=== PATIENT | male | born 1950 | race Caucasian/White ===

== ENCOUNTER 2017-08-20 06:10 | Outpatient (CLI) | payer BC ==
--- NOTE | ~2017-08-20 | HEMODYNAMI ---
PATIENT:MERNA VALDEZ MEDICAL RECORD: [id number] : 54 LOCATION:[facility] ADMISSION DATE: 08/20/17 Generatedon:08/20/20178:10 Patient name: MERNA VALDEZ Patient #: [id number] SSN: : 1950 Date of study: 08/20/2017 Page: Of Hemodynamic Procedure Report Patient Data Patient Demographics Procedure consent was obtained First Name: MERNA Gender: Male Last Name: JOSÉ MIGUEL : 1950 Patient #: [id number] Age: 67 year(s) Race: Additional ID: [id number] Contact details Address: [address] [place] [address] State: [place] City: [facility] Zip code: [address] Past Medical History Allergies: No known allergies Admission Admission Data Admission Date: 08/20/2017 Admission Time: 7:30 Procedure Procedure Types Cath Procedure Diagnostic Procedure LHC LHC w/Coronaries PCI Procedure Coronary Stent Initial Miscellaneous Procedures Moderate Sedation up to 30 minutes Peripheral Cath Diagnostic Procedure Cath Peripheral Rpecn-Fqhyxws-Iui-Off Procedure Description Procedure Date Procedure Date: 08/20/2017 Procedure Start Time: 7:46 Procedure End Time: 8:09 Procedure Staff Name Function Jose Campbell MD Performing Physician Patricio Hernandez RT Scrub Duc Krueger RN Nurse Carlitos Rivera RT Monitor Procedure Data Cath Procedure Fluoroscopy Diagnostic fluoroscopy Total fluoroscopy Time: 2.7 time: 2.7 min min Diagnostic fluoroscopy Total fluoroscopy dose: 707 dose: 707 mGy mGy Contrast Material Contrast Material Type Amount (ml) Isovue 300 132 Entry Location Entry Primary Successful Side Size Upsize Upsize Entry Closure Succes sful Closure Location (Fr) 1 (Fr) 2 (Fr) Remarks Device Remarks Femoral Left 6 Fr Exoseal artery Short Estimated blood loss: 10 ml Diagnostic catheters Device Type Used For End Catheter Placement Cordis 5Fr Pigtail Procedure Catheter (MP) Cordis 5Fr JL 4.0 Procedure Catheter (MP) Cordis 5Fr 3DRC Catheter Procedure (MP) Procedure Complications No complications Procedure Medications Medication Administration Route Dosage Oxygen NC 2 l/min Heparin Flush Bag added to field 2 bags (1000units/500ml NS) 0.9% NaCl I.V. 100 ml/hr Fentanyl I.V. 50 mcg Versed I.V. 1 mg Fentanyl I.V. 50 mcg Versed I.V. 1 mg Fentanyl I.V. 50 mcg Heparin Bolus I.V. 4000 units Fentanyl I.V. 50 mcg Hemodynamics Rest Heart Rate: 62 (bpm) Pressure Samples Time Site Value (mmHg) Purpose Heart Use Rate(bpm) 7:48 LV 222/18,4 Snapshot 66 7:51 AO 117/54(77) Snapshot 68 Snapshots Pre Cath Intra NCS Post Cath Vital Signs Time Heart Resp SPO2 etCO2 [id number] NIBP (mmHg) Rhythm Pain Sedation Rate (ipm) (%) (mmHg) (mmHg) Status Level (bpm) 7:15:42 55 17 92 0 0 163/73(120) NSR 0 (11) 10(A) , No pain 7:20:36 60 17 98 0 0 179/89(141) NSR 0 (11) 10(A) , No pain 7:25:34 59 18 95 0 0 150/72(117) NSR 0 (11) 10(A) , No pain 7:30:25 62 17 94 0 0 144/76(105) NSR 0 (11) 10(A) , No pain 7:35:09 64 19 94 0 0 134/83(118) NSR 0 (11) 10(A) , No pain 7:39:54 64 18 93 0 0 136/82(118) NSR 0 (11) 10(A) , No pain 7:44:41 67 19 94 0 0 145/78(135) NSR 0 (11) 10(A) , No pain 7:49:23 64 18 92 0 0 132/74(119) NSR 0 (11) 9(A) , No pain 7:54:10 70 18 93 0 0 148/72(117) NSR 0 (11) 9(A) , No pain 7:59:36 78 17 93 0 0 141/83(127) NSR 0 (11) 9(A) , No pain 8:06:01 70 17 94 0 0 155/83(129) NSR 0 (11) 9(A) , No pain Medications Time Medication Route Dose Verified Delivered Reason Notes Effectiveness by by 7:20:04 Oxygen NC 2 Jose Xavier Per physician l/min Adrian Krueger RN 7:20:12 Heparin Flush added 2 Jose Lozanoy used for Bag to bags Adrian Krueger RN procedure (1000units/500ml field NS) 7:20:22 0.9% NaCl I.V. 100 Jose Lozanoy Per physician ml/hr Adrian Krueger RN 7:44:47 Fentanyl I.V. 50 Jose Duc for sedation mcg Adrian Krueger RN 7:44:53 Versed I.V. 1 mg Jose Lozanoy for sedation Adrian Krueger RN 7:50:00 Fentanyl I.V. 50 Jose Duc for sedation mcg Adrian Krueger RN 7:50:03 Versed I.V. 1 mg Jose Lozanoy for sedation Adrian Krueger RN 7:52:55 Fentanyl I.V. 50 Jose Lozanoy for sedation mcg Adrian Krueger RN 7:56:04 Heparin Bolus I.V. 4000 Jose Duc for units Adrian Krueger RN anticoagulation 7:59:43 Fentanyl I.V. 50 Jose Lozanoy for sedation mcg Adrian Krueger RN Procedure Log Time Note 6:46:16 Informed consent obtained and on chart 6:46:47 Diagnostic Cath Status : Elective 7:00:58 Patricio Hernandez RT(R) (CV) sent for patient. Start room use. 7:05:05 Time tracking: Regular hours 7:05:09 Plan of Care:Hemodynamics will remain stable., Cardiac rhythm will remain stable., Comfort level will be maintained., Respiratory function will remain adequate., Patient/ family verbilizes understanding of procedure., Procedure tolerated without complication., Recovers from procedure without complications.. 7:08:20 Patient received from Pre/Post Procedure Room to CCL 1 Alert and oriented. Tansferred to table in Supine position. 7:08:21 Warm blankets applied, and sheridan hugger turned on for patient comfort. 7:08:22 Correct patient and procedure confirmed by team. 7:08:23 ECG and BP/O2 sat monitors applied to patient. 7:14:37 Vital chart was started 7:20:04 Oxygen 2 l/min NC was administered by Duc Krueger RN; Per physician; 7:20:12 Heparin Flush Bag (1000units/500ml NS) 2 bags added to field was administered by Duc Krueger RN; used for procedure; 7:20:22 0.9% NaCl 100 ml/hr I.V. was administered by Duc Krueger RN; Per physician; 7:22:32 Baseline sample Acquired. 7:22:55 Rhythm: sinus rhythm 7:22:57 Full Disclosure recording started 7:23:31 H&P Date Dictated: 08/11/2017 Within 30 days and on chart., H&P Addendum completed by physician on day of procedure. (MUST COMPLETE FOR ALL OUTPATIENTS). 7:23:33 Pre-procedure instructions explained to patient. 7:23:33 Pre-op teaching completed and patient verbalized understanding. 7:23:40 Family in patients room. 7:23:41 Patient NPO since Midnight. 7:23:43 Is the patient allergic to Iodine/contrast media? No. 7:23:45 Is patient on blood thinner?Yes 7:23:48 ACC The patient was administered the following blood thiners within the last 24 hours: ACCEffient 7:23:49 Patient diabetic? Yes. 7:23:51 If diabetic: On Metformin? No 7:23:58 Previous problem with sedation/anesthesia? No ? 7:24:00 Snore? Yes 7:24:06 Sleep apnea? No 7:24:08 Deviated septum? No 7:24:09 Opens mouth fully? Yes 7:24:10 Sticks out tongue? Yes 7:24:13 Airway obstruction? Yes COPD 7:24:17 Dentures? No ? 7:24:27 Pre procedure: right dorsailis pedis pulse Doppler 7:24:32 Pre procedure: left dorsailis pedis pulse Doppler 7:24:35 Modified Tommy's test Ulnar < 7 seconds 7:24:37 Patient pain scale 0/10 ?. 7:24:57 IV patent on arrival in left forearm with 0.9% NaCl at [facility]. 7:24:59 Lab results completed and on chart. 7:25:07 Bilateral groins area was prepped with chlora-prep and draped in sterile fashion 7:25:08 Right Radial area was prepped with chlora-prep and draped in sterile fashion 7:25:09 Alarms reviewed by R. N. 7:25: Sharps counted by scrub and verified by R.N. 7:25:46 Physician paged 7:30:55 Zero performed for pressure channel P1 7:43:36 PERCUTANEOUS ENTRY 19GA needle opened to sterile field. 7:43:39 --------ALL STOP TIME OUT------ 7:43:39 Final Timeout: patient, procedure, and site verified with staff and physician. All members of the team are in agreement. 7:43:43 Bilateral groins site verified by team. 7:43:53 Physical assessment completed. ASA score P 2 - A patient with mild systemic disease as per Jose Campbell MD. 7:43:57 Sedation plan: IV Moderate Sedation Versed, Fentanyl 7:44:47 Fentanyl 50 mcg I.V. was administered by Duc Krueger RN; for sedation; 7:44:53 Versed 1 mg I.V. was administered by Duc Krueger RN; for sedation; 7:45:39 Use device set Femoral Dx 7:45:40 Tegaderm 4 x 4 opened to sterile field. 7:45:41 Acist Hand Control opened to sterile field. 7:45:41 Acist Manifold opened to sterile field. 7:45:43 Acist Syringe opened to sterile field. 7:45:43 Bag Decanter opened to sterile field. 7:45:43 Medline Cath Pack opened to sterile field. 7:45:44 St Erasmo 260cm J .035 wire opened to sterile field. 7:45:45 Diagnostic Infinity 5Fr Multipack catheter opened to sterile field. 7:45:52 Terumo 6Fr [place] Sheath opened to sterile field. 7:45:59 Procedure started. 7:46:03 Local anesthetic to left femerol artery with Lidocaine 2% by Jose Campbell MD.INITIAL ACCESS ONLY 7:47:05 A 6 Fr Short sheath was inserted into the Left Femoral artery 7:47:45 A Cordis 5Fr Pigtail Catheter (MP) was advanced over the wire and used for Procedure. 7:48:19 LV angiography performed. 7:48:25 LV gram done using HORNER 7:48:45 EF : 55 % 7:49:21 Injector settings: Ml/sec: 10, Volume: 20, 7:49:45 Abdominal Aortagram was performed. 7:49:51 Left leg runoff performed. 7:49:52 Right leg runoff performed. 7:50:00 Fentanyl 50 mcg I.V. was administered by Duc Krueger RN; for sedation; 7:50:03 Versed 1 mg I.V. was administered by Duc Krueger RN; for sedation; 7:50:32 Injector settings: Ml/sec: 10, Volume: 20, 7:50:36 Catheter removed. 7:50:45 A Cordis 5Fr JL 4.0 Catheter (MP) was advanced over the wire and used for Procedure. 7:51:38 LCA angiography performed. 7:52:43 Catheter removed. 7:52:49 A Cordis 5Fr 3DRC Catheter (MP) was advanced over the wire and used for Procedure. 7:52:55 Fentanyl 50 mcg I.V. was administered by Duc Krueger RN; for sedation; 7:53:29 RCA angiography performed. 7:53:33 Catheter removed. 7:53:53 Affinity Therapeuticstronic Launcher 6Fr AR 1.0 guide catheter opened to sterile field. 7:53:53 Yadav Whisper J 300cm 0.014 guide wire opened to sterile field. 7:53:54 Lean Train BasixCompak Inflation Kit opened to sterile field. 7:56:04 Heparin Bolus 4000 units I.V. was administered by Duc Krueger RN; for anticoagulation; 7:56:05 6 Fr AR 1 guide catheter was inserted over the wire 7:56:18 Study PCI Site: [place] pRCA has 80% stenosis. 7:56:20 ACC Pre-intervention GREGG Flow is 3. 7:57:19 Whisper wire advanced. 7:57:40 Wire advanced across lesion. 7:58:11 Inflation Number: 1 A Holstein OTW 3.5 x 15 stent was prepped and advanced across the Prox RCA. The stent was deployed at 23 SARAH for 0:10 (min:sec). 7:59:22 ACC Post-intervention GREGG Flow is 3. 7:59:23 Stent catheter was removed intact over wire. 7:59:24 Wire removed. 7:59:24 Guide catheter removed. 7:59:43 Fentanyl 50 mcg I.V. was administered by Duc Krueger RN; for sedation; 8:02:05 Cordis 6Fr Exoseal opened to sterile field. 8:02:20 Sheath removed intact; hemostasis achieved with Exoseal to the Left Femoral artery. 8:02:25 Procedure ended.(Physican Out) 8:02:41 Fluoroscopy time 02.70 minutes. 8:02:45 Fluoroscopy dose: 707 mGy 8:02:45 Flurop Dose total: 707 8:02:50 Contrast amount:Isovue 300 132ml. 8:03:20 Sharps counted by scrub and verified by R.N. 8:03:35 Insertion/operative site no bleeding no hematoma. 8:03:40 Post-op/insertion site Left Femoral artery dressed using a 4 x 4 and Tegaderm. 8:03:42 Post Procedure Pulses reassessed and unchanged 8:03:45 Post-procedure physical assessment completed. ASA score P 2 - A patient with mild systemic disease as per Joes Campbell MD. 8:03:47 Post procedure rhythm: unchanged. 8:03:50 Estimated blood loss: 10 ml 8:03:52 Post procedure instruction explained to patient.Patient verbalizes understanding. 8:03:53 Patient needs reinforcement of post procedure teaching. 8:04:13 Procedure type changed to Cath procedure, Diagnostic procedure, LHC, LHC w/Coronaries, PCI procedure, Coronary Stent Initial, Miscellaneous Procedures, Moderate Sedation up to 30 minutes, Peripheral Cath Diagnostic Procedure, Cath Peripheral, Cltre-Dliwobs-Wkp-Off 8:04:14 Procedure and supply charges have been captured, reviewed, submitted and are correct. 8:05:26 Procedure Complication : No complications 8:09:29 Vital chart was stopped 8:09:30 See physician's report for complete and final results. 8:09:33 Report given to Pre/Post Procedure Room. 8:09:36 Patient transfered to Pre/Post Procedure Room with Stretcher. 8:09:38 Procedure ended. 8:09:38 Full Disclosure recording stopped 8:09:49 End room use (Document Last) Intervention Summary Intervention Notes Time ActionType Lesion and Equipment Action# Pressure Duration Attributes Used 7:58:11 Place stent Prox RCA Holstein OTW 1 23 00:10 3.5 x 15 stent Device Usage Item Name Manufacture Quantity Catalog Hospital Part Current Minim al Lot# / Number Charge Number Stock Stock Serial# Code PERCUTANEOUS Cook Medical 1 [id number] [id number] 5 ENTRY 19GA needle Tegaderm 4 x 3M 1 [id number] 191792 405791 831405 5 4 Acist Hand Acist 1 35735 118075 392857 682454 5 Control Medical Systems Inc Acist Acist 1 18385 498438 049370 405911 5 Manifold Medical Systems Inc Acist Acist 1 33567 012956 150667 219369 20 Syringe Medical Systems Inc Bag Decanter Microtek 1 2002S 327714 77058 005749 5 Medical Inc. Medline Cath Cardinal 1 [id number] 578666 38038 068464 5 [facility] Health St Erasmo St Erasmo 1 071040 288164 285337 037786 30 260cm J .035 wire Diagnostic Cardinal 1 [id number] 159056 58233 800325 30 Infinity 5Fr Health Multipack catheter Terumo 6Fr Terumo 1 [id number] 241779 007909 036159 40 Atwater Sheath Cordis 5Fr Cardinal 1 667800 5 Pigtail Health Catheter (MP) Cordis 5Fr Cardinal 1 464698 5 JL 4.0 Health Catheter (MP) Cordis 5Fr Cardinal 1 812210 5 3DRC Health Catheter (MP) Medtronic Medtronic 1 [id number] 537615 90981 527457 1 Launcher 6Fr AR 1.0 guide catheter Yadav Yadav 1 [id number] 457903 229883 863109 5 Whisper J Vascular 300cm 0.014 guide wire Merit Merit 1 [id number] 830084 028963 427912 15 [facility] Medical Inflation Kit Holstein OTW 3.5 Medtronic 1 [id number] 975949 8619997 261536 5 [id number] x 15 stent Cordis 6Fr Cardinal 1 [id number] 964762 598892 391047 10 [facility] netZentry Signature Audit [place] Stage Time Signature Unsigned Intra-Procedure 08/20/2017 Carlitos Rivera 8:10:22 AM RT(R) Signatures Monitor : Carlitos Rivera RT Signature : Date : Time : [facility] [address] [place] [address]
--- NOTE | ~2017-08-20 | OP ---
PATIENT NAME: MERNA VALDEZ MEDICAL RECORD: [id number] :54 LOCATION:D.CAT ADMISSION DATE: SURGEON: IGNACIO DUEÑAS MD DATE OF OPERATION: 08/20/2017 PROCEDURE: 1. Aortofemoral runoff. 2. Abdominal aortography. INDICATION: Claudication and peripheral vascular disease. PROCEDURE IN DETAIL: After informed consent was obtained and after detailed explanation of risks, benefits as well as alternative therapies, the patient elected to proceed with angiogram and aortofemoral runoff. The left femoral area had a preexisting sheath from coronary intervention. All catheters were exchanged through this sheath. FINDINGS: The abdominal aortography was performed. The catheter was pulled down for aortofemoral runoff. Abdominal aortography reveals no significant abdominal aortic disease. No dissection or aneurysm formation. LEFT LEG: A. Iliac: The common internal and external iliacs have moderate irregularities, but no flow-limiting stenosis. B. Femoral system: The common and deep femoral are widely patent. Superficial femoral has previously placed stents. There is 50% to 70% in-stent restenosis throughout the stented area. C. Popliteal and infrapopliteal vessels are patent with good 3-vessel runoff to the foot, although mildly diffusely diseased. RIGHT LEG: A. Iliac: The common internal and external iliacs have moderate irregularities, but no flow-limiting stenosis. B. Femoral system: Common and deep femoral are widely patent. The superficial femoral has a relatively long area of 80% to 90% stenosis in the mid distal aspect of this vessel. C. Popliteal and infrapopliteal vessels are patent with good 3-vessel runoff to the foot, although mildly diffusely diseased. OVERALL IMPRESSION: Significant disease of the right superficial femoral artery amenable to atherectomy and transcatheter revascularization. TRANSINT:[id number] Voice Confirmation ID: [id number] DOCUMENT ID: [id number] IGNACIO DUEÑAS MD CC: [id number] DICTATION DATE: 08/20/17809 NETWORK MGR: 08/20/1745 PRE [facility] [address] [place] [id number]
--- NOTE | ~2017-08-20 | OP ---
PATIENT NAME: MERNA VALDEZ MEDICAL RECORD: [id number] :54 LOCATION:D.CAT ADMISSION DATE: SURGEON: IGNACIO DUEÑAS MD DATE OF OPERATION: 08/20/2017 PROCEDURES: 1. PTCA stent to RCA. 2. Left heart catheterization. 3. Selective coronary angiography. 4. Left ventriculogram. INDICATION: Angina and coronary artery disease. PROCEDURE IN DETAIL: After informed consent was obtained and after detailed explanation of risks, benefits as well as alternative therapies, the patient elected to proceed with angiogram and angioplasty. The left femoral area was prepped and draped in normal sterile fashion. Left femoral artery was cannulated via modified Seldinger technique with placement of 6-Setswana sheath. All catheters were exchanged through this sheath. FINDINGS: The left ventriculogram was performed in standard 30-degree HORNER view, reveals good cardiac wall motion throughout all segments. Overall ejection fraction estimated at 55%. SELECTIVE CORONARY ANGIOGRAPHY: 1. Left main showed no significant angiographic disease. 2. Left anterior descending has previously placed stents. These stents are patent. The LAD elsewise has moderate irregularities, but no flow-limiting stenosis. 3. The left circumflex has a total occlusion of the first obtuse marginal. This is unchanged from previous angiography. 4. The right coronary has previously placed stents. The stents are widely patent. There is, however, a new 80% stenosis proximally. PTCA STENT OF THE RCA: The stent used is a 3.5 x 15 mm Govind taken to 23 atmospheres. Result was 0% residual stenosis. OVERALL IMPRESSION: Successful percutaneous transluminal coronary angioplasty stent of the right coronary artery going from 80% initial stenosis to 0% residual. TRANSINT:[id number] Voice Confirmation ID: [id number] DOCUMENT ID: [id number] IGNACIO DUEÑAS MD CC: [id number] DICTATION DATE: 08/20/1710 FAMILY MEDICINE RESIDENT: 08/20/17 0945 PRE [facility] [address] [place] [address]
[~2017-08-20 06:10] MED LIST: BAYER CHEWABLE81 MG PO; BENICAR40 MG PO; DEXILANT30 MG PO; EFFIENT10 MG PO; FISH OIL 1,0001 CA1; GLUCOPHAGE500 MG PO; JANUMET 50-5001 TAB; LOPRESSOR25 MG PO; VICTOZA0.6 MG/0.1 SQ
[2017-08-20] MEDS ORDERED: SOLIQUA SQ (06:24)
[2017-08-20 06:34] VITALS: BP 136/66; Ht 185.4 cm
[2017-08-20 06:39] LABS: BASOPHILS 0.5 % (0-2); EOSINOPHILS 3.5 % (0-7); HEMATOCRIT 53.1 % (42.0-54.0); HEMOGLOBIN 17.8 g/dL (13.5-17.5); IMMATURE GRANULOCYTES 0.3 % (0-5); LYMPHOCYTES 36.9 % (15-50); MCH 31.3 pg (26.0-34.0); MCHC 33.5 g/dL (31.0-37.0); MCV 93.5 fL (80.0-100.0); MEAN PLATELET VOLUME 10.1 fL (7.4-10.4); MONOCYTES 8.2 % (2-11); NEUTROPHILS 50.6 % (40-80); PLATELET COUNT 238 10x3/uL (130-400); RBC 5.68 10x6/uL (4.20-6.10); RDW 14.6 % (11.5-14.5); WBC 10.2 10x3/uL (4.8-10.8)
[2017-08-20 06:50] LABS: CALC OSMOLALITY 280 mosm/kg (275-300); CALCIUM 9.2 mg/dL (8.5-10.1); CARBON DIOXIDE 29.9 mmol/L (21.0-32.0); CHLORIDE - SERUM 102 mmol/L (98-107); CREATININE - SERUM 0.9 mg/dL (0.6-1.3); POTASSIUM - SERUM 4.1 mmol/L (3.5-5.1); SODIUM 139 mmol/L (136-145); UREA NITROGEN 17 mg/dL (7-18); eGFR NON AFRICAN AMERICAN 90 mL/min (90-120)
[2017-08-20 06:51] LABS: GLUCOSE 124 mg/dL (74-106)
--- NOTE | 2017-08-20 08:32 | NUR ---
0820 RECEIVED PT FROM FINISH MACHINE TENDER, SEE ADMIT ASSESSMENT. DRESSING TO LEFT GROIN IS CDI, AREA IS SOFT AND NONTENDER. PEDAL PULSES PALPABLE. NO C/O CHEST DISCOMFORT OR NAUSEA. RR EVEN AND UNLABORED, VSS. FAMILY AT BEDSIDE AND CALL LIGHT IN REACH. INSTRUCTIONS FOR PT TO KEEP LEFT LEG STRAIGHT AND HEAD TO PILLOW, VERBALIZE UNDERSTANDING. CONTINUE POC.
--- NOTE | 2017-08-20 08:43 | NUR ---
0835 LEFT GROIN DRESSING CDI, AREA SOFT AND NONTENDER. RR EVEN AND UNLABORED. VSS. FAMILY AT BEDSIDE.
--- NOTE | 2017-08-20 09:00 | NUR ---
0900 DRESSING CDI, PEDAL PULSES PALPABLE. VSS, AT BEDSIDE
--- NOTE | 2017-08-20 10:34 | NUR ---
1015 DRESSING TO LEFT GROIN IS CDI, AREA SOFT AND NONTENDER. PEDAL PULSES PALPABLE. VSS, RR EVEN AND UNLABORED. CALL LIGHT IN REACH, WILL CONTINUE TO MONITOR.
--- NOTE | 2017-08-20 11:00 | NUR ---
1100 DRESSING CDI, AREA SOFT AND NONTENDER. VSS. RR EVEN AND UNLABORED, AT BEDSIDE.
--- NOTE | 2017-08-20 12:36 | NUR ---
1145 HOB ELEVATED 45 DEGREES, LEFT GROIN CATH SITE DRESSING CDI, NO BLEEDING OR HEMATOMA NOTED. SANDWICH AND PO FLUIDS SERVED. AT BEDSIDE, PT DENIES ANY C/O AT THIS TIME.
--- NOTE | 2017-08-20 12:38 | NUR ---
1210 PT HAS SHAN SANDWICH AND PO FLUIDS WITH NO C/O NAUSEA. IV DC'D WITH CATH INTACT. PT DRESSING FOR DC TO HOME.
--- NOTE | 2017-08-20 12:43 | NUR ---
1220 DC INSTRUCTIONS REVIEWED WITH PT AND WHO VERBALIZE UNDERSTANDING. PT ESCORTED TO PRIVATE AUTO VIA WC BY NURSE WITH DRIVING HIM HOME. PT DENIES ANY C/O UPON DC TO HOME.
== END 2017-08-20 12:20 | disposition home or self-care (01) ==
LOC: D.CATH 06:10
PROVIDERS: Internal Medicine Interventional Cardiology
DX: I25.119 Atherosclerotic heart disease of native coronary artery with unspecified angina pectoris (principal); I10 Essential (primary) hypertension; E78.5 Hyperlipidemia, unspecified; I70.209 Unspecified atherosclerosis of native arteries of extremities, unspecified extremity; Z01.812 Encounter for preprocedural laboratory examination

== ENCOUNTER 2017-12-13 07:26 | Outpatient (CLI) | payer BC ==
[~2017-12-13] VITALS: Ht 185.4 cm; Wt 104.5 kg
--- NOTE | ~2017-12-13 | HEMODYNAMI ---
PATIENT:MERNA VALDEZ MEDICAL RECORD: [id number] : 54 LOCATION:[facility] ADMISSION DATE: 12/13/17 Generatedon:12/13/201710:33 Patient name: MERNA VALDEZ Patient #: [id number] SSN: : 1950 Date of study: 12/13/2017 Page: Of Hemodynamic Procedure Report Patient Data Patient Demographics Procedure consent was obtained First Name: MERNA Gender: Male Last Name: JOSÉ MIGUEL : 1950 Patient #: [id number] Age: 67 year(s) Race: Additional ID: [id number] Contact details Address: [address] [place] [address] State: [place] City: [facility] Zip code: [address] Past Medical History Allergies: No known allergies Admission Admission Data Admission Date: 12/13/2017 Admission Time: 7:26 Admit Source: Other Lab Results Lab Result Date: 12/13/2017 Lab Result Time: 8:15 Biochemistry Name Units Result Min Max BUN mg/dl 16 --(---*)-- 7 18 Creatinine mg/dl 1.1 --(--*-)-- 0.6 1.3 CBC Name Units Result Min Max Hematocrit % 56.1 --(----)*- 42 54 Hemoglobin g/dl 18.3 --(----)*- 13.5 17.5 Procedure Procedure Types Cath Procedure Diagnostic Procedure LHC Coronaries only PCI Procedure Coronary Atherectomy Atherectomy w/Stent Coronary Initial Miscellaneous Procedures Moderate Sedation up to 45 minutes Peripheral vascular Intervention Procedure Description Procedure Date Procedure Date: 12/13/2017 Procedure Start Time: 9:31 Procedure End Time: 10:30 Procedure Staff Name Function Jose Campbell MD Performing Physician Viktoriya Quach RT Scrub Duc Krueger RN Nurse Jimmy Begum RT Monitor Procedure Data Cath Procedure Fluoroscopy Diagnostic fluoroscopy Total fluoroscopy Time: time: 18.4 min 18.4 min Diagnostic fluoroscopy Total fluoroscopy dose: dose: 1324 mGy 1324 mGy Contrast Material Contrast Material Type Amount (ml) Isovue 300 354 Entry Location Entry Primary Successful Side Size Upsize Upsize Entry Closure Succes sful Closure Location (Fr) 1 (Fr) 2 (Fr) Remarks Device Remarks Femoral Left 6 Fr 6 Fr 6 Fr Exoseal artery Short Long Short Estimated blood loss: 10 ml Diagnostic catheters Device Type Used For End Catheter Placement DIAGNOSTIC IMT 5Fr Procedure Catheter ([id number]) MULTIPACK JL 4.0 5Fr Procedure catheter MULTIPACK 3DRC 5Fr Procedure catheter Procedure Complications No complications Procedure Medications Medication Administration Route Dosage Oxygen NC 2 l/min Effient P.O. 10 mg Heparin Flush Bag added to field 2 bags (1000units/500ml NS) 0.9% NaCl I.V. 100 ml/hr Fentanyl I.V. 50 mcg Versed I.V. 1 mg Fentanyl I.V. 50 mcg Versed I.V. 1 mg Heparin Bolus I.V. 5000 units Fentanyl I.V. 50 mcg Versed I.V. 1 mg Fentanyl I.V. 50 mcg Versed I.V. 1 mg Heparin Bolus I.V. 4000 units Versed I.V. 1 mg Versed I.V. 1 mg Hemodynamics Rest HGB: 18.3 (g/dl) Heart Rate: 55 (bpm) Snapshots Pre Cath Intra NCS Post Cath Vital Signs Time Heart Resp SPO2 etCO2 NIBP (mmHg) Rhythm Pain Sedation Rate (ipm) (%) (mmHg) Status Level (bpm) 9:11:59 56 17 95 3 182/80(135) NSR 0 (11) 10(A) , No pain 9:16:52 65 17 96 43.2 174/80(136) NSR 0 (11) 10(A) , No pain 9:21:37 58 17 94 15.1 158/72(137) NSR 0 (11) 10(A) , No pain 9:27:00 60 17 94 15.9 152/69(92) NSR 0 (11) 10(A) , No pain 9:31:45 65 16 92 38.6 140/71(102) NSR 0 (11) 9(A) , No pain 9:37:01 68 18 94 37.1 130/79(118) NSR 0 (11) 9(A) , No pain 9:42:18 73 18 96 39.4 155/73(103) NSR 0 (11) 9(A) , No pain 9:47:03 77 19 96 33.3 141/72(100) NSR 0 (11) 9(A) , No pain 9:51:45 78 19 96 39.4 144/70(98) NSR 0 (11) 9(A) , No pain 9:56:28 79 17 94 29.5 151/78(110) NSR 0 (11) 9(A) , No pain 10:01:08 81 18 94 36.4 147/76(114) NSR 0 (11) 9(A) , No pain 10:05:51 81 18 96 47 164/79(127) NSR 0 (11) 9(A) , No pain 10:10:36 81 19 96 28 171/85(112) NSR 0 (11) 9(A) , No pain 10:15:25 83 18 97 19.7 175/84(135) NSR 0 (11) 9(A) , No pain 10:20:52 80 16 97 21.2 178/92(142) NSR 0 (11) 9(A) , No pain 10:25:51 80 10 97 26.5 Measuring NSR 0 (11) 9(A) , No pain 10:26:22 80 10 97 26.5 175/87(144) NSR 0 (11) 9(A) , No pain 10:31:03 77 11 0 No Cuff NSR 0 (11) 9(A) , No pain Medications Time Medication Route Dose Verified Delivered Reason Notes Effectiveness by by 9:12:17 Oxygen NC 2 Jose Xavier Per physician l/min Adrian Krueger RN 9:12:26 Effient P.O. 10 mg Jose Xavier for Adrian Krueger RN antiplatelet therapy 9:12:35 Heparin Flush added 2 Jose Xavier used for Bag to bags Adrian Krueger RN procedure (1000units/500ml field NS) 9:12:43 0.9% NaCl I.V. 100 Jose Xavier Per physician ml/hr Adrian Krueger RN 9:28:47 Fentanyl I.V. 50 Jose Xavier for sedation mcg Adrian Krueger RN 9:28:53 Versed I.V. 1 mg Jose Duc for sedation Adrian Krueger RN 9:34:36 Fentanyl I.V. 50 Jose Duc for sedation mcg Adrian Krueger RN 9:34:40 Versed I.V. 1 mg Jose Duc for sedation Adrian Krueger RN 9:42:45 Heparin Bolus I.V. 5000 Jose Duc for units Adrian Krueger RN anticoagulation 9:42:50 Fentanyl I.V. 50 Jose Duc for sedation mcg Adrian Krueger RN 9:42:54 Versed I.V. 1 mg Jose Duc for sedation Adrian Krueger RN 9:51:31 Fentanyl I.V. 50 Jose Duc for sedation mcg Adrian Krueger RN 9:51:36 Versed I.V. 1 mg Jose Duc for sedation Adrian Krueger RN 10:02:33 Heparin Bolus I.V. 4000 Jose Duc for units Adrian Krueger RN anticoagulation 10:12:25 Versed I.V. 1 mg Jose Duc for sedation Adrian Krueger RN 10:18:46 Versed I.V. 1 mg Jose Duc for sedation Adrian Krueger RN Procedure Log Time Note 9:00:44 Duc Krueger RN sent for patient. Start room use. 9:04:54 Informed consent obtained and on chart 9:05:39 Admit Source: Other 9:05:42 Diagnostic Cath status Elective 9:05:49 Time tracking: Regular hours 9:05:52 Plan of Care:Hemodynamics will remain stable., Cardiac rhythm will remain stable., Comfort level will be maintained., Respiratory function will remain adequate., Patient/ family verbilizes understanding of procedure., Procedure tolerated without complication., Recovers from procedure without complications.. 9:05:56 Patient received from Pre/Post Procedure Room to CCL 1 Alert and oriented. Tansferred to table in Supine position. 9:05:57 Warm blankets applied, and sheridan hugger turned on for patient comfort. 9:05:58 Correct patient and procedure confirmed by team. 9:05:58 ECG and BP/O2 sat monitors applied to patient. 9:06:30 H&P Date Dictated: 12/13/2017 New H&P dictated by physician.. 9:06:50 Procedure type changed to Cath procedure, Diagnostic procedure, LHC, Coronaries only, PCI procedure, Coronary Atherectomy, Atherectomy w/Stent Coronary Initial, Miscellaneous Procedures, Moderate Sedation up to 45 minutes, Peripheral vascular Intervention 9:11:01 Vital chart was started 9:12:17 Oxygen 2 l/min NC was administered by Duc Krueger RN; Per physician; 9:12:26 Effient 10 mg P.O. was administered by Duc Krueger RN; for antiplatelet therapy; 9:12:35 Heparin Flush Bag (1000units/500ml NS) 2 bags added to field was administered by Duc Krueger RN; used for procedure; 9:12:43 0.9% NaCl 100 ml/hr I.V. was administered by Duc Krueger RN; Per physician; 9:19:21 Baseline sample Acquired. 9:19:31 Rhythm: sinus rhythm 9:19:33 Full Disclosure recording started 9:19:37 Pre-procedure instructions explained to patient. 9:19:37 Pre-op teaching completed and patient verbalized understanding. 9:19:39 Family in waiting room. 9:19:40 Patient NPO since Midnight. 9:19:46 Patient allergic to No known allergies 9:19:48 Is the patient allergic to Iodine/contrast media? No. 9:19:54 Is patient on blood thinner?Yes 9:19:56 ACC The patient was administered the following blood thiners within the last 24 hours: ACCEffient 9:19:59 Patient diabetic? Yes. 9:20:00 If diabetic: On Metformin? No 9:20:03 Previous problem with sedation/anesthesia? No ? 9:20:04 Snore? Yes 9:20:04 Sleep apnea? No 9:20:06 Deviated septum? No 9:20:07 Opens mouth fully? Yes 9:20:07 Sticks out tongue? Yes 9:20:09 Airway obstruction? No ? 9:20:11 Dentures? No ? 9:20:15 Pre procedure: right dorsailis pedis pulse Doppler 9:20:17 Pre procedure: left dorsailis pedis pulse Doppler 9:20:19 Patient pain scale 0/10 ?. 9:20:22 IV patent on arrival in left forearm with 0.9% NaCl at [facility]. 9:22:21 Lab Result : BUN 16 mg/dl 9:: Lab Result : Creatinine 1.1 mg/dl 9:: Lab Result : Hemoglobin 18.3 g/dl :: Lab Result : Hematocrit 56.1 % 9::29 Lab results completed and on chart. 9:22:33 Bilateral groins area was prepped with chlora-prep and draped in sterile fashion 9::39 Alarms reviewed by R. N. 9::39 Sharps counted by scrub and verified by R.N. 9:22:48 Use device set Femoral Dx 9:22:49 ACIST Syringe (99387) opened to sterile field. 9:22:50 Medline Cath Pack ([id number]) opened to sterile field. 9:22:51 DIAGNOSTIC Multipack 5Fr catheter set (BY5780) opened to sterile field. 9:22:51 Bag Decanter (2002S) opened to sterile field. 9:22:54 DIAGNOSTIC WIRE .035 260cm J wire (931852) opened to sterile field. 9:22:57 PERCUTANEOUS ENTRY 19GA needle opened to sterile field. 9:22:58 Tegaderm 4 x 4 (1626W) opened to sterile field. 9:22:59 ACIST Manifold (35348) opened to sterile field. 9:23:00 ACIST Hand Control (31959) opened to sterile field. 9:23:58 INFLATOR Merit BasixCompak (PE1706) opened to sterile field. 9:24:13 SHEATH 6FR Lando ([id number]) opened to sterile field. 9:24:32 Physician paged 9:28:25 Physician arrived 9:: --------ALL STOP TIME OUT------ 9:28:26 Final Timeout: patient, procedure, and site verified with staff and physician. All members of the team are in agreement. 9:28:29 Bilateral groins site verified by team. 9::32 Physical assessment completed. ASA score P 2 - A patient with mild systemic disease as per Jose Campbell MD. 9:28:37 Sedation plan: IV Moderate Sedation Medication:Versed, Fentanyl 9:28:47 Fentanyl 50 mcg I.V. was administered by Duc Krueger RN; for sedation; 9:28:53 Versed 1 mg I.V. was administered by Duc Krueger RN; for sedation; 9:31:45 Procedure started. 9:31:48 Local anesthetic to left femerol artery with Lidocaine 2% by Jose Campbell MD.INITIAL ACCESS ONLY 9:31:55 A 6 Fr Short sheath was inserted into the Left Femoral artery 9:32:20 TORQUE DEVICE PLASTIC .038 ( TD01) opened to sterile field. 9:32:20 GLIDE WIRE Angled Super Stiff 180cm (IG2208) opened to sterile field. 9:32:38 Zero performed for pressure channel P1 9:33:09 A DIAGNOSTIC IMT 5Fr Catheter ([id number]) was advanced over the wire and used for Procedure. 9:33:16 glide wire wire advanced. 9:33:27 glide wire advanced around horn. 9:33:35 CHOICE PT Extra Support J 300cm guide wire ([id number]) opened to sterile field. 9:34:08 SHEATH 6FR Destination (RSR01) opened to sterile field. 9:34:13 Catheter removed. 9:34:20 Sheath upsized to a 6 Fr Long. 9:34:36 Fentanyl 50 mcg I.V. was administered by Duc Krueger RN; for sedation; 9:34:39 destination sheath advanced arond horn. 9:34:40 Versed 1 mg I.V. was administered by Duc Krueger RN; for sedation; 9:35:15 Wire removed. 9:35:18 Right leg runoff performed. 9:35:56 choice pt wire advanced. 9:36:39 Wire removed. unable to cross lesion. 9:37:09 choice pt wire advanced. 9:38:18 Wire advanced across lesion. 9:38:25 Inflation number: 1 A MAVERICK 2.5 X 30 balloon ([id number]) was prepped and advanced across the Mid Superficial Femoral, Right, then inflated to 17 SARAH for 0:10 (min:sec). 9:38:38 multiple inflations made to 17 atms. 9:38:59 Balloon removed over the wire. 9:41:59 A LASER Turbo-Power 2.0 atherectomy catheter ([id number]) was prepped and advanced across the Mid Superficial Femoral, Right lesion. Pass Number: 1 9:42:45 Heparin Bolus 5000 units I.V. was administered by Duc Krueger RN; for anticoagulation; 9:42:50 Fentanyl 50 mcg I.V. was administered by Duc Krueger RN; for sedation; 9:42:54 Versed 1 mg I.V. was administered by Duc Krueger RN; for sedation; 9:43:08 Laser pass to Rt Mid SFA with fluence of 60 and Rate of 40. 9:45:54 Laser pass to Rt Mid SFA with fluence of 60 and Rate of 40. 9:45:58 A LASER Turbo-Power 2.0 atherectomy catheter ([id number]) was prepped and advanced across the Mid Superficial Femoral, Right lesion. Pass Number: 2 9:46:30 A LASER Turbo-Power 2.0 atherectomy catheter (537655) was prepped and advanced across the Mid Superficial Femoral, Right lesion. Pass Number: 3 9:46:41 A LASER Turbo-Power 2.0 atherectomy catheter ([id number]) was prepped and advanced across the Mid Superficial Femoral, Right lesion. Pass Number: 4 9:47:21 Laser catheter removed. 9:49:31 Inflation number: 2 A SABER 6.0 X 100 X 150 balloon ([id number]) was prepped and advanced across the Mid Superficial Femoral, Right, then inflated to 9 SARAH for 0:14 (min:sec). 9:49:49 Balloon removed over the wire. 9:51:31 Fentanyl 50 mcg I.V. was administered by Duc Krueger RN; for sedation; 9:51:36 Versed 1 mg I.V. was administered by Duc Krueger RN; for sedation; 9:52:33 SMART 6 X 120 X 120 stent ([id number]) was deployed across Mid Superficial Femoral, Right . 9:52:50 Stent catheter was removed intact over wire. 9:52:55 Laser total pulses delivered: 2480 9:53:03 Laser total treatment time: 0 minutes 57 seconds 9:53:43 Inflation number: 3 The SABER 6.0 X 100 X 150 balloon ([id number]) was reinflated across the Mid Superficial Femoral, Right, to 5 SARAH for 0:10 (min:sec). 9:53:56 Inflation number: 4 The SABER 6.0 X 100 X 150 balloon ([id number]) was reinflated across the Mid Superficial Femoral, Right, to 5 SARAH for 0:10 (min:sec). 9:55:01 Balloon removed over the wire. 9:56:42 DIAGNOSTIC WIRE .035 260cm J wire (536295) opened to sterile field. 9:57:12 sheath pulled back to distal aorta. 9:57:22 A MULTIPACK JL 4.0 5Fr catheter was advanced over the wire and used for Procedure. 9:59:25 LCA angiography performed. 10:00:01 Catheter exchanged over wire. 10:00:07 A MULTIPACK 3DRC 5Fr catheter was advanced over the wire and used for Procedure. 10:00:41 RCA angiography performed. 10:01:06 Catheter removed. 10:01:18 GUIDE 6FR XBLAD 3.5 catheter ([id number]) opened to sterile field. 10:01:19 CHOICE PT Extra Support 182cm wire ([id number]) opened to sterile field. 10:01:26 6 Fr xblad 3.5 guide catheter was inserted over the wire 10:02:33 Heparin Bolus 4000 units I.V. was administered by Duc Krueger RN; for anticoagulation; 10:02:40 Guide Catheter removed. unable to cannulate vessel. 10:02:47 GUIDE 6FR XBLAD 4.0 catheter ([id number]) opened to sterile field. 10:04:00 6 Fr xblad 4 guide catheter was inserted over the wire 10:04:09 choice pt wire advanced. 10:04:17 Wire advanced across lesion. 10:08:11 Laser pass to pLAD with Fluence of 40 and Rate of 40. 10:08:48 A LASER ELCA 0.9 Rx atherectomy catheter (211856) was prepped and advanced across the Prox LAD lesion. Pass Number: 1 10:09:02 A LASER ELCA 0.9 Rx atherectomy catheter (480982) was prepped and advanced across the Prox LAD lesion. Pass Number: 2 10:09:18 A LASER ELCA 0.9 Rx atherectomy catheter (937896) was prepped and advanced across the Prox LAD lesion. Pass Number: 3 10:10:08 Laser pass to pLAD with Fluence of 80. and Rate of 80. 10:10:13 A LASER ELCA 0.9 Rx atherectomy catheter (479451) was prepped and advanced across the Prox LAD lesion. Pass Number: 4 10:10:36 A LASER ELCA 0.9 Rx atherectomy catheter (834491) was prepped and advanced across the Prox LAD lesion. Pass Number: 5 10:11:29 Laser catheter removed. 10:12:25 Versed 1 mg I.V. was administered by Duc Krueger RN; for sedation; 10:13:25 Inflation number: 1 A EUPHORA 3.5 x 30 Balloon ([id number]) was prepped and advanced across the Prox LAD, then inflated to 17 SARAH for 0:10 (min:sec). 10:15:08 Balloon removed over the wire. 10:16:44 Inflation Number: 2 A DAKOTA RX 4.0 x 08 stent ([id number]) was prepped and advanced across the Prox LAD. The stent was deployed at 15 SARAH for 0:10 (min:sec). 10:17:11 Stent catheter was removed intact over wire. 10:17:13 Wire removed. 10:17:13 Guide catheter removed. 10:17:19 EXOSEAL 6Fr (EX600) opened to sterile field. 10:18:46 Versed 1 mg I.V. was administered by Duc Krueger RN; for sedation; 10:19:06 Sheath upsized to a 6 Fr Short. 10:19:15 Sheath removed intact; hemostasis achieved with Exoseal to the Left Femoral artery. 10:19:16 Procedure ended.(Physican Out) 10:19:56 Contrast amount:Isovue 300 354ml. 10:20:50 Fluoroscopy time 18.40 minutes. 10:20:54 Flurop Dose total: 1324 10:20:54 Fluoroscopy dose: 1324 mGy 10:20:55 Sharps counted by scrub and verified by R.N. 10:20:58 Insertion/operative site no bleeding no hematoma. 10:21:01 Post-op/insertion site Left Femoral artery dressed using a 4 x 4 and Tegaderm. 10:21:06 Post left femerol artery:stable, soft, clean and dry 10:21:08 Post Procedure Pulses reassessed and unchanged 10:21:10 Post-procedure physical assessment completed. ASA score P 2 - A patient with mild systemic disease as per Jose Campbell MD. 10:21:15 Post procedure rhythm: unchanged. 10:21:41 Laser total pulses delivered: 2000 10:21:54 Laser total treatment time: 0 minutes 50 seconds 10:23:25 Estimated blood loss: 10 ml 10::27 Post procedure instruction explained to patient.Patient verbalizes understanding. 10:23:27 Patient needs reinforcement of post procedure teaching. 10:26:44 FEMSTOP Gold (W74432) opened to sterile field. 10:30:25 Procedure and supply charges have been captured, reviewed, submitted and are correct. 10:30:27 Procedure Complication : No complications 10:30:29 Vital chart was stopped 10::29 See physician's report for complete and final results. 10::30 Report given to Pre/Post Procedure Room. 10:30:32 Patient transfered to Pre/Post Procedure Room with Stretcher. 10:30:50 Femstop placed over the left femerol artery at 205 mmHg. Hemostasis achieved. 10:30:59 Procedure ended. 10:30:59 Full Disclosure recording stopped 10:31:04 End room use (Document Last) Intervention Summary Intervention Notes Time ActionType Lesion and Equipment Used Action# Pressure Duration Attributes 9:38:25 Inflate Mid MAVERICK 2.5 X 1 17 00:10 balloon Superficial 30 balloon Femoral, ([id number]) Right 9:41:59 Atherectomy Mid LASER 00:20 Superficial Turbo-Power Femoral, 2.0 Right atherectomy catheter (460779) 9:45:58 Atherectomy Mid LASER 00:20 Superficial Turbo-Power Femoral, 2.0 Right atherectomy catheter (133954) 9:46:30 Atherectomy Mid LASER 00:10 Superficial Turbo-Power Femoral, 2.0 Right atherectomy catheter (739846) 9:46:41 Atherectomy Mid LASER 00:08 Superficial Turbo-Power Femoral, 2.0 Right atherectomy catheter (978281) 9:49:31 Inflate Mid SABER 6.0 X 2 9 00:14 balloon Superficial 100 X 150 Femoral, balloon Right ([id number]) 9:52:33 Deploy self Mid SMART 6 X 120 1 expanding Superficial X 120 stent stent Femoral, ([id number]) Right 9:53:43 Reinflate Mid SABER 6.0 X 3 5 00:10 balloon Superficial 100 X 150 Femoral, balloon Right ([id number]) 9:53:56 Reinflate Mid SABER 6.0 X 4 5 00:10 balloon Superficial 100 X 150 Femoral, balloon Right ([id number]) 10:08:48 Atherectomy Prox LAD LASER ELCA 0.9 00:11 Rx atherectomy catheter () 10:09:02 Atherectomy Prox LAD LASER ELCA 0.9 00:09 Rx atherectomy catheter () 10:09:18 Atherectomy Prox LAD LASER ELCA 0.9 00:10 Rx atherectomy catheter () 10:10:13 Atherectomy Prox LAD LASER ELCA 0.9 00:10 Rx atherectomy catheter () 10:10:36 Atherectomy Prox LAD LASER ELCA 0.9 00:10 Rx atherectomy catheter () 10:13:25 Inflate Prox LAD EUPHORA 3.5 x 1 17 00:10 balloon 30 Balloon ([id number]) 10:16:44 Place stent Prox LAD DAKOTA RX 4.0 x 2 15 00:10 08 stent ([id number]) Device Usage Item Name Manufacture Quantity Catalog Number Hospital Part Current Minimal Lot# / Charge Number Stock Stock Serial# Code ACIST Syringe Acist 1 59765 081431 974227 144955 20 (31904) Medical Systems Inc Medline Cath Cardinal 1 [id number] 351917 45422 554598 5 Merged With [facility] ([id number]) Bag Decanter Microtek 1 2001S 764707 31529 965377 5 (2001S) Medical Inc. DIAGNOSTIC St Erasmo 2 683542 950936 575629 422117 30 WIRE .035 260cm J wire (870063) PERCUTANEOUS [place] [facility] 1 D42615 151785 055774 5 ENTRY 19GA needle Tegaderm 4 x 4 3M 1 1626W 635478 656903 725825 5 (1626W) ACIST Manifold Acist 1 32473 678413 684262 209499 5 (23342) Medical Systems Inc ACIST Hand Acist 1 02111 338756 639574 705580 5 Control Medical (77677) Systems Inc INFLATOR Merit Merit 1 GV1395 169676 492133 547906 15 [employer]ch[employer] HoldingsazSudhir Srivastava [facility] (FA6216) SHEATH 6FR Terumo 1 UJZ910 452872 512915 303267 40 Lando (DYK314) TORQUE DEVICE [place] 1 TD01 741643 244671 525991 5 PLASTIC .038 ( Scientific TD01) GLIDE WIRE Terumo 1 GL2938 852526 410577 5 Angled Super Stiff 180cm (TV9043) DIAGNOSTIC IMT [place] 1 [id number] 431071 246526 81226 5 5Fr Catheter Scientific ([id number]) CHOICE PT [place] 1 [id number] 769922 580834 708053 5 Extra Support Scientific J 300cm guide wire ([id number]) SHEATH 6FR Terumo 1 RSR01 002741 55555 202340 5 Destination (RSR01) MAVERICK 2.5 X [place] 1 [id number] 941777 384446 189587 1 [id number] 30 balloon Scientific ([id number]) LASER Yisel 1 420-050 461535 6823619 841905 5 [id number] [employer] 2.0 (281568) atherectomy catheter (548815) SABER 6.0 X Cardinal 1 [id number] 857583 541237 5 100 X 150 Health balloon ([id number]) SMART 6 X 120 Cardinal 1 [id number] 426635 077895 0 X 120 stent Health ([id number]) MULTIPACK JL Cardinal 1 277113 5 4.0 5Fr Health catheter MULTIPACK 3DRC Cardinal 1 727331 5 5Fr catheter Health GUIDE 6FR Cardinal 1 [id number] 714575 499622 490121 10 XBLAD 3.5 Health catheter (94826521) CHOICE PT [place] 1 [id number] 982379 066187 968392 5 Extra Support Scientific 182cm wire ([id number]) GUIDE 6FR Cardinal 1 [id number] 542800 433510 835838 3 XBLAD 4.0 Health catheter (51260813) DIAGNOSTIC Cardinal 1 UP4897 725050 01774 281171 30 Multipack 5Fr Health catheter set (IU6626) LASER ELCA 0.9 Yisel 1 110-004 719201 352197 698776 5 [id number] Rx atherectomy Healthcare catheter (695953) (915287) EUPHORA 3.5 x Medtronic 1 [id number] 922218 175496 245209 5 [id number] 30 Balloon ([id number]) DAKOTA RX 4.0 x Medtronic 1 [id number] 073224 9516464 806022 5 [id number] 08 stent ([id number]) EXOSEAL 6Fr Cardinal 1 EX600 322566 760707 682559 10 (EX600) [facility] 1 G55250 669273 096307 135433 5 (O09818) Signature Audit [place] Stage Time Signature Unsigned Intra-Procedure 12/13/2017 Jimmy MARLOW(Erum) 10:33:15 AM Signatures Monitor : Jimmy Begum RT Signature : Date : Time : [id number] [place] [address]
--- NOTE | ~2017-12-13 | CN ---
PATIENT NAME:MERNA VALDEZ MEDICAL RECORD: [id number] : 54 LOCATION:D.CAT ADMIT DATE: ACCOUNT: [id number] CONSULTING PHYSICIAN: IGNACIO DUEÑAS MD REFERRING PHYSICIAN: IGNACIO DUEÑAS MD DATE OF CONSULTATION: 12/13/2017 DIAGNOSES: 1. Claudication. 2. Peripheral vascular disease. 3. Angina. 4. Shortness of breath. 5. Coronary artery disease. 6. Hypertension. 7. Hyperlipidemia. HOSPITAL COURSE: This is a gentleman who presents with claudication symptomatology has known critical disease of the right SFA. He as well was having shortness of breath and anginal symptomatology. He has multivessel PTCA stent in the past. PHYSICAL EXAMINATION: GENERAL APPEARANCE: Well-nourished, well-developed, appears stated age. Level of distress, comfortable. PSYCHIATRIC: Mental status, alert, normal affect. Orientation, oriented to time, place and person. EYES: Lids and conjunctiva, noninjected. No discharge, no pallor. ENT: Lips, teeth, gums, normal dentition. Oropharynx, no cyanosis, no pallor. NECK: Carotid arteries, bilateral normal upstroke, no bruits, no thrills. JUGULAR VEINS: No jugular venous pressure or distention. CERVICAL LYMPH NODES: Nontender, nonenlarged. THYROID: Not enlarged. Nontender. No nodules. LUNGS: Respiratory effort, unlabored. CHEST: Normal curvature. No thoracic deformity. No chest wall tenderness. Percussion, resonant. Auscultation, clear. No wheezes, no rales, no rhonchi. CARDIOVASCULAR: Precordial exam, nondisplaced. No heaves or pericardial thrills. Rate and rhythm, regular. Heart sounds, normal S1, normal S2. No S3, no gallop, no rub. Systolic murmur, not heard. Diastolic murmur, not heard. EXTREMITIES: No cyanosis, no edema. Peripheral pulses, full and equal in all extremities, except as noted. No bruits appreciated. ABDOMEN: Soft, nondistended. Normal aorta. No bruit. Nontender. No masses. Liver, nontender, no hepatomegaly. Spleen, nontender, no splenomegaly. MUSCULOSKELETAL: No joint tenderness. No joint swelling. No erythema. NEUROLOGICAL: Normal gait, normal strength, normal tone. SKIN: Warm and dry. REVIEW OF SYSTEMS: The patient reports easy bruising but reports no swollen glands. The patient reports no fever, no night sweats, no significant weight gain, no significant weight loss. No significant exercise tolerance. The patient reports no dry eyes, no irritation, no vision change. Patient reports no difficulty hearing and no ear pain. Patient reports no frequent nose bleeds or nose and sinus problems. Patient reports on arm pain on exertion. No shortness of breath while lying down. No history of heart murmur. Patient reports no cough, no wheezing or coughing up blood. Patient reports no abdominal pain, no vomiting. Normal appetite. No diarrhea and not vomiting CONSULT REPORT [id number] MERNA VALDEZ blood. No nausea and no constipation. Patient reports no incontinence. No difficulty urinating. No hematuria. No increased frequency. Patient reports no muscle aches. No weakness, no arthralgias, no back pain. No swelling of the extremities. Patient reports no abnormal mole, no jaundice, no rashes. Reports no loss of consciousness. No weakness and no numbness. No seizures, dizziness, or headaches. The patient reports no depression, no sleep disturbance, feeling safe in a relationship and no alcohol abuse. Patient reports on fatigue. Reports no runny nose or sinus pressure. No itching, no hives, and no frequent sneezing. OVERALL IMPRESSION: We will plan for transcatheter revascularization of the right SFA. Plan for relook angiography for possible recurrent hemodynamically significant coronary artery disease of the left system. TRANSINT:[id number] Voice Confirmation ID: [id number] DOCUMENT ID: [id number] IGNACIO DUEÑAS MD at 1324 CC: [id number] DICTATION DATE: 12/13/17 1025 BOTTOMING ROOM INSPECTOR: 12/13/17 1403 DEP CLI 12/13/17 [place] [id number]
--- NOTE | ~2017-12-13 | OP ---
PATIENT NAME: MERNA VALDEZ MEDICAL RECORD: [id number] :54 LOCATION:D.CAT ADMISSION DATE: SURGEON: IGNACIO DUEÑAS MD DATE OF OPERATION: 12/13/2017 PROCEDURES: 1. Laser atherectomy SFA, right. 2. HELP DESK SUPERVISOR stent, SFA, right. 3. Unilateral extremity angiography. INDICATION: Claudication and peripheral vascular disease. PROCEDURE IN DETAIL: After informed consent was obtained and after detailed explanation of risks, benefits as well as alternative therapies, the patient elected to proceed with angiogram and angioplasty. The left femoral area was prepped and draped in normal sterile fashion. The left femoral artery was cannulated via modified Seldinger technique with placement of a 6-Korean epkosb-pja-swus sheath. All catheters exchanged through this sheath. FINDINGS: The right SFA with 99% stenosis in the distal aspect. This was addressed with a 2.0 laser catheter, multiple passes were made. Ballooning was undertaken with a 6.0 balloon. This yielded suboptimal result with severe intimal dissection. Stenting was undertaken with a 6 x 120 SMART stent. Result was 0% residual stenosis. OVERALL IMPRESSION: Successful HELP DESK SUPERVISOR stent of the right SFA going from 99% initial stenosis to 0% residual. TRANSINT:[id number] Voice Confirmation ID: [id number] DOCUMENT ID: [id number] IGNACIO DUEÑAS MD at 1324 CC: [id number] DICTATION DATE: 12/13/17 1028 RENDERER: 12/13/17 1416 DEP CLI 12/13/17 [place] [id number]
--- NOTE | ~2017-12-13 | OP ---
PATIENT NAME: MERNA VALDEZ MEDICAL RECORD: [id number] :54 LOCATION:D.CAT ADMISSION DATE: SURGEON: IGNACIO DUEÑAS MD DATE OF OPERATION: 12/13/2017 PROCEDURES: 1. Laser atherectomy LAD. 2. PTCA stent LAD. 3. Left heart catheterization. 4. Selective coronary angiography. INDICATION: Angina and coronary artery disease. PROCEDURE IN DETAIL: After informed consent was obtained and after detailed explanation of risks, benefits as well as alternative therapies, the patient elected to proceed with angiogram and angioplasty. The left femoral area was prepped and draped in normal sterile fashion. The left femoral artery was cannulated via modified Seldinger technique with placement of 6-Irish sheath. All catheters exchanged through this sheath. FINDINGS: Left ventriculogram was not performed secondary to dye conservation. SELECTIVE CORONARY ANGIOGRAPHY: 1. Left main showed no significant angiographic disease. 2. Left anterior descending has previously placed stents. There is 70% in-stent restenosis and 70% stenosis proximally prior to the stented area. 3. Left circumflex has previously placed stents. The circumflex is totally occluded in mid vessel, is unchanged from previous angiography. 4. The right coronary artery has previously placed stents, these are widely patent with no significant restenosis. No disease elsewise throughout the RCA or its branches. PTCA STENT AND LASER ATHERECTOMY OF THE LAD: Laser atherectomy was performed with a 0.9 mm catheter, multiple passes were made at 40 and 80. We stented the proximal portion with a 4.0 x 8 [place] stent. Result was 0% residual stenosis. OVERALL IMPRESSION: Successful percutaneous transluminal coronary angioplasty stent of the left anterior descending going from greater than 70% initial stenosis to 0% residual. TRANSINT:[id number] Voice Confirmation ID: [id number] DOCUMENT ID: [id number] IGNACIO DUEÑAS MD at 1324 CC: [id number] DICTATION DATE: 12/13/17 1027 MEDICAL PAYMENT POSTER: 12/13/17 1408 DEP CLI 12/13/17 [place] [id number] [place] [address]
[~2017-12-13 07:26] MED LIST changes: +SOLIQUA SQ
[2017-12-13 07:28] VITALS: BP 153/71; Ht 185.4 cm; Wt 104.5 kg
[2017-12-13 08:24] LABS: BASOPHILS 0.4 % (0-2); HEMATOCRIT 56.1 % (42.0-54.0); HEMOGLOBIN 18.3 g/dL (13.5-17.5); IMMATURE GRANULOCYTES 0.2 % (0-5); LYMPHOCYTES 43.9 % (15-50); MCH 30.6 pg (26.0-34.0); MCHC 32.6 g/dL (31.0-37.0); MCV 93.8 fL (80.0-100.0); MONOCYTES 8.4 % (2-11); NEUTROPHILS 44.1 % (40-80); PLATELET COUNT 223 10x3/uL (130-400); RBC 5.98 10x6/uL (4.20-6.10); RDW 14.3 % (11.5-14.5); WBC 13.1 10x3/uL (4.8-10.8)
[2017-12-13 08:31] LABS: ANION GAP 8.4 mmol/L (8-16); CALCIUM 9.6 mg/dL (8.5-10.1); CREATININE - SERUM 1.1 mg/dL (0.6-1.3); POTASSIUM - SERUM 4.4 mmol/L (3.5-5.1)
== END 2017-12-13 14:30 | disposition home or self-care (01) ==
LOC: D.CATH 07:26
PROVIDERS: Internal Medicine Interventional Cardiology
DX: I25.119 Atherosclerotic heart disease of native coronary artery with unspecified angina pectoris (principal); I70.219 Atherosclerosis of native arteries of extremities with intermittent claudication, unspecified extremity; R06.02 Shortness of breath; I10 Essential (primary) hypertension; E78.5 Hyperlipidemia, unspecified; Z01.812 Encounter for preprocedural laboratory examination

== ENCOUNTER → 2018-09-06 07:31 | Outpatient (CLI) | payer BC ==
[~2018-09-06] VITALS: Ht 185.4 cm; Wt 106.8 kg
--- NOTE | ~2018-09-06 | HEMODYNAMI ---
PATIENT:MERNA VALDEZ MEDICAL RECORD: [id number] : 54 LOCATION:DEVELIN ADMISSION DATE: 09/06/18 Generatedon:09/06/201810:04 Patient name: MERNA VALDEZ Patient #: [id number] SSN: : 1950 Date of study: 09/06/2018 Page: Of Hemodynamic Procedure Report Patient Data Patient Demographics Procedure consent was obtained First Name: MERNA Gender: Male Last Name: JOSÉ MIGUEL : 1950 Patient #: [id number] Age: 68 year(s) Race: Additional ID: [id number] Contact details Address: [address] [place] [address] State: [place] City: [facility] Zip code: [address] Past Medical History Allergies: No known allergies Admission Admission Data Admission Date: 09/06/2018 Admission Time: 7:31 Lab Results Lab Result Date: 09/06/2018 Lab Result Time: 0:00 Biochemistry Name Units Result Min Max BUN mg/dl 12 --(-*--)-- 7 18 Creatinine mg/dl 1.1 --(--*-)-- 0.6 1.3 CBC Name Units Result Min Max Hemoglobin g/dl 19 --(----)-* 13.5 17.5 Procedure Procedure Types Cath Procedure Diagnostic Procedure [facility] w/Coronaries Sedation Charges Moderate Sedation up to 30 minutes PCI Procedure Coronary Stent Coronary Stent Initial Peripheral Cath Diagnostic Procedure Salesperson Yard [employer]s Peripheral Procedures Yscen-Tplkhqi-Vor-Off Four Vessel Arteriogram ACOUSTIC SENSOR OPERATOR/STENT Peripheral Procedure Description Procedure Date Procedure Date: 09/06/2018 Procedure Start Time: 9:29 Procedure End Time: 10:01 Procedure Staff Name Function Jose Campbell MD Performing Physician Rea Watts RT Monitor Ely Sherman RT Scrub Duc Krueger RN Nurse Procedure Data Cath Procedure Fluoroscopy Diagnostic fluoroscopy Total fluoroscopy Time: 7 time: 7 min min Diagnostic fluoroscopy Total fluoroscopy dose: dose: 2361 mGy 2361 mGy Contrast Material Contrast Material Type Amount (ml) Isovue 300 275 Entry Location Entry Primary Successful Side Size Upsize 1 Upsize Entry Closure Weaver ccessful Closure Location (Fr) (Fr) 2 (Fr) Remarks Device Remarks Femoral Left 5 Fr 6 Fr 6 Fr Exoseal artery Mid-Length Short Estimated blood loss: 10 ml Diagnostic catheters Device Type Used For End Catheter Placement MULTIPACK Pigtail 5 Fr Procedure catheter MULTIPACK JL 4.0 5Fr Procedure catheter MULTIPACK 3DRC 5Fr Procedure catheter Procedure Complications No complications Procedure Medications Medication Administration Route Dosage Oxygen etCO2 Nasal cannula 2 l/min Heparin Flush Bag added to field 2 bags (1000units/500ml NS) 0.9% NaCl I.V. 100 ml/hr Fentanyl I.V. 50 mcg Versed I.V. 1 mg Fentanyl I.V. 50 mcg Versed I.V. 1 mg Fentanyl I.V. 50 mcg Versed I.V. 1 mg Heparin Bolus I.V. 5000 units Fentanyl I.V. 50 mcg Versed I.V. 1 mg Hemodynamics Rest HGB: 19 (g/dl) Heart Rate: 74 (bpm) Pressure Samples Time Site Value (mmHg) Purpose Heart Use Rate(bpm) 9:33 LV 153/-8,11 Snapshot 71 Gradients Valve Time Site Site Mean SEP/DFP Peak To Heart Use 1 2 (mmHg) (sec/min) Peak Rate (mmHg) (bpm) Aortic 9:34 LV AO 70 Snapshots Pre Cath Intra NCS Post Cath Vital Signs Time Heart Resp SPO2 etCO2 NIBP (mmHg) Rhythm Pain Sedation Rate (ipm) (%) (mmHg) Status Level (bpm) 9:12:52 60 16 94 42.6 168/76(117) NSR 0 (11) 10(A) , No pain 9:17:21 61 17 95 22.4 163/71(117) NSR 0 (11) 10(A) , No pain 9:21:41 66 16 96 45.5 155/78(104) NSR 0 (11) 10(A) , No pain 9:26:01 65 16 96 38 156/88(134) NSR 0 (11) 10(A) , No pain 9:30:19 65 16 93 46.3 158/78(131) NSR 0 (11) 9(A) , No pain 9:34:33 61 17 94 47.8 134/75(114) NSR 0 (11) 9(A) , No pain 9:38:45 67 16 94 50 145/77(114) NSR 0 (11) 9(A) , No pain 9:42:59 72 16 94 50.8 144/73(124) NSR 0 (11) 9(A) , No pain 9:51:08 75 17 95 40.3 163/90(124) NSR 0 (11) 9(A) , No pain 9:56:40 77 17 94 36.6 167/95(122) NSR 0 (11) 9(A) , No pain 10:01:02 76 16 95 38.1 186/89(145) NSR 0 (11) 9(A) , No pain Medications Time Medication Route Dose Verified Delivered Reason Notes Effectiveness by by 9:14:51 Oxygen etCO2 2 Jose Duc Per physician Nasal l/min Adrian Krueger RN cannula 9:15:00 Heparin Flush added 2 Jose Lozanoy used for Bag to bags Adrian Krueger RN procedure (1000units/500ml field NS) 9:15:08 0.9% NaCl I.V. 100 Jose Duc Per physician ml/hr Adrian Krueger RN 9:25:01 Fentanyl I.V. 50 Jose Duc for sedation mcg Adrian Krueger RN 9:25:07 Versed I.V. 1 mg Jose Duc for sedation Adrian Krueger RN 9:32:29 Fentanyl I.V. 50 Jose Duc for sedation mcg Adrian Krueger RN 9:32:33 Versed I.V. 1 mg Jose Duc for sedation Adrian Krueger RN 9:38:08 Fentanyl I.V. 50 Jose Duc for sedation mcg Adrian Krueger RN 9:38:12 Versed I.V. 1 mg Jose Duc for sedation Adrian Krueger RN 9:38:22 Heparin Bolus I.V. 5000 Jose Duc for units Adrian Krueger RN anticoagulation 9:47:45 Fentanyl I.V. 50 Jose Duc for sedation mcg Adrian Krueger RN 9:47:49 Versed I.V. 1 mg Jose Duc for sedation Adrian Krueger RN Procedure Log Time Note 8:50:43 Duc Krueger RN sent for patient. Start room use. 8:58:05 Informed consent obtained and on chart 8:58:44 Time tracking: Regular hours (M-F 7:00 - 5:00) 8:58:49 Plan of Care:Hemodynamics will remain stable., Cardiac rhythm will remain stable., Comfort level will be maintained., Respiratory function will remain adequate., Patient/ family verbilizes understanding of procedure., Procedure tolerated without complication., Recovers from procedure without complications.. 9:08:15 Patient received from Pre/Post Procedure Room to CCL 2 Alert and oriented. Tansferred to table in Supine position. 9:08:16 Warm blankets applied, and sheridan hugger turned on for patient comfort. 9:08:16 Correct patient and procedure confirmed by team. 9:09:08 H&P Date Dictated: 09/06/2018 Within 30 days and on chart.. 9:09:11 Pre-procedure instructions explained to patient. 9:09:14 Family in patients room. 9:09:16 Patient NPO since Midnight. 9:09:24 Patient allergic to No known allergies 9:09:27 Is the patient allergic to Iodine/contrast media? No. 9:09:29 Is patient on blood thinner?Yes 9:09:32 ACC The patient was administered the following blood thiners within the last 24 hours: ACCEffient 9:09:35 Patient diabetic? Yes. 9:11:39 If diabetic: On Metformin? No 9:11:40 ECG and BP/O2 sat monitors applied to patient. 9:11:41 Vital chart was started 9:11:42 Baseline sample Acquired. 9:12:06 Rhythm: sinus rhythm 9:12:08 Full Disclosure recording started 9:12:21 Snore? Yes 9:12:22 Sleep apnea? No 9:12:24 Deviated septum? No 9:12:39 Patient pain scale 0/10 ?. 9:13:02 IV patent on arrival in left forearm with 0.9% NaCl at [facility]. 9:13:48 Lab Result : BUN 12 mg/dl 9:13:48 Lab Result : Creatinine 1.1 mg/dl 9:13:49 Lab Result : Hemoglobin 19 g/dl 9:13:53 Lab results completed and on chart. 9:14:07 Bilateral groins area was prepped with chlora-prep and draped in sterile fashion 9:14:08 Alarms reviewed by R. N. 9:14:09 Sharps counted by scrub and verified by R.N. 9:14:51 Oxygen 2 l/min etCO2 Nasal cannula was administered by Duc Krueger RN; Per physician; 9:15:00 Heparin Flush Bag (1000units/500ml NS) 2 bags added to field was administered by Duc Krueger RN; used for procedure; 9:15:08 0.9% NaCl 100 ml/hr I.V. was administered by Duc Krueger RN; Per physician; 9:21:51 Physician paged 9:22:31 Physician arrived 9:23:56 Baseline sample Acquired. 9:24:41 --------ALL STOP TIME OUT------ 9:24:42 Final Timeout: patient, procedure, and site verified with staff and physician. All members of the team are in agreement. 9:24:44 Bilateral groins site verified by team. 9:24:48 Physical assessment completed. ASA score P 2 - A patient with mild systemic disease as per Jose Campbell MD. 9:24:52 Sedation plan: IV Moderate Sedation Medication:Versed, Fentanyl 9:24:58 Use device set Femoral Dx 9:25:00 ACIST Syringe (14913) opened to sterile field. 9:25:00 Bag Decanter (2002) opened to sterile field. 9:25:01 Fentanyl 50 mcg I.V. was administered by Duc Krueger RN; for sedation; 9:25:01 Medline Cath Pack ([id number]) opened to sterile field. 9:25:01 DIAGNOSTIC WIRE .035 260cm J wire (811298) opened to sterile field. 9:25:03 ACIST Hand Control (71007) opened to sterile field. 9:25:03 ACIST Manifold (92219) opened to sterile field. 9:25:04 DIAGNOSTIC Multipack 5Fr catheter set (NJ9082) opened to sterile field. 9:25:05 Tegaderm 4 x 4 (1626W) opened to sterile field. 9:25:06 PERCUTANEOUS ENTRY 19GA needle opened to sterile field. 9:25:07 Versed 1 mg I.V. was administered by Duc Krueger RN; for sedation; 9:25:07 SHEATH Prelude 5Fr 0.035 (YKU-7L-34-035) opened to sterile field. 9::53 Zero performed for pressure channel P1 9:29:32 Procedure started. 9:29:44 Local anesthetic to left femerol artery with Lidocaine 2% by Jose Campbell MD.INITIAL ACCESS ONLY 9:29:53 A 5 Fr sheath was inserted into the Left Femoral artery 9:31:55 A MULTIPACK Pigtail 5 Fr catheter was advanced over the wire and used for Procedure. 9:32:29 Fentanyl 50 mcg I.V. was administered by Duc Krueger RN; for sedation; 9:32:33 Versed 1 mg I.V. was administered by Duc Krueger RN; for sedation; 9:33:29 LV angiography performed. 9:34:01 EF : 60 % 9:34:24 Abdominal angiogram w/ runoff was performed. 9:34:27 Left leg runoff performed. 9:35:01 Right leg runoff performed. 9:35:26 Catheter removed. 9:36:04 SHEATH 6FR Brite Tip 35cm (451545M) opened to sterile field. 9:36:17 Sheath upsized to a 6 Fr Mid-Length. 9:38:08 Fentanyl 50 mcg I.V. was administered by Duc Krueger RN; for sedation; 9:38:12 Versed 1 mg I.V. was administered by Duc Krueger RN; for sedation; 9:38:22 Heparin Bolus 5000 units I.V. was administered by Duc Krueger RN; for anticoagulation; 9:38:32 SHEATH Prelude 6Fr 0.035 (XPX-6X-53-035) opened to sterile field. 9:38:34 INFLATOR Merit BasixCompak (VY7427) opened to sterile field. 9:40:40 Place stent Inflation Number: 1 A KATHERINE 7 x 29 x 135 stent ([id number]) was prepped and advanced across the Mid Common Iliac, Left. The stent was deployed at 11 SARAH for 0:10 (min:sec). 9:44:37 Stent catheter was removed intact over wire. 9:44:45 A MULTIPACK JL 4.0 5Fr catheter was advanced over the wire and used for Procedure. 9:45:02 LCA angiography performed. 9:45:03 Catheter removed. 9:45:15 A MULTIPACK 3DRC 5Fr catheter was advanced over the wire and used for Procedure. 9:45:19 RCA angiography performed. 9:45:29 Catheter removed. 9:46:55 DXTerity 3DRC opened to sterile field. 9:47:20 3DRC advanced over the wire 9:47:36 Right carotid angiography performed. 9:47:39 Left carotid angiography performed. 9:47:45 Fentanyl 50 mcg I.V. was administered by Duc Krueger RN; for sedation; 9:47:49 Versed 1 mg I.V. was administered by Duc Krueger RN; for sedation; 9:50:07 Catheter removed. 9:50:33 6 Fr XBLAD4 guide catheter was inserted over the wire 9:51:06 CHOICE PT Extra Support 182cm wire ([id number]) opened to sterile field. 9:51:50 GUIDE 6FR XBLAD 4.0 catheter ([id number]) opened to sterile field. 9:52:38 Inflate balloon Inflation number: 1 A EUPHORA 3.5 x 30 Balloon ([id number]) was prepped and advanced across the Mid LAD, then inflated to 17 SARAH for 0:14 (min:sec). 9:53:48 Balloon removed over the wire. 9:54:40 Place stent Inflation Number: 2 A DAKOTA RX 3.5 x 30 stent ([id number]) was prepped and advanced across the Mid LAD. The stent was deployed at 19 SARAH for 0:00 (min:sec). 9:55:35 EXOSEAL 6Fr (EX600) opened to sterile field. 9:55:45 Guide catheter removed. 9:56:32 Sheath upsized to a 6 Fr Short. 9:56:32 Sheath removed intact; hemostasis achieved with Exoseal to the Left Femoral artery. 9:57:53 Procedure ended.(Physican Out) 9:58:06 Fluoroscopy time 07.00 minutes. 9:58:12 Fluoroscopy dose: 2361 mGy 9:58:12 Flurop Dose total: 2361 9:58:16 Contrast amount:Isovue 300 275ml. 9:58:18 Sharps counted by scrub and verified by R.N. 9:58:21 Insertion/operative site no bleeding no hematoma. 9:58:26 Post-op/insertion site Left Femoral artery dressed using a 4 x 4 and Tegaderm. 9:58:28 Post Procedure Pulses reassessed and unchanged 9:58:32 Post-procedure physical assessment completed. ASA score P 2 - A patient with mild systemic disease as per Jose Campbell MD. 9:58:39 Post procedure rhythm: unchanged. 9:58:43 Estimated blood loss: 10 ml 9:58:45 Post procedure instruction explained to patient.Patient verbalizes understanding. 10:00:01 Procedure type changed to Cath procedure, Diagnostic procedure, LHC, LHC w/Coronaries, Sedation Charges, Moderate Sedation up to 30 minutes, PCI procedure, Coronary Stent, Coronary Stent Initial, Peripheral Cath Diagnostic Procedure, Salesperson Yard Goods Peripheral Procedures, Vhurp-Fyiuvub-Jer-Off, Four Vessel Arteriogram, ACOUSTIC SENSOR OPERATOR/STENT Peripheral 10:00:04 Procedure and supply charges have been captured, reviewed, submitted and are correct. 10:01:05 Procedure Complication : No complications 10:01:08 Vital chart was stopped 10:01:09 See physician's report for complete and final results. 10:01:11 Report given to Pre/Post Procedure Room. 10:01:15 Patient transfered to Pre/Post Procedure Room with Stretcher. 10:01:17 Procedure ended. 10:01:17 Full Disclosure recording stopped 10:01:21 End room use (Document Last) Intervention Summary Intervention Notes Time ActionType Lesion and Equipment Used Action# Pressure Duration Attributes 9:40:40 Place stent Mid Common KATHERINE 7 x 29 1 11 00:10 Iliac, Left x 135 stent ([id number]) 9:52:38 Inflate Mid LAD EUPHORA 3.5 x 1 17 00:14 balloon 30 Balloon ([id number]) 9:54:40 Place stent Mid LAD DAKOTA RX 3.5 x 2 19 00:00 30 stent ([id number]) Device Usage Item Name Manufacture Quantity Catalog Number Hospital Part Current Minimal Lot# / Charge Number Stock Stock Serial# Code ACIST Syringe Acist 1 22940 687539 432485 305824 20 (01469) [employer] Bag Decanter Microtek 1 166680 53075 969634 5 () Medical Inc. Medline Cath Cardinal 1 [id number] 000675 76297 726725 5 Pack Health ([id number]) DIAGNOSTIC WIRE St Erasmo 1 759032 213994 849969 753188 30 .035 260cm J wire (585957) ACIST Hand Acist 1 27653 458729 226492 705977 5 Control (66869) [employer] Inc ACIST Manifold Acist 1 05842 211088 283912 979012 5 (99529) [employer] Inc DIAGNOSTIC Cardinal 1 [id number] 474867 08844 721090 30 Multipack 5Fr Health catheter set (LP0038) Tegaderm 4 x 4 3M 1 1626W 123834 557245 333100 5 (1626W) PERCUTANEOUS Cook Medical 1 D32584 331593 502780 5 ENTRY 19GA needle SHEATH Prelude Merit 1 QZV-3C-88-035 589783 576635 161594 5 5Fr 0.035 Medical (XLM-5Z-81-035) MULTIPACK Cardinal 1 471562 5 Pigtail 5 Fr Health catheter SHEATH 6FR Cardinal 1 [id number] 274320 635267 424510 1 Brite Tip 35cm Health ([id number]) SHEATH Prelude Merit 1 FYY-6R-26-35 198621 4268826 754572 5 6Fr 0.035 Medical (QBK-3B-67-035) INFLATOR Merit Merit 1 FM9788 436984 031478 573368 15 BitStash ([id number]) KATHERINE 7 x 29 Cardinal 1 [id number] 867265 593681 5 [id number] x 135 stent Health ([id number]) MULTIPACK JL Cardinal 1 737527 5 4.0 5Fr Health catheter MULTIPACK 3DRC Cardinal 1 159000 5 5Fr catheter Health DXTerity 3DRC Unknown 1 0 0 CHOICE PT Extra [place] 1 [id number] 267614 094657 024456 5 Support 182cm Scientific wire ([id number]) GUIDE 6FR XBLAD Cardinal 1 [id number] 856271 527375 478664 3 4.0 catheter Health (25442591) EUPHORA 3.5 x Medtronic 1 [id number] 289923 836903 586270 5 [id number] 30 Balloon ([id number]) DAKOTA RX 3.5 x Medtronic 1 [id number] 161462 6398302 386443 5 [id number] 30 stent ([id number]) EXOSEAL 6Fr Cardinal 1 EX600 024604 369149 264573 10 (EX600) Health Signature Audit [place] Stage Time Signature Unsigned Intra-Procedure 09/06/2018 Rea Watts 10:04:50 AM RT(R) Signatures Monitor : Rea Watts Signature : RT Date : Time : [place] [address] [place] [address]
--- NOTE | ~2018-09-06 | OP ---
PATIENT NAME: MERNA VALDEZ MEDICAL RECORD: [id number] :54 LOCATION:[facility] ADMISSION DATE: SURGEON: IGNACIO DUEÑAS MD DATE OF OPERATION: 09/06/2018 PROCEDURE: Four-vessel carotid and vertebral angiography. INDICATION: Carotid vascular disease, unsteady gait. PROCEDURE IN DETAIL: After informed consent was obtained and after detailed description of risks, benefits as well as alternative therapies, the patient elected to proceed with angiogram and four-vessel. FINDINGS: There was sub-selection of each subclavian as well as the left carotid. RIGHT SIDE: Common carotid is devoid of disease. External carotid is devoid of disease. 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 Vertebral artery has minimal disease, is widely patent. LEFT SIDE: The common internal and external carotids have [id number] irregularities. No flow-limiting stenosis. No stenosis greater than 50%. Vertebral arteries are devoid of disease. OVERALL IMPRESSION: Significant disease of the right internal carotid. TRANSINT:[id number] Voice Confirmation ID: [id number] DOCUMENT ID: [id number] IGNACIO DUEÑAS MD at 0924 CC: [id number] DICTATION DATE: 09/06/18 1007 TOBACCO SAMPLER: 09/07/18 1318 DEP CLI 09/06/[address] [id number]
--- NOTE | ~2018-09-06 | OP ---
PATIENT NAME: MERNA VALDEZ MEDICAL RECORD: [id number] :54 LOCATION:D.[facility] ADMISSION DATE: SURGEON: IGNACIO DUEÑAS MD DATE OF OPERATION: 09/06/2018 PROCEDURES: 1. PTCA stent LAD. 2. Left heart catheterization. 3. Selective coronary angiography. 4. Left ventriculogram. INDICATIONS: Angina and coronary artery disease. PROCEDURE PERFORMED: After informed consent was obtained and after detailed explaining of risks, benefits as well as alternative therapies, the patient elected to proceed with angiogram and angioplasty. The left femoral area had a preexisting sheath from peripheral intervention. All catheters exchanged through this sheath. FINDINGS: The left ventriculogram was performed in a standard 30-degree HORNER view, reveals good cardiac wall motion throughout all segments. Overall ejection fraction estimated at 60%. SELECTIVE CORONARY ANGIOGRAPHY: 1. Left main is with no significant angiographic disease. 2. Left anterior descending has previously placed stents. There is 80% in-stent restenosis proximally. 3. The left circumflex has previously placed stents. There is total occlusion of the left circumflex and the midvessel is unchanged from previous angiography. 4. The right coronary has previously placed stents, these are all widely patent with no significant restenosis. No significant disease elsewise at the RCA or its branches. DRIVEWAY ATTENDANT STENT OF THE LAD: The stent used was 3.5 x 30 mm Govind, taken to 17 atmospheres. Result was 0% residual stenosis. OVERALL IMPRESSION: Successful percutaneous transluminal coronary angioplasty stent of the left anterior descending going from 80% initial stenosis to 0% residual. TRANSINT:[id number] Voice Confirmation ID: [id number] DOCUMENT ID: [id number] IGNACIO DUEÑAS MD at 0924 CC: [id number] DICTATION DATE: 09/06/18 1007 NEUROLOGY TECHNOLOGIST: 09/07/18 1320 DEP CLI 09/06/18 [place] [id number]
--- NOTE | ~2018-09-06 | HP ---
PATIENT: MERNA VALDEZ MEDICAL RECORD: [id number] ACCOUNT: [id number] LOCATION:[facility] : 54 ADMISSION DATE: 09/06/18 PCP: IGNACIO DUEÑAS MD HISTORY AND PHYSICAL EXAMINATION DIAGNOSES: 1. Claudication. 2. Peripheral vascular disease. 3. Angina. 4. Coronary artery disease. 5. Hypertension. HISTORY OF PRESENT ILLNESS: This is a gentleman with a past history of extensive peripheral vascular disease and extensive coronary artery disease who presents with anginal as well as peripheral symptomatology. He has claudication as well as unsteady gait. He has a history of carotid vascular disease, he has history of peripheral vascular disease, has history of coronary artery disease. PHYSICAL EXAMINATION: GENERAL APPEARANCE: Well-nourished, well-developed, appears stated age. Level of distress, comfortable. PSYCHIATRIC: Mental status, alert, normal affect. Orientation, oriented to time, place and person. EYES: Lids and conjunctiva, noninjected. No discharge, no pallor. ENT: Lips, teeth, gums, normal dentition. Oropharynx, no cyanosis, no pallor. NECK: Carotid arteries, bilateral normal upstroke, no bruits, no thrills. JUGULAR VEINS: No jugular venous pressure or distention. CERVICAL LYMPH NODES: Nontender, nonenlarged. THYROID: Not enlarged. Nontender. No nodules. LUNGS: Respiratory effort, unlabored. CHEST: Normal curvature. No thoracic deformity. No chest wall tenderness. Percussion, resonant. Auscultation, clear. No wheezes, no rales, no rhonchi. CARDIOVASCULAR: Precordial exam, nondisplaced. No heaves or pericardial thrills. Rate and rhythm, regular. Heart sounds, normal S1, normal S2. No S3, no gallop, no rub. Systolic murmur, not heard. Diastolic murmur, not heard. EXTREMITIES: No cyanosis, no edema. Peripheral pulses, full and equal in all extremities, except as noted. No bruits appreciated. ABDOMEN: Soft, nondistended. Normal aorta. No bruit. Nontender. No masses. Liver, nontender, no hepatomegaly. Spleen, nontender, no splenomegaly. MUSCULOSKELETAL: No joint tenderness. No joint swelling. No erythema. NEUROLOGICAL: Normal gait, normal strength, normal tone. SKIN: Warm and dry. OVERALL IMPRESSION: Symptomatology from cardiac, peripheral and carotid standpoint. We will proceed with cardiac catheterization, aortofemoral runoff and four-vessel carotid vertebral angiography. TRANSINT:[id number] Voice Confirmation ID: [id number] DOCUMENT ID: [id number] HISTORY AND PHYSICAL [id number] MERNA VALDEZ JEFFREY MD at 0924 CC: [id number] DICTATION DATE: 09/06/18 1002 NEWS BROADCASTER: 09/06/18 1024 DEP CLI 09/06/18 [place] [id number] [place] [address]
--- NOTE | ~2018-09-06 | OP ---
PATIENT NAME: MERNA VALDEZ MEDICAL RECORD: [id number] :54 LOCATION:D.[facility] ADMISSION DATE: SURGEON: IGNACIO DUEÑAS MD DATE OF OPERATION: 09/06/2018 PROCEDURES: 1. Stent placement, iliac, left. 2. SPOOL HAULER iliac, left. 3. Aortofemoral runoff. INDICATIONS: Claudication and peripheral vascular disease. PROCEDURE IN DETAIL: After informed consent was obtained and after a detailed explanation of risks, benefits as well as alternative therapies, the patient received angiogram and angioplasty. The left femoral area was prepped and draped in normal sterile fashion. Left femoral artery was cannulated via modified Seldinger technique with placement of 6-Tamazight sheath. All catheters exchanged through this sheath. FINDINGS: The abdominal angiography was performed. The catheter was pulled down for aortofemoral runoff. Abdominal aortography reveals no significant abdominal aortic disease. No aneurysmal dilatation of the abdominal aorta. RIGHT LEG: A. Iliac: The common internal and external iliacs have mild irregularities, but no flow-limiting stenosis. B. Femoral system: The common and deep femoral are widely patent. Superficial femoral was totally occluded from the proximal aspect all the way to the distal aspect. The distal aspect fills via collaterals off the deep femoral system, appears to have a good lumen suitable for grafting. C. Popliteal and infrapopliteal vessels are poorly filled; however, they do appear to be patent with 3-vessel runoff to the foot. LEFT LEG: A. Iliac: The common iliac is patent. The external iliac has 90% stenosis. B. Femoral system: The common and deep femoral are widely patent. Superficial femoral has previously placed stents. There is up to 80% and 90% in-stent restenosis at point. C. Popliteal and infrapopliteal vessels are patent with 3-vessel runoff to the foot, although diffusely diseased. SPOOL HAULER STENT OF THE LEFT ILIAC: Iliac was addressed with a 7 x 28 Pau stent and balloon. Result was 0% residual stenosis. OVERALL IMPRESSION: Successful percutaneous transluminal angioplasty and stent of the left external iliac going from 90% initial stenosis to 0% residual. Evaluate for femoral popliteal bypass surgery of the right leg. TRANSINT:[id number] Voice Confirmation ID: [id number] DOCUMENT ID: [id number] OPERATIVE REPORT [id number] MERNA VALDEZ IGNACIO DUEÑAS MD at 0924 CC: [id number] DICTATION DATE: 09/06/18 1007 MOVABLE BULKHEAD INSTALLER: 09/06/18 1130 DEP CLI 09/06/18 [place] [id number] [facility] [place] [address]
[2018-09-06 07:55] VITALS: BP 151/64; Ht 185.4 cm; Wt 106.8 kg
[2018-09-06 07:57] LABS: BASOPHILS 0.4 % (0-2); HEMATOCRIT 56.5 % (42.0-54.0); IMMATURE GRANULOCYTES 0.2 % (0-5); LYMPHOCYTES 26.9 % (15-50); MCH 30.4 pg (26.0-34.0); MCHC 33.6 g/dL (31.0-37.0); MCV 90.5 fL (80.0-100.0); MONOCYTES 8.7 % (2-11); NEUTROPHILS 60.8 % (40-80); PLATELET COUNT 245 10x3/uL (130-400); RBC 6.24 10x6/uL (4.20-6.10); RDW 14.7 % (11.5-14.5); WBC 11.5 10x3/uL (4.8-10.8)
[2018-09-06 08:18] LABS: ANION GAP 13.4 mmol/L (8-16); CALCIUM 8.5 mg/dL (8.5-10.1); CARBON DIOXIDE 25.7 mmol/L (21.0-32.0); CREATININE - SERUM 1.1 mg/dL (0.6-1.3); POTASSIUM - SERUM 4.1 mmol/L (3.5-5.1)
== END | disposition home or self-care (01) ==
LOC: D.CATH 07:31
PROVIDERS: Internal Medicine Interventional Cardiology
DX: I70.212 Atherosclerosis of native arteries of extremities with intermittent claudication, left leg (principal); I25.119 Atherosclerotic heart disease of native coronary artery with unspecified angina pectoris; T82.855A Stenosis of coronary artery stent, initial encounter; I10 Essential (primary) hypertension; I65.23 Occlusion and stenosis of bilateral carotid arteries; Z01.812 Encounter for preprocedural laboratory examination

== ENCOUNTER → 2018-11-09 08:43 | Outpatient (CLI) | payer BC ==
[2018-09-06 07:55] VITALS: BMI 31.0
== END | disposition home or self-care (01) ==
LOC: D.MRI 08:43
DX: E11.621 Type 2 diabetes mellitus with foot ulcer (principal)

== ENCOUNTER 2019-07-27 10:30 | Outpatient (CLI) | payer BC ==
[~2019-07-27] VITALS: Ht 185.4 cm; Wt 106.8 kg
--- NOTE | ~2019-07-27 | HEMODYNAMI ---
PATIENT:MERNA VALDEZ MEDICAL RECORD: [id number] : 54 LOCATION:[facility] ADMISSION DATE: 07/27/19 Generatedon:07/27/201912:51 Patient name: MERNA VALDEZ Patient #: [id number] SSN: [id number] : 1950 Date of study: 07/27/2019 Page: Of Hemodynamic Procedure Report Patient Data Patient Demographics Procedure consent was obtained First Name: MERNA Gender: Male Last Name: JOSÉ MIGUEL : 1950 Patient #: [id number] Age: 69 year(s) Race: SSN: [id number] Additional ID: [id number] Contact details Address: [address] [place] [address] State: [place] City: [facility] Zip code: [address] Past Medical History Allergies: No known allergies Admission Admission Data Admission Date: 07/27/2019 Admission Time: 10:30 Arrival Date: 07/27/2019 Arrival Time: 0:00 Admit Source: Other Insurance Payor: Private health insurance [facility] #: [id number] Height (in.): 72.83 BSA: 2.3 (m2) Height (cm.): 185 BMI: 30.97 (kg/m2) Weight (lbs.): 233.69 Weight (kg.): 106 Lab Results Lab Result Date: 07/27/2019 Lab Result Time: 0:00 Biochemistry Name Units Result Min Max BUN mg/dl 19 --(----)*- 7 18 Creatinine mg/dl 1.1 --(--*-)-- 0.6 1.3 eGFR ml/min 70.47181 *-(----)-- 90 120 NONAFRICAN CBC Name Units Result Min Max Hemoglobin g/dl 18.8 --(----)-* 13.5 17.5 Procedure Procedure Types Cath Procedure Diagnostic Procedure [facility] w/Coronaries FFR/IVUS Intra-Coronary IVUS Initial PCI Procedure Coronary Stent Coronary Stent Initial Coronary Atherectomy Atherectomy w/Stent Coronary Initial Procedure Description Procedure Date Procedure Date: 07/27/2019 Procedure Start Time: 12:08 Procedure End Time: 12:50 Procedure Staff Name Function Jose Campbell MD Performing Physician Patricio Hernandez RT Monitor Jimmy Begum RT Scrub Armaan Rice RN Nurse Duc Krueger RN Skull Chopper Procedure Data Cath Procedure Fluoroscopy Diagnostic fluoroscopy Total fluoroscopy Time: 0 time: 0 min min Diagnostic fluoroscopy Total fluoroscopy dose: dose: 2257 mGy 2257 mGy Contrast Material Contrast Material Type Amount (ml) Isovue 300 181 Entry Location Entry Primary Successful Side Size Upsize Upsize Entry Closure Succes sful Closure Location (Fr) 1 (Fr) 2 (Fr) Remarks Device Remarks Femoral Right 5 Fr 6 Fr Exoseal artery Short Estimated blood loss: 20 ml Diagnostic catheters Device Type Used For End Catheter Placement MULTIPACK Pigtail 5 Fr Procedure catheter MULTIPACK JL 4.0 5Fr Procedure catheter MULTIPACK 3DRC 5Fr Procedure catheter Procedure Medications Medication Administration Route Dosage Oxygen etCO2 Nasal cannula 2 l/min Lidocaine 2% added to field 20 Heparin Flush Bag added to field 2 bags (1000units/500ml NS) 0.9% NaCl I.V. 100 ml/hr Fentanyl I.V. 50 mcg Versed I.V. 1 mg Fentanyl I.V. 50 mcg Versed I.V. 1 mg Fentanyl I.V. 50 mcg Versed I.V. 1 mg Fentanyl I.V. 50 mcg Heparin Bolus I.V. 4000 units Versed I.V. 1 mg Heparin Bolus I.V. 3000 units Fentanyl I.V. 50 mcg Fentanyl I.V. 50 mcg Hemodynamics Rest BSA: 2.3 (m2) HGB: 18.8 (g/dl) O2 Consumption: Estimated: 264.62 (ml/min) O2 Con sumption indexed: Estimated:115.05 (ml/min/m) Heart Rate: 67 (bpm) Pressure Samples Time Site Value (mmHg) Purpose Heart Use Rate(bpm) 12:10 LV 136/9,22 Snapshot 61 Snapshots Pre Cath Intra NCS Post Cath Vital Signs Time Heart Resp SPO2 etCO2 NIBP (mmHg) Rhythm Pain Sedation Rate (ipm) (%) (mmHg) Status Level (bpm) 11:54:43 70 16 96 36.8 143/70(136) NSR 0 (11) 10(A) , No pain 11:59:03 69 17 96 0 136/67(99) NSR 0 (11) 10(A) , No pain 12:03:21 62 17 93 24 125/63(93) NSR 0 (11) 10(A) , No pain 12:07:35 61 16 94 21.8 130/62(106) NSR 0 (11) 9(A) , No pain 12:11:51 62 17 93 0 133/62(103) NSR 0 (11) 9(A) , No pain 12:16:05 71 17 94 32.4 120/62(110) NSR 0 (11) 9(A) , No pain 12:20:17 71 16 96 16.5 119/61(87) NSR 0 (11) 9(A) , No pain 12:24:27 71 16 95 18 112/63(87) NSR 0 (11) 9(A) , No pain 12:29:26 63 17 96 27.8 124/62(104) NSR 0 (11) 9(A) , No pain 12:33:38 58 16 96 20.3 137/64(99) NSR 0 (11) 9(A) , No pain 12:37:52 62 16 96 27.8 125/64(97) NSR 0 (11) 9(A) , No pain 12:42:53 75 17 95 32.3 161/79(116) NSR 0 (11) 9(A) , No pain 12:45:54 76 17 95 18.8 153/73(98) NSR 0 (11) 9(A) , No pain 12:50:11 74 9 94 18.8 147/77(114) NSR 0 (11) 9(A) , No pain Medications Time Medication Route Dose Verified Delivered Reason Notes Effectiveness by by 11:53:43 Oxygen etCO2 2 Jose Crook used for Nasal l/min Adrian Rice professor of psychiatry cannula 11:53:51 Lidocaine 2% added 20ml Jose Garcia for local to vial Adrian Campbell MD anesthetic field 11:53:58 Heparin Flush added 2 Jose Garcia used for Bag to bags Adrian Campbell MD procedure (1000units/500ml field NS) 11:54:07 0.9% NaCl I.V. 100 Jose Duc Per physician ml/hr Adrian Krueger RN 12:01:34 Fentanyl I.V. 50 Jose Duc for sedation mcg Adrian Krueger RN 12:01:41 Versed I.V. 1 mg Jose Duc for sedation Adrian Krueger RN 12:04:00 Fentanyl I.V. 50 Jose Duc for sedation mcg Adrian Krueger RN 12:04:04 Versed I.V. 1 mg Jose Duc for sedation Adrian Krueger RN 12:06:27 Fentanyl I.V. 50 Jose Duc for sedation mcg Adrian Krueger RN 12:07:35 Versed I.V. 1 mg Jose Duc for sedation Adrian Krueger RN 12:09:16 Fentanyl I.V. 50 Jose Duc for sedation mcg Adrian Krueger RN 12:15:44 Heparin Bolus I.V. 4000 Jose Duc for units Adrian Krueger RN anticoagulation 12:18:24 Versed I.V. 1 mg Jose Duc for sedation Adrian Krueger RN 12:25:40 Heparin Bolus I.V. 3000 Jose Duc for units Adrian Krueger RN anticoagulation 12:37:54 Fentanyl I.V. 50 Jose Duc for sedation mcg Adrian Krueger RN 12:40:16 Fentanyl I.V. 50 Jose Duc for sedation mcg Adrian Krueger devulcanizer loader Log Time Note 11:30:14 Duc Krueger RN sent for patient. Start room use. 11:37:41 Informed consent obtained and on chart 11:43:11 Patient Height : 72.83 inches 11:43:14 Patient Weight : 233.69 lbs 11:43:20 Insurance Payor : Private health insurance 11:43:44 Arrival Date: 07/27/2019 12:00:00 AM 11:43:45 Admit Source: Other 11:48:09 ACC Patient presents with Unstable Angina CCS Anginal Class 4--Inability to carry out any physical activity w/o angina. Angina may occur at rest. 11:48:12 Procedure Status Elective Heart Cath (OP). 11:48:18 Time tracking: Regular hours (M-F 7:00 - 5:00) 11:48:22 Plan of Care:Hemodynamics will remain stable., Cardiac rhythm will remain stable., Comfort level will be maintained., Respiratory function will remain adequate., Patient/ family verbilizes understanding of procedure., Procedure tolerated without complication., Recovers from procedure without complications.. 11:48:25 Patient received from Pre/Post Procedure Room to CCL 2 Alert and oriented. Tansferred to table in Supine position. 11:48:26 Warm blankets applied, and sheridan hugger turned on for patient comfort. 11:48:26 Correct patient and procedure confirmed by team. 11:48:27 ECG and BP/O2 sat monitors applied to patient. 11:48:32 H&P Date Dictated: 07/27/2019 New H&P dictated by physician.. 11:48:33 Pre-procedure instructions explained to patient. 11:48:33 Pre-op teaching completed and patient verbalized understanding. 11:48:40 Diagnostic Cath Status : Elective 11:53:31 Vital chart was started 11:53:43 Oxygen 2 l/min etCO2 Nasal cannula was administered by Armaan iRce RN; used for procedure; 11:53:51 Lidocaine 2% 20ml vial added to field was administered by Jose Campbell MD; for local anesthetic; 11:53:58 Heparin Flush Bag (1000units/500ml NS) 2 bags added to field was administered by Jose Campbell MD; used for procedure; 11:54:07 0.9% NaCl 100 ml/hr I.V. was administered by Duc Krueger RN; Per physician; 11:55:50 Baseline sample Acquired. 11:55:54 Rhythm: sinus rhythm 11:55:56 Full Disclosure recording started 11:56:00 Family in patients room. 11:56:03 Patient NPO since Midnight. 11:56:12 Patient allergic to No known allergies 11:56:18 Is patient on blood thinner?Yes 11:56:24 ACC The patient was administered the following blood thiners within the last 24 hours: ACCEffient 11:56:28 Patient diabetic? Yes. 11:56:36 If diabetic: On Metformin? No 11:56:39 ----Pre-sedation anethsthesia assessment.---- 11:56:42 Previous problem with sedation/anesthesia? No ? 11:56:44 Snore? Yes 11:56:46 Sleep apnea? No 11:56:47 Deviated septum? No 11:56:48 Opens mouth fully? Yes 11:56:51 Sticks out tongue? Yes 11:56:54 Airway obstruction? No ? 11:57:06 Dentures? No ? 11:57:11 Pre procedure: right dorsailis pedis pulse 1+ Palpable, but thready & weak; easily obliterated 11:57:16 Patient pain scale 0/10 ?. 11:57:27 IV patent on arrival in left forearm with 0.9% NaCl at [facility]. 11:58:19 Lab Result : BUN 19 mg/dl 11:58:19 Lab Result : Creatinine 1.1 mg/dl 11:58:19 Lab Result : eGFR NONAFRICAN 70.15608 ml/min 11:58:19 Lab Result : Hemoglobin 18.8 g/dl 11:58:31 Right groin area was prepped with chlora-prep and draped in sterile fashion 11:58:32 Alarms reviewed by R. N. 11:58:33 Sharps counted by scrub and verified by R.N. 11:58:40 2) 60-89 Mildly reduced kidney function, and other findings (as for stage 1) point to kidney disease. 12:00:13 Physician arrived 12:00:13 --------ALL STOP TIME OUT------ 12:00:14 Final Timeout: patient, procedure, and site verified with staff and physician. All members of the team are in agreement. 12:00:16 Right groin site verified by team. 12:00:20 Fire Safety Assessment: A--An alcohol-based skin anteseptic being used preoperatively., C--Open oxygen or nitrous oxide is being used., D--An ESU, laser, or fiber-optic light is being used. 12:00:24 Physical assessment completed. ASA score P 2 - A patient with mild systemic disease as per Jose Campbell MD. 12:00:28 Maximum allowable contrast dose (3.7 X eGFR X 0.75)197 ml. 12:00:32 Sedation plan: IV Moderate Sedation Medication:Versed, Fentanyl 12:01:20 Use device set Femoral Dx 12:01:21 ACIST Syringe (84536) opened to sterile field. 12:01:22 Bag Decanter (2001S) opened to sterile field. 12::22 Medline Cath Pack ([id number]) opened to sterile field. 12::27 ACIST Hand Control (07430) opened to sterile field. 12::28 ACIST Manifold (00480) opened to sterile field. 12:01:30 DIAGNOSTIC Multipack 5Fr catheter set (UK5522) opened to sterile field. 12::31 Tegaderm 4 x 4 (1626W) opened to sterile field. 12::33 SHEATH 5FR [place] (OAW243) opened to sterile field. 12::34 Fentanyl 50 mcg I.V. was administered by Duc Krueger RN; for sedation; 12::34 EMERALD Guide Wire (777-630) opened to sterile field. 12:01:41 Versed 1 mg I.V. was administered by Duc Krueger RN; for sedation; 12:04:00 Fentanyl 50 mcg I.V. was administered by Duc Krueger RN; for sedation; 12:04:04 Versed 1 mg I.V. was administered by Duc Krueger RN; for sedation; 12:04:55 Zero performed for pressure channel P1 12:04:59 Zero performed for pressure channel P1 12:05:03 Zero performed for pressure channel P1 12:06:27 Fentanyl 50 mcg I.V. was administered by Duc Krueger RN; for sedation; 12:07:35 Versed 1 mg I.V. was administered by Duc Krueger RN; for sedation; 12:08:21 Procedure started. 12:08:25 Local anesthetic to right femoral artery with Lidocaine 2% by Jose Campbell MD.INITIAL ACCESS ONLY 12:09:14 A 5 Fr sheath was inserted into the Right Femoral artery 12:09:16 Fentanyl 50 mcg I.V. was administered by Duc Krueger RN; for sedation; 12::27 A MULTIPACK Pigtail 5 Fr catheter was advanced over the wire and used for Procedure. 12:10:16 LV hemodynamics recorded. 12:10:18 LV gram done using HORNER 12:10:25 EF : 60 % 12:10:26 Catheter removed. 12:10:35 A MULTIPACK JL 4.0 5Fr catheter was advanced over the wire and used for Procedure. 12:11:04 LCA angiography performed. 12:12:16 Catheter removed. 12:12:25 A MULTIPACK 3DRC 5Fr catheter was advanced over the wire and used for Procedure. 12:12:51 SHEATH 6FR [place] (RYF178) opened to sterile field. 12:12:52 CHOICE PT Extra Support 182cm wire ([id number]) opened to sterile field. 12:12:53 INFLATOR Merit BasixCompak (XB9816) opened to sterile field. 12:14:31 GUIDE 6FR AR 2.0 SH catheter ([id number]) opened to sterile field. 12:14:44 RCA angiography performed. 12:14:47 Catheter removed. 12:14:48 Proceeding to intervention. 12:14:56 Sheath upsized to a 6 Fr Short. 12:15:12 [place] IVUS Catheter (23767O) opened to sterile field. 12:15:26 6 Fr AR 2 SH guide catheter was inserted over the wire 12:15:32 CHOICE wire advanced. 12:15:44 Heparin Bolus 4000 units I.V. was administered by Duc Krueger RN; for anticoagulation; 12:15:46 FFR/IVUS 12:15:55 IVUS catheter advanced over wire. 12:16:00 IVUS pass to RCA lesion performed. 12:18:24 Versed 1 mg I.V. was administered by Duc Krueger RN; for sedation; 12:19:18 IVUS catheter removed over wire. 12:19:24 IVUS measurement 74.8 %. 12:19:41 Pre PCI Site: [place] dRCA has 74.8% stenosis. 12:20:11 Catheter removed. 12:20:50 LASER ELCA 0.9 Rx atherectomy catheter (873463) opened to sterile field. 12:21:27 Procedure type changed to Cath procedure, Diagnostic procedure, LHC, LHC w/Coronaries, FFR/IVUS, Intra-Coronary IVUS Initial, PCI procedure, Coronary Stent, Coronary Stent Initial, Coronary Atherectomy, Atherectomy w/Stent Coronary Initial 12:22:50 Inflate balloon Inflation number: 1 A EUPHORA 3.0 x 20 Balloon ([id number]) was prepped and advanced across the Dist RCA 74, then inflated to 21 SARAH for 0:10 (min:sec) 0. 12:23:42 Balloon removed over the wire. 12:24:16 Inflate balloon Inflation number: 1 A EUPHORA 4.0 x 20 Balloon ([id number]) was prepped and advanced across the Mid RCA 74, then inflated to 23 SARAH for 0:10 (min:sec) . 12:24:54 Inflation number: 1 The EUPHORA 4.0 x 20 Balloon ([id number]) was reinflated across the Prox RCA 74, to 21 SARAH for 0:10 (min:sec) . 12:25:40 Heparin Bolus 3000 units I.V. was administered by Duc Krueger RN; for anticoagulation; 12:25:54 Inflation number: 2 The EUPHORA 4.0 x 20 Balloon ([id number]) was reinflated across the Prox RCA 74, to 23 SARAH for 0:10 (min:sec) . 12:26:25 Balloon removed over the wire. 12:28:56 Place stent Inflation Number: 3 A DAKOTA RX 4.5 x 18 stent ([id number]) was prepped and advanced across the Prox RCA 70. The stent was deployed at 23 SARAH for 0:10 (min:sec) 0. 12:29:53 Stent catheter was removed intact over wire. 12:29:54 Wire removed. 12:29:58 Guide catheter removed. 12:31:01 CHOICE PT Extra Support 182cm wire ([id number]) opened to sterile field. 12:31:04 GUIDE 6FR XBLAD 3.5 catheter ([id number]) opened to sterile field. 12:31:34 Pre PCI Site: [place] pCirc has 90% stenosis. 12:31:47 Post PCI Site: [place] RCA has 0% stenosis. 12:31:56 6 Fr XBLAD 3.5 guide catheter was inserted over the wire 12:32:04 NEW CHOICE wire advanced. 12:32:08 Wire advanced across lesion. 12:33:36 Inflation number: 1 The EUPHORA 3.0 x 20 Balloon ([id number]) was reinflated across the Prox CX 90, to 15 SARAH for 0:10 (min:sec) . 12:34:21 Balloon removed over the wire. 12:34:28 LASER ATHERECTOMY 12:34:56 Laser pass to pCirc with Fluence of 80 and Rate of 40. 12:37:54 Fentanyl 50 mcg I.V. was administered by Duc Krueger RN; for sedation; 12:37:57 Laser catheter removed. 12:39:08 Inflation number: 2 The EUPHORA 3.0 x 20 Balloon ([id number]) was reinflated across the Prox CX 70, to 21 SARAH for 0:10 (min:sec) . 12:40:16 Fentanyl 50 mcg I.V. was administered by Duc Krueger RN; for sedation; 12:40:31 Balloon removed over the wire. 12:41:55 Place stent Inflation Number: 1 A DAKOTA RX 3.5 x 08 stent ([id number]) was prepped and advanced across the Prox CX1 70. The stent was deployed at 23 SARAH for 0:10 (min:sec) 0. 12:42:33 Stent catheter was removed intact over wire. 12:42:34 Wire removed. 12:42:34 Guide catheter removed. 12:42:42 EXOSEAL 6Fr (EX600) opened to sterile field. 12:42:50 Laser total pulses delivered: 2800 12:43:09 Laser total treatment time: 1 minutes 10 seconds 12:44:26 Sheath removed intact; hemostasis achieved with Exoseal to the Right Femoral artery. 12:44:29 Procedure ended.(Physican Out) 12:44:43 Fluoroscopy time 00.00 minutes. 12:44:49 Flurop Dose total: 2257 12:44:49 Fluoroscopy dose: 2257 mGy 12:44:56 Dose Area Product 787076 mGy/cm. 12:45:03 Contrast amount:Isovue 300 181ml. 12:45:10 Maximum allowable dose exceeded? No. 12:45:21 Sharps counted by scrub and verified by R.N. 12:47:54 Insertion/operative site no bleeding no hematoma. 12:47:57 Post-op/insertion site Right Femoral artery dressed using a 4 x 4 and Tegaderm. 12:48:11 Post right femoral artery:stable 12:48:13 Post Procedure Pulses reassessed and unchanged 12:48:21 Post-procedure physical assessment completed. ASA score P 2 - A patient with mild systemic disease as per Jose Campbell MD. 12:48:26 Post procedure rhythm: sinus rhythm 12:48:30 Estimated blood loss: 20 ml 12:48:32 Patient needs reinforcement of post procedure teaching. 12:48:34 Procedure and supply charges have been captured, reviewed, submitted and are correct. 12:50:19 Vital chart was stopped 12:50:20 See physician's report for complete and final results. 12:50:21 Report given to Pre/Post Procedure Room. 12:50:26 Patient transfered to Pre/Post Procedure Room with Stretcher. 12:50:32 Procedure ended. 12:50:32 Full Disclosure recording stopped 12:50:45 ACC-PCI Only Patient was given prescriptions, or instructed by Jose Campbell MD to start/continue the following medications upon discharge: Effient 12:50:48 End room use (Document Last) Intervention Summary Intervention Notes Time ActionType Lesion and Equipment Used Action# Pressure Duration Attributes 12:22:50 Inflate Dist RCA EUPHORA 3.0 x 1 21 00:10 balloon 20 Balloon ([id number]) 12:24:16 Inflate Mid RCA EUPHORA 4.0 x 1 23 00:10 balloon 20 Balloon ([id number]) 12:24:54 Reinflate Prox RCA EUPHORA 4.0 x 1 21 00:10 balloon 20 Balloon ([id number]) 12:25:54 Reinflate Prox RCA EUPHORA 4.0 x 2 23 00:10 balloon 20 Balloon ([id number]) 12:28:56 Place stent Prox RCA DAKOTA RX 4.5 x 3 23 00:10 18 stent ([id number]) 12:33:36 Reinflate Prox CX EUPHORA 3.0 x 1 15 00:10 balloon 20 Balloon ([id number]) 12:39:08 Reinflate Prox CX EUPHORA 3.0 x 2 21 00:10 balloon 20 Balloon ([id number]) 12:41:55 Place stent Prox CX1 DAKOTA RX 3.5 x 1 23 00:10 08 stent ([id number]) Device Usage Item Name Manufacture Quantity Catalog Number Hospital Part Current M inimal Lot# / Charge Number Stock Stock Serial# Code ACIST Syringe Acist 1 74210 215261 744716 016608 2 0 (67488) Medical Systems Inc Bag Decanter Microtek 1 261506 86223 154733 5 () Medical Inc. Medline Cath Medline 1 [id number] 726404 02627 359863 5 Pack ([id number]) ACIST Hand Acist 1 01160 579123 641731 574447 5 Control Medical (91389) Systems Inc ACIST Manifold Acist 1 11530 851196 797006 279311 5 (74736) Medical Systems Inc DIAGNOSTIC Cardinal 1 JY8443 309574 51636 959191 3 0 Multipack 5Fr Health catheter set (NR3710) Tegaderm 4 x 4 3M 1 1626W 867512 530502 898223 5 (1626W) SHEATH 5FR Terumo 1 ODZ808 678568 741357 569732 5 [place] (RCQ609) EMERALD Guide Cardinal 1 502-455 863185 452449 513487 5 Wire (502-455) Health MULTIPACK Cardinal 1 537037 5 Pigtail 5 Fr Health catheter MULTIPACK JL Cardinal 1 202117 5 4.0 5Fr Health catheter MULTIPACK 3DRC Cardinal 1 317807 5 5Fr catheter Health SHEATH 6FR Terumo 1 FIW150 157214 524625 693916 4 0 [place] (EWP565) CHOICE PT [place] 2 [id number] 192610 363852 969363 5 Extra Support Scientific 182cm wire ([id number]) INFLATOR Merit Merit 1 CH7837 379190 247367 950335 1 5 [place] 3D (KX9704) GUIDE 6FR AR Medtronic 1 [id number] 091110 16276 556629 1 2.0 SH catheter ([id number]) [place] 1 03830L 952210 174437 515410 8 [place] IVUS Catheter (06775P) LASER ELCA 0.9 [place] 1 110-004 958675 339761 485212 5 Rx atherectomy Healthcare catheter (237268) (503048) EUPHORA 3.0 x Medtronic 1 [id number] 555111 112373 699608 5 [id number] 20 Balloon ([id number]) EUPHORA 4.0 x Medtronic 1 ACO6570M 676281 367226 207288 5 [id number] 20 Balloon ([id number]) DAKOTA RX 4.5 x Medtronic 1 [id number] 738490 5923796 996830 5 [id number] 18 stent ([id number]) GUIDE 6FR Cardinal 1 [id number] 539286 677363 482596 1 0 XBLAD 3.5 Health catheter (22551694) DAKOTA RX 3.5 x Medtronic 1 [id number] 768759 9415648 022664 5 [id number] 08 stent ([id number]) EXOSEAL 6Fr Cardinal 1 EX600 296379 627612 228178 1 0 (EX600) Health Signature Audit [place] Stage Time Signature Unsigned Intra-Procedure 07/27/2019 Patricio Hernandez 12:51:15 PM RT(R) (CV) Signatures Performing Physician : Signature : Jose Campbell MD Date : Time : Monitor : Patricio Hernandez RT Signature : Date : Time : Nurse : Armaan Rice RN Signature : Date : Time : [facility] [address] [place], [place] [address]
[2019-07-27 10:38] VITALS: BP 148/58; Ht 185.4 cm; Wt 106.8 kg
[2019-07-27] MEDS ORDERED: [UNRECOGNIZED DRUG - SUPPLY] SQ (10:46)
[2019-07-27 10:59] LABS: BASOPHILS 0.4 % (0-2); EOSINOPHILS 3.3 % (0-7); HEMATOCRIT 52.4 % (42.0-54.0); HEMOGLOBIN 18.8 g/dL (13.5-17.5); IMMATURE GRANULOCYTES 0.2 % (0-5); LYMPHOCYTES 37.6 % (15-50); MCHC 35.9 g/dL (31.0-37.0); MCV 89.1 fL (80.0-100.0); MEAN PLATELET VOLUME 9.7 fL (7.4-10.4); MONOCYTES 8.5 % (2-11); PLATELET COUNT 202 10x3/uL (130-400); RBC 5.88 10x6/uL (4.20-6.10); RDW 15.7 % (11.5-14.5); WBC 11.3 10x3/uL (4.8-10.8)
[2019-07-27 11:15] LABS: ANION GAP 13.4 mmol/L (8-16); CALCIUM 8.6 mg/dL (8.5-10.1); CARBON DIOXIDE 26.7 mmol/L (21.0-32.0); CHOL - HDL RATIO 6.1 ratio (2.3-4.9); CREATININE - SERUM 1.1 mg/dL (0.6-1.3); LDL-HDL RATIO 4.3 ratio (1.5-3.5); POTASSIUM - SERUM 4.1 mmol/L (3.5-5.1)
--- NOTE | 2019-07-27 13:11 | NUR ---
1304 RECEIVED PT FROM [employer]AT[employer]ISHER [employer]. PT SLEEPING, RESP WITH EASE ON O2 AT 2LPM VIA NC. DRESSING CDI TO RIGHT GROIN, AREA IS SOFT AND NONTENDER. PEDAL PULSES PALPABLE. NSR, RATE IS 74, BP IS156/75 HOB IS FLAT, BED LOCKED AND LOW. SIDERAILS UP X2. AT BEDSIDE, CALL LIGHT IN REACH. DR DUEÑAS HAS ROUNDED ON PT AND SPOKEN WITH PT'S .
--- NOTE | 2019-07-27 13:21 | NUR ---
PT SLEEPING, RESP WITH EASE. NSR, RATE 70. BP IS 141/73. DRESSING CDI, PEDAL PULSES PALPABLE. CALL LIGHT IN REACH.
--- NOTE | 2019-07-27 13:44 | NUR ---
PT SLEEPING, RESP WITH EASE ON O2 AT 2LPM VIA NC. VSS, DRESSING IS CDI TO RIGHT GROIN, AREA IS SOFT WITH NO BLEEDING NOTED. HOB IS FLAT. AT BEDSIDE, CALL LIGHT IN REACH.
--- NOTE | 2019-07-27 14:18 | NUR ---
DRESSING CDI, PEDAL PULSES PALPABLE. RESP WITH EASE ON O2 AT 2LPM VIA NC. NSR, RATE 68. HOB FLAT, CALL LIGHT IN REACH.
--- NOTE | 2019-07-27 14:49 | NUR ---
PT SLEEPING, RESP WITH EASE ON O2 AT 2LPM VIA NC. NSR, RATE IS 65. BP IS 138/62. DRESSING IS CDI, PEDAL PULSES PALPABLE. AT BEDSIDE.
--- NOTE | 2019-07-27 15:19 | NUR ---
DRESSING IS CDI, PEDAL PULSES PALPABLE. PT AWAKENS EASILY, DENIES ANY C/O. VSS, CALL LIGHT IN REACH.
--- NOTE | 2019-07-27 15:43 | NUR ---
PT SLEEPING, AWAKENS EASILY AND DENIES ANY C/O. NSR, RATE IS 60. BP IS 130/61. DRESSING IS CDI. PEDAL PULSES PALPABLE. HOB IS FLAT. CALL LIGHT IN REACH.
--- NOTE | 2019-07-27 16:20 | NUR ---
HOB ELEVATED 30 DEGREES. DRESSING CDI TO RIGHT GROIN, PEDAL PULSES PALPABLE. VSS, AT BEDSIDE.
--- NOTE | 2019-07-27 16:35 | NUR ---
1635 DRESSING CDI, PULSES PALPABLE. HOB FULLY ELEVATED. PT SHAN SANDWICH AND PO FLUIDS WITH NO C/O NAUSEA. VSS. PT ALERT AND DENIES ANY C/O.
--- NOTE | 2019-07-27 17:11 | NUR ---
1700 PT HAS DRESSED FOR DC TO HOME. DENIES ANY C/O. PT ESCORTED TO PRIVATE AUTO VIA WC BY NURSE WITH DRIVING HIM HOME. PT HAS ALL PERSONAL BELONGINGS AND DC INSTRUCTIONS UPON DISCHARGE.
--- NOTE | 2019-07-27 17:11 | NUR ---
1655 DRESSING REMAINS CDI. IV DC'D WITH CATH INTACT. DC INSTRUCTIONS REVIEWED WITH PT AND WHO VERBALIZE UNDERSTANDING. PT DRESSING FOR DC WITH ASSIST.
--- NOTE | 2019-07-28 10:47 | OP ---
PATIENT NAME: MERNA VALDEZ MEDICAL RECORD: [id number] :54 LOCATION:D.CAT ADMISSION DATE: SURGEON: IGNACIO DUEÑAS MD DATE OF OPERATION: 07/27/2019 DATE OF SERVICE: 07/27/2019 PROCEDURES: 1. Laser atherectomy, PTCA stent left circumflex. 2. PTCA stent RCA. 3. Intravascular ultrasound. 4. Left heart catheterization. 5. Selective coronary angiography. 6. Left ventriculogram. INDICATION: Unstable angina and coronary artery disease. PROCEDURE IN DETAIL: After informed consent was obtained and after detailed explanation of risks, benefits as well as alternative therapies, the patient elected to proceed with angiogram and angioplasty. The right femoral area was prepped and draped in normal sterile fashion. Right femoral artery was cannulated via modified Seldinger technique with placement of 6-Wolof sheath. All catheters exchanged through this sheath. FINDINGS: Left ventriculogram was performed in a standard 30-degree HORNER view, reveals good cardiac wall motion, ejection fraction is 60%. SELECTIVE CORONARY ANGIOGRAPHY: 1. Left main is with no significant angiographic disease. 2. Left anterior descending has previously placed stents, these are widely patent with no significant restenosis. No disease elsewise throughout the LAD or its branches. 3. Left circumflex has previously placed stents, these are 90% in-stent restenosis proximally. The obtuse marginal was then totally occluded. 4. The right coronary has previously placed stents, these are 70% in-stent restenosis confirmed by intravascular ultrasound throughout the mid vessel. PTCA STENT OF THE RCA: The stent used is a 4.5 x 18 mm [place] taken to 23 atmospheres. Result was 0% residual stenosis. LASER ATHERECTOMY, PTCA STENT OF LEFT CIRCUMFLEX WITH LASER ATHERECTOMY: Catheter was used. Multiple passes were made at 80/40. This was ballooned with a 3-0 balloon and stented on the ostium with a 3.5 x 8 mm Govind stent. Result was 0% residual stenosis. OVERALL IMPRESSION: Successful percutaneous transluminal coronary angioplasty stent and laser atherectomy of right coronary artery and left circumflex, both going from 70% to 90% initial stenosis to 0% residual. TRANSINT:[id number] Voice Confirmation ID: [id number] DOCUMENT ID: [id number] OPERATIVE REPORT [id number] MERNA VALDEZ IGNACIO DUEÑAS MD at 1047 CC: [id number] DICTATION DATE: 07/27/19 1249 GEOPHYSICAL COMPUTER: 07/27/19 1333 DEP CLI 07/27/19 [place] [id number] [facility] [place] [address]
== END 2019-07-27 17:00 | disposition home or self-care (01) ==
LOC: D.CATH 10:30
PROVIDERS: ATTEND Internal Medicine Interventional Cardiology
DX: I25.110 Atherosclerotic heart disease of native coronary artery with unstable angina pectoris (principal); T82.855A Stenosis of coronary artery stent, initial encounter; Z01.812 Encounter for preprocedural laboratory examination

== ENCOUNTER 2020-08-03 16:51 | Inpatient (IN) | payer MEDICARE, BC ==
[~2020-08-03] VITALS: Ht 185.4 cm; Wt 112.7 kg
--- NOTE | ~2020-08-03 | HEMODYNAMI ---
PATIENT:MERNA VALDEZ MEDICAL RECORD: [id number] : 54 LOCATION:[id number] ADMISSION DATE: 08/03/20 Generatedon:08/21/202014:57 Patient name: MERNA VALDEZ Patient #: [id number] SSN: [id number] : 1950 Date of study: 08/21/2020 Page: Of Hemodynamic Procedure Report Patient Data Patient Demographics Procedure consent was obtained First Name: MERNA Gender: Male Last Name: JOSÉ MIGUEL : 1950 Patient #: [id number] Age: 70 year(s) Race: SSN: [id number] Additional ID: [id number] Contact details Address: [address] [place] [address] State: [place] City: [facility] Zip code: [address] Past Medical History Allergies: No known allergies Admission Admission Data Admission Date: 08/03/2020 Admission Time: 17:59 Arrival Date: 08/21/2020 Arrival Time: 0:00 Admit Source: Other Insurance Payor: Medicare Room #: D.CV04 [facility] #: [id number] Height (in.): 185.42 BSA: 3.44 (m2) Height (cm.): 470.97 BMI: 2.51 (kg/m2) Weight (lbs.): 122.72 Weight (kg.): 55.66 Lab Results Lab Result Date: 08/21/2020 Lab Result Time: 0:00 Biochemistry Name Units Result Min Max BUN mg/dl 13 --(--*-)-- 7 18 CK-MB ng/ml 7.1 --(----)-* 0 3.6 Creatinine mg/dl 0.8 --(-*--)-- 0.6 1.3 eGFR ml/min 90 --(*---)-- 90 120 NONAFRICAN Troponin l ng/ml 3.222 --(----)-* 0 0.06 CBC Name Units Result Min Max Hematocrit % 36.4 *-(----)-- 42 54 Hemoglobin g/dl 11.5 *-(----)-- 13.5 17.5 Procedure Procedure Types Cath Procedure Diagnostic Procedure [facility] w/Coronaries PCI Procedure PTCA PTCA Initial Hemochron ACT Test Procedure Description Procedure Date Procedure Date: 08/21/2020 Procedure Start Time: 14:04 Procedure End Time: 14:44 Procedure Staff Name Function Zach Clark MD Performing Physician Armaan Rice RN Nurse Joanne Youssef RT Scrub Ely Sherman RT Monitor Procedure Data Cath Procedure Fluoroscopy Diagnostic fluoroscopy Total fluoroscopy Time: 6.5 time: 6.5 min min Diagnostic fluoroscopy Total fluoroscopy dose: dose: 1897 mGy 1897 mGy Contrast Material Contrast Material Type Amount (ml) Isovue 300 146 Entry Location Entry Primary Successful Side Size Upsize Upsize Entry Closure Succes sful Closure Location (Fr) 1 (Fr) 2 (Fr) Remarks Device Remarks Femoral Right 5 Fr 6 Fr Exoseal artery Short Estimated blood loss: 5 ml Diagnostic catheters Device Type Used For End Catheter Placement MULTIPACK JL 4.0 5Fr Left Coronary catheter Angiography MULTIPACK 3DRC 5Fr Right Coronary catheter Angiography MULTIPACK Pigtail 5 Fr LV Angiography catheter Procedure Complications No complications Procedure Medications Medication Administration Route Dosage Oxygen Lidocaine 2% added to field 20 Heparin Flush Bag added to field 2 bags (1000units/500ml NS) Diprivan 1% I.V. 10 mcg/kg/min (Propofol) 0.9% NaCl I.V. 100 ml/hr Heparin Bolus I.V. 59287 units Fentanyl I.V. 100 mcg Effient 60 mg Hemodynamics Rest BSA: 3.44 (m2) HGB: 11.5 (g/dl) O2 Consumption: Estimated: 390.76 (ml/min) O2 Co nsumption indexed: Estimated:113.59 (ml/min/m) Heart Rate: 63 (bpm) Pressure Samples Time Site Value (mmHg) Purpose Heart Use Rate(bpm) 14:15 LV 195/-8,33 Snapshot 77 14:15 AO 190/69(119) Pullback 78 14:15 LV 189/1,26 Pullback 78 Gradients Valve Time Site 1 Site 2 Mean SEP/DFP Peak To Heart Use (mmHg) (sec/min) Peak Rate (mmHg) (bpm) Aortic 14:15 LV AO 0 6 0 78 189/1,26 190/69(119) Calculations Valve P-P Mean Valve Index Valve Source Name Gradient Area Flow (cm2) Aortic 0 0 0 0 Snapshots Pre Cath Intra NCS Post Cath Vital Signs Time Heart Resp SPO2 etCO2 NIBP (mmHg) Rhythm Pain Sedation Rate (ipm) (%) (mmHg) Status Level (bpm) 13:49:42 64 21 100 0 Measuring NSR 0 (11) 7(A) , No pain 13:53:21 65 22 100 0 157/77(125) NSR 0 (11) 7(A) , No pain 13:57:45 69 22 100 0 170/82(131) NSR 0 (11) 7(A) , No pain 14:02:14 74 22 100 0 178/83(128) NSR 0 (11) 7(A) , No pain 14:06:44 78 21 100 0 196/89(140) NSR 0 (11) 7(A) , No pain 14:11:16 75 23 100 0 192/89(138) NSR 0 (11) 7(A) , No pain 14:15:40 77 22 100 0 172/91(121) NSR 0 (11) 7(A) , No pain 14:20:05 80 12 100 0 188/93(133) NSR 0 (11) 7(A) , No pain 14:24:33 83 22 100 0 184/96(131) NSR 0 (11) 7(A) , No pain 14:28:57 89 20 100 0 173/78(141) NSR 0 (11) 7(A) , No pain 14:33:23 101 18 100 0 174/99(143) NSR 0 (11) 7(A) , No pain 14:38:22 79 23 100 0 Measuring NSR 0 (11) 7(A) , No pain 14:38:49 81 22 100 0 191/93(140) NSR 0 (11) 7(A) , No pain 14:43:07 78 18 100 0 169/94(139) NSR 0 (11) 7(A) , No pain 14:47:27 80 16 100 0 170/86(126) NSR 0 (11) 7(A) , No pain 14:51:27 77 17 100 0 No Cuff NSR 0 (11) 7(A) , No pain 14:55:27 0 No Cuff NSR 0 (11) 7(A) , No pain Medications Time Medication Route Dose Verified Delivered Reason Notes Effectiveness by by 13:46:37 Oxygen ET pt is on Zach Buffie used for tube the Eduardo Rice RN procedure ventilator. 13:46:43 Lidocaine 2% added 20ml vial Zach Buffie used for to Eduardo Rice RN procedure field 13:46:50 Heparin Flush added 2 bags Zach Buffie used for Bag to Eduardo Rice RN procedure (1000units/500ml field NS) 13:48:57 Diprivan 1% I.V. 10 Zach Buffie Per physician (Propofol) mcg/kg/min Eduardo Rice RN 13:49:08 0.9% NaCl I.V. 100 ml/hr Zach Buffie Per physician Eduardo Rice RN 14:23:08 Heparin Bolus I.V. 10,000 Zach Buffie for verified units Eduardo Rice RN anticoagulation with dr clark 14:34:44 Fentanyl I.V. 100 mcg Zach Buffie for sedation Pt is Eduardo Rice RN awake and has become agitated, biting at et tube, pt reoriented and is now more relaxed after med given. 14:44:25 Effient via 60 mg Zach Buffie for NGT Eduardo Rice RN antiplatelet therapy Procedure Log Time Note 12:07:12 Informed consent obtained and on chart 12:07:25 Diagnostic Cath Status : Urgent 12:07:54 Arrival Date: 08/21/2020 12:00:00 AM 12:07:54 Admit Source: Other 12:08:14 Patient Height : 185.42 inches 12:08:18 Patient Weight : 122.72 lbs 12:08:35 Insurance Payor : Medicare 12:13:40 Procedure Status Urgent Heart Cath (IP). 12:13:42 Time tracking: Regular hours (M-F 7:00 - 5:00) 12:13:47 Plan of Care:Hemodynamics will remain stable., Cardiac rhythm will remain stable., Comfort level will be maintained., Respiratory function will remain adequate., Patient/ family verbilizes understanding of procedure., Procedure tolerated without complication., Recovers from procedure without complications.. 12:26:01 Lab Result : Creatinine 0.8 mg/dl 12:: Lab Result : BUN 13 mg/dl 12:: Lab Result : eGFR NONAFRICAN 90 ml/min 12:: Lab Result : Troponin l 3.222 ng/ml 12:: Lab Result : CK-MB 7.1 ng/ml 12:: Lab Result : Hemoglobin 11.5 g/dl 12:: Lab Result : Hematocrit 36.4 % 12:27:41 Risk of Mortality: 0.3 12:27:45 Risk of blood transfusion: 2.7 12:27:47 Risk of BENTON: 5.2 12:27:52 Stress Test: no; N/A ? 12:27:54 Lab results completed and on chart. 12:27:56 Alarms reviewed by R. N. 12:27:56 Sharps counted by scrub and verified by R.N. 12:28:11 H&P Date Dictated: 08/03/2020 Within 30 days and on chart.. 12:28:12 Pre-procedure instructions explained to patient. 12:28:12 Pre-op teaching completed and patient verbalized understanding. 12:28:16 Family in patients room. 12:28:18 Patient NPO since Midnight. 12:28:25 Patient allergic to No known allergies 13:29:03 Armaan Rice RN sent for patient. Start room use. 13:34:19 Patient received from CVICU to CCL 2 On ventilator. Tansferred to table in Supine position. 13:34:26 Warm blankets applied, and sheridan hugger turned on for patient comfort. 13:34:26 Correct patient and procedure confirmed by team. 13:34:27 ECG and BP/O2 sat monitors applied to patient. 13:34:32 Is the patient allergic to Iodine/contrast media? No. 13:34:34 Was the patient premedicated? N/A 13:45:02 Vital chart was started 13:45:05 Baseline sample Acquired. 13:45:10 Full Disclosure recording started 13:45:15 Rhythm: atrial fibrillation 13:45:51 PT. NORMALLY TAKES EFFIENT. HAS NOT HAD DOSE SINCE THE 5TH. GIVEN LOVENOX 13:46:37 Oxygen pt is on the ventilator. ET tube was administered by Armaan Rice RN; used for procedure; Verbal order read back and verified. 13:46:43 Lidocaine 2% 20ml vial added to field was administered by Armaan Rice RN; used for procedure; Verbal order read back and verified. 13:46:50 Heparin Flush Bag (1000units/500ml NS) 2 bags added to field was administered by Armaan Rice RN; used for procedure; Verbal order read back and verified. 13:47:19 Vital chart was stopped 13:47:53 Vital chart was started 13:48:22 Patient diabetic? Yes. 13:48:23 If diabetic: On Metformin? No 13:48:25 Previous problem with sedation/anesthesia? No ? 13:48:26 Snore? Yes 13:48:27 Sleep apnea? No 13:48:27 Deviated septum? No 13:48:28 Opens mouth fully? Yes 13:48:29 Sticks out tongue? Yes 13:48:46 Airway obstruction? No ? 13:48:48 Dentures? No ? 13:48:50 Pre procedure: right dorsailis pedis pulse 1+ Palpable, but thready & weak; easily obliterated 13:48:57 Diprivan 1% (Propofol) 10 mcg/kg/min I.V. was administered by Armaan Rice RN; Per physician; Verbal order read back and verified. 13:49:01 Right groin area was prepped with chlora-prep and draped in sterile fashion 13:49:08 0.9% NaCl 100 ml/hr I.V. was administered by Armaan Rice RN; Per physician; Verbal order read back and verified. 13:49:12 Use device set Femoral Dx 13:49:17 ACIST Syringe (57769) opened to sterile field. 13:49:17 Bag Decanter (2002) opened to sterile field. 13:49:18 ACIST Hand Control (35931) opened to sterile field. 13:49:18 ACIST Manifold (16245) opened to sterile field. 13:49:23 Tegaderm 4 x 4 (1626W) opened to sterile field. 13:49:38 Medline Cath Pack ([id number]) opened to sterile field. 13:49:39 DIAGNOSTIC Multipack 5Fr catheter set (AZ8428) opened to sterile field. 13:49:40 SHEATH 5FR Eolia (FYP143) opened to sterile field. 13:49:40 EMERALD Guide Wire (060-147) opened to sterile field. 13:54:19 Physician arrived 13:54:19 --------ALL STOP TIME OUT------ 13:54:20 Final Timeout: patient, procedure, and site verified with staff and physician. All members of the team are in agreement. 13:54:22 Right groin site verified by team. 13:54:24 Fire Safety Assessment: A--An alcohol-based skin anteseptic being used preoperatively., C--Open oxygen or nitrous oxide is being used., D--An ESU, laser, or fiber-optic light is being used. 13:54:28 Physical assessment completed. ASA score P 2 - A patient with mild systemic disease as per Zach Clark MD. 13:54:31 1) 90+ Normal kidney functon but urine findings or structural abnormalities or genetic trait point to kidney disease. 13:54:34 Maximum allowable contrast dose (3.7 X eGFR X 0.75)250 ml. 13:54:43 Sedation plan: TIVA Medication:Propofol 13:57:28 Zero performed for pressure channel P1 14:04:43 Procedure started. 14:04:45 Local anesthetic to right femoral artery with Lidocaine 2% by Zach Clark MD.INITIAL ACCESS ONLY 14:04:56 A 5 Fr sheath was inserted into the Right Femoral artery 14:07:18 A MULTIPACK JL 4.0 5Fr catheter was advanced over the wire and used for Left Coronary Angiography. 14:08:29 LCA angiography performed. 14:08:32 Injector settings: Ml/sec: 3, Volume: 6, 14:10:40 Catheter removed. 14:10:44 A MULTIPACK 3DRC 5Fr catheter was advanced over the wire and used for Right Coronary Angiography. 14:11:33 RCA angiography performed. 14:11:39 Injector settings: Ml/sec: 3, Volume: 6, 14:12:10 Catheter removed. 14:12:53 A MULTIPACK Pigtail 5 Fr catheter was advanced over the wire and used for LV Angiography. 14:14:31 BMW 300cm Cleveland 2 J wire ([id number]) opened to sterile field. 14:14:31 GUIDE 6FR XBLAD 3.5 catheter (06824292) opened to sterile field. 14:14:32 TUBING High Pressure Extension Tubing (Eduardo) (WS8507R) opened to sterile field. 14:14:33 INFLATOR Merit BasixCompak (JY3389) opened to sterile field. 14:14:33 SHEATH 6FR Eolia (BZL241) opened to sterile field. 14:15:39 EF : 60 % 14:15:40 LV hemodynamics recorded. 14:15:43 LV gram done using HORNER 14:15:45 Injector settings: Ml/sec: 5, Volume: 15, 14:16:22 Catheter removed. 14:16:26 Proceeding to intervention. 14:16:33 Sheath upsized to a 6 Fr Short. 14:16:37 ACC Pre-intervention GREGG Flow is 2. 14:16:47 Pre PCI Site: [place] pLAD has 90% stenosis. 14:16:55 6 Fr xblad 3.5 guide catheter was inserted over the wire 14:20:36 Guide Catheter removed. unable to cannulate vessel. 14:20:43 GUIDE 6FR XBLAD 4.0 catheter (49833272) opened to sterile field. 14:21:26 6 Fr xblad 4 guide catheter was inserted over the wire 14:23:08 Heparin Bolus 10,000 units I.V. was administered by Armaan Rice RN; for anticoagulation; verified with dr clark Verbal order read back and verified. 14:24:25 bmw wire advanced. 14:25:03 Wire advanced across lesion. 14:27:43 Inflate balloon Inflation number: 1 A EUPHORA 3.0 x 15 Balloon ([id number]) was prepped and advanced across the Prox LAD 90, then inflated to 14 SARAH for 0:20 (min:sec) 0. 14:29:14 Inflation number: 2 The EUPHORA 3.0 x 15 Balloon ([id number]) was reinflated across the Prox LAD 90, to 12 SARAH for 0:20 (min:sec) . 14:32:23 Balloon removed over the wire. 14:32:24 Wire removed. 14:32:25 Guide catheter removed. 14:32:49 EXOSEAL 6Fr (EX600) opened to sterile field. 14:34:43 Sheath removed intact; hemostasis achieved with Exoseal to the Right Femoral artery. 14:34:44 Fentanyl 100 mcg I.V. was administered by Buffie Rice RN; for sedation; Pt is awake and has become agitated, biting at et tube, pt reoriented and is now more relaxed after med given. Verbal order read back and verified. 14:34:46 Procedure ended.(Physican Out) 14:36:43 Fluoroscopy time 06.50 minutes. 14:36:53 Flurop Dose total: 1897 14:36:53 Fluoroscopy dose: 1897 mGy 14:37:00 Dose Area Product 081077 mGy/cm. 14:37:06 Contrast amount:Isovue 300 146ml. 14:37:07 Maximum allowable dose exceeded? No. 14:37:08 Sharps counted by scrub and verified by R.N. 14:37:10 Insertion/operative site no bleeding no hematoma. 14:37:13 Post-op/insertion site Right Femoral artery dressed using a 4 x 4 and Tegaderm. 14:37:21 Post right femoral artery:stable 14:37:23 Post Procedure Pulses reassessed and unchanged 14:37:26 Post procedure rhythm: unchanged. 14:37:29 Estimated blood loss: 5 ml 14:38:41 Post procedure instruction explained to patient.Patient verbalizes understanding. 14:38:42 Patient needs reinforcement of post procedure teaching. 14:39:35 Procedure type changed to Cath procedure, Diagnostic procedure, LHC, C w/Coronaries, PCI procedure, PTCA, PTCA Initial, Hemochron ACT Test 14:39:38 Procedure and supply charges have been captured, reviewed, submitted and are correct. 14:39:43 Procedure Complication : No complications 14:39:47 [facility] Findings: MVD- PCI performed (see procedure note) 14:39:49 Operative report dictated upon procedure completion. 14:39:50 See physician's report for complete and final results. 14:40:06 Report given to CVICU. 14:40:08 Patient transfered to CVICU with Stretcher. 14:44:09 ACT drawn and resulted at out of range high seconds. (normal therapeutic range 180-240 seconds). 14:44:10 Procedure ended. 14:44:10 Full Disclosure recording stopped 14:44:21 ACC-PCI Only Patient was given prescriptions, or instructed by Zach Clark MD to start/continue the following medications upon discharge: Effient 14:44:25 Effient 60 mg via NGT was administered by Armaan Rice RN; for antiplatelet therapy; Verbal order read back and verified. 14:44:30 End room use (Document Last) 14:57:12 Vital chart was stopped Intervention Summary Intervention Notes Time ActionType Lesion and Equipment Action# Pressure Duration Attributes Used 14:27:43 Inflate Prox LAD EUPHORA 1 14 00:20 balloon 3.0 x 15 Balloon ([id number]) 14:29:14 Reinflate Prox LAD EUPHORA 2 12 00:20 balloon 3.0 x 15 Balloon ([id number]) Device Usage Item Name Manufacture Quantity Catalog Hospital Part Current Minimal L ot# / Number Charge Number Stock Stock Serial# Code ACIST Acist 1 15143 892887 193564 531352 20 Syringe Medical (50671) Systems Inc Bag Microtek 1 2001S 553239 35341 294799 5 Decanter Medical Inc. () ACIST Hand Acist 1 78139 026459 724709 196744 5 Control Medical (88083) Systems Inc ACIST Acist 1 24928 607290 018631 175960 5 Manifold Medical (55593) Systems Inc Tegaderm 4 3M 1 1626W 048285 164979 116020 5 x 4 (1626W) Medline Medline 1 [id number] 512178 00970 603846 5 Cath Pack (FXHH72927) DIAGNOSTIC Cardinal 1 MU4401 085106 56131 190102 30 Multipack Health 5Fr catheter set (CA8099) SHEATH 5FR Terumo 1 UDQ201 235019 189874 577580 5 Eolia (GQB665) EMERALD Cardinal 1 502-455 197621 371675 301218 5 Guide Wire Health (502-455) MULTIPACK Cardinal 1 502464 5 JL 4.0 5Fr Health catheter MULTIPACK Cardinal 1 243756 5 3DRC 5Fr Health catheter MULTIPACK Cardinal 1 087289 5 Pigtail 5 Health Fr catheter BMW 300cm Yadav 1 [id number] 532564 549076 966476 5 Cleveland 2 Vascular J wire (2547187I) GUIDE 6FR Cardinal 1 26912621 967811 146102 388673 10 XBLAD 3.5 Health catheter (84768501) TUBING High Merit 1 BS2043V 937518 96466 680817 10 Pressure Medical Extension Tubing (Clark) (NF5974U) INFLATOR Merit 1 TB0623 509925 546159 406160 15 Merit Medical BasixCompak (HE4733) SHEATH 6FR Terumo 1 EOP807 645787 621929 558133 40 Eolia (EKD458) GUIDE 6FR Cardinal 1 05729886 143031 005171 376111 3 XBLAD 4.0 Health catheter (55841010) EUPHORA 3.0 Medtronic 1 PDB0426U 633596 638190 819664 5 2 77333350 x 15 Balloon ([id number]) EXOSEAL 6Fr Cardinal 1 EX600 594809 328957 483327 10 (EX600) Health Signature Audit Napier Stage Time Signature Unsigned Intra-Procedure 08/21/2020 Ely Sherman 2:47:14 PM RT(R) Intra-Procedure 08/21/2020 Armaan Rice RN 2:48:07 PM Intra-Procedure 08/21/2020 Zach Clark MD 2:57:09 PM Signatures Performing Physician : Signature : Zach Clark MD Date : Time : Nurse : Armaan Rice RN Signature : Date : Time : Monitor : Ely Sherman RT Signature : Date : Time : [facility] [address] [place], [place] [address]
[~2020-08-03 16:51] MED LIST changes: +[UNRECOGNIZED DRUG - SUPPLY] SQ
[2020-08-03] MEDS ORDERED: SOLIQUA 100 UNIT3 ML SC (18:21)
--- NOTE | 2020-08-03 18:36 | NUR ---
REC'D TO ROOM 2228 AT THIS TIME VIA WC ACCOMPANIED BY ADMISSION, , AND SON. RESP EVEN AND UNLABORED WITH NO DISTRESS NOTED. C/O LEFT HIP PAIN RATING 10/10 ON PAIN SCALE. ASSISTANCE GIVEN WITH ALL TRANSFERS AT THIS TIME. WILL CONTINUE WITH POC PER ORDERS. C/L IN REACH AT BEDSIDE.
--- NOTE | 2020-08-03 22:15 | NUR ---
ALERT AND ORIENTED X4. C/O PAIN IN LT HIP RATING 5. CONSENTS FOR LT TOTAL HIP ARTHROSCOPY ACKNOWLEGED AND SIGNED. INFORMED OF NPO AFTER MIDNIGHT AND HE VERBALIZED UNDERSTANDING. EDEMA NOTED TO BLE. 1/2 NS @ 75 MLHR INFUSING IN RT HAND. MEDICATED WITH DILAUDID FOR PAIN. COVID SWAB TESTING PERFORMED AND SENT TO LAB. EKG DONE. SR ELEVATED X2. CL IN REACH.
[2020-08-03 23:50] VITALS: BP 161/56; BMI 30.4
[2020-08-04] VITALS (14 sets, daily range): BP systolic 107–176; BP diastolic 47–88
--- NOTE | 2020-08-04 00:30 | NUR ---
SAO2 86%. PT ENCOURAGED TO DEEP BREATHE. SAO2 CAME UP TO 90%. SHOULD BE NOTED THAT SAO2 WAS 92% ON ADMISSION. PT PLACED ON O2 @ 2L/NC. SAO2 NOW 96%. STATES HE IS A SMOKER.
--- NOTE | 2020-08-04 02:22 | NUR ---
RESTING QUIETLY IN BED WITH EYES CLOSED. RESP EVEN AND NONLABORED. NO DISTRESS. CL IN REACH.
--- NOTE | 2020-08-04 05:50 | NUR ---
HIBACLENS BATH GIVEN AT THIS TIME.
[2020-08-04 06:34] LABS: BASOPHILS 0.2 % (0-2); EOSINOPHILS 1.9 % (0-7); HEMATOCRIT 51.1 % (42.0-54.0); HEMOGLOBIN 16.6 g/dL (13.5-17.5); IMMATURE GRANULOCYTES 0.3 % (0-5); LYMPHOCYTES 17.7 % (15-50); MCHC 32.5 g/dL (31.0-37.0); MCV 95.5 fL (80.0-100.0); MEAN PLATELET VOLUME 9.9 fL (7.4-10.4); MONOCYTES 6.6 % (2-11); NEUTROPHILS 73.3 % (40-80); PLATELET COUNT 215 10x3/uL (130-400); RBC 5.35 10x6/uL (4.20-6.10); WBC 12.5 10x3/uL (4.8-10.8)
[2020-08-04 06:42] LABS: INR 0.99 (0.85-1.17)
[2020-08-04 06:47] LABS: ALBUMIN 3.1 g/dL (3.4-5.0); ALKALINE PHOSPHATASE 80 U/L (30-120); ALT (SGPT) 18 U/L (10-68); BILIRUBIN - TOTAL 0.64 mg/dL (0.2-1.3); CALC OSMOLALITY 270 mosm/kg (275-300); CALCIUM 8.6 mg/dL (8.5-10.1); CARBON DIOXIDE 26.7 mmol/L (21.0-32.0); CHLORIDE - SERUM 99 mmol/L (98-107); CREATININE - SERUM 0.9 mg/dL (0.6-1.3); POTASSIUM - SERUM 4.3 mmol/L (3.5-5.1); PROTEIN - SERUM 6.9 g/dL (6.4-8.2); SODIUM 133 mmol/L (136-145); UREA NITROGEN 8 mg/dL (7-18); eGFR NON AFRICAN AMERICAN 89 mL/min (90-120)
[2020-08-04 06:48] LABS: GLUCOSE 216 mg/dL (74-106)
--- NOTE | 2020-08-04 07:51 | NUR ---
TRENT IN ROOM. PREOPS GIVEN. PT TAKEN TO SURGERY.
--- NOTE | 2020-08-04 16:41 | NUR ---
PT SLEEPING. VS STABLE. TRENT WENT TO LET THE DOGS OUT. CL IN REACH. NO NEEDS AT THIS TIME. WCTM
--- NOTE | 2020-08-04 17:16 | NUR ---
TRENT BACK IN ROOM. VS STABLE. O2 TURNED DOWN TO 4 L. SATING 92%. PT STILL LETHARGIC. WILL EASILY AWAKE. CL IN REACH. WCTM
--- NOTE | 2020-08-04 20:56 | OP ---
PATIENT NAME: MERNA VALDEZ MEDICAL RECORD: [id number] :54 LOCATION:D.MS [id number] ADMISSION DATE:08/03/20 SURGEON: YASIR BENITEZ DO DATE OF OPERATION: 08/04/2020 PROCEDURE PERFORMED: Left total hip arthroplasty. PREOPERATIVE DIAGNOSIS: Left displaced femoral neck fracture. POSTOPERATIVE DIAGNOSIS: Left displaced femoral neck fracture. INDICATIONS: Mr. Valdez is a 70-year-old male who fell onto his left hip, I believe yesterday after falling off a trailer and drove home and could not bear weight on it. He came in and directly admitted to the hospital due to left hip pain and x-rays were taken, seen femoral neck fracture, right at the mid neck portion. I talked to him extensively about this and that a total hip would be the best option that would provide him a way to get up right away and walk. He would be at risk for fracture, bleeding, blood clots, damage to nerves and vessels in the area of infection, damage to the sensory nerve to the lateral thigh and even , failure of implants as well and implant loosening and he signed the consent. SURGEON: Yasir Benitez DO DESCRIPTION OF PROCEDURE: The patient was taken to the operative suite, laid in supine position, given general anesthetic and intubated. He was given 2 grams of Ancef and 80 mg of gentamicin preoperatively. He was then moved to the Marston table. The left lower extremity was prepped and draped in sterile fashion. Timeout was performed. Everyone was in agreement with the correct side, site, patient and procedure. We then began by making an incision over the tensor fasciae milton muscle. Careful dissection made down to the muscle and the fascia, and the fascia was incised and taken. The fascia was taken anteriorly with muscle belly posteriorly and opened up the rectus interval. The rectus was then taken medially, the tensor fascia milton laterally and then opened the fascia over the ascending branch of lateral femoral circumflex and tied it off and coagulated with Aquamantys and then cut it. We then opened up the capsule. He had a hematoma there and it was evacuated. I then made a fresh neck cut. I removed that and removed the head. Once the head was removed, I removed the labrum and pulvinar after putting the Charnley in and then started reaming, reamed up to a 56 cup, 56 cup was then impacted and it fit very well and checked with Bradley and pushed on it, it was not loose. I then put in a liner and impacted it into place. We then exposed the femur and used a canal finder Comenta TV cutter and then broached up to an 18, I then trialed 18 with a -6 and did not appear to be the correct length. I went with a standard, it was the same length as the right side. I then removed the trials and irrigated it very well and put in the actual 18 stem high offset neck with the dual mobility head with a standard neck and then impacted on the stem and then reduced the hip. X-rays were then taken and no fracture was seen in the femur or anywhere else and the leg lengths were equal on AP pelvis. I then irrigated with a 10% povidone-iodine and 500 mL of normal saline solution and left to sit in the wound for 3 minutes and irrigated out with over a liter of normal saline. Dexter Hernandez, certified surgical middle school assistant principal then applied the Mary and vancomycin-tobramycin powder and then closed the fascia with a #1 Vicryl in a running locking stitch and then the skin with 2-0 Vicryl in an inverted interrupted fashion, and 4-0 Monocryl running on the skin. Then, Jessenia glue OPERATIVE REPORT [id number] MERNA VALDEZ and Bryce and Tegaderm on the incision. He was then awakened and taken to recovery in stable condition. BLOOD LOSS: Approximately 200 mL. COMPLICATIONS: None. TRANSINT:[id number] Voice Confirmation ID: [id number] DOCUMENT ID: [id number] YASIR BENITEZ DO at 2054 CC: [id number] DICTATION DATE: 08/04/20 0953 COFFEE TASTER: 08/04/20 1232 ADM IN [facility] [address] [place] [address]
--- NOTE | 2020-08-04 23:45 | NUR ---
PT STARTING TO AROUSE. PT STILL A LITTLE GROGGY BUT ALERT & ORIENTED. FSBS 243 - GAVE 4 UNITS HUMALOG PER SS. GAVE SCHEDULED MEDS. DENIES PAIN. PT VOIDED 300 CC'S IN URINAL. VITAL SIGNS STABLE. NO OTHER NEEDS. WILL CONTINUE TO MONITOR.
[2020-08-05] VITALS (7 sets, daily range): BP systolic 126–163; BP diastolic 45–70
[2020-08-05 06:25] LABS: BASOPHILS 0.1 % (0-2); EOSINOPHILS 0.2 % (0-7); HEMATOCRIT 41.8 % (42.0-54.0); HEMOGLOBIN 13.5 g/dL (13.5-17.5); IMMATURE GRANULOCYTES 0.2 % (0-5); LYMPHOCYTES 17.7 % (15-50); MCH 30.9 pg (26.0-34.0); MCHC 32.3 g/dL (31.0-37.0); MCV 95.7 fL (80.0-100.0); MEAN PLATELET VOLUME 9.9 fL (7.4-10.4); MONOCYTES 10.4 % (2-11); NEUTROPHILS 71.4 % (40-80); PLATELET COUNT 230 10x3/uL (130-400); RBC 4.37 10x6/uL (4.20-6.10); RDW 13.9 % (11.5-14.5); WBC 12.7 10x3/uL (4.8-10.8)
[2020-08-05 06:52] LABS: ALBUMIN 2.6 g/dL (3.4-5.0); ANION GAP 9.3 mmol/L (8-16); BILIRUBIN - TOTAL 0.39 mg/dL (0.2-1.3); CALCIUM 7.9 mg/dL (8.5-10.1); CARBON DIOXIDE 29.3 mmol/L (21.0-32.0); POTASSIUM - SERUM 4.6 mmol/L (3.5-5.1)
[2020-08-05 06:54] LABS: CREATININE - SERUM 1.2 mg/dL (0.6-1.3)
--- NOTE | 2020-08-05 08:30 | NUR ---
PT URINATED. BED LINENS AND GOWN CHANGED. TRENT IN ROOM. PT STILL LETHARGIC. CL IN REACH. BED ALARM PLACED ON BED. TM
[2020-08-05 11:21] LABS: BASOPHILS 0.2 % (0-2); EOSINOPHILS 0.9 % (0-7); HEMATOCRIT 41.4 % (42.0-54.0); HEMOGLOBIN 13.5 g/dL (13.5-17.5); IMMATURE GRANULOCYTES 0.3 % (0-5); MCH 31.2 pg (26.0-34.0); MCHC 32.6 g/dL (31.0-37.0); MCV 95.6 fL (80.0-100.0); MEAN PLATELET VOLUME 9.4 fL (7.4-10.4); MONOCYTES 11.6 % (2-11); PLATELET COUNT 204 10x3/uL (130-400); RBC 4.33 10x6/uL (4.20-6.10); RDW 13.8 % (11.5-14.5); WBC 12.7 10x3/uL (4.8-10.8)
[2020-08-05 11:31] LABS: CALCIUM 7.4 mg/dL (8.5-10.1); CARBON DIOXIDE 28.6 mmol/L (21.0-32.0); CREATININE - SERUM 1.1 mg/dL (0.6-1.3); POTASSIUM - SERUM 4.6 mmol/L (3.5-5.1)
[2020-08-05 11:53] LABS: ALBUMIN 2.7 g/dL (3.4-5.0); BILIRUBIN - TOTAL 0.41 mg/dL (0.2-1.3); MAGNESIUM - SERUM 1.9 mg/dL (1.8-2.4); PROTEIN - SERUM 5.6 g/dL (6.4-8.2)
[2020-08-05 11:57] LABS: TROPONIN-I 0.234 ng/mL (0.000-0.060)
--- NOTE | 2020-08-05 12:40 | NUR ---
DR DEAN CALLED. RECOMMENDED A MRI AND AN ECHO. HE STATED THE ELIQUIS 2.5 MG AND LOVENOX 40 MG IS SUFFICIENT. REPORTED SPEECH THERAPY HAD ALREADY BEEN CONSULTED FOR SWALLOW EVAL.
--- NOTE | 2020-08-05 12:45 | NUR ---
NOTIFIED SPEECH THERAPY OF CONSULT
--- NOTE | 2020-08-05 15:37 | NUR ---
FAMILY IN ROOM. PT SWALLOWED 2 BITES OF APPLESAUCE WITH MEDICINE. FOLLOWED UP WITH A DRINK HIS TRENT PROVIDED. DR ALANIZ IN ROOM ANSWERING QUESTIONS. CL IN REACH. TELEMETRY REAPPLIED. 67 SR. BED ALARM ON. WCTM
--- NOTE | 2020-08-05 19:18 | NUR ---
SON TIERA VALDEZ LEFT HIS PHONE NUMBER IF NEEDED. [phone]
[2020-08-06] VITALS (7 sets, daily range): BP systolic 129–198; BP diastolic 61–86; Ht 185.4 cm; Wt 112.7 kg
--- NOTE | 2020-08-06 03:46 | NUR ---
REC'D. WALKING ROUNDS CHGE OF SHIFT.IN BED HOB UP 75 DEGREES. SOME FACIAL DROOPING ON RIGHT SIDE OF FACE AND MOUTH GARY SLIGHTLY SLUGGISH ON REACTION.LEFT SIDE FLACCID ARM WITH MINUMAL SWELLING UNABLE TO MOVE LEFT. ARM OR LEG.SQUEEZING HAND HARD INSTRUCTED NOT DO TOO HARD YOU'LL HURT HER SOMEWHAT AGGITATED AT PRESENT TIME BECAUSE SON LEFT STATES WANT TO GO HOME..
[2020-08-06 07:04] LABS: BASOPHILS 0.1 % (0-2); EOSINOPHILS 0.9 % (0-7); HEMATOCRIT 39.7 % (42.0-54.0); HEMOGLOBIN 12.6 g/dL (13.5-17.5); IMMATURE GRANULOCYTES 0.3 % (0-5); LYMPHOCYTES 20.8 % (15-50); MCH 30.6 pg (26.0-34.0); MCHC 31.7 g/dL (31.0-37.0); MCV 96.4 fL (80.0-100.0); MEAN PLATELET VOLUME 9.8 fL (7.4-10.4); MONOCYTES 13.8 % (2-11); NEUTROPHILS 64.1 % (40-80); RBC 4.12 10x6/uL (4.20-6.10); RDW 13.9 % (11.5-14.5); WBC 11.6 10x3/uL (4.8-10.8)
[2020-08-06 07:06] LABS: ALBUMIN 2.7 g/dL (3.4-5.0); ALKALINE PHOSPHATASE 66 U/L (30-120); ALT (SGPT) 16 U/L (10-68); BILIRUBIN - TOTAL 0.47 mg/dL (0.2-1.3); CALCIUM 8.5 mg/dL (8.5-10.1); CARBON DIOXIDE 30.3 mmol/L (21.0-32.0); CHLORIDE - SERUM 100 mmol/L (98-107); POTASSIUM - SERUM 4.8 mmol/L (3.5-5.1); PROTEIN - SERUM 6.4 g/dL (6.4-8.2); SODIUM 137 mmol/L (136-145); UREA NITROGEN 17 mg/dL (7-18); eGFR NON AFRICAN AMERICAN 79 mL/min (90-120)
[2020-08-06 07:07] LABS: CALC OSMOLALITY 279 mosm/kg (275-300); GLUCOSE 169 mg/dL (74-106)
[2020-08-06 07:13] LABS: PLATELET COUNT 258 10x3/uL (130-400)
--- NOTE | 2020-08-06 07:40 | NUR ---
PATIENT SLEEPING. LUNGS CLEAR BILATERALLY. HEART SOUNDS S1 AND S2 HEARD IN ALL TAVERAS. BOWEL SOUNDS ACTIVE X 4. IV TO RIGHT HAND PATENT WITHOUT REDNESS. BED LOW. BED ALARM ON. AT BEDSIDE. CALL BARRAZA AND PERSONAL ITEMS IN REACH. WILL CONTINUE TO MONITOR.
--- NOTE | 2020-08-06 09:34 | NUR ---
DRSG CHANGED TO LEFT HIP/GROIN AREA PER ORDER. NO SIGNS INFECTION OR REDNESS NOTED.
--- NOTE | 2020-08-06 11:19 | NUR ---
AIR OVERLAY MATTRESS REQUEST FORM FAXED TO [employer] NOTIFIED.
--- NOTE | 2020-08-06 11:53 | NUR ---
PATIENT SLEEPING. WILL CONTINUE TO MONITOR.
--- NOTE | 2020-08-06 12:01 | NUR ---
AIR OVERLAY PLACED ON BED PER ORDER.
--- NOTE | 2020-08-06 13:34 | NUR ---
UNABLE TO WAKE PATIENT D/T CVA. UNABLE TO GIVE MEDS. WAS ASKED BY DR ISSA'S NURSE IF I TRIED TO GIVE MEDS AND EXPLAINED TO HER THAT I HAVE NOT BEEN ABLE TO WAKE PATIENT UP TO GIVE MEDS. THEN SHE ASKED "ARE YOU JUST GOING TO BYPASS THE MEDS" AND "DO YOU KNOW THE IMPORTANCE OF PATIENT RECEIVING THESE MEDS?" EXPLAINED TO HER AGAIN THAT TRIED TO WAKE PATIENT TO TAKE MEDS AND PATIENT NOT WAKING UP ENOUGH TO TAKE MEDS. WHEN PATIENT AWAKE ENOUGH WILL ATTEMPT TO GIVE MEDS. SPOKE TO NURSE LIGHT OUT EXAMINER ABOUT THIS.
--- NOTE | 2020-08-06 14:08 | NUR ---
NURSE CTC OPERATOR IN ROOM ATTEMPTING TO WAKE PATIENT UP TO TAKE MEDS. PATIENT MUMBLING BUT NOT SWALLOWING LIQUIDS. PER NURSE CTC OPERATOR, PATIENT NOT AWAKE ENOUGH TO TAKE MEDS.
--- NOTE | 2020-08-06 16:09 | NUR ---
ATTEMPTED TO GIVE PATIENT ELIQUIS AND EFFIENT. PATIENT SPIT BACK OUT.
[2020-08-07 04:00] VITALS: BP 133/82
[2020-08-07 07:06] LABS: BASOPHILS 0.2 % (0-2); EOSINOPHILS 2.3 % (0-7); HEMATOCRIT 40.2 % (42.0-54.0); HEMOGLOBIN 12.7 g/dL (13.5-17.5); IMMATURE GRANULOCYTES 0.3 % (0-5); MCH 30.4 pg (26.0-34.0); MCHC 31.6 g/dL (31.0-37.0); MCV 96.2 fL (80.0-100.0); MEAN PLATELET VOLUME 9.3 fL (7.4-10.4); MONOCYTES 14.5 % (2-11); NEUTROPHILS 60.7 % (40-80); PLATELET COUNT 285 10x3/uL (130-400); RBC 4.18 10x6/uL (4.20-6.10); RDW 13.9 % (11.5-14.5); WBC 12.7 10x3/uL (4.8-10.8)
[2020-08-07 07:30] LABS: ALBUMIN 2.7 g/dL (3.4-5.0); ALKALINE PHOSPHATASE 75 U/L (30-120); BILIRUBIN - TOTAL 0.66 mg/dL (0.2-1.3); CALC OSMOLALITY 275 mosm/kg (275-300); CALCIUM 8.4 mg/dL (8.5-10.1); CARBON DIOXIDE 29.5 mmol/L (21.0-32.0); CHLORIDE - SERUM 99 mmol/L (98-107); GLUCOSE 216 mg/dL (74-106); POTASSIUM - SERUM 4.8 mmol/L (3.5-5.1); PROTEIN - SERUM 6.8 g/dL (6.4-8.2); SODIUM 134 mmol/L (136-145); UREA NITROGEN 14 mg/dL (7-18); eGFR NON AFRICAN AMERICAN 79 mL/min (90-120)
[2020-08-07 07:32] LABS: ALT (SGPT) 34 U/L (10-68)
[2020-08-07 09:18] VITALS: BP 167/71
--- NOTE | 2020-08-07 11:00 | NUR ---
PT TURNED TO RIGHT SIDE, PROPPED WITH PILLOWS. PT CLEAN AND DRY AT THIS TIME
[2020-08-07 12:27] VITALS: BP 150/61
--- NOTE | 2020-08-07 13:40 | NUR ---
PT PROVIDED CHRISTO CARE FOR INCONTINENT URINE. TURNED PT TO LEFT SIDE WITH PILLOWS. DENIES CONSTANT PAIN AT THIS TIME. CL WITHIN REACH. FAMILY AT BEDSIDE.
[2020-08-07 18:01] VITALS: BP 145/58
[2020-08-07 20:00] VITALS: BP 90/54
[2020-08-08 04:00] VITALS: BP 126/71
--- NOTE | 2020-08-08 05:05 | NUR ---
I have reviewed this patient and I concur with the Shift Assessment completed by the Licensed Practical Nurse today this shift.
[2020-08-08 06:57] LABS: BASOPHILS 0.3 % (0-2); EOSINOPHILS 3.4 % (0-7); HEMOGLOBIN 11.9 g/dL (13.5-17.5); IMMATURE GRANULOCYTES 0.2 % (0-5); LYMPHOCYTES 20.1 % (15-50); MCH 30.7 pg (26.0-34.0); MCHC 32.2 g/dL (31.0-37.0); MCV 95.6 fL (80.0-100.0); MEAN PLATELET VOLUME 9.5 fL (7.4-10.4); MONOCYTES 13.4 % (2-11); NEUTROPHILS 62.6 % (40-80); PLATELET COUNT 325 10x3/uL (130-400); RBC 3.87 10x6/uL (4.20-6.10); RDW 13.7 % (11.5-14.5); WBC 10.4 10x3/uL (4.8-10.8)
--- NOTE | 2020-08-08 07:15 | NUR ---
RECEIVED BEDSIDE REPORT. PT LAYING IN BED, EYES CLOSED, EVEN RESPIRATIONS. PIV IN RIGHT WRIST, PATENT AND INFUSING, NO REDNESS OR SWELLING. PT ON STEP OVERLAY BED. LEFT SIDED WEAKNESS NOTED, SLIGHT DROOPING ON LEFTSIDE OF FACE. 02 VIA NC AT 7L. DRSG ON LEFT HIP, C/D/I. EDUCATED PT FAMILY ON CL AND NEEDS, VERBALIZED UNDERSTANDING. BED LOW, RAILS X2. CL IN REACH. WILL CONTINUE TO MONITOR.
[2020-08-08 07:35] LABS: ALBUMIN 2.3 g/dL (3.4-5.0); ALKALINE PHOSPHATASE 63 U/L (30-120); ALT (SGPT) 31 U/L (10-68); BILIRUBIN - TOTAL 0.47 mg/dL (0.2-1.3); CALC OSMOLALITY 277 mosm/kg (275-300); CALCIUM 7.7 mg/dL (8.5-10.1); CARBON DIOXIDE 28.5 mmol/L (21.0-32.0); CHLORIDE - SERUM 102 mmol/L (98-107); CREATININE - SERUM 0.9 mg/dL (0.6-1.3); GLUCOSE 178 mg/dL (74-106); POTASSIUM - SERUM 4.4 mmol/L (3.5-5.1); PROTEIN - SERUM 5.4 g/dL (6.4-8.2); SODIUM 137 mmol/L (136-145); UREA NITROGEN 13 mg/dL (7-18); eGFR NON AFRICAN AMERICAN 89 mL/min (90-120)
[2020-08-08 09:48] VITALS: BP 117/60
[2020-08-08 12:00] VITALS: BP 96/63
--- NOTE | 2020-08-08 13:51 | NUR ---
OT NOTE: PT UP IN CHAIR; MAX ASSIST X 2 FOR SIT TO STAND; WT SHIFTING WITH MAX ASSIST; EOB SITTING WITH MAX ASSIST; ATTEMPTED WT BEARING THROUGH R UE WITH MAX ASSIST. PTS SPEECH MORE CLEAR TODAY. BACK TO BED WITH MAX ASSIST MARIA L GORE, OTR/L [phone]
--- NOTE | 2020-08-08 16:58 | NUR ---
OT NOTE: PT COMPLETED SUPINE TO SIT WITH MAX A X2. PT COMPLETED BED TO CHAIR TSF WITH MAX A X2. PT COMPLETED EOB SITTING WITH MOD A. PT COMPLETED LUE POSITIONING AND WT BEARING WHILE SITTING AT EOB. [phone] THANK YOU,NOREEN SMITH
[2020-08-08 17:14] VITALS: BP 145/77
--- NOTE | 2020-08-08 17:42 | MORECARE ---
CASE MANAGEMENT DISCHARGE SUMMARY PATIENT: MERNA VALDEZ UNIT: [id number] ADM DATE: 08/03/20 AGE: 70 : 52 SEX: M ROOM/BED: D.2228 AUTHOR: JEANIE ARMENTA PHYSICIAN: REFERRING PHYSICIAN: JONAH BENITEZ DO DATE OF SERVICE: 08/08/20 Discharge Plan Patient Name: MERNA VALDEZ Facility: [facility]:[place] : 1950 Planned Disposition: Inpatient Rehab Anticipated Discharge Date: Discharge Date: Expected LOS: Initial Reviewer: [email or web address] Initial Review Date: 08/05/2020 Generated: 08/08/20 6:42 pm Comments DCP- Discharge Planning Updated by [id number]: Trini Staples on 08/08/20 4:[address] Patient Name: MERNA VALDEZ Admission Status: Elective Accout number: [id number] Admission Date: 08-03-2020 : 1950 Admission Diagnosis:FRACTURE OF UNSP PART OF NECK OF LEFT FEMUR, INIT Attending: JONAH BENITEZ Current LOS: 5 Anticipated DC Date: Planned Disposition: Inpatient Rehab Primary Insurance: MEDICARE A & B Discharge Planning Comments: CM met with patients after explaining CM role and obtaining verbal consent. CM discussed availability / needs of home health, REHAB and medical equipment. SHE WOULD LIKE HIM TO GO TO [facility] FOR REHAB. SABAS SIGNED. ANTICIPATE DC TOMORROW. I AM FAXING CLINICALS TO [facility] AT [facility], SHE WILL CALL BACK IN MORNING TO LET US KNOW IF THEY WILL HAVE BED AVAILABILITY. Mash Tub Cooker: Trini Staples External Providers External Provider: OTHER-OTHER Next Contact Date: Service Request Date: Service Type: Resolution: Reviewer: Comments: Coverage Notice Reviewer: [id number] - Trini Staples Notice Issued Date-Time: 08/08/2020 15:52 Notice Type: Patient Choice Letter Notice Delivered To: Patient Relationship to Patient: Blind Cleaner Name: Delivery Method: - Missy Days: Prior Verbal Notification: Recipient Understood Notice: Yes Recipient Signature: Yes Med Rec Note Co-signed by Attending: Coverage Notice Comment: [facility] Patient Name: MERNA VALDEZ Page [phone] at 1742 All edits/amendments must be made on the electronic document DICTATION DATE: 08/08/201741 RECREATION PROGRAMMER: STEVIE 08/08/201741 RPT#: [id number] DC DATE: STATUS: ADM IN [facility] [address] [place], [place] END OF REPORT
[2020-08-08 20:00] VITALS: BP 159/67
--- NOTE | 2020-08-08 20:00 | NUR ---
PATIENT RESTING IN BED SAYING INAPPROPRIATE THINGS TO . PATIENT THINKS THAT "SHE IS ABUSING ME". PATIENT IS CONFUSED, A&O X2 TO SELF AND PLACE ONLY. PATIENT HAS 7L NASAL CANNULA. PATIENT HAS A LEFT WRIST, A BANANA BAG @ 125 ML/HR. IV IS PATENT WITHOUT REDNESS, SWELLING, OR TENDERNESS. PATIENT HAS LEFT SIDED WEAKNESS FROM A CVA THAT HAPPENED WEDNESDAY. PATIENT HAS A DRESSING ON THE LEFT HIP, DRESSING C/D/I. PATIENT LEFT HIP IS ALSO VERY BRUISED. PATIENT IS INCONTINENT OF BOWEL AND BLADDER. PATIENT HAS A FIRST-STEP OVERLAY ON BED. CALL LIGHT WITHIN REACH. WILL CONTINUE TO MONITOR.
--- NOTE | 2020-08-08 22:00 | NUR ---
PATIENT IS VERY CONFUSED AND AGITATED/SAYS INAPPROIPRIATE THINGS TO HIS CLAIMING THAT SHE IS HITTING HIM "IN THE NUTS/FONDLING HIS NUTS". THE SAID HE GETS LIKE THIS SOMETIMES. PATIENT STATES THAT HE IS READY TO HOME BECUASE THEY LEFT A BABY AT HOME AND HE HAS TO GO FEED IT. STATES NO AND HIS GRANDSON IS IN THE ROOM. PATIENT WAS GIVEN BENDRYL HOPING THAT IT WILL CALM HIIM DOWN SOME. CALL LIGHT KELVIN DIAS. WILL CONTINUE TO MONITOR.
[2020-08-09] VITALS: BP 152/53
[2020-08-09 04:00] VITALS: BP 157/56
--- NOTE | 2020-08-09 05:12 | NUR ---
I have reviewed this patient and I concur with the Shift Assessment completed by the Licensed Practical Nurse today this shift.
[2020-08-09 06:32] LABS: BASOPHILS 0.3 % (0-2); EOSINOPHILS 4.3 % (0-7); HEMATOCRIT 36.2 % (42.0-54.0); HEMOGLOBIN 11.5 g/dL (13.5-17.5); IMMATURE GRANULOCYTES 0.3 % (0-5); LYMPHOCYTES 21.8 % (15-50); MCH 30.4 pg (26.0-34.0); MCHC 31.8 g/dL (31.0-37.0); MCV 95.8 fL (80.0-100.0); MEAN PLATELET VOLUME 9.5 fL (7.4-10.4); MONOCYTES 11.8 % (2-11); NEUTROPHILS 61.5 % (40-80); PLATELET COUNT 344 10x3/uL (130-400); RBC 3.78 10x6/uL (4.20-6.10); RDW 13.9 % (11.5-14.5); WBC 10.8 10x3/uL (4.8-10.8)
[2020-08-09 06:45] LABS: ALBUMIN 2.2 g/dL (3.4-5.0); ALKALINE PHOSPHATASE 59 U/L (30-120); ALT (SGPT) 29 U/L (10-68); BILIRUBIN - TOTAL 0.34 mg/dL (0.2-1.3); CALC OSMOLALITY 281 mosm/kg (275-300); CALCIUM 8.2 mg/dL (8.5-10.1); CARBON DIOXIDE 30.9 mmol/L (21.0-32.0); CHLORIDE - SERUM 103 mmol/L (98-107); CREATININE - SERUM 0.9 mg/dL (0.6-1.3); GLUCOSE 165 mg/dL (74-106); POTASSIUM - SERUM 3.9 mmol/L (3.5-5.1); PROTEIN - SERUM 5.9 g/dL (6.4-8.2); SODIUM 140 mmol/L (136-145); UREA NITROGEN 11 mg/dL (7-18); eGFR NON AFRICAN AMERICAN 89 mL/min (90-120)
--- NOTE | 2020-08-09 08:22 | NUR ---
The patient is sleeping, arouses to name, but lethargic, left sided weakness, left arm flaccid. Dressing to left hip cdi. Spouse at bedside.
[2020-08-09 09:24] VITALS: BP 130/58
--- NOTE | 2020-08-09 12:16 | NUR ---
NUTRITIION F/U CHART REVIEWED. DIET ADVANCED TO [facility] SOFT. ADDED GLUCERNA SHAKE TO MEALS. WILL CONTINUE TO MONITOR. RD FOLLOWING
--- NOTE | 2020-08-09 12:47 | NUR ---
OT NOTE: PTS REPORTED THAT HE HAD RECEIVED AN ATIVAN AROUND 2AM, BUT IS STILL PRETTY LETHARGIC.. ASSISTED PT TO EOB WITH MAX ASSIST X 2; ATTEMPTED EOB SITTING AND TRUNK STRENGTHENING, HOWEVER, DUE TO LETHARGY, HE HAD A DIFFICULT TIME PARTICIPATING. ATTEPTED WT BEARING AND WT SHIFTING, BUT AGAIN, DIFFICULT FOR PT TO STAY AWAKE;; ASSISTED BACK TO BED WITH MAX ASSIST X 2; REPOSITIONED WITH MAX ASSIST X 2; WILL RE ATTEMPT IN PM. MARIA L GORE, OTR/L [phone]
--- NOTE | 2020-08-09 13:15 | MORECARE ---
CASE MANAGEMENT DISCHARGE SUMMARY PATIENT: MERNA VALDEZ UNIT: [id number] ADM DATE: 08/03/20 AGE: 70 : 52 SEX: M ROOM/BED: D.2228 AUTHOR: GEOVANY,DOC PHYSICIAN: REFERRING PHYSICIAN: JONAH BENITEZ DO DATE OF SERVICE: 08/09/20 Discharge Plan Patient Name: MERNA VALDEZ Facility: [facility]:[place] : 1950 Planned Disposition: Inpatient Rehab Anticipated Discharge Date: Discharge Date: Expected LOS: Initial Reviewer: [id number] Initial Review Date: 08/05/2020 Generated: 08/09/20 2:15 pm Comments DCP- Discharge Planning Updated by [id number]: Trini Staples on 08/09/20 12:[address] Patient Name: MERNA VALDEZ Admission Status: Elective Accout number: [id number] Admission Date: 08-03-2020 : 1950 Admission Diagnosis:FRACTURE OF UNSP PART OF NECK OF LEFT FEMUR, INIT Attending: JONAH BENITEZ Current LOS: 6 Anticipated DC Date: Planned Disposition: Inpatient Rehab Primary Insurance: MEDICARE A & B Discharge Planning Comments: SPOKE WITH MS. LR AT [facility] IN [place]. SHE STATED SHE TALKED WITH THE DOCTOR ABOUT IT THIS MORNING. I REFAXED CLINICALS AND UPDATED NOTES. WAITING CALL BACK TO SEE IF THEY WILL ACCEPT. Business Process Consultant: Trini Staples DCP- Discharge Planning Updated by [id number]: Trini Staples on 08/08/20 4:[address] Patient Name: MERNA VALDEZ Admission Status: Elective Accout number: [id number] Admission Date: 08-03-2020 : 1950 Admission Diagnosis:FRACTURE OF UNSP PART OF NECK OF LEFT FEMUR, INIT Attending: JONAH BENITEZ Current LOS: 5 Anticipated DC Date: Planned Disposition: Inpatient Rehab Primary Insurance: MEDICARE A & B Discharge Planning Comments: CM met with patients after explaining CM role and obtaining verbal consent. CM discussed availability / needs of home health, REHAB and medical equipment. SHE WOULD LIKE HIM TO GO TO [facility] FOR REHAB. SABAS SIGNED. ANTICIPATE DC TOMORROW. [facility], SHE WILL CALL BACK IN MORNING TO LET US KNOW IF THEY WILL HAVE BED AVAILABILITY. Business Process Consultant: Trini Staples Coverage Notice Reviewer: [id number] - Trini Staples Notice Issued Date-Time: 08/08/2020 15:52 Notice Type: Patient Choice Letter Notice Delivered To: Patient Relationship to Patient: Fishing Gear Mechanic Name: Delivery Method: - Missy Days: Prior Verbal Notification: Recipient Understood Notice: Yes Recipient Signature: Yes Med Rec Note Co-signed by Attending: Coverage Notice Comment: [facility] Last DP export: 08/08/20 4:42 p Patient Name: MERNA VALDEZ Page [phone] at 1315 All edits/amendments must be made on the electronic document DICTATION DATE: 08/09/20 1315 OFFICE ASST: STEVIE 08/09/20 1315 RPT#: [id number] DC DATE: STATUS: ADM IN [facility] [address] [place] [address] END OF REPORT
[2020-08-09 13:51] VITALS: BP 137/54
--- NOTE | 2020-08-09 14:57 | NUR ---
OT NOTE: PT SEEN AGAIN IN PM..MORE ALERT THAN AM.. BED MOB WITH MAX ASSIST; PRACTICED TRUNK STRENGTHENING ACT AND WT BEARING IN L UE/LE..PT DID WELL THIS AFTERNOON. ABLE TO MAINTAIN STATIC SITTING BALANCE AFTER APPROX 5 MIN WITH OCCASSIONAL MIN ASSIST. TOLERATED TMT WELL. MAX ASSIST WITH WT BEARING THROUGH R UE; POSITIONED BACK TO BED WITH MAX ASSIST X 2; L UE ELEVATED ON PILLOWS. MARIA L GORE, OTR/L [phone]
--- NOTE | 2020-08-09 15:12 | NUR ---
OT NOTE: PT REQUIRED MAX A X2 FOR SUPINE TO SIT . PT COMPLETED EOB SITTING WITH MAX A. [phone] THANK YOU,NOREEN SMITH
--- NOTE | 2020-08-09 15:57 | MORECARE ---
CASE MANAGEMENT DISCHARGE SUMMARY PATIENT: MERNA VALDEZ UNIT: [id number] ADM DATE: 08/03/20 AGE: 70 : 52 SEX: M ROOM/BED: D.2228 AUTHOR: GEOVANY,DOC PHYSICIAN: REFERRING PHYSICIAN: JONAH BENITEZ DO DATE OF SERVICE: 08/09/20 Discharge Plan Patient Name: MERNA VALDEZ Facility: [facility]:[place] : 1950 Planned Disposition: Inpatient Rehab Anticipated Discharge Date: Discharge Date: Expected LOS: Initial Reviewer: [email or web address] Initial Review Date: 08/05/2020 Generated: 08/09/20 4:56 pm DCP- Discharge Planning Updated by [email or web address]: Trini Staples on 08/09/20 2:[address] Patient Name: MERNA VALDEZ Admission Status: Elective Accout number: [id number] Admission Date: 08-03-2020 : 1950 Admission Diagnosis:FRACTURE OF UNSP PART OF NECK OF LEFT FEMUR, INIT Attending: JONAH BENITEZ Current LOS: 6 Anticipated DC Date: Planned Disposition: Inpatient Rehab Primary Insurance: MEDICARE A & B Discharge Planning Comments: SPOKE WITH MS. LR AT [facility], SHE STATES NO BED AVAILABLE AND THEY DON'T ACCEPT OVER THE WEEKEND. CM TO CALL BACK WEDNESDAY MORNING TO CHECK ON AVAILABLE BED. Nursing Consultant: Trini Staples DCP- Discharge Planning Updated by [id number]: Trini Staples on 08/09/20 12:[address] Patient Name: MERNA VALDEZ Admission Status: Elective Accout number: [id number] Admission Date: 08-03-2020 : 1950 Admission Diagnosis:FRACTURE OF UNSP PART OF NECK OF LEFT FEMUR, INIT Attending: JONAH BENITEZ Current LOS: 6 Anticipated DC Date: Planned Disposition: Inpatient Rehab Primary Insurance: MEDICARE A & B Discharge Planning Comments: SPOKE WITH MS. LR AT [facility] IN [place]. SHE STATED SHE TALKED WITH THE DOCTOR ABOUT IT THIS MORNING. I REFAXED CLINICALS AND UPDATED NOTES. WAITING CALL BACK TO SEE IF THEY WILL ACCEPT. Nursing Consultant: Trini Staples DCP- Discharge Planning Updated by [id number]: Trnii Staples on 08/08/20 4:[address] Patient Name: MERNA VALDEZ Admission Status: Elective Accout number: [id number] Admission Date: 08-03-2020 : 1950 Admission Diagnosis:FRACTURE OF UNSP PART OF NECK OF LEFT FEMUR, INIT Attending: JONAH BENITEZ Current LOS: 5 Anticipated DC Date: Planned Disposition: Inpatient Rehab Primary Insurance: MEDICARE A & B Discharge Planning Comments: CM met with patients after explaining CM role and obtaining verbal consent. CM discussed availability / needs of home health, REHAB and medical equipment. SHE WOULD LIKE HIM TO GO TO [facility] IN [place] FOR REHAB. SABAS SIGNED. ANTICIPATE DC TOMORROW. I AM FAXING CLINICALS TO [facility] AT [facility], SHE WILL CALL BACK IN MORNING TO LET US KNOW IF THEY WILL HAVE BED AVAILABILITY. Nursing Consultant: Trini Staples Coverage Notice Reviewer: [id number] - Trini Staples Notice Issued Date-Time: 08/08/2020 15:52 Notice Type: Patient Choice Letter Notice Delivered To: Patient Relationship to Patient: Fish And Wildlife Warden Name: Delivery Method: - Missy Days: Prior Verbal Notification: Recipient Understood Notice: Yes Recipient Signature: Yes Med Rec Note Co-signed by Attending: Coverage Notice Comment: [facility] Last DP export: 08/09/20 12:15 p Patient Name: MERNA VALDEZ Page [phone] at 1557 All edits/amendments must be made on the electronic document DICTATION DATE: 08/09/20 1556 LEHR STRIPPER: STEVIE 08/09/20 1556 RPT#: [id number] DC DATE: STATUS: ADM IN [facility] [address] [place] [address] END OF REPORT
[2020-08-09 17:43] VITALS: BP 140/55
--- NOTE | 2020-08-09 20:00 | NUR ---
PATIENT RESTING IN BED WITH AT BEDSIDE. NO S/S OF ACUTE DISTRESS. NO C/O AT THIS TIME. PATIENT IS LETHARGIC AND CONFUSED, ORIENTATED TO SELF AND PLACE ONLY. PATIENT IS ON 7L HIGH FLOW NC. PATIENT HAS RIGHT WRIST, NORMAL SALINE @ 75 ML/HR. IV IS PATENT WITHOUT REDNESS, SWELLING, OR TENDERNESS. PATIENT HAS LEFT SIDED WEAKNESS, AND LEFT ARM IS FLACCID. PATIENT HAS LEFT HIP INCISION, DRESSING C/D/I, AND BRUISING FROM HIP REVISION DONE. PATIENT IS INCONTINENT OF BOWEL AND BLADDER. CALL LIGHT WITHIN REACH. BED ALARM ON. WILL CONTINUE TO MONITOR.
[2020-08-09 20:10] VITALS: BP 112/93
[2020-08-10] VITALS: BP 137/49
--- NOTE | 2020-08-10 02:25 | NUR ---
I have reviewed this patient and I concur with the Shift Assessment completed by the Licensed Practical Nurse today this shift.
[2020-08-10 04:00] VITALS: BP 151/51
[2020-08-10 06:35] LABS: BASOPHILS 0.3 % (0-2); HEMATOCRIT 35.5 % (42.0-54.0); HEMOGLOBIN 11.1 g/dL (13.5-17.5); IMMATURE GRANULOCYTES 0.3 % (0-5); LYMPHOCYTES 21.1 % (15-50); MCH 30.3 pg (26.0-34.0); MCHC 31.3 g/dL (31.0-37.0); MEAN PLATELET VOLUME 9.6 fL (7.4-10.4); MONOCYTES 10.4 % (2-11); NEUTROPHILS 63.9 % (40-80); PLATELET COUNT 380 10x3/uL (130-400); RBC 3.66 10x6/uL (4.20-6.10)
[2020-08-10 07:27] LABS: ALBUMIN 2.2 g/dL (3.4-5.0); ALKALINE PHOSPHATASE 56 U/L (30-120); ALT (SGPT) 27 U/L (10-68); BILIRUBIN - TOTAL 0.43 mg/dL (0.2-1.3); CALC OSMOLALITY 281 mosm/kg (275-300); CALCIUM 8.3 mg/dL (8.5-10.1); CARBON DIOXIDE 29.7 mmol/L (21.0-32.0); CHLORIDE - SERUM 102 mmol/L (98-107); CREATININE - SERUM 0.8 mg/dL (0.6-1.3); GLUCOSE 185 mg/dL (74-106); MAGNESIUM - SERUM 2.3 mg/dL (1.8-2.4); POTASSIUM - SERUM 4.2 mmol/L (3.5-5.1); PROTEIN - SERUM 5.8 g/dL (6.4-8.2); SODIUM 139 mmol/L (136-145); UREA NITROGEN 11 mg/dL (7-18); eGFR NON AFRICAN AMERICAN > 90 mL/min (90-120)
[2020-08-10 09:54] VITALS: BP 114/49
--- NOTE | 2020-08-10 11:12 | NUR ---
PT LETHARGIC. BREATH SOUNDS CLEAR BILAT. IV TO RIGHT WRIST, PATENT, DRESSING CDI. LEFT SIDED WEAKNESS, EDEMA TO LEFT SIDE. PT REPORTING NO PAIN AT THIS TIME. AT BEDSIDE. BED LOW, CALL LIGHT IN REACH. NO OTHER NEEDS AT THIS TIME.
[2020-08-10 12:43] VITALS: BP 147/52
[2020-08-10 16:00] VITALS: BP 164/66
--- NOTE | 2020-08-10 19:10 | NUR ---
FAMILY AT BEDSIDE, BREATHING EVEN UNLABORED, NO S/S OF DISTRESS NOTED, CALL LIGHT IN REACH, FIRST STEP OVERLAY ON BED, IV TO RW PATENT MVI @125, DENIES NEEDS
[2020-08-10 20:00] VITALS: BP 144/53
[2020-08-11] VITALS: BP 146/63
[2020-08-11 04:00] VITALS: BP 136/88
--- NOTE | 2020-08-11 06:00 | NUR ---
I have reviewed this patient and I concur with the Shift Assessment completed by the Licensed Practical Nurse today this shift.
[2020-08-11 06:27] LABS: BASOPHILS 0.3 % (0-2); EOSINOPHILS 3.4 % (0-7); HEMATOCRIT 35.4 % (42.0-54.0); HEMOGLOBIN 11.1 g/dL (13.5-17.5); IMMATURE GRANULOCYTES 0.2 % (0-5); LYMPHOCYTES 17.7 % (15-50); MCH 30.2 pg (26.0-34.0); MCHC 31.4 g/dL (31.0-37.0); MCV 96.5 fL (80.0-100.0); MEAN PLATELET VOLUME 9.5 fL (7.4-10.4); MONOCYTES 9.8 % (2-11); NEUTROPHILS 68.6 % (40-80); PLATELET COUNT 425 10x3/uL (130-400); RBC 3.67 10x6/uL (4.20-6.10); RDW 13.8 % (11.5-14.5); WBC 11.9 10x3/uL (4.8-10.8)
[2020-08-11 06:40] LABS: ALBUMIN 2.2 g/dL (3.4-5.0); ALKALINE PHOSPHATASE 62 U/L (30-120); ALT (SGPT) 24 U/L (10-68); BILIRUBIN - TOTAL 0.49 mg/dL (0.2-1.3); CALC OSMOLALITY 278 mosm/kg (275-300); CALCIUM 8.1 mg/dL (8.5-10.1); CHLORIDE - SERUM 103 mmol/L (98-107); CREATININE - SERUM 0.7 mg/dL (0.6-1.3); GLUCOSE 179 mg/dL (74-106); MAGNESIUM - SERUM 2.2 mg/dL (1.8-2.4); POTASSIUM - SERUM 4.8 mmol/L (3.5-5.1); PROTEIN - SERUM 5.2 g/dL (6.4-8.2); SODIUM 138 mmol/L (136-145); UREA NITROGEN 10 mg/dL (7-18); eGFR NON AFRICAN AMERICAN > 90 mL/min (90-120)
[2020-08-11 08:46] VITALS: BP 139/55
[2020-08-11 12:44] VITALS: BP 125/51
[2020-08-11 16:42] VITALS: BP 127/51
--- NOTE | 2020-08-11 19:00 | NUR ---
CONFUSED. RIGHT HAND IV. LEFT HIP DRESSING CDI AND INTACT. 1ST STEP OVERLAY INFLATED AND WORKING ORDERED. SCDS ON BILATERALLY. ASSESSMENT PERFORMED. DENIES NEEDS AT THIS TIME. NO DISTRESS NOTED. CALL LIGHT CLOSE. CPOC.
[2020-08-11 20:00] VITALS: BP 167/62
[2020-08-12] VITALS: BP 156/58
[2020-08-12 04:00] VITALS: BP 159/60
[2020-08-12 06:00] LABS: BASOPHILS 0.3 % (0-2); EOSINOPHILS 3.6 % (0-7); HEMATOCRIT 37.4 % (42.0-54.0); HEMOGLOBIN 11.8 g/dL (13.5-17.5); IMMATURE GRANULOCYTES 0.4 % (0-5); LYMPHOCYTES 24.8 % (15-50); MCH 30.3 pg (26.0-34.0); MCHC 31.6 g/dL (31.0-37.0); MCV 95.9 fL (80.0-100.0); MEAN PLATELET VOLUME 9.4 fL (7.4-10.4); MONOCYTES 9.6 % (2-11); NEUTROPHILS 61.3 % (40-80); PLATELET COUNT 465 10x3/uL (130-400); RDW 13.7 % (11.5-14.5); WBC 11.8 10x3/uL (4.8-10.8)
[2020-08-12 06:30] LABS: ALBUMIN 2.3 g/dL (3.4-5.0); ALKALINE PHOSPHATASE 68 U/L (30-120); ALT (SGPT) 28 U/L (10-68); BILIRUBIN - TOTAL 0.45 mg/dL (0.2-1.3); CALC OSMOLALITY 276 mosm/kg (275-300); CALCIUM 8.2 mg/dL (8.5-10.1); CARBON DIOXIDE 31.1 mmol/L (21.0-32.0); CHLORIDE - SERUM 103 mmol/L (98-107); CREATININE - SERUM 0.7 mg/dL (0.6-1.3); GLUCOSE 165 mg/dL (74-106); MAGNESIUM - SERUM 2.1 mg/dL (1.8-2.4); POTASSIUM - SERUM 4.5 mmol/L (3.5-5.1); PROTEIN - SERUM 5.5 g/dL (6.4-8.2); SODIUM 137 mmol/L (136-145); UREA NITROGEN 9 mg/dL (7-18); eGFR NON AFRICAN AMERICAN > 90 mL/min (90-120)
--- NOTE | 2020-08-12 07:15 | NUR ---
PT RESTING QUIETLY IN BED WITH EYES CLOSED. RESP EVEN AND UNLABORED. AROUSES TO VOICE. DENIES PAIN AT THIS TIME. DOES NOT PRESENT WITH PAIN. IV TO RIGHT HAND WITH NS @ 75ML/HR INFUSING VIA PUMP. SITE WITHOUT REDNESS OR EDEMA. DENIES FURTHER NEEDS AT THIS TIME. CL WITHIN REACH. ENCOURAGED TO CALL WITH NEEDS. CONTINUE POC
--- NOTE | 2020-08-12 09:02 | MORECARE ---
CASE MANAGEMENT DISCHARGE SUMMARY PATIENT: MERNA VALDEZ UNIT: [id number] ADM DATE: 08/03/20 AGE: 70 : 52 SEX: M ROOM/BED: D.2228 AUTHOR: GEOVANY,DOC PHYSICIAN: REFERRING PHYSICIAN: JONAH BENITEZ DO DATE OF SERVICE: 08/12/20 Discharge Plan Patient Name: MERNA VALDEZ Facility: [facility]:[place] : 1950 Planned Disposition: Inpatient Rehab Anticipated Discharge Date: Discharge Date: Expected LOS: Initial Reviewer: [id number] Initial Review Date: 08/05/2020 Generated: 08/12/20 10:02 am Comments DCP- Discharge Planning Updated by [id number]: Trini Staples on 08/12/20 7:[address] Patient Name: MERNA VALDEZ Admission Status: Elective Accout number: [id number] Admission Date: 08-03-2020 : 1950 Admission Diagnosis:FRACTURE OF UNSP PART OF NECK OF LEFT FEMUR, INIT Attending: JONAH BENITEZ Current LOS: 9 Anticipated DC Date: Planned Disposition: Inpatient Rehab Primary Insurance: MEDICARE A & B Discharge Planning Comments: FAXED UPDATED CLINICALS TO [facility] CALL ON ACCEPTANCE. Supervising Bailiff: Trini Staples DCP- Discharge Planning Updated by [id number]: Trini Staples on 08/09/20 2:[address] Patient Name: MERNA VALDEZ Admission Status: Elective Accout number: [id number] Admission Date: 08-03-2020 : 1950 Admission Diagnosis:FRACTURE OF UNSP PART OF NECK OF LEFT FEMUR, INIT Attending: JONAH BENITEZ Current LOS: 6 Anticipated DC Date: Planned Disposition: Inpatient Rehab Primary Insurance: MEDICARE A & B Discharge Planning Comments: SPOKE WITH MS. LR AT [facility], SHE STATES NO BED AVAILABLE AND THEY DON'T ACCEPT OVER THE WEEKEND. CM TO CALL BACK WEDNESDAY MORNING TO CHECK ON AVAILABLE BED. Supervising Bailiff: Trini Staples DCP- Discharge Planning Updated by [id number]: Trini Staples on 08/09/20 12:[address] Patient Name: MERNA VALDEZ Admission Status: Elective Accout number: [id number] Admission Date: 08-03-2020 : 1950 Admission Diagnosis:FRACTURE OF UNSP PART OF NECK OF LEFT FEMUR, INIT Attending: JONAH BENITEZ Current LOS: 6 Anticipated DC Date: Planned Disposition: Inpatient Rehab Primary Insurance: MEDICARE A & B Discharge Planning Comments: SPOKE WITH MS. LR AT [facility] IN [place]. SHE STATED SHE TALKED WITH THE DOCTOR ABOUT IT THIS MORNING. I REFAXED CLINICALS AND UPDATED NOTES. WAITING CALL BACK TO SEE IF THEY WILL ACCEPT. Supervising Bailiff: Trini Staples DCP- Discharge Planning Updated by [id number]: Trini Staples on 08/08/20 4:[address] Patient Name: MERNA VALDEZ Admission Status: Elective Accout number: [id number] Admission Date: 08-03-2020 : 1950 Admission Diagnosis:FRACTURE OF UNSP PART OF NECK OF LEFT FEMUR, INIT Attending: JONAH BENITEZ Current LOS: 5 Anticipated DC Date: Planned Disposition: Inpatient Rehab Primary Insurance: MEDICARE A & B Discharge Planning Comments: CM met with patients after explaining CM role and obtaining verbal consent. CM discussed availability / needs of home health, REHAB and medical equipment. SHE WOULD LIKE HIM TO GO TO [facility] IN [place] FOR REHAB. SABAS SIGNED. ANTICIPATE DC TOMORROW. [facility], SHE WILL CALL BACK IN MORNING TO LET US KNOW IF THEY WILL HAVE BED AVAILABILITY. Supervising Bailiff: Trini Staples Coverage Notice Reviewer: [id number] - Trini Staples Notice Issued Date-Time: 08/08/2020 15:52 Notice Type: Patient Choice Letter Notice Delivered To: Patient Relationship to Patient: Nailing Machine Operator Name: Delivery Method: - Missy Days: Prior Verbal Notification: Recipient Understood Notice: Yes Recipient Signature: Yes Med Rec Note Co-signed by Attending: Coverage Notice Comment: [facility] Last DP export: 08/09/20 2:57 p Patient Name: MERNA VALDEZ Page [phone] at 0902 All edits/amendments must be made on the electronic document DICTATION DATE: 08/12/20901 HEALTH EDUCATION DIRECTOR: DM 08/12/20901 RPT#: [id number] DC DATE: STATUS: ADM IN [facility] [address] [place] [address] END OF REPORT
[2020-08-12 09:11] VITALS: BP 127/65
[2020-08-12 09:46] LABS: CHOL - HDL RATIO 5.8 ratio (2.3-4.9); LDL-HDL RATIO 4.1 ratio (1.5-3.5)
[2020-08-12 12:41] VITALS: BP 129/75
--- NOTE | 2020-08-12 13:04 | NUR ---
IV RESITED TO RIGHT FOREARM X 1 STICK, 20G. GOOD BLOOD RETURN, EASILY FLUSHED. TAPED IN PLACE. PT SHAN WELL
--- NOTE | 2020-08-12 13:48 | NUR ---
Nutrition follow-up: Pt receiving a consistent CHO mechanical soft diet with ground meat/gravy, thin liquids Currently PO intake is poor Pt frustrated wanting to move left side Labs reviewed Wt: 229# Will continue to encourage increased po intake and honor all food preferences within diet restrictions. Pt would benefit from ProcalAmine PPN @ 125 ml/hr short-term until appetite improves. RDN following.
--- NOTE | 2020-08-12 15:12 | NUR ---
OT NOTE: ATTEMPTED TMT IN AM, HOWEVER, PT WAS EXTREMELY LETHARGIC DUE TO MEDS PROVIDED LATER IN THE AM. IN PM, PT ALERT AND COOPERATIVE. BED MOB WITH MOD ASSIST X 2 FOR SUPINE TO SIT; PERFORMED EXTENSIVE TRUNK STRENGTHENING ACT, ALONG WITH WT BEARING TASKS WITH R UE/LE; VERBAL AND TACTILE CUES REQUIRED FOR UPRIGHT SITTING AND MIN/MOD ASSIST FOR STATIC SITTING BALANCE. IMPROVEMENT IN SITTING BALANCE AND TOLERANCE NOTED TODAY. BACK TO BED WITH MAX ASSIST FOR POSITIONING. RECOMMEND IP REHAB. PT IS GREAT REHAB CANDIDATE AND SHOULD PROGRESS WELL WITH INCREASED AMOUNT OF TMT. MARIA L GORE, OTR/L [phone]
[2020-08-12 16:58] VITALS: BP 118/64
--- NOTE | 2020-08-12 17:07 | NUR ---
OT NOTE: PT EXHIBITED INCREASED TRUNK CONTROL AND ENDURANCE. PT EXHIBITED TRACE LLE MUSCLE MVMT. PT REQUIRED MAX A FOR SUPINE TO SIT. PT COMPLETED EOB SITTING WITH MOD A. PT COMPLETED LUE WT BEARING AT EOB. [phone] THANK YOU,NOREEN SMITH
[2020-08-12 20:00] VITALS: BP 187/78
[2020-08-13] VITALS (24 sets, daily range): BP systolic 94–153; BP diastolic 5–71
--- NOTE | 2020-08-13 01:00 | NUR ---
called to rapid response, pt obtunded, nonresponsive to stimuli, PLACED ON NON-REBREATHER @ 100%, ROSALIND POWELL PRESENT, ABG'S DRAWN, RESULTS CALLED TO DR CASILLAS, RECIEVED ORDERS TO INTUBATE, CALLED DR FERRARI TO INTUBATE, CALLED PT SPOUSE, INFORMED OF CHANGE IN STATUS AND WILL TRANSFER TO ICU, WILL ALLOW A SHORT VISIT AFTER PT STABILIZED
--- NOTE | 2020-08-13 01:20 | NUR ---
1999) REC'D IN BED YELLING OUT GET IN HERE ENTERED RM ASKED WHY ARE YOU YELLING STATES WANT TO GET UP TO GO SMOKE RIGHT NOW OR I'LL SMOKE RIGHT HERE.ATTEMPTED TO REDIRECT UNSUCCESSFUL CONTINUES TO YELL ATTEMPTING TO GET OUT OF BED.2230)CONTINUES TO YELL ATTEMPTING TO GET OUT OF BED DORENE MAT ON FOR SAFETY.0000 FSBS 182 MONITOR SHOWING SINUS RHYTHM.INCONT. URINE PERICARE GIVEN BUTTOCKS RED NO SKIN BREAKDOWN. BUTT PASTE APPLIED,TURNED TO LEFT SIDE PILLOW TO BACK AND BETWEEN LEGS FOR SUPPORT.2350} CONTINUES TO TRY AND GET OUT OF BED REPOSITIONED.IN BED GEODON 10MG GIVEN IM IN RIGHT UPPER OUTER HIP ORDERED FOR AGGITATION.0045} YELLING STILL ENTERED RM.STATES HOT IN HERE TURNED FAN ON ASKED CAN YOU FEEL THAT X2 NO VERBAL RESPONSE.LOOKED UP AT PATIENT.COLOR PALE CALLED NAME NO VERBAL RESPONSE.02 SATS 36 RESP. CALLED AND QUICKLY RESPONDED.RAPID CALLED.NONREBREATHER APPLIED BY RT.SATS UP [phone]. ROSALIND POWELL HERE HEMATOLOGY ONCOLOGY CONSULTANT HERE. RAPID CALLED BLOOD GASES DRAWN.FAMILY CALLED BY GEOVANNI ABRAHAM FROM ICU TALKED TO AND EXPLAINED TO CHANGE IN PATIENTS CONDITION.TRANSFERING TO ICU RESP. X3 IN ASSIST BAGGING CONTINUES DURING TRANSFER.
[2020-08-13 04:50] LABS: BASOPHILS 0.3 % (0-2); EOSINOPHILS 1.2 % (0-7); HEMATOCRIT 40.5 % (42.0-54.0); HEMOGLOBIN 12.6 g/dL (13.5-17.5); IMMATURE GRANULOCYTES 0.5 % (0-5); LYMPHOCYTES 10.7 % (15-50); MCH 30.3 pg (26.0-34.0); MCHC 31.1 g/dL (31.0-37.0); MCV 97.4 fL (80.0-100.0); MEAN PLATELET VOLUME 9.4 fL (7.4-10.4); MONOCYTES 9.6 % (2-11); NEUTROPHILS 77.7 % (40-80); PLATELET COUNT 502 10x3/uL (130-400); RBC 4.16 10x6/uL (4.20-6.10); RDW 13.7 % (11.5-14.5)
[2020-08-13 04:54] LABS: WBC 15.6 10x3/uL (4.8-10.8)
[2020-08-13 05:05] LABS: ALBUMIN 2.4 g/dL (3.4-5.0); ALKALINE PHOSPHATASE 77 U/L (30-120); ALT (SGPT) 27 U/L (10-68); BILIRUBIN - TOTAL 0.35 mg/dL (0.2-1.3); CALCIUM 8.3 mg/dL (8.5-10.1); CARBON DIOXIDE 31.2 mmol/L (21.0-32.0); CHLORIDE - SERUM 102 mmol/L (98-107); MAGNESIUM - SERUM 2.2 mg/dL (1.8-2.4); PHOSPHOROUS 4.5 mg/dL (2.5-4.9); POTASSIUM - SERUM 4.5 mmol/L (3.5-5.1); PROTEIN - SERUM 6.6 g/dL (6.4-8.2); SODIUM 135 mmol/L (136-145); UREA NITROGEN 11 mg/dL (7-18); eGFR NON AFRICAN AMERICAN 79 mL/min (90-120)
[2020-08-13 05:08] LABS: CALC OSMOLALITY 275 mosm/kg (275-300); GLUCOSE 223 mg/dL (74-106)
--- NOTE | 2020-08-13 07:27 | NUR ---
Nutrition follow-up: Pt now in ICU, intubated; sedated with propofol NPO Labs reviewed Will need nutrition support started within 24-48 hours if remains intubated. RDN following.
--- NOTE | 2020-08-13 10:50 | NUR ---
SPOKE WITH TRENT. GIVEN UDPATE STATED PASSWORD. NEEDS MET
--- NOTE | 2020-08-13 11:00 | NUR ---
DR LUIS AT BEDSIDE GIVEN UPDATE. NO NEW ORDERS RECEIVED.
[2020-08-14] VITALS (24 sets, daily range): BP systolic 105–145; BP diastolic 43–63
[2020-08-14 04:57] LABS: BASOPHILS 0.2 % (0-2); EOSINOPHILS 1.1 % (0-7); HEMATOCRIT 36.3 % (42.0-54.0); HEMOGLOBIN 11.4 g/dL (13.5-17.5); IMMATURE GRANULOCYTES 0.3 % (0-5); LYMPHOCYTES 10.9 % (15-50); MCH 30.3 pg (26.0-34.0); MCHC 31.4 g/dL (31.0-37.0); MCV 96.5 fL (80.0-100.0); MEAN PLATELET VOLUME 9.5 fL (7.4-10.4); MONOCYTES 4.2 % (2-11); NEUTROPHILS 83.3 % (40-80); PLATELET COUNT 493 10x3/uL (130-400); RBC 3.76 10x6/uL (4.20-6.10); RDW 13.9 % (11.5-14.5); WBC 13.1 10x3/uL (4.8-10.8)
[2020-08-14 05:48] LABS: ALBUMIN 2.4 g/dL (3.4-5.0); ALKALINE PHOSPHATASE 70 U/L (30-120); ALT (SGPT) 27 U/L (10-68); CALCIUM 8.4 mg/dL (8.5-10.1); CHLORIDE - SERUM 102 mmol/L (98-107); CREATININE - SERUM 0.9 mg/dL (0.6-1.3); GLUCOSE 201 mg/dL (74-106); MAGNESIUM - SERUM 2.2 mg/dL (1.8-2.4); PHOSPHOROUS 3.4 mg/dL (2.5-4.9); POTASSIUM - SERUM 4.6 mmol/L (3.5-5.1); PROTEIN - SERUM 6.2 g/dL (6.4-8.2); SODIUM 136 mmol/L (136-145); eGFR NON AFRICAN AMERICAN 89 mL/min (90-120)
[2020-08-14 05:51] LABS: CALC OSMOLALITY 278 mosm/kg (275-300); UREA NITROGEN 15 mg/dL (7-18)
--- NOTE | 2020-08-14 07:15 | NUR ---
PT LAYING IN BED RESTING COMFORTABLE, PT ON THE VENTILATOR WITH SEDATION IN PLACE, NO ACUTE DISTRESS NOTED, WILL MONITOR
--- NOTE | 2020-08-14 08:00 | NUR ---
ORAL CARE PROVIDED AND SECREATIONS SUCTIONED, REPOSITIONED AT THIS TIME, WILL MONITOR
--- NOTE | 2020-08-14 11:20 | PN ---
PATIENT:MERNA VALDEZ MEDICAL RECORD: [id number] LOCATION:D.ICU D.230 ADMISSION DATE: 08/03/20 PROGRESS NOTE DATE OF SERVICE: 08/13/2020 The patient is on a ventilator. I shall return tomorrow and check on his condition. NTS:[id number] Voice Confirmation ID: [id number] DOCUMENT ID: [id number] CURTIS MCFADDEN MD at 1120 CC: [id number] DICTATION DATE: 08/13/20 1613 PUPPET DEVELOPER: 08/14/20 0026 ADM IN [facility] [address] [place] [address]
--- NOTE | 2020-08-14 11:50 | NUR ---
RASS +2, DIPROVAN DRIP INCREASED TO 45MCG/KG/MIN
--- NOTE | 2020-08-14 11:58 | NUR ---
DR. CASILLAS HERE SEEING PATIENT
--- NOTE | 2020-08-14 12:00 | NUR ---
RASS +2, DIPROVAN DRIP INCREASED TO 50MCG/KG/MIN, WILL MONITOR
--- NOTE | 2020-08-14 12:00 | NUR ---
FIO2 DECREASED TO 45% PER DR. GOODMAN
--- NOTE | 2020-08-14 12:32 | NUR ---
PT RESTING WITH EYES CLOSED, RASS -3, WILL MONITOR
--- NOTE | 2020-08-14 12:57 | NUR ---
Nutrition follow-up: Pt intubated, sedated with propofol @ 25.9 ml/hr labs reviewed NPO Possible weaning tomorrow Will need nutrition support started if pt remains intubated > 48 hours Recommend Pulmocare @ 25 ml/hr with increase to goal rate of 50 ml/hr RDN following.
--- NOTE | 2020-08-14 13:30 | NUR ---
DR CASILLAS SPOKE WITH PATIENTS AND CONSENT OBTAINED FOR BRONCHOSCOPY
--- NOTE | 2020-08-14 13:55 | NUR ---
DR CASILLAS AND RT AT [facility] FOR BRONCHOSCOPY, PT TOLERATED WELL
--- NOTE | 2020-08-14 18:00 | NUR ---
pt repositioned for comfort, oral care provided, no acute distress noted, will monitor
[2020-08-15] VITALS (25 sets, daily range): BP systolic 109–153; BP diastolic 46–66
[2020-08-15 05:14] LABS: BASOPHILS 0.1 % (0-2); EOSINOPHILS 0.3 % (0-7); HEMATOCRIT 37.6 % (42.0-54.0); IMMATURE GRANULOCYTES 0.3 % (0-5); LYMPHOCYTES 11.3 % (15-50); MCH 30.5 pg (26.0-34.0); MCHC 31.9 g/dL (31.0-37.0); MCV 95.4 fL (80.0-100.0); MEAN PLATELET VOLUME 9.5 fL (7.4-10.4); PLATELET COUNT 508 10x3/uL (130-400); RBC 3.94 10x6/uL (4.20-6.10); RDW 13.9 % (11.5-14.5); WBC 14.6 10x3/uL (4.8-10.8)
[2020-08-15 05:24] LABS: CALC OSMOLALITY 284 mosm/kg (275-300); CALCIUM 8.6 mg/dL (8.5-10.1); CARBON DIOXIDE 30.1 mmol/L (21.0-32.0); CHLORIDE - SERUM 104 mmol/L (98-107); CREATININE - SERUM 0.9 mg/dL (0.6-1.3); GLUCOSE 229 mg/dL (74-106); MAGNESIUM - SERUM 2.4 mg/dL (1.8-2.4); PHOSPHOROUS 2.6 mg/dL (2.5-4.9); POTASSIUM - SERUM 4.4 mmol/L (3.5-5.1); SODIUM 138 mmol/L (136-145); UREA NITROGEN 17 mg/dL (7-18); eGFR NON AFRICAN AMERICAN 89 mL/min (90-120)
--- NOTE | 2020-08-15 07:10 | NUR ---
REPORT RECEIVED FROM OFF GOING NURSE AND PATIENT CARE ASSUMED. PATIENT LAYING IN BED ON BACK WITH EYES CLOSED AND VENT AC14 FIO2 45 TV 450 PEEP 5. BP 146/60 02 97% R15 HR 71 T99.1. IV RTUA AND RT FA. GATES CATHETER INTACT DRAINING YELLOW URINE. WILL CONTINUE WITH PLAN OF CARE. SR UP X 2 BED IN LOW POSITION AND CALL LIGHT IN REACH.
--- NOTE | 2020-08-15 07:15 | NUR ---
Pt resting in bed and has been positioned for comfort, no distress noted, call light in reach, bed in low position. The Pt has had a bath and bed change. No distress noted, was informed earlier in the shift of Pt's condition and no changes during the night.
--- NOTE | 2020-08-15 14:32 | NUR ---
PATIENT IS STABLE. 02 SAT 96%. WILL CONTINUE TO [facility]. SR UP X 2 BED IN LOW POSITION AND CALL LIGHT IN REACH.
--- NOTE | 2020-08-15 14:50 | NUR ---
PATIENT SUCCESSFULY EXTUBATED. O2 HF AT 7.5.02 SAT95% SQUEEZES HAND, ANSWERS QUESTIONS SHAKING HEAD YES AND NO. WILL CONTINUE TO MONITOR. SR UP X 2 BED IN LOW POSITION AND CALL LIGHT IN REACH.
[2020-08-15 20:07] LABS: ACID FAST SMEAR Negative (()); AFB SPECIMEN PROCESSING Concentration (())
[2020-08-16] VITALS (24 sets, daily range): BP systolic 122–176; BP diastolic 46–92
[2020-08-16 03:30] LABS: BASOPHILS 0.2 % (0-2); EOSINOPHILS 1.1 % (0-7); HEMATOCRIT 36.6 % (42.0-54.0); HEMOGLOBIN 11.4 g/dL (13.5-17.5); IMMATURE GRANULOCYTES 0.3 % (0-5); LYMPHOCYTES 12.7 % (15-50); MCH 30.4 pg (26.0-34.0); MCHC 31.1 g/dL (31.0-37.0); MEAN PLATELET VOLUME 9.3 fL (7.4-10.4); MONOCYTES 4.7 % (2-11); PLATELET COUNT 489 10x3/uL (130-400); RBC 3.75 10x6/uL (4.20-6.10); RDW 14.2 % (11.5-14.5); WBC 13.3 10x3/uL (4.8-10.8)
[2020-08-16 03:32] LABS: MCV 97.6 fL (80.0-100.0)
[2020-08-16 03:41] LABS: CALC OSMOLALITY 288 mosm/kg (275-300); CALCIUM 8.3 mg/dL (8.5-10.1); CARBON DIOXIDE 27.3 mmol/L (21.0-32.0); CHLORIDE - SERUM 106 mmol/L (98-107); CREATININE - SERUM 0.8 mg/dL (0.6-1.3); GLUCOSE 250 mg/dL (74-106); MAGNESIUM - SERUM 2.2 mg/dL (1.8-2.4); POTASSIUM - SERUM 4.4 mmol/L (3.5-5.1); SODIUM 139 mmol/L (136-145); UREA NITROGEN 21 mg/dL (7-18); eGFR NON AFRICAN AMERICAN > 90 mL/min (90-120)
--- NOTE | 2020-08-16 09:55 | NUR ---
RESTING WITH EYES OPEN. DENIES ANY NEEDS OR CONCERNS AT THIS TIME. ENCOURAGED TO USE CALL LIGHT FOR ASSIST. REPOSITIONED FOR COMFORT. IVF INFUSING AT PRESCRIBED RATE.
--- NOTE | 2020-08-16 11:06 | NUR ---
Nutrition follow-up: Pt extubated 08/15 Per speech pathologist pt is safe for consistent CHO mechanical soft diet with nectar thick liquids Labs reviewed; Glucose < 200 mg/dl Wt: 241# RDN following.
--- NOTE | 2020-08-16 13:00 | NUR ---
ALERT AND ORIENTED TO SELF AND FAMILIAR FACES. CHANGED POSITION FOR COMFORT. GATES CATH PATENT WITH CAMILLE URINE NOTED. PERICARE AND GATES CARE GIVEN. NO BEHAVIORS NOTED AT THIS TIME.
[2020-08-16 13:12] LABS: FUNGUS STAIN Final report (())
[2020-08-16 13:12] LABS: PROCALCITONIN 0.06 ng/mL (0.00-0.08)
--- NOTE | 2020-08-16 17:12 | NUR ---
OT NOTE: PT COMPLETED SUPINE TO SIT WITH MAX X2. PT COMPLETED EOB SITTING WITH MOD A SECONDARY TO POOR TRUNK CONTROL. PT COMPLETED LUE WT BEARING WHILE SITTING AT EOB. PT UTILIZED RUE TO GRASP SIDE RAIL FOR INCREASED POSTURAL CONTROL WHILE EOB. [phone] THANK YOU,NOREEN SMITH
--- NOTE | 2020-08-16 17:55 | NUR ---
PATIENT REQUIRES VERBAL CUES AND ASSSIT WITH MEALS. REPOSITIONED FOR COMFORT. DENIES ANY PAIN OR DISCOMFORT WITH INCREASED CONFUSION NOTED. FALL PRECAUTION IN PLACE.
--- NOTE | 2020-08-16 18:00 | NUR ---
BATH GIVEN WITH DRESSING TO LEFT HIP DRY AND INTACT. RESPOITIONED FOR COMFORT. IVF INFUSING AT PRESCRIBED RATE. INCREASED CONFUSION NOTED AT THIS TIME WITH FALL PRECATIONS NOTED.
[2020-08-17] VITALS (24 sets, daily range): BP systolic 132–185; BP diastolic 5–84
[2020-08-17 04:06] LABS: BASOPHILS 0.3 % (0-2); EOSINOPHILS 2.4 % (0-7); HEMATOCRIT 37.7 % (42.0-54.0); HEMOGLOBIN 12.1 g/dL (13.5-17.5); IMMATURE GRANULOCYTES 0.3 % (0-5); LYMPHOCYTES 25.8 % (15-50); MCH 30.9 pg (26.0-34.0); MCHC 32.1 g/dL (31.0-37.0); MCV 96.2 fL (80.0-100.0); MEAN PLATELET VOLUME 9.2 fL (7.4-10.4); MONOCYTES 9.3 % (2-11); NEUTROPHILS 61.9 % (40-80); PLATELET COUNT 474 10x3/uL (130-400); RBC 3.92 10x6/uL (4.20-6.10); WBC 14.4 10x3/uL (4.8-10.8)
[2020-08-17 04:17] LABS: CALCIUM 8.6 mg/dL (8.5-10.1); CARBON DIOXIDE 28.9 mmol/L (21.0-32.0); CHLORIDE - SERUM 105 mmol/L (98-107); CREATININE - SERUM 0.7 mg/dL (0.6-1.3); MAGNESIUM - SERUM 2.2 mg/dL (1.8-2.4); PHOSPHOROUS 2.1 mg/dL (2.5-4.9); SODIUM 138 mmol/L (136-145); UREA NITROGEN 18 mg/dL (7-18); eGFR NON AFRICAN AMERICAN > 90 mL/min (90-120)
[2020-08-17 04:18] LABS: CALC OSMOLALITY 279 mosm/kg (275-300); GLUCOSE 138 mg/dL (74-106); POTASSIUM - SERUM 3.7 mmol/L (3.5-5.1)
--- NOTE | 2020-08-17 10:10 | NUR ---
SPOKE WITH DR LUNA REGARDING CARDIOLOGY CONSULT. HE STATED HE WOULD BE BY LATER TO DAY TO SEE PT.
--- NOTE | 2020-08-17 11:03 | NUR ---
DR LUNA HERE TO SEE PT.
--- NOTE | 2020-08-17 15:37 | NUR ---
SBP TRENDING 180-190 WITH HEART RATE IN 60S. DR PALUMBO CALLED TO NOTIFY. ONE TIME ORDERS RECIEVED.
--- NOTE | 2020-08-17 18:37 | NUR ---
NOTED SBP TRENDING 190S. SPOKE WITH DEMETRA RODRIGUEZ. PRN ORDER HYDRALAZINE RECIEVED.
--- NOTE | 2020-08-17 19:00 | NUR ---
REPORT RECEIVED. PT AWAKE AND CONNECTED TO CYBER LEGAL ADVISOR. ASSESSMENT TO FOLLOW. CALL LIGHT IN HAND.
--- NOTE | 2020-08-17 23:15 | NUR ---
TRENT CALLED UNIT FOR UPDATE. QUESTIONS ANSWERED BEST POSSIBLE. PT. MADE AWARE CALLED.
[2020-08-18] VITALS (16 sets, daily range): BP systolic 96–164; BP diastolic 45–88
[2020-08-18 03:58] LABS: BASOPHILS 0.3 % (0-2); EOSINOPHILS 1.5 % (0-7); HEMATOCRIT 36.8 % (42.0-54.0); HEMOGLOBIN 11.7 g/dL (13.5-17.5); IMMATURE GRANULOCYTES 0.4 % (0-5); MCH 30.2 pg (26.0-34.0); MCHC 31.8 g/dL (31.0-37.0); MCV 94.8 fL (80.0-100.0); MEAN PLATELET VOLUME 9.1 fL (7.4-10.4); MONOCYTES 8.1 % (2-11); NEUTROPHILS 67.7 % (40-80); PLATELET COUNT 468 10x3/uL (130-400); RBC 3.88 10x6/uL (4.20-6.10); RDW 13.9 % (11.5-14.5); WBC 15.3 10x3/uL (4.8-10.8)
[2020-08-18 04:03] LABS: CALCIUM 8.3 mg/dL (8.5-10.1); CARBON DIOXIDE 29.9 mmol/L (21.0-32.0); CHLORIDE - SERUM 106 mmol/L (98-107); CREATININE - SERUM 0.7 mg/dL (0.6-1.3); MAGNESIUM - SERUM 2.1 mg/dL (1.8-2.4); SODIUM 139 mmol/L (136-145); eGFR NON AFRICAN AMERICAN > 90 mL/min (90-120)
[2020-08-18 04:13] LABS: CALC OSMOLALITY 281 mosm/kg (275-300); GLUCOSE 168 mg/dL (74-106); UREA NITROGEN 13 mg/dL (7-18)
--- NOTE | 2020-08-18 09:20 | NUR ---
PER DR PALUMBO, OKAY TO TRANSFER TO FLOOR IF NEED BED BUT WOULD RATHER PT STAY IN ICU. VSS. NO ACUTE DISTRESS NOTED. WILL CONTINUE PLAN OF CARE.
--- NOTE | 2020-08-18 14:22 | NUR ---
CHG BATH PROVIDED. AT BEDSIDE. UPDATES PROVIDED. WILL CONTINUE PLAN OF CARE.
--- NOTE | 2020-08-18 14:35 | NUR ---
RECEIVED PT TO CV4 VIA STRECTHER FROM ICU, PT PLACED ON CARDAC MONITOR, NO DISTRESS NOTED AND PT DENIES PAIN AT THIS TIME, AT BEDSIDE, CALL LIGHT IN REACH, WILL MONITOR
--- NOTE | 2020-08-18 17:00 | NUR ---
PT SLEEPING, STATES HE DOES NOT WANT TO EAT DINNER AT THIS TIME, CALL LIGHT IN REACH
--- NOTE | 2020-08-18 22:42 | NUR ---
2200 PT. AT BEDSIDE, PT BECAME VERY AGGITATED BECAUSE WOULD NOT TAKE HIM TO THE BATHROOM TO SMOKE. STATES "i WILL GO SMOKE WITH OR WITHOUT YOU" EXPLAINED TO PT WE DO NOT ALLOW SMOKING IN THE HOSPITAL, PT IS VERY CONFUSED AND SAYS HE IS NOT IN THE HOSPITAL. BEGAN YELLING AT HIS AND ATTEMPTING TO CLIMB OUT OF THE BED. IT WAS EXPLAINED NUMEROUS TIMES THAT PT COULD NOT GET OUT OF THE BED TO SMOKE AND THAT HE IS HEALING FROM A BROKEN HIP. EXPLAINED TO PT. I WOULD HAVE TO PUT HIM IN RESTAINTS IF HE CONTIUED TO TRY TO PULL LINES AND ATTEMPT TO CLIMB OUT OF THE BED AND THAT IT WOULD BE FOR HIS OWN SAFETY. WAS IN AGREEMENT THAT RESTRAINTS WOULD BE NEEDED PT. WOULD NOT CALM DOWN AND HAD BECOME A SAFETY RISK TO HIMSELF. WRIST RESTAINTS APPLIED. WENT AHEAD AND LEFT, PT. THEN BEGAN SCREAMING FOR HIS AND BECAME MORE AGGITATED. PRN HALDOL GIVEN PER ORDERS. DED IN LOWEST POSITION SIDE RAILS UP X3 CALL LIGHT WITHIN REACH. WILL CONTINUE TO MONITOR
[2020-08-19] VITALS (12 sets, daily range): BP systolic 121–183; BP diastolic 41–73
--- NOTE | 2020-08-19 01:00 | NUR ---
RESTING QUIETLY IN THE BED WITH EYES CLOSED. OPENS EYES TO VOICE. WILL CONTINUE TO MONITOR
[2020-08-19 04:38] LABS: BASOPHILS 0.3 % (0-2); HEMATOCRIT 35.1 % (42.0-54.0); HEMOGLOBIN 11.1 g/dL (13.5-17.5); IMMATURE GRANULOCYTES 0.3 % (0-5); MCH 30.2 pg (26.0-34.0); MCHC 31.6 g/dL (31.0-37.0); MCV 95.4 fL (80.0-100.0); MEAN PLATELET VOLUME 9.1 fL (7.4-10.4); MONOCYTES 7.6 % (2-11); NEUTROPHILS 64.8 % (40-80); PLATELET COUNT 456 10x3/uL (130-400); RBC 3.68 10x6/uL (4.20-6.10); RDW 13.9 % (11.5-14.5); WBC 12.6 10x3/uL (4.8-10.8)
[2020-08-19 04:57] LABS: CALC OSMOLALITY 282 mosm/kg (275-300); CARBON DIOXIDE 30.9 mmol/L (21.0-32.0); CHLORIDE - SERUM 107 mmol/L (98-107); CREATININE - SERUM 0.7 mg/dL (0.6-1.3); GLUCOSE 210 mg/dL (74-106); POTASSIUM - SERUM 3.7 mmol/L (3.5-5.1); SODIUM 138 mmol/L (136-145); UREA NITROGEN 14 mg/dL (7-18); eGFR NON AFRICAN AMERICAN > 90 mL/min (90-120)
--- NOTE | 2020-08-19 12:31 | NUR ---
Nutrition Follow-up: [facility] soft with thin liquids per ST. Ate ~50% of dinner last night per chart. Diet: Diabetic, [facility] Soft with Thin Liquids Wt: 270# (08/19) Labs noted: Glu 210, Ca 8.0 Meds noted: Prednisone, Lantus, Humalog, Florajen, Protonix, Colace, banana bag @ 125, 1/2NS @ 75, electrolyte protocol -Encourage PO intake and honor food preferences within diet restrictions. -Monitor wt. -RD following.
--- NOTE | 2020-08-19 19:00 | NUR ---
REPORT GIVEN BY CAROLE LUCIANO RN
--- NOTE | 2020-08-19 20:00 | NUR ---
ASSESSMENT DONE. SKIN IS WARM AND DRY. HE HAS SOME SKIN BREAKDOWN IN HIS GROIN ARE. S1 S2. LUNGS CLEAR. PT HAS EDEMA ON THE LEFT SIDE IN HIS HANDS AND FEET. 4+ IN HIS ANKLES. PT LEFT SIDE IS AFFECTED BY HIS CVA. HE CANNONT MOVE THE LEFT SIDE AT ALL. HE FEELS NO NUMBNESS OR TINGLING. HE DOES FEEL PRESSURE WHEN APPLIED. PT SWALLOWS WELL. TRYING TO KEEP LEFT HAND FLAT ON THE ROLLED UP TOWEL MADE FOR HIM. PT HAS AN IV IN HIS RIGHT FOREARM. HE IS GETTING NS AT 30 MLS/HR. THE SITE LOOKS GOOD WITH NO REDNESS OR SWELLING. PT ALSO HAS A BANANA BAG IN PROGRESS. HE HAS A GATES CATHETER IN PLACE DRAINING CLEAR YELLOW URING. HE IS ON 4L O2 VIA NASAL CANULA. PT HAS AN INCISION TO THE LEFT HIP FROM HIS HIP SURGERY. THE DRESSIN WAS CHANGED BY THE DAY NURSE,
--- NOTE | 2020-08-19 23:41 | NUR ---
PT ASK TO GET UP TO GO TO THE BATHROOM. I EXPLAINED THAT HE COULD NOT GET OUT OF BED YET AND THAT HE WOULD FALL IF HE GOT OUT OF BED. HE WAS PLACED ON A BEDPAN. HE WILL CALL WHEN HE IS FINISHED.
[2020-08-20] VITALS (33 sets, daily range): BP systolic 88–177; BP diastolic 41–70
--- NOTE | 2020-08-20 00:30 | NUR ---
WENT IN TO CHECK ON PT TO SEE IF HE WANTED THE BEDPAN TAKEN AWAY IF HE WAS FINISHED. HE STATES THAT HE DIDN'T NEED TO GO AFTER ALL. BEDPAN REMOVED
--- NOTE | 2020-08-20 06:34 | NUR ---
PT IS CONFUSED THIS MORNING. HE TRIES TO GET OUT OF BED. HE THINKS HE IS AT HOME WITH GUEST. HE ASKS WHERE HIS IS AND I TELL HIM SHE'S AT HOME. HE TOLD ME HE MUST BE CONFUSED AND I AGREED.
[2020-08-20 07:09] LABS: BASOPHILS 0.3 % (0-2); EOSINOPHILS 2.3 % (0-7); HEMATOCRIT 37.1 % (42.0-54.0); HEMOGLOBIN 11.8 g/dL (13.5-17.5); IMMATURE GRANULOCYTES 0.2 % (0-5); LYMPHOCYTES 28.1 % (15-50); MCH 30.2 pg (26.0-34.0); MCHC 31.8 g/dL (31.0-37.0); MCV 94.9 fL (80.0-100.0); MEAN PLATELET VOLUME 9.3 fL (7.4-10.4); MONOCYTES 7.5 % (2-11); NEUTROPHILS 61.6 % (40-80); PLATELET COUNT 468 10x3/uL (130-400); RBC 3.91 10x6/uL (4.20-6.10); RDW 14.2 % (11.5-14.5); WBC 12.9 10x3/uL (4.8-10.8)
[2020-08-20 07:20] LABS: ALBUMIN 2.5 g/dL (3.4-5.0); ALKALINE PHOSPHATASE 71 U/L (30-120); ALT (SGPT) 18 U/L (10-68); BILIRUBIN - TOTAL 0.44 mg/dL (0.2-1.3); CALC OSMOLALITY 281 mosm/kg (275-300); CALCIUM 8.5 mg/dL (8.5-10.1); CARBON DIOXIDE 29.1 mmol/L (21.0-32.0); CHLORIDE - SERUM 107 mmol/L (98-107); CREATININE - SERUM 0.6 mg/dL (0.6-1.3); POTASSIUM - SERUM 3.3 mmol/L (3.5-5.1); PROTEIN - SERUM 5.9 g/dL (6.4-8.2); SODIUM 141 mmol/L (136-145); UREA NITROGEN 12 mg/dL (7-18); eGFR NON AFRICAN AMERICAN > 90 mL/min (90-120)
[2020-08-20 07:21] LABS: GLUCOSE 110 mg/dL (74-106)
--- NOTE | 2020-08-20 14:13 | NUR ---
OT NOTE: PT ALERT..LESS CONFUSION NOTED DURING THIS SESSION. BED MOB INCLUDING ROLLING AND SUPINE TO SIT WITH MAX ASSIST X2; MOD ASSIST TO MAINTAIN STATIC SITTING; WT BEARING ACT WITH L UE; VERBAL AND TACTILE CUES FOR MIDLINE ORIENTATION. BACK TO BED AND REPOSITIONED WITH MAX ASSIST X 2; ELEVATED L UE ON PILLOW FOLLOWED BY RETROGRADE MASSAGE. IMPROVEMENT IN EDEMA NOTED. CONT TO ELEVATE L UE. MARIA L GORE, OTR/L [id number]
--- NOTE | 2020-08-20 16:06 | NUR ---
OT NOTE: P COMPLETED BED MOB TASKS WITH MAX A X2. PT COMPLETED EOB SITTING WITH MAX A X2. PT COMPLETED WT BEARING IN AFFECTED SIDE TO FACILITATE RETURN OF FUNCTION. [id number] THANK YOU,NOREEN SMITH
--- NOTE | 2020-08-20 16:24 | NUR ---
Rehab Prescreening Consult recieved and the chart has been reviewed. He is a good ARU candidate, but is currently very low level. The family would also prefer a private room which is not available on the rehab unit today. Called and discussed with the CM Cindy Martin RN. Kristina Manley RN Clinical Liaison, Rehab
[2020-08-20 19:07] LABS: HEMATOCRIT 42.9 % (42.0-54.0); HEMOGLOBIN 13.7 g/dL (13.5-17.5); MCHC 31.9 g/dL (31.0-37.0); MCV 97.1 fL (80.0-100.0); MEAN PLATELET VOLUME 9.4 fL (7.4-10.4); PLATELET COUNT 574 10x3/uL (130-400); RBC 4.42 10x6/uL (4.20-6.10); RDW 14.2 % (11.5-14.5); WBC 26.3 10x3/uL (4.8-10.8)
[2020-08-20 19:35] LABS: ALKALINE PHOSPHATASE 94 U/L (30-120); ALT (SGPT) 28 U/L (10-68); BILIRUBIN - TOTAL 0.37 mg/dL (0.2-1.3); CALC OSMOLALITY 289 mosm/kg (275-300); CALCIUM 8.7 mg/dL (8.5-10.1); CARBON DIOXIDE 29.5 mmol/L (21.0-32.0); CHLORIDE - SERUM 104 mmol/L (98-107); CKMB 3.3 U/L (0.0-3.6); CREATINE KINASE 81 UL (21-232); CREATININE - SERUM 0.8 mg/dL (0.6-1.3); GLUCOSE 329 mg/dL (74-106); POTASSIUM - SERUM 4.8 mmol/L (3.5-5.1); PROTEIN - SERUM 6.6 g/dL (6.4-8.2); SODIUM 139 mmol/L (136-145); UREA NITROGEN 11 mg/dL (7-18); eGFR NON AFRICAN AMERICAN > 90 mL/min (90-120)
[2020-08-20 19:36] LABS: TROPONIN-I 0.123 ng/mL (0.000-0.060)
[2020-08-20 19:42] LABS: LYMPHOCYTES 25 % (15-50); NEUTROPHILS 75 % (40-80); PLATELET ESTIMATE INCREASED
[2020-08-20 23:55] LABS: CKMB 6.8 U/L (0.0-3.6); CREATINE KINASE 124 UL (21-232)
[2020-08-20 23:57] LABS: TROPONIN-I 1.254 ng/mL (0.000-0.060)
[2020-08-21] VITALS (55 sets, daily range): BP systolic 95–171; BP diastolic 39–67
--- NOTE | 2020-08-21 04:36 | NUR ---
SECOND PIV 20 GAUGE STARTED TO LEFT FOREARM X 1 ATTEMPT BY THIS RN. PIV FLUSHED, GOOD BLOOD RETURN, TEGADERM APPLIED. IVF IINFUSING PER ORDERS.
[2020-08-21 04:59] LABS: BASOPHILS 0.2 % (0-2); EOSINOPHILS 0.6 % (0-7); HEMATOCRIT 36.4 % (42.0-54.0); HEMOGLOBIN 11.5 g/dL (13.5-17.5); IMMATURE GRANULOCYTES 0.4 % (0-5); LYMPHOCYTES 12.3 % (15-50); MCH 30.1 pg (26.0-34.0); MCHC 31.6 g/dL (31.0-37.0); MCV 95.3 fL (80.0-100.0); MEAN PLATELET VOLUME 9.6 fL (7.4-10.4); MONOCYTES 4.8 % (2-11); NEUTROPHILS 81.7 % (40-80); PLATELET COUNT 480 10x3/uL (130-400); RBC 3.82 10x6/uL (4.20-6.10); RDW 14.5 % (11.5-14.5)
[2020-08-21 05:29] LABS: WBC 15.8 10x3/uL (4.8-10.8)
[2020-08-21 05:49] LABS: ALBUMIN 2.4 g/dL (3.4-5.0); ALKALINE PHOSPHATASE 72 U/L (30-120); ALT (SGPT) 21 U/L (10-68); BILIRUBIN - TOTAL 0.46 mg/dL (0.2-1.3); CALCIUM 8.3 mg/dL (8.5-10.1); CARBON DIOXIDE 27.1 mmol/L (21.0-32.0); CHLORIDE - SERUM 104 mmol/L (98-107); CKMB 7.1 U/L (0.0-3.6); CREATINE KINASE 99 UL (21-232); CREATININE - SERUM 0.8 mg/dL (0.6-1.3); MAGNESIUM - SERUM 1.6 mg/dL (1.8-2.4); PRO BNP 3893 pg/mL (0-125); PROTEIN - SERUM 5.8 g/dL (6.4-8.2); SODIUM 139 mmol/L (136-145); UREA NITROGEN 13 mg/dL (7-18); eGFR NON AFRICAN AMERICAN > 90 mL/min (90-120)
--- NOTE | 2020-08-21 06:00 | NUR ---
SPOKE WITH PTS , UPDATE PROVIDED. PASSCODE CONFIRMED.
[2020-08-21 06:04] LABS: CALC OSMOLALITY 284 mosm/kg (275-300); GLUCOSE 232 mg/dL (74-106); PHOSPHOROUS 2.1 mg/dL (2.5-4.9); POTASSIUM - SERUM 3.8 mmol/L (3.5-5.1); TROPONIN-I 3.222 ng/mL (0.000-0.060)
--- NOTE | 2020-08-21 06:57 | NUR ---
SPOKE WITH CARDIO COMPUTED TOMOGRAPHY TECHNICIAN CONCERNING PTS CARDIAC ENZYMES AND RESP EPISODE AT SHIFT CHANGE. PREVIOUS ECHO NOTED, LABS AND EKG THIS SHIFT NOTED. OSCAR STATED SHE WILL SPEAK WITH DR LUNA AND WILL BE IN WITHIN THE HOUR FOR NEW ORDERS. WILL CONTINUE TO OBSERVE.
--- NOTE | 2020-08-21 08:34 | NUR ---
Call received from Moriah Alexander APN. Continue to give lovenox as scheduled.
[2020-08-21 12:07] LABS: CKMB 6.4 U/L (0.0-3.6); CREATINE KINASE 83 UL (21-232)
[2020-08-21 12:09] LABS: TROPONIN-I 2.108 ng/mL (0.000-0.060)
--- NOTE | 2020-08-21 12:44 | NUR ---
Nutrition Follow-up: Reintubated yesterday. Noted ST saw pt yesterday prior to intubation; noted recs for MBSS to r/o silent aspiration 2/2 worsening lower lobe pneumonia. Wt: 270# (08/19) Labs noted: Glu 232, Ca 8.3, PO4 2.1, Mg 1.6, Alb 2.4 Meds noted: Solumedrol, Diprivan, Humalog, Protonix, 1/2NS @ KVO -If pt remains intubated, rec initiate nutrition support within 24-48 hrs as medically feasible. -Monitor wt. -RD following.
[2020-08-21 13:04] LABS: BASOPHILS 0.1 % (0-2); EOSINOPHILS 0 % (0-7); HEMATOCRIT 38.2 % (42.0-54.0); HEMOGLOBIN 12.2 g/dL (13.5-17.5); IMMATURE GRANULOCYTES 0.3 % (0-5); LYMPHOCYTES 9.5 % (15-50); MCH 30.5 pg (26.0-34.0); MCHC 31.9 g/dL (31.0-37.0); MCV 95.5 fL (80.0-100.0); MEAN PLATELET VOLUME 9.8 fL (7.4-10.4); NEUTROPHILS 88.1 % (40-80); PLATELET COUNT 448 10x3/uL (130-400); RDW 14.5 % (11.5-14.5)
[2020-08-21 13:05] LABS: WBC 11.5 10x3/uL (4.8-10.8)
[2020-08-21 13:10] LABS: ALT (SGPT) 22 U/L (10-68); CALC OSMOLALITY 281 mosm/kg (275-300); CALCIUM 8.6 mg/dL (8.5-10.1); CARBON DIOXIDE 24.9 mmol/L (21.0-32.0); CHLORIDE - SERUM 103 mmol/L (98-107); CHOL - HDL RATIO 3.9 ratio (2.3-4.9); CHOLESTEROL, TOTAL 143 mg/dL (0-200); CREATININE - SERUM 0.7 mg/dL (0.6-1.3); GLUCOSE 261 mg/dL (74-106); HDL CHOLESTEROL 37 mg/dL (32-96); LDL CHOLESTEROL 94 mg/dL (0-100); LDL-HDL RATIO 2.5 ratio (1.5-3.5); SODIUM 136 mmol/L (136-145); TRIGLYCERIDE 63 mg/dL (30-200); UREA NITROGEN 15 mg/dL (7-18); eGFR NON AFRICAN AMERICAN > 90 mL/min (90-120)
[2020-08-21 13:11] LABS: FUNGUS MYCOLOGY CULTURE Preliminary report (())
[2020-08-21 13:11] LABS: POTASSIUM - SERUM 4.5 mmol/L (3.5-5.1)
--- NOTE | 2020-08-21 13:34 | NUR ---
Not in room at this time. Went to coreroom foundry laborer for cath procedure. Consent acquired via telephone. Consent forms in chart.
--- NOTE | 2020-08-21 14:09 | NUR ---
1330- PT TAKEN TO MASS SPECTROMETRY MANAGER WITH PORTABLE VENT SCOT,TELEPHONE ORDER DISPATCHER
--- NOTE | 2020-08-21 15:17 | NUR ---
Back in room at this time. Dressing to right groin C/D/I. No hematoma or bleeding noted. Pt sedated. Propofol at 10mcg/kg/min and 1/2 ns at 10ml/hr. Oral temp 98.5, BP 142/54 MAP 74, HR 67. Wrist restraints remain in place. Spouse at bedside. Will continue to monitor.
--- NOTE | 2020-08-21 20:09 | MORECARE ---
CASE MANAGEMENT DISCHARGE SUMMARY PATIENT: MERNA VALDEZ UNIT: [id number] ADM DATE: 08/03/20 AGE: 70 : 52 SEX: M [facility] AUTHOR: GEOVANYDOC PHYSICIAN: REFERRING PHYSICIAN: JONAH BENITEZ DO DATE OF SERVICE: 08/21/20 Discharge Plan Patient Name: MERNA VALDEZ Facility: [facility]:[place] : 1950 Planned Disposition: Inpatient Rehab Anticipated Discharge Date: Discharge Date: Expected LOS: Initial Reviewer: [id number] Initial Review Date: 08/05/2020 Generated: 08/21/20 9:08 pm DCP- Discharge Planning Updated by [id number]: Trini Staples on 08/12/20 7:[address] Patient Name: MERNA VALDEZ Admission Status: Elective Accout number: [id number] Admission Date: 08-03-2020 : 1950 Admission Diagnosis:FRACTURE OF UNSP PART OF NECK OF LEFT FEMUR, INIT Attending: JONAH BENTIEZ Current LOS: 9 Anticipated DC Date: Planned Disposition: Inpatient Rehab Primary Insurance: MEDICARE A & B Discharge Planning Comments: FAXED UPDATED CLINICALS TO [facility] CALL ON ACCEPTANCE. Dipper And Baker: Trini Staples DCP- Discharge Planning Updated by [id number]: Trini Staples on 08/09/20 2:[address] Patient Name: MERNA VALDEZ Admission Status: Elective Accout number: [id number] Admission Date: 08-03-2020 : 1950 Admission Diagnosis:FRACTURE OF UNSP PART OF NECK OF LEFT FEMUR, INIT Attending: JONAH BENITEZ Current LOS: 6 Anticipated DC Date: Planned Disposition: Inpatient Rehab Primary Insurance: MEDICARE A & B Discharge Planning Comments: SPOKE WITH MS. LR AT [facility], SHE STATES NO BED AVAILABLE AND THEY DON'T ACCEPT OVER THE WEEKEND. CM TO CALL BACK WEDNESDAY MORNING TO CHECK ON AVAILABLE BED. Dipper And Baker: Trini Staples DCP- Discharge Planning Updated by [id number]: Trini Staples on 08/09/20 12:[address] Patient Name: MERNA VALDEZ Admission Status: Elective Accout number: [id number] Admission Date: 08-03-2020 : 1950 Admission Diagnosis:FRACTURE OF UNSP PART OF NECK OF LEFT FEMUR, INIT Attending: JONAH BENITEZ Current LOS: 6 Anticipated DC Date: Planned Disposition: Inpatient Rehab Primary Insurance: MEDICARE A & B Discharge Planning Comments: SPOKE WITH MS. LR AT [facility] IN [place]. SHE STATED SHE TALKED WITH THE DOCTOR ABOUT IT THIS MORNING. I REFAXED CLINICALS AND UPDATED NOTES. WAITING CALL BACK TO SEE IF THEY WILL ACCEPT. Dipper And Baker: Trini Staples DCP- Discharge Planning Updated by [id number]: Trini Staples on 08/08/20 4:[address] Patient Name: MERNA VALDEZ Admission Status: Elective Accout number: [id number] Admission Date: 08-03-2020 : 1950 Admission Diagnosis:FRACTURE OF UNSP PART OF NECK OF LEFT FEMUR, INIT Attending: JONAH BENITEZ Current LOS: 5 Anticipated DC Date: Planned Disposition: Inpatient Rehab Primary Insurance: MEDICARE A & B Discharge Planning Comments: CM met with patients after explaining CM role and obtaining verbal consent. CM discussed availability / needs of home health, REHAB and medical equipment. SHE WOULD LIKE HIM TO GO TO [facility] IN [place] FOR REHAB. SABAS SIGNED. ANTICIPATE DC TOMORROW. I AM [facility], SHE WILL CALL BACK IN MORNING TO LET US KNOW IF THEY WILL HAVE BED AVAILABILITY. Dipper And Baker: Trini Staples Coverage Notice Reviewer: [id number] - Trini Staples Notice Issued Date-Time: 08/08/2020 15:52 Notice Type: Patient Choice Letter Notice Delivered To: Patient Relationship to Patient: Community Health Nurse Name: Delivery Method: - Missy Days: Prior Verbal Notification: Recipient Understood Notice: Yes Recipient Signature: Yes Med Rec Note Co-signed by Attending: Coverage Notice Comment: [facility] IN [facility] Last DP export: 08/12/20 8:03 a Patient Name: MERNA VALDEZ Page [phone] at 2009 All edits/amendments must be made on the electronic document DICTATION DATE: 08/21/202007 ATTENDING ANESTHESIOLOGIST: STEVIE 08/21/202007 RPT#: [id number] DC DATE: STATUS: ADM IN [facility] [address] [place] [address] END OF REPORT
[2020-08-22] VITALS (29 sets, daily range): BP systolic 104–161; BP diastolic 42–88
[2020-08-22 04:54] LABS: BASOPHILS 0.1 % (0-2); EOSINOPHILS 0 % (0-7); HEMATOCRIT 34.1 % (42.0-54.0); IMMATURE GRANULOCYTES 0.4 % (0-5); LYMPHOCYTES 15.1 % (15-50); MCH 30.2 pg (26.0-34.0); MCHC 32.3 g/dL (31.0-37.0); MCV 93.7 fL (80.0-100.0); MEAN PLATELET VOLUME 9.4 fL (7.4-10.4); MONOCYTES 5.1 % (2-11); NEUTROPHILS 79.3 % (40-80); PLATELET COUNT 399 10x3/uL (130-400); RBC 3.64 10x6/uL (4.20-6.10); RDW 14.4 % (11.5-14.5); WBC 13.6 10x3/uL (4.8-10.8)
[2020-08-22 05:32] LABS: ALBUMIN 2.2 g/dL (3.4-5.0); ALKALINE PHOSPHATASE 67 U/L (30-120); ALT (SGPT) 17 U/L (10-68); BILIRUBIN - TOTAL 0.42 mg/dL (0.2-1.3); CALC OSMOLALITY 272 mosm/kg (275-300); CALCIUM 8.3 mg/dL (8.5-10.1); CARBON DIOXIDE 28.5 mmol/L (21.0-32.0); CHLORIDE - SERUM 102 mmol/L (98-107); CREATININE - SERUM 0.7 mg/dL (0.6-1.3); MAGNESIUM - SERUM 1.8 mg/dL (1.8-2.4); POTASSIUM - SERUM 4.3 mmol/L (3.5-5.1); PRO BNP 1887 pg/mL (0-125); PROTEIN - SERUM 5.5 g/dL (6.4-8.2); SODIUM 133 mmol/L (136-145); UREA NITROGEN 15 mg/dL (7-18); eGFR NON AFRICAN AMERICAN > 90 mL/min (90-120)
[2020-08-22 05:45] LABS: GLUCOSE 206 mg/dL (74-106); PHOSPHOROUS 2.9 mg/dL (2.5-4.9)
--- NOTE | 2020-08-22 09:19 | NUR ---
0900- ATTEMPT TO WEAN PT, PT HAD SEDATION EARLIER, WILL TRY AGAIN IN 1 HOUR
--- NOTE | 2020-08-22 10:28 | NUR ---
Pt was put on cpap trial around 944. Sedation had been turned off. around 10:[address] Lanier notified. Ordered Bipap 11/02/40%. Spouse at bedside. Pt asking for something to drink. Will continue to monitor.
--- NOTE | 2020-08-22 11:25 | NUR ---
Pt on bipap. Asking to get up to go to bathroom. Explained that he is unable to get up due to his stroke. Pt cursing at staff. Does not understand that he is unable to get up at this time. Attempts to take off bipap. Wrist restraints remain in place per order. Will continue to monitor.
--- NOTE | 2020-08-22 13:58 | NUR ---
PER RT, TRYING PT OFF OF BIPAP.
[2020-08-23] VITALS (36 sets, daily range): BP systolic 92–165; BP diastolic 41–84
[2020-08-23 05:33] LABS: BASOPHILS 0 % (0-2); EOSINOPHILS 0 % (0-7); HEMATOCRIT 38.2 % (42.0-54.0); HEMOGLOBIN 12.4 g/dL (13.5-17.5); IMMATURE GRANULOCYTES 0.3 % (0-5); LYMPHOCYTES 4.3 % (15-50); MCH 30.8 pg (26.0-34.0); MCHC 32.5 g/dL (31.0-37.0); MCV 94.8 fL (80.0-100.0); MEAN PLATELET VOLUME 9.6 fL (7.4-10.4); MONOCYTES 3.5 % (2-11); NEUTROPHILS 91.9 % (40-80); PLATELET COUNT 467 10x3/uL (130-400); RBC 4.03 10x6/uL (4.20-6.10); RDW 14.7 % (11.5-14.5)
[2020-08-23 05:52] LABS: WBC 18.3 10x3/uL (4.8-10.8)
[2020-08-23 05:55] LABS: ALKALINE PHOSPHATASE 85 U/L (30-120); ALT (SGPT) 21 U/L (10-68); BILIRUBIN - TOTAL 0.66 mg/dL (0.2-1.3); CALCIUM 8.9 mg/dL (8.5-10.1); CARBON DIOXIDE 25.6 mmol/L (21.0-32.0); CHLORIDE - SERUM 102 mmol/L (98-107); CREATININE - SERUM 0.8 mg/dL (0.6-1.3); MAGNESIUM - SERUM 1.6 mg/dL (1.8-2.4); POTASSIUM - SERUM 4.2 mmol/L (3.5-5.1); PROTEIN - SERUM 6.7 g/dL (6.4-8.2); SODIUM 138 mmol/L (136-145); UREA NITROGEN 17 mg/dL (7-18); eGFR NON AFRICAN AMERICAN > 90 mL/min (90-120)
[2020-08-23 05:58] LABS: ALBUMIN 2.9 g/dL (3.4-5.0); CALC OSMOLALITY 286 mosm/kg (275-300); GLUCOSE 265 mg/dL (74-106); PHOSPHOROUS 3.9 mg/dL (2.5-4.9)
[2020-08-23 06:08] LABS: INR 1.23 (0.85-1.17); PROTIME 15.4 SECONDS (11.6-15.0)
[2020-08-23 06:09] LABS: APTT 33.9 SECONDS (22.8-39.4)
[2020-08-23 06:10] LABS: D-DIMER-QUANTITATIVE 1.27 ug/mLFEU (0.20-0.54)
--- NOTE | 2020-08-23 06:43 | NUR ---
UPON ROUNDING AT 2400 PATIENT'S LEFT FOOT WAS COLD TO THE TOUCH AND PEDAL PULSE WAS UNABLE TO BE PALPATED AND WAS NOT FOUND ON DOPPLER. ATTEMPT WAS MADE BY 2 SEPERATE NURSES TO LOCATE PULSE. CHARTERED ACCOUNTANT ON DUTY WAS NOTIFIED AND A BLE DOPPLER ULTRASOUND WAS ORDERED. CHARTERED ACCOUNTANT CAME TO UNIT AND WAS ABLE TO FIND PULSE USING DOPPLER.
--- NOTE | 2020-08-23 06:47 | NUR ---
2400 - PATIENT BEGAN COMPLAINING OF BEING HOT AND BECAME INCREASINGLY ANXIOUS. PATIENT CONTINUED TO COMPLAIN OF PAIN IN HIS CHEST AND BEING UNABLE TO "STOP HIS THOUGHTS" PATIENT WAS CALLING OUT FOR HELP FREQUENTLY FOR SEVERAL HOURS. AT 0400 PATIENT WAS GIVEN A BATH AND BEGAN TO SAY THAT HE NEEDED "MORE OXYGEN". PATIENT MAINTAINED OXYGEN SATURATION IN MID 90'S BUT FELT THAT HE COULD NOT BREATHE. PATIENT WAS PUT ON BIPAP AT THIS TIME TO HELP HIM CATCH HIS BREATH AND HAS BEEN RESTING SINCE THAT TIME
--- NOTE | 2020-08-23 11:21 | NUR ---
Nutrition Follow-up: Self-extubated yesterday. No PO intake this AM; MBSS pending. Last BM 08/08 per chart; noted Miralax started. Diet: Diabetic, Mech Soft Wt: 253# (08/23); 241# (08/14) Labs noted: Glu 265, Mg 1.6, Alb 2.9 Meds noted: Solumedrol, Lantus, Humalog, Protonix, Miralax, 1/2NS @ KVO -Diet consistency per JAVA ORACLE DEVELOPER. RD available to assist with nutrition support if needed following MBSS. -Monitor wt. -RD following.
--- NOTE | 2020-08-23 13:33 | NUR ---
OT NOTE: PT SEEN IN PM. NO AGITATION OR ANXIETY NOTED DURING TRANSFER FROM BED TO SWALLOW STUDY CHAIR. L UE REMAINS EDEMATOUS. PILLOW PLACED UNDER L UE TO PREVENT SUBLUXATION OF SHOULDER. STILL NO ACTIVE MOVEMENT NOTED IN L UE. WILL CONT WT BEARING ACT WITH L UE/LE.. MARIA L GORE, OTR/L 105-130
[2020-08-23 14:11] LABS: FUNGUS CULTURE RESULT 1 Candida albicans (())
--- NOTE | 2020-08-23 18:49 | MORECARE ---
CASE MANAGEMENT DISCHARGE SUMMARY PATIENT: MERNA VALDEZ UNIT: [id number] ADM DATE: 08/03/20 AGE: 70 : 54 SEX: M ROOM/BED: D[facility] AUTHOR: GEOVANY,DOC PHYSICIAN: REFERRING PHYSICIAN: JONAH BENITEZ DO DATE OF SERVICE: 08/23/20 Discharge Plan Patient Name: MERNA VALDEZ Facility: [facility]:[place] : 1950 Planned Disposition: Inpatient Rehab Anticipated Discharge Date: Discharge Date: Expected LOS: Initial Reviewer: [id number] Initial Review Date: 08/05/2020 Generated: 08/23/20 7:49 pm DCP- Discharge Planning Updated by [id number]: Angi Martin on 08/23/20 5:[address] CM SPOKE WITH PATIENT'S SPOUSE AND SABAS SIGNED FOR INPATIENT FACILITY. [facility] AND [facility]. CM WILL CONTINUE TO FOLLOW AND ASSESS NEEDED WITH DISCHARGE PLANNING DCP- Discharge Planning Updated by [id number]: Trini Staples on 08/12/20 7:[address] Patient Name: MERNA VALDEZ Admission Status: Elective Accout number: [id number] Admission Date: 08-03-2020 : 1950 Admission Diagnosis:FRACTURE OF UNSP PART OF NECK OF LEFT FEMUR, INIT Attending: JONAH BENITEZ Current LOS: 9 Anticipated DC Date: Planned Disposition: Inpatient Rehab Primary Insurance: MEDICARE A & B Discharge Planning Comments: [facility]. Back Shoe Worker: Trini Staples DCP- Discharge Planning Updated by [id number]: Trini Staples on 08/09/20 2:[address] Patient Name: MERNA VALDEZ Admission Status: Elective Accout number: [id number] Admission Date: 08-03-2020 : 1950 Admission Diagnosis:FRACTURE OF UNSP PART OF NECK OF LEFT FEMUR, INIT Attending: JONAH BENITEZ Current LOS: 6 Anticipated DC Date: Planned Disposition: Inpatient Rehab Primary Insurance: MEDICARE A & B Discharge Planning Comments: SPOKE WITH MS. LR AT [facility], SHE STATES NO BED AVAILABLE AND THEY DON'T ACCEPT OVER THE WEEKEND. CM TO CALL BACK WEDNESDAY MORNING TO CHECK ON AVAILABLE BED. Back Shoe Worker: Trini Staples DCP- Discharge Planning Updated by [email or web address]: Trini Bel on 08/09/20 12:[address] Patient Name: MERNA VALDEZ Admission Status: Elective Accout number: [id number] Admission Date: 08-03-2020 : 1950 Admission Diagnosis:FRACTURE OF UNSP PART OF NECK OF LEFT FEMUR, INIT Attending: JONAH BENITEZ Current LOS: 6 Anticipated DC Date: Planned Disposition: Inpatient Rehab Primary Insurance: MEDICARE A & B Discharge Planning Comments: SPOKE WITH MS. LR AT [facility] IN [place]. SHE STATED SHE TALKED WITH THE DOCTOR ABOUT IT THIS MORNING. I REFAXED CLINICALS AND UPDATED NOTES. WAITING CALL BACK TO SEE IF THEY WILL ACCEPT. Back Shoe Worker: Trini Staples DCP- Discharge Planning Updated by [email or web address]: Trini Bel on 08/08/20 4:[address] Patient Name: MERNA VALDEZ Admission Status: Elective Accout number: [id number] Admission Date: 08-03-2020 : 1950 Admission Diagnosis:FRACTURE OF UNSP PART OF NECK OF LEFT FEMUR, INIT Attending: JONAH BENITEZ Current LOS: 5 Anticipated DC Date: Planned Disposition: Inpatient Rehab Primary Insurance: MEDICARE A & B Discharge Planning Comments: CM met with patients after explaining CM role and obtaining verbal consent. CM discussed availability / needs of home health, REHAB and medical equipment. SHE WOULD LIKE HIM TO GO TO [facility] [place] FOR REHAB. SABAS SIGNED. ANTICIPATE DC TOMORROW. I AM FA[facility]ING CLINICALS TO [facility], SHE WILL CALL BACK IN MORNING TO LET US KNOW IF THEY WILL HAVE BED AVAILABILITY. Back Shoe Worker: Trini Staples Coverage Notice Reviewer: [id number] - Trini Staples Notice Issued Date-Time: 08/08/2020 15:52 Notice Type: Patient Choice Letter Notice Delivered To: Patient Relationship to Patient: Wharf Worker Name: Delivery Method: - Missy Days: Prior Verbal Notification: Recipient Understood Notice: Yes Recipient Signature: Yes Med Rec Note Co-signed by Attending: Coverage Notice Comment: [facility] Reviewer: [id number] Rianna Martin Notice Issued Date-Time: 08/23/2020 16:00 Notice Type: Patient Choice Letter Notice Delivered To: Family Member Relationship to Patient: Spouse Wharf Worker Name: TRENT VALDEZ Delivery Method: HAND - Hand Delivered Missy Days: Prior Verbal Notification: Recipient Understood Notice: Yes Recipient Signature: Yes Med Rec Note Co-signed by Attending: Coverage Notice Comment: [facility]PATIENT REHAB [facility] Last DP export: 08/21/20 7:09 p Patient Name: MERNA VALDEZ Page [phone] at 1849 All edits/amendments must be made on the electronic document DICTATION DATE: 08/23/201848 JAVA DEVELOPER WITH SECURITY CLEARANCE: STEVIE 08/23/201848 RPT#: [id number] DC DATE: STATUS: ADM IN [facility] [address] [place] [address] END OF REPORT
[2020-08-24] VITALS (27 sets, daily range): BP systolic 88–144; BP diastolic 28–72
[2020-08-24 06:02] LABS: BASOPHILS 0.1 % (0-2); EOSINOPHILS 0 % (0-7); HEMATOCRIT 33.6 % (42.0-54.0); HEMOGLOBIN 10.8 g/dL (13.5-17.5); IMMATURE GRANULOCYTES 0.2 % (0-5); MCH 30.4 pg (26.0-34.0); MCHC 32.1 g/dL (31.0-37.0); MCV 94.6 fL (80.0-100.0); MEAN PLATELET VOLUME 9.5 fL (7.4-10.4); MONOCYTES 6.7 % (2-11); PLATELET COUNT 377 10x3/uL (130-400); RBC 3.55 10x6/uL (4.20-6.10); RDW 14.7 % (11.5-14.5); WBC 14.4 10x3/uL (4.8-10.8)
[2020-08-24 06:20] LABS: ALBUMIN 2.5 g/dL (3.4-5.0); ALKALINE PHOSPHATASE 75 U/L (30-120); ALT (SGPT) 30 U/L (10-68); BILIRUBIN - TOTAL 0.56 mg/dL (0.2-1.3); CALC OSMOLALITY 286 mosm/kg (275-300); CALCIUM 8.6 mg/dL (8.5-10.1); CARBON DIOXIDE 32.1 mmol/L (21.0-32.0); CHLORIDE - SERUM 100 mmol/L (98-107); CREATININE - SERUM 0.8 mg/dL (0.6-1.3); GLUCOSE 283 mg/dL (74-106); MAGNESIUM - SERUM 1.7 mg/dL (1.8-2.4); POTASSIUM - SERUM 4.1 mmol/L (3.5-5.1); SODIUM 137 mmol/L (136-145); UREA NITROGEN 20 mg/dL (7-18); eGFR NON AFRICAN AMERICAN > 90 mL/min (90-120)
--- NOTE | 2020-08-24 15:47 | MORECARE ---
CASE MANAGEMENT DISCHARGE SUMMARY PATIENT: MERNA VALDEZ UNIT: [id number] ADM DATE: 08/03/20 AGE: 70 : 54 SEX: M ROOM/BED: D.[facility] AUTHOR: JEANIE ARMENTA PHYSICIAN: REFERRING PHYSICIAN: JONAH BENITEZ DO DATE OF SERVICE: 08/24/20 Discharge Plan Patient Name: MERNA VALDEZ Facility: [facility]:[place] : 1950 Planned Disposition: Inpatient Rehab Anticipated Discharge Date: Discharge Date: Expected LOS: Initial Reviewer: [id number] Initial Review Date: 08/05/2020 Generated: 08/24/20 4:47 pm Comments DCP- Discharge Planning Updated by [email or web address]: Radhafelipe Holguin on 08/24/20 2:[address] CM spoke with Lou for inpatient rehab admissions. Lou states that she will not have an available bed until Wednesday or Wednesday. States she will f/u on Wednesday. CM will continue to follow and assist with discharge planning/needs. DCP- Discharge Planning Updated by [email or web address]: Angi Martin on 08/23/20 5:[address] CM SPOKE WITH PATIENT'S SPOUSE AND SABAS SIGNED FOR INPATIENT FACILITY. [facility], [facility]. CM WILL CONTINUE TO FOLLOW AND ASSESS NEEDED WITH DISCHARGE PLANNING DCP- Discharge Planning Updated by [email or web address]: Trini Staples on 08/12/20 7:[address] Patient Name: MERNA VALDEZ Admission Status: Elective Accout number: [id number] Admission Date: 08-03-2020 : 1950 Admission Diagnosis:FRACTURE OF UNSP PART OF NECK OF LEFT FEMUR, INIT Attending: JONAH BENITEZ Current LOS: 9 Anticipated DC Date: Planned Disposition: Inpatient Rehab Primary Insurance: MEDICARE A & B Discharge Planning Comments: FAXED UPDATED CLINICALS TO [facility], WAITING CALL ON ACCEPTANCE. Circular Stuffer: Trini Staples DCP- Discharge Planning Updated by [email or web address]: Trini Staples on 08/09/20 2:[address] Patient Name: MERNA VALDEZ Admission Status: Elective Accout number: [id number] Admission Date: 08-03-2020 : 1950 Admission Diagnosis:FRACTURE OF UNSP PART OF NECK OF LEFT FEMUR, INIT Attending: JONAH BENITEZ Current LOS: 6 Anticipated DC Date: Planned Disposition: Inpatient Rehab Primary Insurance: MEDICARE A & B Discharge Planning Comments: SPOKE WITH MS. LR AT [facility], SHE STATES NO BED AVAILABLE AND THEY DON'T ACCEPT OVER THE WEEKEND. CM TO CALL BACK WEDNESDAY MORNING TO CHECK ON AVAILABLE BED. Circular Stuffer: Trini Staples DCP- Discharge Planning Updated by [id number]: Trini Staples on 08/09/20 12:[address] Patient Name: MERNA VALDEZ Admission Status: Elective Accout number: [id number] Admission Date: 08-03-2020 : 1950 Admission Diagnosis:FRACTURE OF UNSP PART OF NECK OF LEFT FEMUR, INIT Attending: JONAH BENITEZ Current LOS: 6 Anticipated DC Date: Planned Disposition: Inpatient Rehab Primary Insurance: MEDICARE A & B Discharge Planning Comments: SPOKE WITH MS. LR AT [facility] IN [place]. SHE STATED SHE TALKED WITH THE DOCTOR ABOUT IT THIS MORNING. I REFAXED CLINICALS AND UPDATED NOTES. WAITING CALL BACK TO SEE IF THEY WILL ACCEPT. Circular Stuffer: Trini Staples DCP- Discharge Planning Updated by [id number]: Trini Staples on 08/08/20 4:[address] Patient Name: MERNA VALDEZ Admission Status: Elective Accout number: [id number] Admission Date: 08-03-2020 : 1950 Admission Diagnosis:FRACTURE OF UNSP PART OF NECK OF LEFT FEMUR, INIT Attending: JONAH BENITEZ Current LOS: 5 Anticipated DC Date: Planned Disposition: Inpatient Rehab Primary Insurance: MEDICARE A & B Discharge Planning Comments: CM met with patients after explaining CM role and obtaining verbal consent. CM discussed availability / needs of home health, REHAB and medical equipment. SHE WOULD LIKE HIM TO GO TO [facility] IN [place] FOR REHAB. SABAS SIGNED. ANTICIPATE DC TOMORROW. I AM FAXING CLINICALS TO MS LR AT [facility], SHE WILL CALL BACK IN MORNING TO LET US KNOW IF THEY WILL HAVE BED AVAILABILITY. Circular Stuffer: Trini Staples Coverage Notice Reviewer: [id number] - Trini Staples Notice Issued Date-Time: 08/08/2020 15:52 Notice Type: Patient Choice Letter Notice Delivered To: Patient Relationship to Patient: Sales Engineer Account Manager Name: Delivery Method: - Missy Days: Prior Verbal Notification: Recipient Understood Notice: Yes Recipient Signature: Yes Med Rec Note Co-signed by Attending: Coverage Notice Comment: [facility] Reviewer: [id number] Rianna Martin Notice Issued Date-Time: 08/23/2020 16:00 Notice Type: Patient Choice Letter Notice Delivered To: Family Member Relationship to Patient: Spouse Sales Engineer Account Manager Name: TRENT VALDEZ Delivery Method: HAND - Hand Delivered Missy Days: Prior Verbal Notification: Recipient Understood Notice: Yes Recipient Signature: Yes Med Rec Note Co-signed by Attending: Coverage Notice Comment: [facility]PATIENT REHAB [facility] Last DP export: 08/23/20 5:49 p Patient Name: MERNA VALDEZ Page [phone] at 1547 All edits/amendments must be made on the electronic document DICTATION DATE: 08/24/20 1547 MANAGER TRUST: STEVIE 08/24/20 1547 RPT#: [id number] DC DATE: STATUS: ADM IN [facility] [address] [place] [address] END OF REPORT
[2020-08-25] VITALS (24 sets, daily range): BP systolic 79–127; BP diastolic 42–87
[2020-08-25 05:26] LABS: BASOPHILS 0.1 % (0-2); EOSINOPHILS 0 % (0-7); HEMOGLOBIN 10.7 g/dL (13.5-17.5); IMMATURE GRANULOCYTES 0.4 % (0-5); MCH 30.5 pg (26.0-34.0); MCHC 32.4 g/dL (31.0-37.0); MEAN PLATELET VOLUME 9.4 fL (7.4-10.4); MONOCYTES 7.6 % (2-11); NEUTROPHILS 78.9 % (40-80); PLATELET COUNT 386 10x3/uL (130-400); RBC 3.51 10x6/uL (4.20-6.10); RDW 14.4 % (11.5-14.5)
[2020-08-25 05:31] LABS: WBC 19.7 10x3/uL (4.8-10.8)
[2020-08-25 05:51] LABS: ALBUMIN 2.8 g/dL (3.4-5.0); ALKALINE PHOSPHATASE 75 U/L (30-120); ALT (SGPT) 34 U/L (10-68); BILIRUBIN - TOTAL 0.64 mg/dL (0.2-1.3); CALC OSMOLALITY 281 mosm/kg (275-300); CALCIUM 8.8 mg/dL (8.5-10.1); CARBON DIOXIDE 28.7 mmol/L (21.0-32.0); CHLORIDE - SERUM 99 mmol/L (98-107); CREATININE - SERUM 0.9 mg/dL (0.6-1.3); GLUCOSE 228 mg/dL (74-106); MAGNESIUM - SERUM 1.8 mg/dL (1.8-2.4); PHOSPHOROUS 3.5 mg/dL (2.5-4.9); POTASSIUM - SERUM 3.7 mmol/L (3.5-5.1); PROTEIN - SERUM 6.3 g/dL (6.4-8.2); SODIUM 136 mmol/L (136-145); UREA NITROGEN 21 mg/dL (7-18); eGFR NON AFRICAN AMERICAN 89 mL/min (90-120)
[2020-08-26] VITALS (7 sets, daily range): BP systolic 105–157; BP diastolic 42–60
[2020-08-26 05:00] LABS: BASOPHILS 0.1 % (0-2); EOSINOPHILS 0 % (0-7); HEMATOCRIT 31.5 % (42.0-54.0); HEMOGLOBIN 9.9 g/dL (13.5-17.5); IMMATURE GRANULOCYTES 0.4 % (0-5); LYMPHOCYTES 11.1 % (15-50); MCH 29.5 pg (26.0-34.0); MCHC 31.4 g/dL (31.0-37.0); MCV 93.8 fL (80.0-100.0); MEAN PLATELET VOLUME 9.7 fL (7.4-10.4); MONOCYTES 7.2 % (2-11); NEUTROPHILS 81.2 % (40-80); PLATELET COUNT 393 10x3/uL (130-400); RBC 3.36 10x6/uL (4.20-6.10); RDW 14.5 % (11.5-14.5); WBC 18.4 10x3/uL (4.8-10.8)
[2020-08-26 05:10] LABS: CALC OSMOLALITY 277 mosm/kg (275-300); CALCIUM 8.5 mg/dL (8.5-10.1); CARBON DIOXIDE 31.7 mmol/L (21.0-32.0); CHLORIDE - SERUM 100 mmol/L (98-107); CREATININE - SERUM 0.7 mg/dL (0.6-1.3); GLUCOSE 207 mg/dL (74-106); MAGNESIUM - SERUM 1.9 mg/dL (1.8-2.4); SODIUM 135 mmol/L (136-145); UREA NITROGEN 19 mg/dL (7-18); eGFR NON AFRICAN AMERICAN > 90 mL/min (90-120)
[2020-08-26 05:26] LABS: POTASSIUM - SERUM 4.3 mmol/L (3.5-5.1)
--- NOTE | 2020-08-26 11:25 | NUR ---
Nutrition Follow-up: PO intake fluctuating. CLINICAL PROJECT COORDINATOR following; s/p MBSS. Diet: Diabetic, Mech Soft PO intake: 0-90% yesterday (38% avg) Wt: 248# (08/25) Labs noted: Na 135, Glu 207 Meds noted: Humalog, Lantus, Miralax, Protonix, Solumedrol, 1/2NS @ KVO, electrolyte protocol -Encourage PO intake and honor food preferences within diet restrictions. -+Glucerna with meals. -Monitor wt. -RD following.
--- NOTE | 2020-08-26 12:25 | NUR ---
OT NOTE: PT ALERT THIS AM.. SITTING UP IN BED. LIMITED VERBALIZATION NOTED TODAY. SLOW TO RESPOND TO YES/NO QUESTIONS. SET UP FOOD TRAY AND PT WAS ABLE TO EAT WITH R HAND.. VERBAL CUES REQUIRED FOR STEPHANE SWEEP THERE WAS SOME POCKETING OF FOOD ON L SIDE. S.T. ALSO IN ROOM TO OBSERVE PT SWALLOWING. MARIA L GORE, OTR/L [phone]
--- NOTE | 2020-08-26 15:58 | NUR ---
Reviewed patient's chart and discussed in the IDT meeting. He will be accepted today to the ARU,to room 1109. Called Angi Martin RN with room number. Kristina Manley RN Clinical Liaison, Rehab
[2020-08-26] MEDS ORDERED: COLACE100 MG PO (18:40)
[2020-08-26] MEDS ORDERED: PROVENTIL/2.5 MG/3 M INH (18:41)
[2020-08-26] MEDS ORDERED: TYLENOL ARTHRI650 MG PO (18:42)
[2020-08-26] MEDS ORDERED: LEVAQUIN750 MG PO (18:44)
[2020-08-26] MEDS ORDERED: HUMALOG 30100 UNITS/ SC (18:44)
[2020-08-26] MEDS ORDERED: LANTUS INS100 UNITS/ SC (18:45)
[2020-08-26] MEDS ORDERED: PREDNISONE1 MG PO (18:46)
[2020-08-26] MEDS ORDERED: OMNICEF300 MG PO (18:46)
[2020-08-26] MEDS ORDERED: ZOFRAN4 MG PO (18:47)
[2020-08-26] MEDS ORDERED: LIPITOR20 MG PO (18:48)
[2020-08-26] MEDS ORDERED: PROTONIX20 MG (18:48)
[2020-08-26] MEDS ORDERED: ELECTROLYTE MISC (18:48)
[2020-08-26] MEDS ORDERED: LOVENOX120 MG/0.8 SC (18:48)
[2020-08-26] MEDS ORDERED: MIRALAX17 GM PO ×2 (19:00→19:01)
--- NOTE | 2020-08-27 20:37 | MORECARE ---
CASE MANAGEMENT DISCHARGE SUMMARY PATIENT: MERNA VALDEZ UNIT: [id number] ADM DATE: 08/03/20 AGE: 70 : 54 SEX: M ROOM/BED: D.[facility] AUTHOR: GEOVANY,DOC PHYSICIAN: REFERRING PHYSICIAN: JONAH BENITEZ DO DATE OF SERVICE: 08/27/20 Discharge Plan Patient Name: MERNA VALDEZ Facility: [facility]:[place] : 1950 Planned Disposition: Inpatient Rehab Anticipated Discharge Date: Discharge Date: 08/26/2020 Expected LOS: Initial Reviewer: [id number] Initial Review Date: 08/05/2020 Generated: 08/27/20 9:36 pm Comments DCP- Discharge Planning Updated by [id number]: Angi Martin on 08/27/20 7:[address] Late Entry 08/26/20 D/C IMM signed. Patient to discharge to Inpatient Rehab [facility] today DCP- Discharge Planning Updated by [email or web address]: Radha Holguin on 08/24/20 2:[address] CM spoke with Lou for inpatient rehab admissions. Lou states that she will not have an available bed until Wednesday or Wednesday. States she will f/u on Wednesday. CM will continue to follow and assist with discharge planning/needs. DCP- Discharge Planning Updated by [email or web address]: Angi Martin on 08/23/20 5:[address] CM SPOKE WITH PATIENT'S SPOUSE AND SABAS SIGNED FOR INPATIENT FACILITY. [facility]. CM WILL CONTINUE TO FOLLOW AND ASSESS NEEDED WITH DISCHARGE PLANNING DCP- Discharge Planning Updated by [id number]: Trini Staples on 08/12/20 7:[address] Patient Name: MERNA VALDEZ Admission Status: Elective Accout number: [id number] Admission Date: 08-03-2020 : 1950 Admission Diagnosis:FRACTURE OF UNSP PART OF NECK OF LEFT FEMUR, INIT Attending: JONAH BENITEZ Current LOS: 9 Anticipated DC Date: Planned Disposition: Inpatient Rehab Primary Insurance: MEDICARE A & B Discharge Planning Comments: FAXED UPDATED CLINICALS TO [facility], WAITING CALL ON ACCEPTANCE. Product Blending Supervisor: Trini Staples DCP- Discharge Planning Updated by [email or web address]: Trini Bel on 08/09/20 2:[address] Patient Name: MERNA VALDEZ Admission Status: Elective Accout number: [id number] Admission Date: 08-03-2020 : 1950 Admission Diagnosis:FRACTURE OF UNSP PART OF NECK OF LEFT FEMUR, INIT Attending: JONAH BENITEZ Current LOS: 6 Anticipated DC Date: Planned Disposition: Inpatient Rehab Primary Insurance: MEDICARE A & B Discharge Planning Comments: SPOKE WITH MS. LR AT [facility], SHE STATES NO BED AVAILABLE AND THEY DON'T ACCEPT OVER THE WEEKEND. CM TO CALL BACK WEDNESDAY MORNING TO CHECK ON AVAILABLE BED. Product Blending Supervisor: Trini Staples DCP- Discharge Planning Updated by [id number]: Trini Bel on 08/09/20 12:[address] Patient Name: MERNA VALDEZ Admission Status: Elective Accout number: [id number] Admission Date: 08-03-2020 : 1950 Admission Diagnosis:FRACTURE OF UNSP PART OF NECK OF LEFT FEMUR, INIT Attending: JONAH BENITEZ Current LOS: 6 Anticipated DC Date: Planned Disposition: Inpatient Rehab Primary Insurance: MEDICARE A & B Discharge Planning Comments: SPOKE WITH MS. LR AT [facility] IN [place]. SHE STATED SHE TALKED WITH THE DOCTOR ABOUT IT THIS MORNING. I REFAXED CLINICALS AND UPDATED NOTES. WAITING CALL BACK TO SEE IF THEY WILL ACCEPT. Product Blending Supervisor: Trini Staples DCP- Discharge Planning Updated by [email or web address]: Trini Bel on 08/08/20 4:[address] Patient Name: MERNA VALDEZ Admission Status: Elective Accout number: [id number] Admission Date: 08-03-2020 : 1950 Admission Diagnosis:FRACTURE OF UNSP PART OF NECK OF LEFT FEMUR, INIT Attending: JONAH BENITEZ Current LOS: 5 Anticipated DC Date: Planned Disposition: Inpatient Rehab Primary Insurance: MEDICARE A & B Discharge Planning Comments: CM met with patients after explaining CM role and obtaining verbal consent. CM discussed availability / needs of home health, REHAB and medical equipment. SHE WOULD LIKE HIM TO GO TO [facility] IN [place] FOR REHAB. SABAS SIGNED. ANTICIPATE DC TOMORROW. I AM FAXING CLINICALS TO [facility] LR [facility], SHE WILL CALL BACK IN MORNING TO LET US KNOW IF THEY WILL HAVE BED AVAILABILITY. Product Blending Supervisor: Trini Staples Coverage Notice Reviewer: [id number] - Trini Staples Notice Issued Date-Time: 08/08/2020 15:52 Notice Type: Patient Choice Letter Notice Delivered To: Patient Relationship to Patient: Estimator And Drafter Name: Delivery Method: - Missy Days: Prior Verbal Notification: Recipient Understood Notice: Yes Recipient Signature: Yes Med Rec Note Co-signed by Attending: Coverage Notice Comment: [facility] Reviewer: [id number] Rianna Martin Notice Issued Date-Time: 08/23/2020 16:00 Notice Type: Patient Choice Letter Notice Delivered To: Family Member Relationship to Patient: Spouse Estimator And Drafter Name: TRENT VALDEZ Delivery Method: HAND - Hand Delivered Missy Days: Prior Verbal Notification: Recipient Understood Notice: Yes Recipient Signature: Yes Med Rec Note Co-signed by Attending: Coverage Notice Comment: INPATIENT REHAB [facility] INPATIENT REHAB [facility] INPATIENT REHAB [facility] Reviewer: [id number] - Angi Martin Notice Issued Date-Time: 08/26/2020 13:10 Notice Type: IM Discharge Notice Notice Delivered To: Family Member Relationship to Patient: Spouse Estimator And Drafter Name: TRENT VALDEZ Delivery Method: - Missy Days: Prior Verbal Notification: Recipient Understood Notice: Recipient Signature: Med Rec Note Co-signed by Attending: Coverage Notice Comment: Last DP export: 08/24/20 2:47 p Patient Name: MERNA VALDEZ Page [phone] at 2036 All edits/amendments must be made on the electronic document DICTATION DATE: 08/27/202035 MICROWAVE TECHNICIAN: STEVIE 08/27/202035 RPT#: [id number] DC DATE:08/26/20 STATUS: DIS IN [facility] [address] [place] [address] END OF REPORT
== END 2020-08-26 17:56 | DRG 469 ==
LOC: D.MS 16:51 → D.CVICU 17:59 → D.ICU 17:59 → D.CVICU 08-18 14:46
PROVIDERS: Emergency Medicine; Family Medicine; Internal Medicine Cardiovascular Disease; Internal Medicine Pulmonary Disease; ADMIT Orthopaedic Surgery; ATTEND Orthopaedic Surgery
PROC: 0SRB0JZ Replacement of Left Hip Joint with Synthetic Substitute, Open Approach (ICD-10-PCS; principal; 2020-08-04 07:30)
PROC: 5A1945Z Respiratory Ventilation, 24-96 Consecutive Hours (ICD-10-PCS; 2020-08-13)
PROC: 0BH17EZ Insertion of Endotracheal Airway into Trachea, Via Natural or Artificial Opening (ICD-10-PCS; 2020-08-13)
PROC: 0B968ZZ Drainage of Right Lower Lobe Bronchus, Via Natural or Artificial Opening Endoscopic (ICD-10-PCS; 2020-08-14)
PROC: 5A1945Z Respiratory Ventilation, 24-96 Consecutive Hours (ICD-10-PCS; 2020-08-20)
PROC: 0BH17EZ Insertion of Endotracheal Airway into Trachea, Via Natural or Artificial Opening (ICD-10-PCS; 2020-08-20)
PROC: B2111ZZ Fluoroscopy of Multiple Coronary Arteries using Low Osmolar Contrast (ICD-10-PCS; 2020-08-21)
PROC: B2151ZZ Fluoroscopy of Left Heart using Low Osmolar Contrast (ICD-10-PCS; 2020-08-21)
PROC: 4A023N7 Measurement of Cardiac Sampling and Pressure, Left Heart, Percutaneous Approach (ICD-10-PCS; 2020-08-21)
DX: S72.002A Fracture of unspecified part of neck of left femur, initial encounter for closed fracture (principal); I63.511 Cerebral infarction due to unspecified occlusion or stenosis of right middle cerebral artery; J96.02 Acute respiratory failure with hypercapnia; J96.01 Acute respiratory failure with hypoxia; F17.213 Nicotine dependence, cigarettes, with withdrawal; G81.94 Hemiplegia, unspecified affecting left nondominant side; W19.XXXA Unspecified fall, initial encounter; I10 Essential (primary) hypertension; E11.51 Type 2 diabetes mellitus with diabetic peripheral angiopathy without gangrene; I25.10 Atherosclerotic heart disease of native coronary artery without angina pectoris; E11.65 Type 2 diabetes mellitus with hyperglycemia; K21.9 Gastro-esophageal reflux disease without esophagitis; I65.21 Occlusion and stenosis of right carotid artery; I73.9 Peripheral vascular disease, unspecified; R53.81 Other malaise

== ENCOUNTER 2020-08-26 17:08 | Inpatient (IN) | payer MEDICARE, BC ==
[~2020-08-26] VITALS: Ht 185.4 cm; Wt 106.6 kg
[~2020-08-26 17:08] MED LIST changes: +SOLIQUA 100 UNIT3 ML SC
[2020-08-26 17:59] VITALS: BP 98/55; BMI 23.8
[2020-08-26] MEDS ORDERED: COLACE100 MG PO (18:40)
[2020-08-26] MEDS ORDERED: PROVENTIL/2.5 MG/3 M INH (18:41)
[2020-08-26] MEDS ORDERED: TYLENOL ARTHRI650 MG PO (18:42)
[2020-08-26] MEDS ORDERED: LEVAQUIN750 MG PO (18:44)
[2020-08-26] MEDS ORDERED: HUMALOG 30100 UNITS/ SC (18:44)
[2020-08-26] MEDS ORDERED: LANTUS INS100 UNITS/ SC (18:45)
[2020-08-26] MEDS ORDERED: OMNICEF300 MG PO (18:46)
[2020-08-26] MEDS ORDERED: PREDNISONE1 MG PO (18:46)
[2020-08-26] MEDS ORDERED: ZOFRAN4 MG PO (18:47)
[2020-08-26] MEDS ORDERED: PROTONIX20 MG (18:48)
[2020-08-26] MEDS ORDERED: LOVENOX120 MG/0.8 SC (18:48)
[2020-08-26] MEDS ORDERED: ELECTROLYTE MISC (18:48)
[2020-08-26] MEDS ORDERED: LIPITOR20 MG PO (18:48)
[2020-08-26] MEDS ORDERED: MIRALAX17 GM PO ×2 (19:00→19:01)
[2020-08-26 19:26] VITALS: BP 98/55
--- NOTE | 2020-08-26 19:47 | NUR ---
PT IN BED WATCHING TV, NO NEEDS NOTED AT THIS TIME, RESPIRATIONS EVEN/UNLABORED, FALL PRECAUTIONS IN PLACE, FLUIDS/CALL LIGHT WITHIN REACH
--- NOTE | 2020-08-26 19:56 | NUR ---
PT IN BED WATCHING TV, NO NEEDS NOTED AT THIS TIME, RESPIRATIONS EVEN/UNLABORED, FALL PRECAUTIONS IN PLACE, FLUIDS/CALL LIGHT WITHIN REACH
--- NOTE | 2020-08-26 23:30 | NUR ---
PT IN PAIN TYLENOL GIVEN AT 2100, N.O. MELATONIN GIVEN AT 2330, PT HOLLERING OUT, NOT USING CALL LIGHT, ASKED PT TO TRY TO KEEP IT DOWN AND USE THE CALL LIGHT WHEN HE NEEDED SOMETHING, IT WAS DISTURBING THE OTHER PTS, HE YELLED "I DON'T GIVE A DAMN I'M IN PAIN AND CAN'T SLEEP SO GO TO HEL, YOU AREN'T DOING ANYTHING TO HELP ME" I GAVE YOU TYLENOL AT [facility] AND JUST GAVE YOU MELATONIN, I DON'T HAVE ANYTHING ELSE FOR PAIN FOR YOU UNTIL 3AM, HE SAID "FUCK YOU I'M HURTING AND YOU AREN'T HELPING ME, I SAID LET'S NOT CUSS ME I DON'T DESERVE OR HAVE TO PUT UP WITH VERBAL ABUSE, HIM: I'LL SY WHATEVER I WANT YOU JUST DON'T UNDERSTAND THE PAIN, ME: YES SIR I DO I'VE HAD BACK SURGERY SO I DO UNDERSTAND YOUR PAIN BUT I NEVER EVEN DURING MY WORST PAIN VERBALLY ABUSED ANYBODY, IT'S UNCALLED FOR AND DOESN'T HELP ANYTHING. IF YOU NEED SOMETHING USE YOUR CALL LIGHT FOR ME, HIM: I DON'T KNOW HOW, SO, I EXPLAINED THE CALL SYSTEM FOR THE THIRD TIME PRESS THE RED BUTTON ON YOUR REMOTE, TRY TO HOLD DOWN THE YELLING SO THE OTHER PTS AROUND YOU CAN SLEEP. I LEFT THE ROOM PT QUIETED DOWN.
--- NOTE | 2020-08-27 02:01 | NUR ---
PT IN RECLINER ASLEEP,AROUSES EASILY TO VOICE NO NEEDS NOTED AT THIS TIME, RESPIRATIONS EVEN/UNLABORED, FALL PRECAUTIONS IN PLACE, FLUIDS/CALL LIGHT WITHIN REACH
--- NOTE | 2020-08-27 02:03 | NUR ---
PT IN BED ASLEEP,AROUSES EASILY TO VOICE NO NEEDS NOTED AT THIS TIME, RESPIRATIONS EVEN/UNLABORED, FALL PRECAUTIONS IN PLACE, FLUIDS/CALL LIGHT WITHIN REACH
--- NOTE | 2020-08-27 05:06 | NUR ---
PT IN BED ASLEEP,AROUSES EASILY TO VOICE NO NEEDS NOTED AT THIS TIME, RESPIRATIONS EVEN/UNLABORED, FALL PRECAUTIONS IN PLACE, FLUIDS/CALL LIGHT WITHIN REACH
--- NOTE | 2020-08-27 06:28 | NUR ---
PT RESTLESS LAST NIGHT, O2 PULLED OFF THIS MORNING SATS 81, REPLACED NC AND REPOSITIONED PT SATS 90% ON 2L, PT COMPLETELY PASSIVE AND COMPLIANT THIS MORNING, FSBS 256 AT HS GIVEN 6U HUMALOG AND 20U LANTUS, ORDERED HIM PIZZA LAST NIGHT AT 2130 PTS AM FSBS 296 RECIEVING 6U HUMALOG
[2020-08-27 07:09] LABS: BASOPHILS 0.1 % (0-2); EOSINOPHILS 0 % (0-7); HEMATOCRIT 28.2 % (42.0-54.0); IMMATURE GRANULOCYTES 0.5 % (0-5); LYMPHOCYTES 9.1 % (15-50); MCH 30.3 pg (26.0-34.0); MCHC 31.9 g/dL (31.0-37.0); MCV 94.9 fL (80.0-100.0); MONOCYTES 6.3 % (2-11); PLATELET COUNT 391 10x3/uL (130-400); RBC 2.97 10x6/uL (4.20-6.10); RDW 14.6 % (11.5-14.5); WBC 16.4 10x3/uL (4.8-10.8)
[2020-08-27 07:23] LABS: CALC OSMOLALITY 286 mosm/kg (275-300); CALCIUM 8.3 mg/dL (8.5-10.1); CARBON DIOXIDE 32.7 mmol/L (21.0-32.0); CHLORIDE - SERUM 100 mmol/L (98-107); CREATININE - SERUM 0.9 mg/dL (0.6-1.3); GLUCOSE 326 mg/dL (74-106); POTASSIUM - SERUM 4.4 mmol/L (3.5-5.1); SODIUM 134 mmol/L (136-145); UREA NITROGEN 29 mg/dL (7-18); eGFR NON AFRICAN AMERICAN 89 mL/min (90-120)
[2020-08-27 08:00] VITALS: BP 124/56
--- NOTE | 2020-08-27 08:26 | NUR ---
HE IS TALKING, TOOK HIS MEDICATIONS WITHOUT ANY PROBLEMS. HE IS CONFUSED. HE CAN NOT MOVE HIS LEFT ARM OR HIS LEFT LEG. THE CALL LIGHT IS WITHIN REACH AND THE BED ALARM IS ON, HIS IS AT THE BEDSIDE.
[2020-08-27 13:03] LABS: BILIRUBIN NEGATIVE (NEGATIVE); KETONE NEGATIVE (NEGATIVE); NITRITE NEGATIVE (NEGATIVE)
[2020-08-27 13:04] LABS: WHITE CELLS - URINE OCC HPF (0-1)
[2020-08-27 13:09] LABS: AMORPHOUS SEDIMENT <1+ LPF (NONE SEEN); BACTERIA FEW HPF (NONE SEEN); EPITHELIAL CELLS RARE /hpf (0-5)
[2020-08-27 13:23] VITALS: Ht 185.4 cm; Wt 106.6 kg
--- NOTE | 2020-08-27 14:07 | NUR ---
PATIENT ADMITTED TO REHAB FROM ACUTE FLOOR. NO FAMILY HERE TO VISIT , PATIENT SLEEPING AT THIS TIME. WILL CONTINUE TO FOLLOW WITH PATIENT.
--- NOTE | 2020-08-27 15:29 | NUR ---
CHANGED THE STAT LOCK ON THE GATES CATH. CHANGED THE DRESSING TO THE LEFT HIP. TURNED HIM. THE CALL LIGHT IS WITHIN REACH.
--- NOTE | 2020-08-27 16:45 | NUR ---
I REMOVED THE PIV FROM THE LEFT ARM. HE STILL HAS A PIV THAT IS SL IN HIS RIGHT ARM.
[2020-08-27 18:47] VITALS: BP 91/42
--- NOTE | 2020-08-27 19:31 | NUR ---
PT IN BED WATCHING TV, RESPIRATIONS EVEN/UNLABORED, NO IMMEDIATE NEEDS NOTED, FALL PRECAUTIONS IN PLACE, FLUIDS/CALL LIGHT WITHIN REACH
--- NOTE | 2020-08-28 02:43 | NUR ---
PT ASLEEP, AROUSES EASILY TO VOICE RESPIRATIONS EVEN/UNLABORED, NO IMMEDIATE NEEDS NOTED, FALL PRECAUTIONS IN PLACE, FLUIDS/CALL LIGHT WITHIN REACH
--- NOTE | 2020-08-28 06:36 | NUR ---
URINE LEAKING AROUND TUBING AT HEAD OF PENIS, GATES WAS FLUSHED, BULB WAS EMPTIED AND REPLACED WITH 10ML OF NS
[2020-08-28 07:23] VITALS: BP 116/47
--- NOTE | 2020-08-28 08:01 | NUR ---
PT RESTING IN BED WITH EYES OPEN CALL LIGHT IN REACH WILL MONITER
[2020-08-28 08:22] LABS: BASOPHILS 0.1 % (0-2); EOSINOPHILS 0 % (0-7); HEMATOCRIT 27.5 % (42.0-54.0); HEMOGLOBIN 8.7 g/dL (13.5-17.5); IMMATURE GRANULOCYTES 0.7 % (0-5); LYMPHOCYTES 13.6 % (15-50); MCHC 31.6 g/dL (31.0-37.0); MCV 94.8 fL (80.0-100.0); MEAN PLATELET VOLUME 9.6 fL (7.4-10.4); MONOCYTES 7.3 % (2-11); NEUTROPHILS 78.3 % (40-80); PLATELET COUNT 381 10x3/uL (130-400); RDW 14.9 % (11.5-14.5)
[2020-08-28 08:52] LABS: CALC OSMOLALITY 289 mosm/kg (275-300); CALCIUM 8.4 mg/dL (8.5-10.1); CARBON DIOXIDE 33.5 mmol/L (21.0-32.0); CHLORIDE - SERUM 102 mmol/L (98-107); CREATININE - SERUM 0.8 mg/dL (0.6-1.3); POTASSIUM - SERUM 4.6 mmol/L (3.5-5.1); SODIUM 137 mmol/L (136-145); UREA NITROGEN 36 mg/dL (7-18); eGFR NON AFRICAN AMERICAN > 90 mL/min (90-120)
[2020-08-28 08:53] LABS: GLUCOSE 244 mg/dL (74-106)
--- NOTE | 2020-08-28 11:13 | NUR ---
I have reviewed this patient and I concur with the Shift Assessment completed by the Licensed Practical Nurse today this shift.
--- NOTE | 2020-08-28 13:43 | NUR ---
CARE TEAM MEETING: PATIENT IS NEW TO UNIT AND WILL BE RA AT NEXT MEETING. WILL CONTINUE TO FOLLOW WITH PATIENT.
--- NOTE | 2020-08-28 17:00 | NUR ---
DID PT TEACHING ON IMPORTANCE OF NUTRITION FOR GETTING STRONGER AND HEALING PT STATED THAT A BLOW JOB WOULD BE BETTER I REDIRECTED PT AND HE SAID HE WAS CONFUSED. TEN PEARCE
--- NOTE | 2020-08-28 17:56 | NUR ---
PT YELLING FOR HIS TRENT I TOLD PT SHE WENT HOME AND HE STATED SHE LIED TO HIM BECAUSE SHE WAS SUPPOSE TO GIVE HIM 1 CIGARETTE I EXPLAINED HE COULD NOT SMOKE IN THE HOSPITAL HE SAID BULL SHIT. WILL CONTUINE TO MONITER PT
--- NOTE | 2020-08-28 18:34 | NUR ---
PT CALLING OUT FOR EXPLAINED AGAIN SHE WENT HOME HE SAID THIS WAS HOME I SAID NO THIS WAS THE HOSPITAL AND HE SAID HE WANTED TO SMOKE I SAID YOU CANT SMOKE IN THE HOSPITAL HE SAID THIS IS NOT HE HOSPITAL IT IS MY FUCKING HOUSE.CALL LIGHT IN REACH WILL CONTINUE TO MONITER
--- NOTE | 2020-08-28 18:36 | NUR ---
PT THREW TOP TO SUPPER TRAY IN THE FLOOR SAID HE WAS GONNA START THROWING STUFF ALL OVER THE ROOM BANGING BEDSIDE TABLE DEMANDING
--- NOTE | 2020-08-28 18:42 | NUR ---
PT GIVEN HALDOL FOR BEHAVOIR PER DRS ORDER WILL MONITER
--- NOTE | 2020-08-28 19:08 | NUR ---
PT IN BED HOLLERING OUT "HELP, HELP, SOMEBODY HELP ME" STATES HE'S "TRYING TO GET HIS HE WANTS HIS SOMEBODY CALL HER" WAS CONTACTED BY PREVIOUS SHIFT, PT GOT SO AGGITATED HE WAS PRN'D HALADOL 10 MINUTES BEFORE THIS SHIFT AND HAS NOT HAD EFFECT OF YET, WILL CONTINUE TO MONITOR
[2020-08-28 19:56] VITALS: BP 99/33
--- NOTE | 2020-08-28 23:07 | NUR ---
PT ASLEEP, AROUSES EASILY TO VOICE, RESPIRATIONS EVEN/UNLABORED, NO IMMEDIATE NEEDS NOTED, FALL PRECAUTIONS IN PLACE, FLUIDS/CALL LIGHT WITHIN REACH
--- NOTE | 2020-08-29 06:06 | NUR ---
PT FINALLY SETTLED DOWN AFTER 2100 MED PASS, PT C/O PAIN LEVEL OF 8/10, PRN NORCO 10 GIVEN, NO C/O PAIN AFTER MEDICATION TOOK EFFECT
--- NOTE | 2020-08-29 07:20 | NUR ---
PT RESTING IN BED WITH EYES OPEN CALL LIGHT IN REACH WILL MONITER
[2020-08-29 07:45] VITALS: BP 119/53
--- NOTE | 2020-08-29 17:45 | NUR ---
PT GIVEN HALDOL PER DR PENA PT SAID HE HAD TO GET OUT OF HER HE DIDNT GIVE A DAMN IF NO ONE COULD TAKE CARE OF HIM THAT THEY COULD PUT HIS BED IN THE CAR AND GET HIM THE HELL OUT OF HERE NOW. TRIED TO REDIRECT PT HE JUST BECAME MORE AGGITATED IN THE ROOM PT CURSED HER ALSO. TEN PEARCE
--- NOTE | 2020-08-29 19:10 | NUR ---
PT SITTING UP IN BED. CL IN REACH. BED IN LOW SIDE RAILS X3. CONFUSED AT TIMES. GATES INTACT. RESP EVEN AND UNLABOPRED. O2 ON 2L VIA NC. PT DENIES NEEDS AT THIS TIME. WCTM
[2020-08-29 20:30] VITALS: BP 94/55
--- NOTE | 2020-08-30 01:02 | NUR ---
PT RESTING QUIETLY. CL IN REACH. NO DISTRESS NOTED. WCTM
--- NOTE | 2020-08-30 03:36 | NUR ---
I have reviewed this patient and I concur with the Shift Assessment completed by the Licensed Practical Nurse today this shift.
--- NOTE | 2020-08-30 07:26 | NUR ---
PT RESTING IN BED WITH EYES OPEN CALL LIGHT IN REACH WILL MONITER
[2020-08-30 07:56] VITALS: BP 99/48
[2020-08-30 08:45] LABS: CALC OSMOLALITY 285 mosm/kg (275-300); CALCIUM 8.4 mg/dL (8.5-10.1); CARBON DIOXIDE 33.5 mmol/L (21.0-32.0); CHLORIDE - SERUM 103 mmol/L (98-107); CREATININE - SERUM 0.7 mg/dL (0.6-1.3); POTASSIUM - SERUM 4.7 mmol/L (3.5-5.1); SODIUM 137 mmol/L (136-145); UREA NITROGEN 35 mg/dL (7-18); eGFR NON AFRICAN AMERICAN > 90 mL/min (90-120)
[2020-08-30 08:46] LABS: GLUCOSE 172 mg/dL (74-106)
[2020-08-30 08:54] LABS: BASOPHILS 0 % (0-2); EOSINOPHILS 0.1 % (0-7); HEMATOCRIT 27.3 % (42.0-54.0); HEMOGLOBIN 8.6 g/dL (13.5-17.5); IMMATURE GRANULOCYTES 0.4 % (0-5); LYMPHOCYTES 13.5 % (15-50); MCHC 31.5 g/dL (31.0-37.0); MCV 95.1 fL (80.0-100.0); MEAN PLATELET VOLUME 9.5 fL (7.4-10.4); MONOCYTES 7.5 % (2-11); NEUTROPHILS 78.5 % (40-80); PLATELET COUNT 394 10x3/uL (130-400); RBC 2.87 10x6/uL (4.20-6.10); RDW 15.3 % (11.5-14.5); WBC 15.5 10x3/uL (4.8-10.8)
--- NOTE | 2020-08-30 12:38 | NUR ---
Nutrition Follow-up: Diet: Diabetic [facility] Soft + Ensure TID PO intake: ~14% average x last 9 meals. Spoke with who states that Mr. Ayala gets upset with her when she tries to encourage him to eat at meal times. Noted MD started pt on Megace today. Last BM: 08/26/20. Wt: 235# (08/27/20) Meds noted: magace (started 08/30), probiotics, miralax, SSI, lantus, prednisone. Labs noted: Glu 172(H) Recommend continue current diet and oral nutrition supplements. to continue to encourage PO intake as best she can. Hopefully appetite stimulant will kick in soon. RD following.
--- NOTE | 2020-08-30 18:31 | NUR ---
PT RESTING IN BED WITH EYES OPEN CALL LIGHT IN REACH WILL MONITER
[2020-08-30 20:22] VITALS: BP 107/54
--- NOTE | 2020-08-30 20:45 | NUR ---
PATIENT RECEIVED SITTING UP IN BED WATCHING TV. ASSESSMENT & VITAL SIGNS DONE. PATIENT SLOW IN SPEECH. BED LOW. CALL LIGHT WITHIN REACH. WILL CONTINUE TO MONITOR.
--- NOTE | 2020-08-30 21:32 | NUR ---
PATIENT CALLED. THIS NURSE SPOKE WITH TRENT PATIENT'S . TOLD PATIENT CALM. HAD NO PROBLEM TAKING MEDICATIONS. PATIENT TOLD BY THIS NURSE TO CALL ANYTIME.
--- NOTE | 2020-08-31 01:31 | NUR ---
I have reviewed this patient and I concur with the Shift Assessment completed by the Licensed Practical Nurse today this shift.
--- NOTE | 2020-08-31 01:54 | NUR ---
PATIENT EYES CLOSED. RESPIRATIONS 18 & EVEN. BED LOW. ALARM ON. CALL LIGHT WITHIN REACH. WILL CONTINUE TO MONITOR.
--- NOTE | 2020-08-31 04:40 | NUR ---
PATIENT AWAKE. YELLING "I WANT UP!" THIS NURSE STATED "DO YOU KNOW WHERE YOU ARE?" PATIENT STATED F... YOU! i WANT UP!" THIS NURSE LEFT THE ROOM & TURNED OFF LIGHT. PATIENT CALM RIGHT NOW.
--- NOTE | 2020-08-31 05:40 | NUR ---
PATIENT AWAKE CALLING OUT FOR . PATIENT THROWING WATER, CALL LIGHT IN FLOOR. TRIED TO REDIRECT PATIENT TO NO AVAIL. TALKED TO CHARGE NURSE, PATIENT COMBATIVE. WILL GIVE PATIENT HALDOL IM PER ORDER. WILL CONTINUE TO MONITOR.
--- NOTE | 2020-08-31 05:49 | NUR ---
PATIENT CUSSING, YELLING AT STAFF. YELLING FOR . COMBATIVE. THINKS HE IS HOME. CAN NOT REDIRECT. PATIENT STATING "I WILL GET MY GUN & SHOOT YOU" TO CHARGE NURSE. BED LOW. ALARM ON. CALL LIGHT WITHIN REACH. WILL CONTINUE TO MONITOR.
--- NOTE | 2020-08-31 06:06 | NUR ---
ATTEMPT TO GET FSBS X 2. PATIENT COMBATIVE, CUSSING, SAYING "NO! NO!!" THIS NURSE LEFT ROOM. CALL LIGHT WITHIN REACH. BED LOW. WILL CONTINUE TO MONITOR.
--- NOTE | 2020-08-31 09:12 | NUR ---
HE IS CONFUSED, STILL LITTLE SLEEPY FROM THE MORNING PRN GIVEN. HE TOOK HIS MEDICATIONS WHOLE. HE IS SLOW TO ANSWER AND TAKE HIS MEDICATIONS. HE CAN NOT MOVE HIS LEFT ARM OR LEG. HE HAS HEEL PROTECTORS ON BOTH FEET. THE CALL LIGHT IS WITHIN REACH AND THE BED ALARM IS ON.
[2020-08-31 09:38] VITALS: BP 105/51
[2020-08-31 20:00] VITALS: BP 134/44
--- NOTE | 2020-08-31 20:10 | NUR ---
PATIENT RECEIVED LAYING IN BED. AT BEDSIDE. ASSESSMENT & VITAL SIGNS DONE. NO C/O DISTRESS AT THIS TIME. PATIENT CALM, ANSWERS QUESTIONS APPROPRIATELY. PATIENT SATISFIED AT THIS TIME WITH IN ROOM. BED LOW. ALARM ON. CALL LIGHT WITHIN REACH. WILL CONTINUE TO MONITOR.
--- NOTE | 2020-09-01 01:15 | NUR ---
PATIENT HEARD DOOR BEING SHUT. PATIENT STATED "THIS IS MY HOUSE. I WILL GET A GUN & SHOOT YOU. THIS NURSE EXPLAINED TO PATIENT "THAT WAS ME OPENING & SHUTTING DOOR." PATIENT SAID OK. PATIENT ASKED IF HE NEEDED SOMETHING, PATIENT STATED "NO". THIS NURSE LEFT PATIENT CONTENT WITH ANSWER. CALL LIGHT WITHIN REACH. WILL CONTINUE TO MONITOR.
--- NOTE | 2020-09-01 04:11 | NUR ---
I have reviewed this patient and I concur with the Shift Assessment completed by the Licensed Practical Nurse today this shift.
--- NOTE | 2020-09-01 06:05 | NUR ---
PATIENT GIVEN AM MEDICATIONS. GATES EMPTIED 650 CC OF CAMILLE COLOR URINE. FSBS 242. 4 UNITS OF NOVOLOG INSULIN GIVEN TO RIGHT UPPER ARM. PATIENT TOLERATED IT WELL. PATIENT PLEASANT & COOPERATIVE THIS AM. BED LOW. ALARM ON. CALL LIGHT WITHIN REACH. WILL CONTINUE TO MONITOR.
[2020-09-01 09:17] VITALS: BP 120/42
--- NOTE | 2020-09-01 09:46 | NUR ---
HE IS JUST NOW WAKING UP FOR THE MORNING. TURNED HIM, REPOSITIONED HIM. HE TOOK HIS MEDICATIONS AND FED HIMSELF. THE CALL LIGHT IS WITHIN REACH AND THE BED ALARM IS ON.
--- NOTE | 2020-09-01 15:46 | RHP ---
PATIENT: MERNA VALDEZ MEDICAL RECORD: [id number] ACCOUNT: [id number] [id number] : 54 ADMISSION DATE: 08/26/20 REHABILITATION HISTORY AND PHYSICAL EXAMINATION POST ADMISSION PHYSICIAN EXAMINATION ADMITTING DIAGNOSIS: Cerebrovascular accident. HISTORY OF PRESENT ILLNESS: The patient is a 70-year-old gentleman who is admitted secondary to right middle cerebral artery stroke. He was admitted to the hospital as a direct admit with Dr. Navarro for left hip fracture. He fell off a trailer and drove home, cannot bear weight on it, came in, was directly admitted to the hospital. X-rays showed a femoral neck fracture. He had a full explanation of his situation, was taken to the OR for a total hip. We were consulted for medical management upstairs. He apparently had a CVA after having surgery done. He is a every day tobacco user. He does drink socially for alcohol. On 08/05/2020, a rapid response was called for acute onset of altered mental status, left facial drooping and left-sided paralysis. The patient had an MRI of her brain, which showed findings consistent with acute middle cerebral artery infarction in the right frontoparietal region. Neurology was consulted. They felt like this was consistent with a right middle cerebral artery stroke. 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 A modified study was done, which was positive for oral-stage dysphagia and recommended a mechanical soft with thin liquids. The patient has had pulmonary consulted secondary to pneumonia, atelectasis. The patient was actually placed in the ICU on a ventilator secondary to this. The patient is currently being treated with incentive spirometry. He continued to work with PT, OT and speech therapy. On 08/20/2020, he became confused once again, a code blue was called. He had a [place] coma scale of 7. He was intubated, placed on the vent. The patient at that time was felt to have a non-Q-wave TX. On 08/21/2020, he went back to the microbiological lab technician for successful PTCA of his left anterior descending with 90% stenosis. On 08/22/2020, he extubated himself. The patient is now titrated down to 2 liters of O2. He remains confused, but cooperative at times. Previously, he was independent with ADLs and mobility, living with his . Currently, he is mod to max assist for ADLs. He has not been able to sit or stand on the side of bed without assistance, keep him from falling over secondary to his hemiplegia. He is also very weak. His right upper extremity and lower extremities are both weak also. His and son hope for him to return strength and regain some semblance of activity of daily living. COMORBIDITIES: Include acute respiratory distress, atrial fib, altered mental status, coronary artery disease, carotid stenosis, cognitive deficits, confusion, CVA, decrease in physical functioning, diabetes, dysphagia, leukocytosis, peripheral arterial disease, right-sided weakness. PAST MEDICAL HISTORY: Significant for coronary artery disease, carotid disease, neuropathy, diabetes, tobacco use, hypertension, peripheral vascular disease, pneumonia, acid reflux. PAST SURGICAL HISTORY: Includes right carotid. ALLERGIES: No known drug allergies. CURRENT MEDICATIONS: Include [place] 10/325 one tab every 4 hours p.r.n. He is HISTORY AND PHYSICAL [id number] JOSÉ MIGUELMERNA on Librium 25 mg every 8 hours. He is on Nicoderm patch. He is on Levaquin 750 mg daily, Effient 10 mg daily, Benicar 40 mg daily, Protonix 40 mg daily, melatonin 6 mg at bedtime. He is on Lovenox 120 mg every 12 hours, atorvastatin 20 mg at bedtime, Omnicef 300 mg b.i.d. He is on Lantus 20 units at bedtime, MiraLax 17 grams in 8 ounces of water daily b.i.d. He is on a sliding scale of insulin. He is on metoprolol 50 mg b.i.d. He is on prednisone 40 mg every 12 hours and he is on acetaminophen 650 every 6 hours p.r.n. and [facility]. HABITS: Does have history of alcohol and tobacco use. FAMILY HISTORY: Noncontributory. SOCIAL HISTORY: The patient hopes to return back home with his family. REVIEW OF SYSTEMS: GENERAL: Does complain of weakness and fatigue. HEENT: Denies cold, cough, or congestion. CARDIOVASCULAR: Denies any chest pain. PHYSICAL EXAMINATION: VITAL SIGNS: Stable, afebrile. GENERAL: A much older than stated age gentleman in no acute distress upon exam. HEENT: Normocephalic and atraumatic. Mucosa moist. NECK: Supple. No lymphadenopathy. LUNGS: Clear in upper hurt. No wheezing or rales. HEART: Irregular rate and rhythm. No murmurs, rubs or gallops. ABDOMEN: Soft, benign, and nondistended. Positive bowel sounds times 4. EXTREMITIES: No clubbing, cyanosis or edema. NEUROLOGIC: He does have noted left-sided neglect and weakness. LABORATORY DATA: His admit UA was essentially negative. His white count is 16.4, H&H of 9.8 and 28.2 and platelet count is noted to be 391. His sodium is 134, potassium 4.4, BUN and creatinine of 29 and 0.9 and blood sugar is noted to be 326. ASSESSMENT: This is a 70-year-old gentleman admitted to the rehab with a working diagnosis of new onset cerebrovascular accident complicated by non-ST segment elevation myocardial infarction and hip fracture. The patient has potential to make improvement. We instituted the following multidisciplinary therapies including, but not limited to physical, occupational, respiratory, speech, nutritional services, prosthetics and orthotics. Given his complex medical condition and risks for more complications, rehabilitation services cannot be provided at a low level of care such a skilled nurse daily. PLAN: 1. Admit to [facility] for inpatient therapy to include the following disciplines; A. Physical therapy to improve gait, all transfer skills and bed mobility to a modified independent level. B. Occupational therapy to improve activities of daily living. C. Case management to help with discharge planning and placement options. D. Nutrition to assist with nutritional needs. E. Rehabilitation nursing to assist in monitoring the patient's underlying medical condition and to assist with any type of bowel or bladder management. HISTORY AND PHYSICAL [id number] MERNA VALDEZ 2. The patient's current medication and medical care will be continued. 3. Placed on standard fall precautions. 4. The patient's estimated length of stay is approximately 7-10 days. 5. We will discuss the patient during care team staff meeting this week, which will be tomorrow. Keep care team and his up-to-date of his current situation. TRANSINT:[id number] Voice Confirmation ID: [id number] DOCUMENT ID: [id number] AKUA notes whether there has been none or any medical/functional change since admission: - No change since prescreen. AKUA attests patient continues to be appropriate for IRF: - Continues to be appropriate. HOLLY LUIS MD at 1546 CC: [id number] DICTATION DATE: 08/27/20 1610 MUSIC ARRANGER: 08/27/20 1720 ADM IN [place] [id number] [place] [id number]
--- NOTE | 2020-09-01 16:25 | NUR ---
HAD A BED BATH, CHANGED THE LINEN. DOING BLADDER TRAINING. HE HAS NOT ATE VERY MUCH TODAY. HIS DAUGHTER HAS VISITED TODAY. HE HAD AN EPISODE OF SEXUAL COMMENTS. REDIRECTED THE CONVERSION. HE IS ASLEEP AFTER THE BED BATH. THE CALL LIGHT IS WITHIN REACN AND THE BED ALARM IS ON.
[2020-09-01 20:05] VITALS: BP 90/48
--- NOTE | 2020-09-01 20:10 | NUR ---
PATIENT RECEIVED SITING UP IN BED WATCHING TV. VITAL SIGNS & ASSESSMENT DONE. ALARM ON. BED LOW. CALL LIGHT WITHIN REACH. [facility]IN[facility] TO [facility].
--- NOTE | 2020-09-01 21:30 | NUR ---
PATIENT CALLED. WILL COME TO REHAB THIS AM. INFORMED THAT PATIENT GATES TO BED REMOVED IN AM ON 5TH AFTER BLADDER TRAINING OVER AT 0630. CONCERNED & CHARGE NURSE STATED THERE IS CONDOM PATIENT CAN WEAR, & PADS WILL BE UNDER & OVER PATIENT PERIAREA. CONCERN WAS POSITIVE & GLAD TO BE INFORMED ABOUT PATIENT GATES REMOVAL.
--- NOTE | 2020-09-02 03:20 | NUR ---
I have reviewed this patient and I concur with the Shift Assessment completed by the Licensed Practical Nurse today this shift.
--- NOTE | 2020-09-02 04:31 | NUR ---
PATIENT EYES CLOSED. RESPIRATIONS 18 & EVEN.BLADDER TRAINING CONTINUES. BED LOW. CALL LIGHT WITHIN REACH. LJ CONTINUE TO MONITOR.
--- NOTE | 2020-09-02 06:47 | NUR ---
PATIENT GATES CATHETER REMOVED. 9CC IN BULB. 500 CC OF DARK YELLOW URINE. BED LOW. ALARM ON. CALL LIGHT WITHIN REACH. WILL CONTINUE TO MONITOR.
[2020-09-02 07:40] VITALS: BP 84/51
--- NOTE | 2020-09-02 08:00 | NUR ---
PATIENT IS VERY LETHERIC THIS AM. BREAKFAST TRAY SET UP IN FRONT OF PATIENT. BED ALARM ON. CALL LIGHT WITHIN REACH.
--- NOTE | 2020-09-02 10:15 | NUR ---
PATIENTS AT BEDSIDE.
[2020-09-02 11:57] LABS: BASOPHILS 0 % (0-2); EOSINOPHILS 0 % (0-7); HEMATOCRIT 32.8 % (42.0-54.0); HEMOGLOBIN 10.4 g/dL (13.5-17.5); IMMATURE GRANULOCYTES 0.4 % (0-5); LYMPHOCYTES 8.7 % (15-50); MCH 30.2 pg (26.0-34.0); MCHC 31.7 g/dL (31.0-37.0); MCV 95.3 fL (80.0-100.0); MEAN PLATELET VOLUME 9.2 fL (7.4-10.4); MONOCYTES 5.5 % (2-11); NEUTROPHILS 85.4 % (40-80); PLATELET COUNT 417 10x3/uL (130-400); RBC 3.44 10x6/uL (4.20-6.10); RDW 16.1 % (11.5-14.5); WBC 18.7 10x3/uL (4.8-10.8)
[2020-09-02 12:05] LABS: CALC OSMOLALITY 286 mosm/kg (275-300); CALCIUM 8.8 mg/dL (8.5-10.1); CARBON DIOXIDE 27.9 mmol/L (21.0-32.0); CHLORIDE - SERUM 102 mmol/L (98-107); CREATININE - SERUM 0.9 mg/dL (0.6-1.3); GLUCOSE 207 mg/dL (74-106); POTASSIUM - SERUM 4.8 mmol/L (3.5-5.1); SODIUM 135 mmol/L (136-145); UREA NITROGEN 42 mg/dL (7-18); eGFR NON AFRICAN AMERICAN 89 mL/min (90-120)
--- NOTE | 2020-09-02 13:44 | NUR ---
GATES CATH REMOVED THIS AM 0630. PATIENT HAS NOT URINATED. BLADDER SCAN SHOWES 209CC. PATIENT ENCOURAGED TO DRINK.
--- NOTE | 2020-09-02 15:53 | NUR ---
PATIENT HAS NOT VOIDED SINCE LAST BLADDER SCAN. 16FR GATES CATH INSERTED.
--- NOTE | 2020-09-02 16:23 | NUR ---
500CC OF DARK [place] COLOR URINE IN GATES CATH BAG
--- NOTE | 2020-09-02 19:00 | NUR ---
PT COMPLAINING OF CHEST PAIN. BP 143/56 PULSE 115 O2 93% ON 3L OF O2. CARDIAC LABS ORDERED. DR LUIS PAGED MESSAGE LEFT. EKG COMPLETED. NITRO GIVEN. IN ROOM. CL IN REACH. WCTM
--- NOTE | 2020-09-02 19:10 | NUR ---
5 MIN AFTER FIRST NITRO GIVEN BP NOW 78/42 R ARM. PULSE 109 93% O2 ON 3L. PAGED JENNIFER JORGE. ORDER TO PAGE TO CARDIOLOGY. BP TAKEN AGAIN 4 MIN LATER AND 87/51. RAPID RESPONSE CALLED.
[2020-09-02 19:29] VITALS: BP 90/44
[2020-09-02 20:30] LABS: CKMB 2.6 U/L (0.0-3.6); CREATINE KINASE 236 UL (21-232)
[2020-09-02 20:32] LABS: TROPONIN-I 0.339 ng/mL (0.000-0.060)
--- NOTE | 2020-09-02 21:44 | NUR ---
DR LUNA CALLED BACK AND ORDERED 500 ML BOLUS. BOLUS RUNNING IN R FOREARM. BP 87/52 PULSE 100. JENNIFER IN ROOM. JENNIFER WANTS TO MOVE PT TO CVICU AND DR LUNA OKAY'D FOR PATIENT TO BE TRANSFERRED FOR CLOSER MONITOR. PT A/O IN ROOM AND EDUCATED ON PT STATUS AND OKAY WITH TRANSFER. WILL CALL REPORT TO CVICU AND TRANSFER WHEN READY.
--- NOTE | 2020-09-03 09:10 | NUR ---
LATE ENTRY: DUE TO CHANGE IN MEDICAL CONDITION, PATIENT DISCHARGED FROM REHAB AND ADMITTED TO ACUTE FLOOR.
== END 2020-09-02 20:15 | disposition short-term general hospital (02) | DRG 56 ==
LOC: D.REHAB 17:08
PROVIDERS: ADMIT Emergency Medicine; ATTEND Emergency Medicine
DX: I69.30 Unspecified sequelae of cerebral infarction (principal); J96.00 Acute respiratory failure, unspecified whether with hypoxia or hypercapnia; G81.94 Hemiplegia, unspecified affecting left nondominant side; J98.11 Atelectasis; J90 Pleural effusion, not elsewhere classified; R13.11 Dysphagia, oral phase; I73.9 Peripheral vascular disease, unspecified; E11.9 Type 2 diabetes mellitus without complications; K21.9 Gastro-esophageal reflux disease without esophagitis; I65.29 Occlusion and stenosis of unspecified carotid artery; I25.10 Atherosclerotic heart disease of native coronary artery without angina pectoris; I48.91 Unspecified atrial fibrillation; R06.03 Acute respiratory distress; R41.82 Altered mental status, unspecified; D72.829 Elevated white blood cell count, unspecified; D64.9 Anemia, unspecified; R53.81 Other malaise; R53.1 Weakness; F41.9 Anxiety disorder, unspecified

== ENCOUNTER 2020-09-02 20:20 | Inpatient (IN) | payer MEDICARE, BC ==
[~2020-09-02] VITALS: Ht 185.4 cm; Wt 105.5 kg
[~2020-09-02 20:20] MED LIST changes: +COLACE100 MG PO; +ELECTROLYTE MISC; +HUMALOG 30100 UNITS/ SC; +LANTUS INS100 UNITS/ SC; +LEVAQUIN750 MG PO; +LIPITOR20 MG PO; +LOVENOX120 MG/0.8 SC; +MIRALAX17 GM PO; +OMNICEF300 MG PO; +PREDNISONE1 MG PO; +PROTONIX20 MG; +PROVENTIL/2.5 MG/3 M INH; +TYLENOL ARTHRI650 MG PO; +ZOFRAN4 MG PO
[2020-09-02 20:40] VITALS: BP 88/47
[2020-09-02 21:00] VITALS: BP 99/53
[2020-09-02 22:00] VITALS: BP 101/49
[2020-09-02 22:48] VITALS: BP 88/47; BMI 31.0
[2020-09-02 23:00] VITALS: BP 103/54
[2020-09-02 23:48] LABS: CKMB 2.6 U/L (0.0-3.6); CREATINE KINASE 232 UL (21-232); TROPONIN-I 0.357 ng/mL (0.000-0.060)
[2020-09-03] VITALS (16 sets, daily range): BP systolic 91–146; BP diastolic 45–79; Ht 185.4 cm; Wt 105.5 kg
[2020-09-03 05:55] LABS: BASOPHILS 0 % (0-2); EOSINOPHILS 0.1 % (0-7); HEMATOCRIT 28.4 % (42.0-54.0); HEMOGLOBIN 8.9 g/dL (13.5-17.5); IMMATURE GRANULOCYTES 0.3 % (0-5); LYMPHOCYTES 6.5 % (15-50); MCH 30.2 pg (26.0-34.0); MCHC 31.3 g/dL (31.0-37.0); MCV 96.3 fL (80.0-100.0); MEAN PLATELET VOLUME 9.3 fL (7.4-10.4); MONOCYTES 3.9 % (2-11); NEUTROPHILS 89.2 % (40-80); PLATELET COUNT 389 10x3/uL (130-400); RBC 2.95 10x6/uL (4.20-6.10); RDW 16.1 % (11.5-14.5)
[2020-09-03 06:01] LABS: WBC 13.4 10x3/uL (4.8-10.8)
[2020-09-03 06:05] LABS: APTT 27.4 SECONDS (22.8-39.4); INR 1.1 (0.85-1.17); PROTIME 14.2 SECONDS (11.6-15.0)
[2020-09-03 06:06] LABS: D-DIMER-QUANTITATIVE 0.68 ug/mLFEU (0.20-0.54)
[2020-09-03 06:31] LABS: ALBUMIN 2.6 g/dL (3.4-5.0); ALKALINE PHOSPHATASE 64 U/L (30-120); ALT (SGPT) 26 U/L (10-68); BILIRUBIN - TOTAL 0.94 mg/dL (0.2-1.3); CALCIUM 7.9 mg/dL (8.5-10.1); CARBON DIOXIDE 26.7 mmol/L (21.0-32.0); CHLORIDE - SERUM 103 mmol/L (98-107); CKMB 2.6 U/L (0.0-3.6); CREATINE KINASE 187 UL (21-232); CREATININE - SERUM 0.8 mg/dL (0.6-1.3); POTASSIUM - SERUM 4.8 mmol/L (3.5-5.1); PRO BNP 2183 pg/mL (0-125); PROTEIN - SERUM 5.5 g/dL (6.4-8.2); SODIUM 135 mmol/L (136-145); UREA NITROGEN 37 mg/dL (7-18); eGFR NON AFRICAN AMERICAN > 90 mL/min (90-120)
[2020-09-03 06:32] LABS: CALC OSMOLALITY 290 mosm/kg (275-300); GLUCOSE 315 mg/dL (74-106); TROPONIN-I 0.292 ng/mL (0.000-0.060)
--- NOTE | 2020-09-03 07:40 | NUR ---
Shift report received. Awake and alert. No fever noted. VSS. On 3L O2 via nc. Sen catheter in place. Piv to right forearm saline loc. Left side flaccid. Pulled up and repositioned. Meal tray delivered and set up. No further needs at this time. Will continue to monitor.
--- NOTE | 2020-09-03 09:00 | NUR ---
Ate about 80% of meal. Resting comfortably. Repositioned in bed for comfort. No further needs at this time. Will continue to monitor.
[2020-09-03 11:49] LABS: CKMB 3.1 U/L (0.0-3.6); CREATINE KINASE 177 UL (21-232)
[2020-09-03 11:50] LABS: TROPONIN-I 0.263 ng/mL (0.000-0.060)
--- NOTE | 2020-09-03 14:37 | NUR ---
Spoke with Moriah Alexander regarding consult.
--- NOTE | 2020-09-03 14:54 | NUR ---
SPOKE WITH MARIAN CHRISTIAN TO TRANSFER TO PCU. HOUSE SUPIVISOR NOTIFIED.
--- NOTE | 2020-09-03 16:10 | NUR ---
Pt to be transferred to room 2119. Report called to receiving nurse. Spouse notified that pt will be transferred.
--- NOTE | 2020-09-03 17:02 | NUR ---
RECEIVED PT FROM ICU @1700. PT IS CONFUSED AT THIS TIME AND BEDFAST ON A FIRST STEP OVERLAY. R.FOR PIV SALINE LOCKED. RR EVEN AND UNLABORED ON 3L 02. 1630 MEDICATIONS WERE NOT ADMININSTERED NOR WERE THE 1630 BLOOD SUGAR CHECKED. PT HAD ALREADY BEGAN EATING THEREFORE BLOOD SUGAR WOULD NOT HAVE BEEN ACCURATE. WILL CHECK NEXT SCHEDULED BLOOD SUGAR. FALL PRECAUTIONS IN PLACE NO S/S OF DISTRESS NOTED. PT DENIES ANY NEEDS AT THIS TIME.
--- NOTE | 2020-09-03 19:30 | NUR ---
RECEIVED BEDSIDE REPOT. ROUNDING COMPLETE. PATIENT IS ALERT AND PLEASANTLY CONFUSED. RESTLESS LAYING IN BED. RESPIRATIONS ARE EVEN AND UNLABORED. PATIENT REMAINS ON 2L NC. NO S/S OF DISTRESS. NO C/O PAIN. LEFT TO GET HIM A RIBEYE PER HIS REQUEST. CALL LIGHT WITHIN REACH. WILL CPOC.
[2020-09-04] VITALS: BP 127/59
[2020-09-04 04:00] VITALS: BP 136/63
[2020-09-04 07:42] VITALS: BP 122/62
[2020-09-04 07:46] LABS: BASOPHILS 0 % (0-2); EOSINOPHILS 0.6 % (0-7); HEMATOCRIT 31.3 % (42.0-54.0); HEMOGLOBIN 9.7 g/dL (13.5-17.5); IMMATURE GRANULOCYTES 0.4 % (0-5); LYMPHOCYTES 22.5 % (15-50); MCH 30.2 pg (26.0-34.0); MCV 97.5 fL (80.0-100.0); MEAN PLATELET VOLUME 9.3 fL (7.4-10.4); MONOCYTES 6.8 % (2-11); NEUTROPHILS 69.7 % (40-80); PLATELET COUNT 370 10x3/uL (130-400); RBC 3.21 10x6/uL (4.20-6.10); RDW 16.5 % (11.5-14.5); WBC 12.5 10x3/uL (4.8-10.8)
[2020-09-04 08:01] LABS: CALCIUM 8.4 mg/dL (8.5-10.1); CARBON DIOXIDE 29.5 mmol/L (21.0-32.0); CHLORIDE - SERUM 104 mmol/L (98-107); CREATININE - SERUM 0.7 mg/dL (0.6-1.3); SODIUM 138 mmol/L (136-145); eGFR NON AFRICAN AMERICAN > 90 mL/min (90-120)
[2020-09-04 08:05] LABS: CALC OSMOLALITY 287 mosm/kg (275-300); GLUCOSE 232 mg/dL (74-106); POTASSIUM - SERUM 3.8 mmol/L (3.5-5.1); UREA NITROGEN 26 mg/dL (7-18)
--- NOTE | 2020-09-04 08:21 | NUR ---
PATIENT IS RESTING IN BED THIS AM, NURSE GOES INTO ROOM AND ASSESSES PATIENT. PATIENT IS CONFUSED AT THIS TIME, BUT ORIENTED TO SELF. PLAN OF CARE REVIEWED AND PATIENT DENIES Q[place]ITON AT THIS TIME. PATIENT BED IN LOWEST POSITION, CALL LIGHT IN REACH.
--- NOTE | 2020-09-04 12:05 | NUR ---
patient refuses to eat lunch. nurse offers to feed him, asks if he wants a drink. patient denies. call light in reach. nad noted.
--- NOTE | 2020-09-04 14:21 | NUR ---
patient is back in mri at this time.
--- NOTE | 2020-09-04 14:37 | NUR ---
nurse takes L hip dressing off, and inspected wound. wound is healing well, well approximated, no drainage noted. bruising around incision. patient report pain to left hip. nurse to check prn orders.
--- NOTE | 2020-09-04 14:56 | NUR ---
OT NOTE: OUT FOR PROCEDURE IN PM MARIA L GORE, OTR/L
--- NOTE | 2020-09-04 15:57 | NUR ---
patient taken back for cta
--- NOTE | 2020-09-04 17:00 | NUR ---
patient is resting in bed with at bedside. nad noted. call light in reach.
--- NOTE | 2020-09-04 17:18 | NUR ---
states that will not eat any of dinner tray. patient sleeping. she's afraid he may choke if he tries to eat something since he has been coughing while drinking water even. nurse verbs understanding. call light in reach. at bedside.
--- NOTE | 2020-09-04 17:52 | NUR ---
patient remains asleep, but will wake to verbal stimuli, nad noted. call light in reach.
[2020-09-04 20:00] VITALS: BP 102/54
--- NOTE | 2020-09-04 21:11 | NUR ---
DR DELACRUZ AT BED SIDE.
--- NOTE | 2020-09-04 21:24 | NUR ---
HS MEDS GIVEN WITH FRESH ICE WATER. REPOSITIONED IN BED FOR COMFORT. BED LOW, SR UP X2, CL IN REACH.
[2020-09-05] VITALS: BP 102/51
[2020-09-05 04:00] VITALS: BP 107/52
--- NOTE | 2020-09-05 04:19 | NUR ---
RESTING WITH EYES CLOSED, RESPERATIONS NONLABORED. BED LOW, CL IN REACH.
[2020-09-05 05:47] LABS: BASOPHILS 0.1 % (0-2); EOSINOPHILS 0.9 % (0-7); HEMATOCRIT 31.3 % (42.0-54.0); HEMOGLOBIN 10.1 g/dL (13.5-17.5); IMMATURE GRANULOCYTES 0.5 % (0-5); LYMPHOCYTES 19.5 % (15-50); MCH 31.3 pg (26.0-34.0); MCHC 32.3 g/dL (31.0-37.0); MCV 96.9 fL (80.0-100.0); MEAN PLATELET VOLUME 9.3 fL (7.4-10.4); MONOCYTES 6.8 % (2-11); NEUTROPHILS 72.2 % (40-80); PLATELET COUNT 354 10x3/uL (130-400); RBC 3.23 10x6/uL (4.20-6.10); RDW 16.4 % (11.5-14.5); WBC 13.7 10x3/uL (4.8-10.8)
[2020-09-05 06:15] LABS: CALC OSMOLALITY 281 mosm/kg (275-300); CALCIUM 8.3 mg/dL (8.5-10.1); CARBON DIOXIDE 28.7 mmol/L (21.0-32.0); CHLORIDE - SERUM 103 mmol/L (98-107); CREATININE - SERUM 0.6 mg/dL (0.6-1.3); MAGNESIUM - SERUM 1.8 mg/dL (1.8-2.4); POTASSIUM - SERUM 3.6 mmol/L (3.5-5.1); SODIUM 137 mmol/L (136-145); UREA NITROGEN 25 mg/dL (7-18); eGFR NON AFRICAN AMERICAN > 90 mL/min (90-120)
[2020-09-05 06:16] LABS: GLUCOSE 167 mg/dL (74-106)
[2020-09-05 10:17] VITALS: BP 116/49
--- NOTE | 2020-09-05 13:13 | NUR ---
Nutrition Follow-up: Overall poor PO intake reported. Per OT, pt with poor appetite and resistant to eating at this time. Receiving Megace. Was receiving diabetic diet and Ensure with meals while on rehab. Diet: Cardiac, Mech Soft with Chopped Meats PO intake: 14% avg x 8 meals Wt: 232.5# (09/03) Labs noted: Glu 167, Ca 8.3 Meds noted: Prednisone, Florajen, Megace, Protonix, Humalog, Colace, electrolyte protocol -Change to cardiac carb consistent diet with Ensure TID. -Encourage PO intake and honor food preferences within diet restrictions. -Monitor wt; noted daily wts ordered. -RD following.
[2020-09-05 13:40] VITALS: BP 110/58
--- NOTE | 2020-09-05 17:33 | NUR ---
LAB IN ROOM TO REDRAWN PATIENT'S GLUCOSE FOR ACCURATE INSULIN ODSAGE.
--- NOTE | 2020-09-05 18:05 | NUR ---
NURSE RECEIVED A CRITICAL LAB VALUE ON PATIENT FOR GLUCOSE. PATIENT GLUCOSE IS 497 MD NOTIFIED.
[2020-09-05 20:00] VITALS: BP 120/54
[2020-09-06] VITALS: BP 110/50
[2020-09-06 04:00] VITALS: BP 120/56
--- NOTE | 2020-09-06 06:16 | NUR ---
BATH AND LINEN CHANGE COMPLETE. REPOSITIONED IN BED FOR COMFORT.
[2020-09-06 07:51] LABS: BASOPHILS 0 % (0-2); EOSINOPHILS 1.6 % (0-7); HEMATOCRIT 32.4 % (42.0-54.0); HEMOGLOBIN 10.2 g/dL (13.5-17.5); IMMATURE GRANULOCYTES 0.4 % (0-5); LYMPHOCYTES 20.6 % (15-50); MCH 30.5 pg (26.0-34.0); MCHC 31.5 g/dL (31.0-37.0); MEAN PLATELET VOLUME 9.4 fL (7.4-10.4); MONOCYTES 5.2 % (2-11); NEUTROPHILS 72.2 % (40-80); PLATELET COUNT 358 10x3/uL (130-400); RBC 3.34 10x6/uL (4.20-6.10); RDW 16.4 % (11.5-14.5); WBC 14.2 10x3/uL (4.8-10.8)
[2020-09-06 08:17] LABS: CALC OSMOLALITY 278 mosm/kg (275-300); CALCIUM 8.3 mg/dL (8.5-10.1); CARBON DIOXIDE 27.8 mmol/L (21.0-32.0); CHLORIDE - SERUM 102 mmol/L (98-107); CREATININE - SERUM 0.6 mg/dL (0.6-1.3); GLUCOSE 170 mg/dL (74-106); MAGNESIUM - SERUM 1.9 mg/dL (1.8-2.4); POTASSIUM - SERUM 3.5 mmol/L (3.5-5.1); SODIUM 135 mmol/L (136-145); UREA NITROGEN 26 mg/dL (7-18); eGFR NON AFRICAN AMERICAN > 90 mL/min (90-120)
[2020-09-06 10:44] VITALS: BP 98/52
--- NOTE | 2020-09-06 11:49 | NUR ---
OT NOTE: PT EXTREMELY LETHARGIC TODAY. MAX X 2 FOR EOB SITTING. EXTENSIVE TIME SPENT FOR SITTING BALANCE ADN WT BEARING ACT THROUGH L UE/LE. PT CONT TO REQUIRE MOD ASSIST FOR STATIC SITTING, HOWEVER, IT HAS IMPROVED. PT AGAIN INTITIATING INCREASED MOVEMENT ON R SIDE (UNAFFECTED SIDE), PREVIOUSLY HE DID NOT ATTEMPT TO MOVE BUT LAYED STILL IN BED. PRACTICED ROLLING FROM SIDE TO SIDE. DID NOT ALLOW PT TO USE HAND SIGNALS FOR THERAPY TODAY..REQUIRED HIM TO VERBALIZE THROUGHOUT TMT BY ASKING ORIENTATION QUESTIONS, QUESTIONS REGARDING FAMILY, FOOD, WEATHER, ETC.. REPOSITIONED ON L SIDE FOR COMFORT. MARIA L GORE, OTR/L [id number]
[2020-09-06 14:13] VITALS: BP 92/46
--- NOTE | 2020-09-06 15:55 | NUR ---
Rehab Note- Acute Inpatient Rehab prescreen order received. The patient has recently been in our acute inpatient rehab unit and did not progress well at all. Dr Molina spoke with the patient's family at length this week about a SNF stay and hopefully back to inpatient acute rehab when able to tolerate and participate in the required 3hrs/day of therapy. Spoke with SARAH Garcia to make aware of plan that was discussed with the family by Dr Molina. Thank you for this referral! Cait Green RN Clinical Liaison, [facility] Rehab
--- NOTE | 2020-09-06 16:26 | MORECARE ---
CASE MANAGEMENT DISCHARGE SUMMARY PATIENT: MERNA VALDEZ UNIT: [id number] ADM DATE: 09/02/20 AGE: 70 : 52 SEX: M ROOM/BED: D.2120 AUTHOR: JEANIE ARMENTA PHYSICIAN: REFERRING PHYSICIAN: SHAILESH LUNA M.D. DATE OF SERVICE: 09/06/20 Discharge Plan Patient Name: MERNA VALDEZ Facility: [facility]:[place] : 1950 Planned Disposition: Nursing Home Facility Anticipated Discharge Date: Discharge Date: Expected LOS: Initial Reviewer: [email or web address] Initial Review Date: 09/06/2020 Generated: 09/06/20 5:25 pm DCPIA - Discharge Planning Initial Assessment Updated by [email or web address]: Radha Holguin on 09/06/20 4:23 pm * Is the patient Alert and Oriented? Yes * How many steps to enter\exit or inside your home? 0/0 * PCP Dr Veloz * Pharmacy [facility] * Preadmission Environment Acute Inpatient Rehab * Facility Name [facility] * ADLs Partial Dependent * Partial ADLs (Assistance needed) Ambulation Bathing Dressing Medication Management Toileting Transfers * Equipment None * List name and contact numbers for known caregivers / representatives who currently or will assist patient after discharge: Negrita Valdez - [phone] * Verbal permission to speak to the caregivers and representatives has been obtained from the patient. Yes * Community resources currently utilized None * Additional services required to return to the preadmission environment? Yes * Can the patient safely return to the preadmission environment? Yes * Has this patient been hospitalized within the prior 30 days at any hospital? Yes Patient Name: MERAN VALDEZ Page [id number] at 1626 All edits/amendments must be made on the electronic document DICTATION DATE: 09/06/201624 BILLING AND INSURANCE COORDINATOR: STEVIE 09/06/201624 RPT#: [id number] DC DATE: STATUS: ADM IN [facility] [address] [place] [address] END OF REPORT
--- NOTE | 2020-09-06 16:41 | MORECARE ---
CASE MANAGEMENT DISCHARGE SUMMARY PATIENT: MERNA VALDEZ UNIT: [id number] ADM DATE: 09/02/20 AGE: 70 : 52 SEX: M ROOM/BED: D.2120 AUTHOR: GEOVANY,DOC PHYSICIAN: REFERRING PHYSICIAN: SHAILESH LUNA M.D. DATE OF SERVICE: 09/06/20 Discharge Plan Patient Name: MERNA VALDEZ Facility: [facility]:[place] : 1950 Planned Disposition: Group Home Facility Anticipated Discharge Date: Discharge Date: Expected LOS: Initial Reviewer: [email or web address] Initial Review Date: 09/06/2020 Generated: 09/06/20 5:40 pm Comments DCP- Discharge Planning Updated by [email or web address]: Radha Holguin on 09/06/20 3:[address] Patient Name: MERNA VALDEZ Admission Status: Elective Accout number: [id number] Admission Date: 09-02-2020 : 1950 Admission Diagnosis:CHEST PAIN, UNSPECIFIED Attending: SHAILESH LUNA Current LOS: 4 Anticipated DC Date: Planned Disposition: Group Home Facility Primary Insurance: MEDICARE A & B Discharge Planning Comments: CM met with patient and his to discuss discharge planning. CM educated patient's on CM role and verbal consent given to complete assessment. Patient lives at home with his . He had been in inpatient rehab at [facility] prior to tis admission. CM discussed the availability of SNF and list of SNF given to his . states she is undecided between [facility] and [facility]. She states she will speak with her family about which one to send a referral to. I received an order to assist with a motorized wheelchair. That will need to be addressed prior to leaving rehab. I also informed that if he is able to rehab at the SNF enough to tolerate more aggressive therapy, he can return to an inpatient rehab. CM will continue to follow and assist with discharge planning/needs. Community Engagement Representative: Radha Holguin DCPIA - Discharge Planning Initial Assessment Updated by [email or web address]: Radha Holguin on 09/06/20 4:23 pm * Is the patient Alert and Oriented? Yes * How many steps to enter\exit or inside your home? 0/0 * PCP Dr Veloz * Pharmacy [facility] * Preadmission Environment Acute Inpatient Rehab * Facility Name [facility] * ADLs Partial Dependent * Partial ADLs (Assistance needed) Ambulation Bathing Dressing Medication Management Toileting Transfers * Equipment None * List name and contact numbers for known caregivers / representatives who currently or will assist patient after discharge: Negrita Valdez - [phone] * Verbal permission to speak to the caregivers and representatives has been obtained from the patient. Yes * Community resources currently utilized None * Additional services required to return to the preadmission environment? Yes * Can the patient safely return to the preadmission environment? Yes * Has this patient been hospitalized within the prior 30 days at any hospital? Yes Last DP export: 09/06/20 3:26 p Patient Name: MERNA VALDEZ Page [id number] at 1641 All edits/amendments must be made on the electronic document DICTATION DATE: 09/06/201640 FOOD AND BEVERAGE MANAGER: STEVIE 09/06/201640 RPT#: [id number] DC DATE: STATUS: ADM IN [facility] [address] [place] [address] END OF REPORT
--- NOTE | 2020-09-06 16:58 | MORECARE ---
CASE MANAGEMENT DISCHARGE SUMMARY PATIENT: MERNA VALDEZ UNIT: [id number] ADM DATE: 09/02/20 AGE: 70 : 52 SEX: M ROOM/BED: D.2120 AUTHOR: GEOVANY,DOC PHYSICIAN: REFERRING PHYSICIAN: SHAILESH LUNA M.D. DATE OF SERVICE: 09/06/20 Discharge Plan Patient Name: MERNA VALDEZ Facility: [facility]:[place] : 1950 Planned Disposition: Detention Facility Anticipated Discharge Date: Discharge Date: Expected LOS: Initial Reviewer: [id number] Initial Review Date: 09/06/2020 Generated: 09/06/20 5:57 pm Comments DCP- Discharge Planning Updated by [id number]: Radha Holguin on 09/06/20 3:[address] Patient Name: MERNA VALDEZ Admission Status: Elective Accout number: [id number] Admission Date: 09-02-2020 : 1950 Admission Diagnosis:CHEST PAIN, UNSPECIFIED Attending: SHAILESH LUNA Current LOS: 4 Anticipated DC Date: Planned Disposition: Detention Facility Primary Insurance: MEDICARE A & B Discharge Planning Comments: CM met with patient and his to discuss discharge planning. CM educated patient's on CM role and verbal consent given to complete assessment. Patient lives at home with his . He had been in inpatient rehab at [facility] prior to tis admission. CM discussed the availability of SNF and list of SNF given to his . states she is undecided between [facility] and [facility]. She states she will speak with her family about which one to send a referral to. I received an order to assist with a motorized wheelchair. That will need to be addressed prior to leaving rehab. I also informed that if he is able to rehab at the SNF enough to tolerate more aggressive therapy, he can return to an inpatient rehab. CM will continue to follow and assist with discharge planning/needs. Leasing Representative: Radha Holguin DCPIA - Discharge Planning Initial Assessment Updated by [email or web address]: Radha Holguin on 09/06/20 4:23 pm * Is the patient Alert and Oriented? Yes * How many steps to enter\exit or inside your home? 0/0 * PCP Dr Veloz * Pharmacy [facility] * Preadmission Environment Acute Inpatient Rehab * Facility Name [facility] * ADLs Partial Dependent * Partial ADLs (Assistance needed) Ambulation Bathing Dressing Medication Management Toileting Transfers * Equipment None * List name and contact numbers for known caregivers / representatives who currently or will assist patient after discharge: Negrita Valdez - [phone] * Verbal permission to speak to the caregivers and representatives has been obtained from the patient. Yes * Community resources currently utilized None * Additional services required to return to the preadmission environment? Yes * Can the patient safely return to the preadmission environment? Yes * Has this patient been hospitalized within the prior 30 days at any hospital? Yes External Providers External Provider: [facility] Next Contact Date: Service Request Date: Service Type: Resolution: Reviewer: Comments: Coverage Notice Reviewer: [email or web address] Rianna Holguin Notice Issued Date-Time: 09/06/2020 16:41 Notice Type: Patient Choice Letter Notice Delivered To: Family Member Relationship to Patient: Spouse Development Eng Name: Negrita Valdez Delivery Method: HAND - Hand Delivered Missy Days: Prior Verbal Notification: Recipient Understood Notice: Yes Recipient Signature: Yes Med Rec Note Co-signed by Attending: Coverage Notice Comment: [facility] for [facility] DP export: 09/06/20 3:41 p Patient Name: MERNA VLADEZ Page [id number] at 1658 All edits/amendments must be made on the electronic document DICTATION DATE: 09/06/201657 OUTREACH DIRECTOR: STEVIE 09/06/201657 RPT#: [id number] DC DATE: STATUS: ADM IN [facility] [address] [place] [address] END OF REPORT
--- NOTE | 2020-09-06 17:07 | MORECARE ---
CASE MANAGEMENT DISCHARGE SUMMARY PATIENT: MERNA VALDEZ UNIT: [id number] ADM DATE: 09/02/20 AGE: 70 : 52 SEX: M ROOM/BED: D.2120 AUTHOR: GEOVANY,DOC PHYSICIAN: REFERRING PHYSICIAN: SHAILESH LUNA M.D. DATE OF SERVICE: 09/06/20 Discharge Plan Patient Name: MERNA VALDEZ Facility: [facility]:[place] : 1950 Planned Disposition: Fci Facility Anticipated Discharge Date: Discharge Date: Expected LOS: Initial Reviewer: [id number] Initial Review Date: 09/06/2020 Generated: 09/06/20 6:07 pm Comments DCP- Discharge Planning Updated by [id number]: Radha Holguin on 09/06/20 4:[address] CM met with and she [facility] I spoke with Day and clinical faxed. DCP- Discharge Planning Updated by [id number]: Radha Holguin on 09/06/20 3:[address] Patient Name: MERNA VALDEZ Admission Status: Elective Accout number: [id number] Admission Date: 09-02-2020 : 1950 Admission Diagnosis:CHEST PAIN, UNSPECIFIED Attending: SHAILESH LUNA Current LOS: 4 Anticipated DC Date: Planned Disposition: [facility]ci Facility Primary Insurance: MEDICARE A & B Discharge Planning Comments: CM met with patient and his to discuss discharge planning. CM educated patient's on CM role and verbal consent given to complete assessment. Patient lives at home with his . He had been in inpatient rehab at [facility] prior to tis admission. CM discussed the availability of SNF and list of SNF given to his . states she is undecided between [facility] and [place]. She states she will speak with her family about which one to send a referral to. I received an order to assist with a motorized wheelchair. That will need to be addressed prior to leaving rehab. I also informed that if he is able to rehab at the SNF enough to tolerate more aggressive therapy, he can return to an inpatient rehab. CM will continue to follow and assist with discharge planning/needs. Window Air Conditioner Installer: Radha Holguin DCPIA - Discharge Planning Initial Assessment Updated by [email or web address]: Radha Holguin on 09/06/20 4:23 pm * Is the patient Alert and Oriented? Yes * How many steps to enter\exit or inside your home? 0/0 * PCP Dr Veloz * Pharmacy [facility] * Preadmission Environment Acute Inpatient Rehab * Facility Name [facility] * ADLs Partial Dependent * Partial ADLs (Assistance needed) Ambulation Bathing Dressing Medication Management Toileting Transfers * Equipment None * List name and contact numbers for known caregivers / representatives who currently or will assist patient after discharge: Negrita Valdez - [phone] * Verbal permission to speak to the caregivers and representatives has been obtained from the patient. Yes * Community resources currently utilized None * Additional services required to return to the preadmission environment? Yes * Can the patient safely return to the preadmission environment? Yes * Has this patient been hospitalized within the prior 30 days at any hospital? Yes Coverage Notice Reviewer: [id number] - Radha Holguin Notice Issued Date-Time: 09/06/2020 16:41 Notice Type: Patient Choice Letter Notice Delivered To: Family Member Relationship to Patient: Spouse Terminal Manager Name: Negrita Valdez Delivery Method: HAND - Hand Delivered Missy Days: Prior Verbal Notification: Recipient Understood Notice: Yes Recipient Signature: Yes Med Rec Note Co-signed by Attending: Coverage Notice Comment: [facility] for [facility] and rehab Last DP export: 09/06/20 3:58 p Patient Name: MERNA VALDEZ Page [phone] at 1707 All edits/amendments must be made on the electronic document DICTATION DATE: 09/06/201706 ELECTRONICS UTILITY WORKER: STEVIE 09/06/201706 RPT#: [id number] DC DATE: STATUS: ADM IN [facility] [address] [place] [address] END OF REPORT
--- NOTE | 2020-09-06 20:23 | NUR ---
INITIAL ROUNDS AND ASSESSMENT COMPLETED. PT RESTING IN BED. AT BEDSIDE AND PT IS EATING A BURGER SHE BROUGHT FOR HIM. NO DISTRESS. CPOC. CALL LIGHT IN REACH.
[2020-09-06 20:30] VITALS: BP 89/51
--- NOTE | 2020-09-06 21:12 | NUR ---
PULLED UP AND REPOSITIONED. NOW LEAVING FOR THE NIGHT.
--- NOTE | 2020-09-06 22:15 | NUR ---
HOLDING BEDTIME MEDS UNTIL BP ABOVE 89/51. PT ROUSES EASILY, INDICATES NO PAIN OR DISCOMFORT. CALL LIGHT IN REACH.
--- NOTE | 2020-09-06 23:14 | NUR ---
CURRENTLY HAS VISITOR IN ROOM.
[2020-09-07 00:33] VITALS: BP 104/53
--- NOTE | 2020-09-07 01:41 | NUR ---
ENDED UP GIVING ONLY ESSENTIAL MEDS TO PATIENT AND HELD ALL SEDATING MEDS SINCE PT WAS RESTING WITH NO DISTRESS AND BP ONLY UP TO 104/53.
[2020-09-07 04:30] VITALS: BP 108/55
[2020-09-07 05:49] LABS: BASOPHILS 0.1 % (0-2); EOSINOPHILS 1.3 % (0-7); HEMATOCRIT 33.5 % (42.0-54.0); HEMOGLOBIN 10.6 g/dL (13.5-17.5); IMMATURE GRANULOCYTES 0.4 % (0-5); LYMPHOCYTES 18.8 % (15-50); MCH 30.8 pg (26.0-34.0); MCHC 31.6 g/dL (31.0-37.0); MCV 97.4 fL (80.0-100.0); MEAN PLATELET VOLUME 9.5 fL (7.4-10.4); MONOCYTES 6.9 % (2-11); NEUTROPHILS 72.5 % (40-80); PLATELET COUNT 373 10x3/uL (130-400); RBC 3.44 10x6/uL (4.20-6.10); RDW 16.7 % (11.5-14.5); WBC 14.1 10x3/uL (4.8-10.8)
[2020-09-07 06:01] LABS: CALC OSMOLALITY 287 mosm/kg (275-300); CALCIUM 8.6 mg/dL (8.5-10.1); CARBON DIOXIDE 27.5 mmol/L (21.0-32.0); CHLORIDE - SERUM 104 mmol/L (98-107); CREATININE - SERUM 0.7 mg/dL (0.6-1.3); MAGNESIUM - SERUM 2.1 mg/dL (1.8-2.4); POTASSIUM - SERUM 3.7 mmol/L (3.5-5.1); SODIUM 136 mmol/L (136-145); UREA NITROGEN 28 mg/dL (7-18); eGFR NON AFRICAN AMERICAN > 90 mL/min (90-120)
[2020-09-07 06:09] LABS: GLUCOSE 273 mg/dL (74-106)
[2020-09-07 08:00] VITALS: BP 119/55
[2020-09-07 11:51] VITALS: BP 124/59
--- NOTE | 2020-09-07 14:23 | MORECARE ---
CASE MANAGEMENT DISCHARGE SUMMARY PATIENT: MERNA VALDEZ UNIT: [id number] ADM DATE: 09/02/20 AGE: 70 : 52 SEX: M ROOM/BED: D.2120 AUTHOR: JEANIE ARMENTA PHYSICIAN: REFERRING PHYSICIAN: SHAILESH LUNA M.D. DATE OF SERVICE: 09/07/20 Discharge Plan Patient Name: MERNA VALDEZ Facility: [facility]:[place] : 1950 Planned Disposition: Long-Term Facility Anticipated Discharge Date: Discharge Date: Expected LOS: Initial Reviewer: [id number] Initial Review Date: 09/06/2020 Generated: 09/07/20 3:22 pm Comments DCP- Discharge Planning Updated by [id number]: Rich Roman on 09/07/20 1:[address] Spoke with spouse of patient. Spouse stated that she has concern regarding present progress of patient. Spouse stated that her concern is that the patient is not getting stronger but is adamant to go home. This CM suggested [facility] and spouse stated that she does not believe that the patient will meet the 3 hr criteria for rehab. Spouse stated that she is aware that coordination is underway for [facility] but would like to further discuss the patient's present motivation for success in a facility that would essentially isolate the patient from family and loved ones. This CM will inform the managing CM of discussion and the spouse's desire for further discourse regarding care options. Home vs Rehab. CM will continue to follow and will assist as needed with dc plans/needs. DCP- Discharge Planning Updated by [id number]: Radha Holguin on 09/06/20 4:[address] CM met with and she chooses [facility]. I spoke with Day and clinical faxed. DCP- Discharge Planning Updated by [id number]: Radha Holguin on 09/06/20 3:[address] Patient Name: MERNA VALDEZ Admission Status: Elective Accout number: [id number] Admission Date: 09-02-2020 : 1950 Admission Diagnosis:CHEST PAIN, UNSPECIFIED Attending: SHAILESH LUNA Current LOS: 4 Anticipated DC Date: Planned Disposition: Long-Term Facility Primary Insurance: MEDICARE A & B Discharge Planning Comments: CM met with patient and his to discuss discharge planning. CM educated patient's on CM role and verbal consent given to complete assessment. Patient lives at home with his . He had been in inpatient rehab at [facility] prior to tis admission. CM discussed the availability of SNF and list of SNF given to his . states she is undecided [facility] and [place]. She states she will speak with her family about which one to send a referral to. I received an order to assist with a motorized wheelchair. That will need to be addressed prior to leaving rehab. I also informed that if he is able to rehab at the SNF enough to tolerate more aggressive therapy, he can return to an inpatient rehab. CM will continue to follow and assist with discharge planning/needs. Counter Helper: Radha Holguin DCPIA - Discharge Planning Initial Assessment Updated by [id number]: Radha Holguin on 09/06/20 4:23 pm * Is the patient Alert and Oriented? Yes * How many steps to enter\exit or inside your home? 0/0 * PCP Dr Veloz * Pharmacy [facility] * Preadmission Environment Acute Inpatient Rehab * Facility Name [facility] * ADLs Partial Dependent * Partial ADLs (Assistance needed) Ambulation Bathing Dressing Medication Management Toileting Transfers * Equipment None * List name and contact numbers for known caregivers / representatives who currently or will assist patient after discharge: Negrita Valdez - [phone] * Verbal permission to speak to the caregivers and representatives has been obtained from the patient. Yes * Community resources currently utilized None * Additional services required to return to the preadmission environment? Yes * Can the patient safely return to the preadmission environment? Yes * Has this patient been hospitalized within the prior 30 days at any hospital? Yes Coverage Notice Reviewer: [id number] - Radha Holguin Notice Issued Date-Time: 09/06/2020 16:41 Notice Type: Patient Choice Letter Notice Delivered To: Family Member Relationship to Patient: Spouse Sound System Installer Name: Negrita Valdez Delivery Method: HAND - Hand Delivered Missy Days: Prior Verbal Notification: Recipient Understood Notice: Yes Recipient Signature: Yes Med Rec Note Co-signed by Attending: Coverage Notice Comment: [facility] for [facility] Last DP export: 09/06/20 4:07 p Patient Name: MERNA VALDEZ Page [phone] at 1423 All edits/amendments must be made on the electronic document DICTATION DATE: 09/07/201421 CUSTOM APPLICATOR: STEVIE 09/07/201421 RPT#: [id number] DC DATE: STATUS: ADM IN [facility] [address] [place] [address] END OF REPORT
[2020-09-07 16:00] VITALS: BP 110/49
--- NOTE | 2020-09-07 20:00 | NUR ---
INITIAL ROUNDS AND ASSESSMENT COMPLETED. PT VERY AGITATED AND YELLING AT HIS . DEMANDING TO BE PLACED IN WHEELCHAIR AND TAKEN HOME. PT CURSING , SHE REDIRECTS HIS INAPPROPRIATE BEHAVIORS BUT THIS ONLY SEEMS TO WORSEN HIM. FINALLY TELLS NURSE SHE WILL GO HOME FOR THE NIGHT. SR UP, CALL LIGHT IN REACH. BED ALARM ACTIVATED.
[2020-09-07 20:30] VITALS: BP 112/59
--- NOTE | 2020-09-07 21:00 | NUR ---
PT HAS YELLED/CURSED AND DEMANDED LOUDLY THAT "TRENT" RETURN (HIS ). HE IS BELLIGENT TO NURSE, CURSING AND LIBERALLY USING THE "F" WORD. TELLING NURSE HIS IS TRYING TO KILL HIM. DEMANDING SOMEONE TAKE HIM HOME NOW. BECOMES EVEN MMORE VILE AND RUDE WHEN TOLD THAT HE CANNOT GO HOME AND THAT HIS IS GONE FOR THE NIGHT. SAFETY PRECAUTIONS IN PLACE.
--- NOTE | 2020-09-07 23:00 | NUR ---
PT STILL YELLING LOUDLY WITH REPETITIVE CURSE WORDS. EXPLAINED TO PATIENT THAT HE NEEDS TO PLEASE LOWER HIS VOICE, THERE ARE OTHERS TRYING TO REST. PT AGAIN SAYING IS A TRYING TO HARM HIM. THINKS HE IS IN [place] AND NEEDS TO GET BACK HOME. REDIRECTS POORLY. EXPLAINED TO PT THAT HE WILL BE GETTING A BATH TONIGHT. PT STATES "LIKE HELL I AM". EXPLAINED TO PATIENT THAT HE NEEDS A BATH, PLUS IT WILL HELP HIM RELAX AND HOPEFULLY GET SOME REST. BED BATH TO BE PROVIDED TO PATIENT BY FOOD SERVICE EMPLOYEE'S X 2 BEFORE END OF SHIFT.
[2020-09-08 00:30] VITALS: BP 113/57
[2020-09-08 04:13] VITALS: BP 109/52
[2020-09-08 07:33] LABS: BASOPHILS 0.1 % (0-2); HEMATOCRIT 34.9 % (42.0-54.0); HEMOGLOBIN 11.1 g/dL (13.5-17.5); IMMATURE GRANULOCYTES 0.4 % (0-5); LYMPHOCYTES 19.2 % (15-50); MCH 30.7 pg (26.0-34.0); MCHC 31.8 g/dL (31.0-37.0); MCV 96.7 fL (80.0-100.0); MEAN PLATELET VOLUME 9.5 fL (7.4-10.4); MONOCYTES 6.6 % (2-11); NEUTROPHILS 71.7 % (40-80); PLATELET COUNT 368 10x3/uL (130-400); RBC 3.61 10x6/uL (4.20-6.10); RDW 16.5 % (11.5-14.5); WBC 14.7 10x3/uL (4.8-10.8)
[2020-09-08 07:50] LABS: CALC OSMOLALITY 280 mosm/kg (275-300); CALCIUM 8.4 mg/dL (8.5-10.1); CARBON DIOXIDE 27.6 mmol/L (21.0-32.0); CHLORIDE - SERUM 102 mmol/L (98-107); CREATININE - SERUM 0.6 mg/dL (0.6-1.3); POTASSIUM - SERUM 3.4 mmol/L (3.5-5.1); SODIUM 136 mmol/L (136-145); UREA NITROGEN 22 mg/dL (7-18); eGFR NON AFRICAN AMERICAN > 90 mL/min (90-120)
[2020-09-08 07:52] LABS: GLUCOSE 206 mg/dL (74-106)
[2020-09-08 08:46] VITALS: BP 117/63
--- NOTE | 2020-09-08 09:22 | MORECARE ---
CASE MANAGEMENT DISCHARGE SUMMARY PATIENT: MERNA VALDEZ UNIT: [id number] ADM DATE: 09/02/20 AGE: 70 : 52 SEX: M ROOM/BED: D.2120 AUTHOR: JEANIE ARMENTA PHYSICIAN: REFERRING PHYSICIAN: ZAIRA BALLARD MD DATE OF SERVICE: 09/08/20 Discharge Plan Patient Name: MENRA VALDEZ Facility: [facility]:[place] : 1950 Planned Disposition: Retirement Facility Anticipated Discharge Date: Discharge Date: Expected LOS: Initial Reviewer: [id number] Initial Review Date: 09/06/2020 Generated: 09/08/20 10:21 am Comments DCP- Discharge Planning Updated by [id number]: Rich Roman on 09/07/20 1:[address] Spoke with spouse of patient. Spouse stated that she has concern regarding present progress of patient. Spouse stated that her concern is that the patient is not getting stronger but is adamant to go home. This CM suggested [facility] and spouse stated that she does not believe that the patient will meet the 3 hr criteria for rehab. Spouse stated that she is aware that coordination is underway for [facility] but would like to further discuss the patient's present motivation for success in a facility that would essentially isolate the patient from family and loved ones. This CM will inform the managing CM of discussion and the spouse's desire for further discourse regarding care options. Home vs Rehab. CM will continue to follow and will assist as needed with dc plans/needs. DCP- Discharge Planning Updated by [id number]: Radha Holguin on 09/06/20 4:[address] CM met with and she chooses [facility]. I spoke with Day and clinical faxed. DCP- Discharge Planning Updated by [id number]: Radha Holguin on 09/06/20 3:[address] Patient Name: MERNA VALDEZ Admission Status: Elective Accout number: [id number] Admission Date: 09-02-2020 : 1950 Admission Diagnosis:CHEST PAIN, UNSPECIFIED Attending: SHAILESH LUNA Current LOS: 4 Anticipated DC Date: Planned Disposition: Retirement Facility Primary Insurance: MEDICARE A & B Discharge Planning Comments: CM met with patient and his to discuss discharge planning. CM educated patient's on CM role and verbal consent given to complete assessment. Patient lives at home with his . He had been in inpatient rehab at [facility] prior to tis admission. CM discussed the availability of SNF and list of SNF given to his . states she is undecided [facility] and [place]. She states she will speak with her family about which one to send a referral to. I received an order to assist with a motorized wheelchair. That will need to be addressed prior to leaving rehab. I also informed that if he is able to rehab at the SNF enough to tolerate more aggressive therapy, he can return to an inpatient rehab. CM will continue to follow and assist with discharge planning/needs. Cargo Agent: Radha Holguin DCPIA - Discharge Planning Initial Assessment Updated by [id number]: Radha Holguin on 09/06/20 4:23 pm * Is the patient Alert and Oriented? Yes * How many steps to enter\exit or inside your home? 0/0 * PCP Dr Veloz * Pharmacy [facility] * Preadmission Environment Acute Inpatient Rehab * Facility Name [facility] * ADLs Partial Dependent * Partial ADLs (Assistance needed) Ambulation Bathing Dressing Medication Management Toileting Transfers * Equipment None * List name and contact numbers for known caregivers / representatives who currently or will assist patient after discharge: Negrita Valdez - [phone] * Verbal permission to speak to the caregivers and representatives has been obtained from the patient. Yes * Community resources currently utilized None * Additional services required to return to the preadmission environment? Yes * Can the patient safely return to the preadmission environment? Yes * Has this patient been hospitalized within the prior 30 days at any hospital? Yes Coverage Notice Reviewer: [id number] - Radha Holguin Notice Issued Date-Time: 09/06/2020 16:41 Notice Type: Patient Choice Letter Notice Delivered To: Family Member Relationship to Patient: Spouse Supervisor Tank Cleaning Name: Negrita Valdez Delivery Method: HAND - Hand Delivered Missy Days: Prior Verbal Notification: Recipient Understood Notice: Yes Recipient Signature: Yes Med Rec Note Co-signed by Attending: Coverage Notice Comment: [facility] for [facility] Last DP export: 10/10/20 1:22 Patient Name: MERNA VALDEZ Page [phone] at 0922 All edits/amendments must be made on the electronic document DICTATION DATE: 09/08/20921 CLOTH ROLL WINDER: STEVIE 09/08/20921 RPT#: [id number] DC DATE: STATUS: ADM IN [facility] [address] [place] [address] END OF REPORT
--- NOTE | 2020-09-08 10:21 | NUR ---
COMPLETE LINEN CHANGE DONE AT THIS TIME AND REPOSITIONED PT IN BED. BEDSIDE RAILS X2, CALL LIGHT IN REACH, NAD NOTED, WILL CONTINUE TO MONITOR.
--- NOTE | 2020-09-08 11:17 | NUR ---
BLOOD SUGAR OF 298, 10UNITS OF INSULIN GIVEN PER S/S. PT DENIES ANY NEEDS AT THIS TIME. AT BEDSIDE, CALL LIGHT IN REACH.
[2020-09-08 11:58] VITALS: BP 93/54
--- NOTE | 2020-09-08 16:14 | NUR ---
PT VERY CONFUSED THINKS THAT HE IS IN [place]. KEEPS ASKING WHY HIS DROVE HOME 3000MILES AND LEFT HIM IN [place]. REORIENTED PT TO PLACE AND SITUATION. 40MEQ OF K GIVEN FOR LOW K OF 3.4. PT DENIES ANY OTHER NEEDS AT THIS TIME. CALL LIGHT IN REACH.
[2020-09-08 17:04] VITALS: BP 92/48
--- NOTE | 2020-09-08 20:00 | NUR ---
INITIAL ROUNDS AND ASSESSMENT COMPLETED. PT RESTING IN BED WITH NO DISTRESS. CALL LIGHT IN REACH. CPOC. HAS NOW SHOWN UP TO VISIT WITH PT. TODAY HE IS VERY SAD/TEARFUL AND KEEPS SAYING HE NEEDS TO TELL HIS HE LOVES HER.
[2020-09-08 20:30] VITALS: BP 98/51
[2020-09-09 00:45] VITALS: BP 95/51
[2020-09-09 04:30] VITALS: BP 117/55
[2020-09-09 05:33] LABS: BASOPHILS 0.1 % (0-2); EOSINOPHILS 1.9 % (0-7); HEMATOCRIT 35.6 % (42.0-54.0); HEMOGLOBIN 11.2 g/dL (13.5-17.5); IMMATURE GRANULOCYTES 0.4 % (0-5); LYMPHOCYTES 18.8 % (15-50); MCHC 31.5 g/dL (31.0-37.0); MCV 98.6 fL (80.0-100.0); MEAN PLATELET VOLUME 9.2 fL (7.4-10.4); MONOCYTES 7.4 % (2-11); NEUTROPHILS 71.4 % (40-80); PLATELET COUNT 314 10x3/uL (130-400); RBC 3.61 10x6/uL (4.20-6.10); RDW 17.2 % (11.5-14.5); WBC 13.3 10x3/uL (4.8-10.8)
[2020-09-09 05:58] LABS: CALC OSMOLALITY 284 mosm/kg (275-300); CALCIUM 8.4 mg/dL (8.5-10.1); CARBON DIOXIDE 29.6 mmol/L (21.0-32.0); CHLORIDE - SERUM 101 mmol/L (98-107); CREATININE - SERUM 0.7 mg/dL (0.6-1.3); GLUCOSE 237 mg/dL (74-106); MAGNESIUM - SERUM 1.9 mg/dL (1.8-2.4); SODIUM 137 mmol/L (136-145); UREA NITROGEN 22 mg/dL (7-18); eGFR NON AFRICAN AMERICAN > 90 mL/min (90-120)
[2020-09-09 09:00] VITALS: BP 124/61
--- NOTE | 2020-09-09 09:08 | NUR ---
AM MEDS GIVEN AT THIS TIME. ALSO PROVIDED PT WITH SHEET AND BLANKET. PT WANTS TO WAIT A LITTLE LONGER TO EAT BREAKFAST, STILL TIRED. WILL CHECK BACK WITH PT IN 30MIN.
--- NOTE | 2020-09-09 12:04 | NUR ---
BLOOD SUGAR OF 283, 10UNITS GIVEN PER S/S. PT RESTING COMFORTABLY IN BED, FIXING TO EAT LUNCH, PT'S AT BEDSIDE.
--- NOTE | 2020-09-09 14:17 | NUR ---
OT NOTE: MAX ASSIST WITH SUPINE TO SIT; EOB SITTING WITH MAX ASSIST X 2; PT EXHIBITED IMPROVED STATIC SITTING BALANCE AND TOLERANCE TODAY. ABLE TO SIT WITH OCCASSIONAL VERBAL AND TACTILE CUES. CONTINUAL CUES TO HOLD HEAD/CHEST UP. MAX ASSIST WITH WT BEARING THROUGH R UE. ENCOURAGED LOOK TO THE L ACTIVITIES. PT AGITATED AT TIMES THROUGHOUT SESSION AND CONTINUAL REPORTS OF PAIN IN L HIP (OF WHICH HE DOES NOT NORMALLY COMPLAIN ABOUT). AT BEDSIDE AND ASSISTS IN ENCOURAGING PT. MARIA L GORE, OTR/L [phone]
--- NOTE | 2020-09-09 15:26 | NUR ---
COMPLETE LINEN CHANGE DONE AT THIS TIME. PT DENIES ANY NEEDS AT THIS TIME. CALL LIGHT IN REACH, PT'S AT BEDSIDE.
--- NOTE | 2020-09-09 18:22 | NUR ---
PT VERY CONFUSED AND AGITATED, SCREAMING AT HIS TO GET A WHEELCHAIR SO SHE CAN TAKE HIM HOME. WENT IN ROOM TO TRY TO CALM PT DOWN AND RE-ORIENT HIM BUT PT KEEPS STATING "I WANT TO GO HOME , SO GET ME A WHEELCHAIR." EXPLAINED TO PT THAT HE IS NOT BEING DISCHARGE TODAY BECAUSE WE ARE STILL WAITING ON COVID RESULTS SO HE CAN GO TO [place] FOR REHAB, BUT PT IS INSISTING THAT HE IS LEAVNIG [place]. GAVE SCHEDULED JESSENIALONOPIN EARLY TO SEE IF PT WILL CALM DOWN.
--- NOTE | 2020-09-09 19:05 | NUR ---
IS PRESENT SEEN TO A FEW NEEDS BED LOW AND LOCKED CALL LIGHT PLACED IN REACH
--- NOTE | 2020-09-09 19:22 | NUR ---
OT NOTE: PT COMPLETED SUPINE TO SIT WITH MAX A X2. PT COMPLETED EOB SITTING WITH MAX-SBA. PT EXHIBITED INCREASED INDEPENDENCE WITH TRUNK STABILITY WITH STATIC SITTING AT EOB. PT COMPLETED WT BEARING THROUGH LUE. PT REQUIRED MAX WITH LUE POSITIONING. PT REQUIRED MAX A X2 FOR SIT TO SUPINE. PT REQUIRED VERBAL REDIRECTION. [phone] THANK YOU,NOREEN SMITH
[2020-09-09 20:00] VITALS: BP 101/47
[2020-09-10] VITALS: BP 98/49
[2020-09-10 04:00] VITALS: BP 102/54
[2020-09-10 06:21] LABS: BASOPHILS 0 % (0-2); EOSINOPHILS 2.4 % (0-7); HEMATOCRIT 33.6 % (42.0-54.0); HEMOGLOBIN 10.6 g/dL (13.5-17.5); IMMATURE GRANULOCYTES 0.2 % (0-5); LYMPHOCYTES 21.4 % (15-50); MCH 30.6 pg (26.0-34.0); MCHC 31.5 g/dL (31.0-37.0); MCV 97.1 fL (80.0-100.0); MEAN PLATELET VOLUME 9.1 fL (7.4-10.4); MONOCYTES 6.3 % (2-11); NEUTROPHILS 69.7 % (40-80); PLATELET COUNT 312 10x3/uL (130-400); RBC 3.46 10x6/uL (4.20-6.10); RDW 16.6 % (11.5-14.5); WBC 12.4 10x3/uL (4.8-10.8)
[2020-09-10 07:02] LABS: ALBUMIN 2.7 g/dL (3.4-5.0); ALKALINE PHOSPHATASE 70 U/L (30-120); ALT (SGPT) 31 U/L (10-68); BILIRUBIN - TOTAL 0.83 mg/dL (0.2-1.3); CALC OSMOLALITY 274 mosm/kg (275-300); CARBON DIOXIDE 28.2 mmol/L (21.0-32.0); CHLORIDE - SERUM 101 mmol/L (98-107); CREATININE - SERUM 0.7 mg/dL (0.6-1.3); POTASSIUM - SERUM 4.2 mmol/L (3.5-5.1); PROTEIN - SERUM 5.6 g/dL (6.4-8.2); SODIUM 133 mmol/L (136-145); UREA NITROGEN 23 mg/dL (7-18); eGFR NON AFRICAN AMERICAN > 90 mL/min (90-120)
[2020-09-10 07:03] LABS: GLUCOSE 182 mg/dL (74-106)
[2020-09-10 09:52] VITALS: BP 119/74
--- NOTE | 2020-09-10 13:46 | NUR ---
Nutrition Follow-up: Nursing reports pt has not been eating much of meals but has been drinking Ensure. Family also bringing food in. ST following. Awaiting placement. Diet: AHA ADA, Mech Soft with Chopped Meats, Ensure TID PO intake: 25% x 3 meals yesterday WT: 232.5# (09/03) Labs noted: Na 133, Glu 182, Ca 8.0, Alb 2.7 Meds noted: Lantus, Miralax, Florajen, Prednisone, Humalog, Protonix, Colace, Megace, electrolyte protocol -Encourage PO intake and honor food preferences within diet restrictions. -Need new wt; noted daily wts ordered. -RD following.
--- NOTE | 2020-09-10 13:52 | MORECARE ---
CASE MANAGEMENT DISCHARGE SUMMARY PATIENT: MERNA VALDEZ UNIT: [id number] ADM DATE: 09/02/20 AGE: 70 : 52 SEX: M ROOM/BED: D.2120 AUTHOR: GEOVANYDOC PHYSICIAN: REFERRING PHYSICIAN: ZAIRA BALLARD MD DATE OF SERVICE: 09/10/20 Discharge Plan Patient Name: MERNA VALDEZ Facility: [facility]:[place] : 1950 Planned Disposition: Care Home Facility Anticipated Discharge Date: 09/10/20 Discharge Date: Expected LOS: 8 Initial Reviewer: [id number] Initial Review Date: 09/06/2020 Generated: 09/10/20 2:52 pm Comments DCP- Discharge Planning Updated by [id number]: Rich Roman on 09/07/20 1:[address] Spoke with spouse of patient. Spouse stated that she has concern regarding present progress of patient. Spouse stated that her concern is that the patient is not getting stronger but is adamant to go home. This CM suggested [facility] IPR and spouse stated that she does not believe that the patient will meet the 3 hr criteria for rehab. Spouse stated that she is aware that coordination is underway for [facility] but would like to further discuss the patient's present motivation for success in a facility that would essentially isolate the patient from family and loved ones. This CM will inform the managing CM of discussion and the spouse's desire for further discourse regarding care options. Home vs Rehab. CM will continue to follow and will assist as needed with dc plans/needs. DCP- Discharge Planning Updated by [id number]: Radha Holguin on 09/06/20 4:[address] CM met with and she chooses [facility]. I spoke with Day and clinical faxed. DCP- Discharge Planning Updated by [id number]: Radha Holguin on 09/06/20 3:[address] Patient Name: MERNA VALDEZ Admission Status: Elective Accout number: [id number] Admission Date: 09-02-2020 : 1950 Admission Diagnosis:CHEST PAIN, UNSPECIFIED Attending: SHAILESH LUNA Current LOS: 4 Anticipated DC Date: Planned Disposition: Care Home Facility Primary Insurance: MEDICARE A & B Discharge Planning Comments: CM met with patient and his to discuss discharge planning. CM educated patient's on CM role and verbal consent given to complete assessment. Patient lives at home with his . He had been in inpatient rehab at [facility] prior to tis admission. CM discussed the availability of SNF and list of SNF given to his . states she is undecided between [facility] and [facility]. She states she will speak with her family about which one to send a referral to. I received an order to assist with a motorized wheelchair. That will need to be addressed prior to leaving rehab. I also informed that if he is able to rehab at the SNF enough to tolerate more aggressive therapy, he can return to an inpatient rehab. CM will continue to follow and assist with discharge planning/needs. Farmworker Fur: Radha Holguin DCPIA - Discharge Planning Initial Assessment Updated by [id number]: Radha Holguin on 09/06/20 4:23 pm * Is the patient Alert and Oriented? Yes * How many steps to enter\exit or inside your home? 0/0 * PCP Dr Veloz * Pharmacy [facility] * Preadmission Environment Acute Inpatient Rehab * Facility Name [facility] * ADLs Partial Dependent * Partial ADLs (Assistance needed) Ambulation Bathing Dressing Medication Management Toileting Transfers * Equipment None * List name and contact numbers for known caregivers / representatives who currently or will assist patient after discharge: Negrita Valdez - [phone] * Verbal permission to speak to the caregivers and representatives has been obtained from the patient. Yes * Community resources currently utilized None * Additional services required to return to the preadmission environment? Yes * Can the patient safely return to the preadmission environment? Yes * Has this patient been hospitalized within the prior 30 days at any hospital? Yes Coverage Notice Reviewer: [id number] - Radha Holguin Notice Issued Date-Time: 09/06/2020 16:41 Notice Type: Patient Choice Letter Notice Delivered To: Family Member Relationship to Patient: Spouse Chief Guard Name: Negrita Valdez Delivery Method: HAND - Hand Delivered Missy Days: Prior Verbal Notification: Recipient Understood Notice: Yes Recipient Signature: Yes Med Rec Note Co-signed by Attending: Coverage Notice Comment: SABAS for [facility] Reviewer: [id number] Rianna Walker Notice Issued Date-Time: 09/10/2020 12:38 Notice Type: IM Discharge Notice Notice Delivered To: Family Member Relationship to Patient: Spouse Chief Guard Name: Negrita Valdez Delivery Method: HAND - Hand Delivered Missy Days: Prior Verbal Notification: Recipient Understood Notice: Yes Recipient Signature: Yes Med Rec Note Co-signed by Attending: Coverage Notice Comment: CHAPMAN signed by , Negrita. Last DP export: 09/08/20 8:22 Patient Name: MERNA VALDEZ Page [phone] at 1352 All edits/amendments must be made on the electronic document DICTATION DATE: 09/10/20 1352 RENTAL CLERK TOOL AND EQUIPMENT: STEVIE 09/10/20 1352 RPT#: [id number] DC DATE: STATUS: ADM IN [facility] [address] [place] [address] END OF REPORT
--- NOTE | 2020-09-10 14:03 | MORECARE ---
CASE MANAGEMENT DISCHARGE SUMMARY PATIENT: EMRNA VALDEZ UNIT: [id number] ADM DATE: 09/02/20 AGE: 70 : 52 SEX: M ROOM/BED: D.9940 AUTHOR: GEOVANY,DOC PHYSICIAN: REFERRING PHYSICIAN: ZAIRA BALLARD MD DATE OF SERVICE: 09/10/20 Discharge Plan Patient Name: MERNA VALDEZ Facility: [facility]:[place] : 1950 Planned Disposition: Residential Facility Anticipated Discharge Date: 09/10/20 Discharge Date: Expected LOS: 8 Initial Reviewer: [email or web address] Initial Review Date: 09/06/2020 Generated: 09/10/20 3:02 pm Comments DCP- Discharge Planning Updated by [id number]: Sheri Walker on 09/10/20 12:[address] CM has been in contact with [facility] ([facility]) several times this morning regarding dc today plans. Per [facility], the patient is accepted into a Skilled bed. He will transport via ambulance, due to difficulty maintaining upright position. Contacted Alayna Mares APN, regarding same, contacted Dr. Mckeon and he is in agreement to discharge. CM spoke with Mrs. Valdez regarding above and she is in agreement to same. DCP- Discharge Planning Updated by [id number]: Rich Roman on 09/07/20 1:[address] Spoke with spouse of patient. Spouse stated that she has concern regarding present progress of patient. Spouse stated that her concern is that the patient is not getting stronger but is adamant to go home. This CM suggested [facility] IPR and spouse stated that she does not believe that the patient will meet the 3 hr criteria for rehab. Spouse stated that she is aware that coordination is underway for [facility] but would like to further discuss the patient's present motivation for success in a facility that would essentially isolate the patient from family and loved ones. This CM will inform the managing CM of discussion and the spouse's desire for further discourse regarding care options. Home vs Rehab. CM will continue to follow and will assist as needed with dc plans/needs. DCP- Discharge Planning Updated by [id number]: Radha Holguin on 09/06/20 4:[address] CM met with and she chooses [facility]. I spoke with Day and clinical faxed. DCP- Discharge Planning Updated by [email or web address]: Radha Holguin on 09/06/20 3:[address] Patient Name: MERNA VALDEZ Admission Status: Elective Accout number: [id number] Admission Date: 09-02-2020 : 1950 Admission Diagnosis:CHEST PAIN, UNSPECIFIED Attending: SHAILESH LUNA Current LOS: 4 Anticipated DC Date: Planned Disposition: Residential Facility Primary Insurance: MEDICARE A & B Discharge Planning Comments: CM met with patient and his to discuss discharge planning. CM educated patient's on CM role and verbal consent given to complete assessment. Patient lives at home with his . He had been in inpatient rehab at [facility] prior to tis admission. CM discussed the availability of SNF and list of SNF given to his . states she is un[facility] [place]. She states she will speak with her family about which one to send a referral to. I received an order to assist with a motorized wheelchair. That will need to be addressed prior to leaving rehab. I also informed that if he is able to rehab at the SNF enough to tolerate more aggressive therapy, he can return to an inpatient rehab. CM will continue to follow and assist with discharge planning/needs. Marketing Admin: Radha Holguin DCPIA - Discharge Planning Initial Assessment Updated by [email or web address]: Radha Holguin on 09/06/20 4:23 pm * Is the patient Alert and Oriented? Yes * How many steps to enter\exit or inside your home? 0/0 * PCP Dr Veloz * [facility] * Preadmission Environment Acute Inpatient Rehab * Facility Name [facility] * ADLs Partial Dependent * Partial ADLs (Assistance needed) Ambulation Bathing Dressing Medication Management Toileting Transfers * Equipment None * List name and contact numbers for known caregivers / representatives who currently or will assist patient after discharge: Negrita Valdez - [phone] * Verbal permission to speak to the caregivers and representatives has been obtained from the patient. Yes * Community resources currently utilized None * Additional services required to return to the preadmission environment? Yes * Can the patient safely return to the preadmission environment? Yes * Has this patient been hospitalized within the prior 30 days at any hospital? Yes Coverage Notice Reviewer: [id number] - Radha Holguin Notice Issued Date-Time: 09/06/2020 16:41 Notice Type: Patient Choice Letter Notice Delivered To: Family Member Relationship to Patient: Spouse Rehab Tech Name: Negrita Valdez Delivery Method: HAND - Hand Delivered Missy Days: Prior Verbal Notification: Recipient Understood Notice: Yes Recipient Signature: Yes Med Rec Note Co-signed by Attending: Coverage Notice Comment: [facility] for [facility] Reviewer: [id number] Rianna Walker Notice Issued Date-Time: 09/10/2020 12:38 Notice Type: IM Discharge Notice Notice Delivered To: Family Member Relationship to Patient: Spouse Rehab Tech Name: Negrita Valdez Delivery Method: HAND - Hand Delivered Missy Days: Prior Verbal Notification: Recipient Understood Notice: Yes Recipient Signature: Yes Med Rec Note Co-signed by Attending: Coverage Notice Comment: ADELA signed by , Negrita. Last DP export: 09/10/20 12:52 Patient Name: MERNA VALDEZ Page [phone] at 1403 All edits/amendments must be made on the electronic document DICTATION DATE: 09/10/20 1401 MOLDER SWEEP: STEVIE 09/10/20 1401 RPT#: [id number] DC DATE: STATUS: ADM IN [facility] [address] [place] [address] END OF REPORT
[2020-09-10] MEDS ORDERED: IPRAT-ALBUT 0.5-3 ML INH (14:14)
[2020-09-10] MEDS ORDERED: ELIQUIS5 MG PO (14:14)
[2020-09-10] MEDS ORDERED: NICODERM CQ1 EAC3 TRANSDERM (14:14)
[2020-09-10] MEDS ORDERED: FLORAJEN3 CAPS460 MG PO (14:15)
[2020-09-10] MEDS ORDERED: PULMICORT0.5 MG/21 UPD (14:15)
[2020-09-10] MEDS ORDERED: COLACE100 MG PO (14:15)
[2020-09-10] MEDS ORDERED: MIRALAX17 GM PO (14:16)
[2020-09-10] MEDS ORDERED: PROTONIX40 MG PO (14:16)
[2020-09-10] MEDS ORDERED: LANTUS INS100 UNITS/ SC (14:17)
[2020-09-10] MEDS ORDERED: MEGACE400 MG/10 PO (14:18)
[2020-09-10] MEDS ORDERED: PREDNISONE20 MG PO (14:18)
[2020-09-10] MEDS ORDERED: MELATONIN 3 MG1 TAB PO (14:19)
[2020-09-10] MEDS ORDERED: LIDODERM 5 %1 PATCH TRANSDERM (14:19)
[2020-09-10] MEDS ORDERED: HUMALOG 30100 UNITS/ SC (14:20)
[2020-09-10] MEDS ORDERED: KLONOPIN0.5 MG PO (14:20)
--- NOTE | 2020-09-10 14:40 | NUR ---
OT NOTE: PT PERFORMED WELL; BED MOB WITH MAX ASSIST FOR SUPINE TO SIT; PRACTICED ROLLING FROM SIDE TO SIDE WITH MOD ASSIST TO L SIDE AND MAX ASSIST TO R SIDE. EXTENSIVE WORK ON SITTING BALANCE AND TRUNK STRENGTHENING ACT. PT WAS ABLE TO WASH FACE AND BRUSH HIS HAIR TODAY. WT BEARING TASKS WITH Celestine DORAN/LARA GORE, OTR/L [phone]
--- NOTE | 2020-09-10 14:58 | MORECARE ---
CASE MANAGEMENT DISCHARGE SUMMARY PATIENT: MERNA VALDEZ UNIT: [id number] ADM DATE: 09/02/20 AGE: 70 : 52 SEX: M ROOM/BED: D.6020 AUTHOR: GEOVANY,DOC PHYSICIAN: REFERRING PHYSICIAN: ZAIRA BALLARD MD DATE OF SERVICE: 09/10/20 Discharge Plan Patient Name: MERNA VALDEZ Facility: [facility]:[place] : 1950 Planned Disposition: Longterm Facility Anticipated Discharge Date: 09/10/20 Discharge Date: Expected LOS: 8 Initial Reviewer: [id number] Initial Review Date: 09/06/2020 Generated: 09/10/20 3:58 pm Comments DCP- Discharge Planning Updated by [id number]: Sheri Walker on 09/10/20 1:[address] Faxed DC order to [facility]. Spoke with and made her aware the patient will DC via ambulance today. CM has been in contact with [facility] ([facility]) several times this morning regarding dc today plans. Per [facility], the patient is accepted into a Skilled bed. He will transport via ambulance, due to difficulty maintaining upright position. Contacted Alayna Mares APN, regarding same, contacted Dr. Mckeon and he is in agreement to discharge. CM spoke with Mrs. Valdez regarding above and she is in agreement to same. DCP- Discharge Planning Updated by [id number]: Rich Roman on 09/07/20 1:[address] Spoke with spouse of patient. Spouse stated that she has concern regarding present progress of patient. Spouse stated that her concern is that the patient is not getting stronger but is adamant to go home. This CM suggested [facility] IPR and spouse stated that she does not believe that the patient will meet the 3 hr criteria for rehab. Spouse stated that she is aware that coordination is underway for [facility] but would like to further discuss the patient's present motivation for success in a facility that would essentially isolate the patient from family and loved ones. This CM will inform the managing CM of discussion and the spouse's desire for further discourse regarding care options. Home vs Rehab. CM will continue to follow and will assist as needed with dc plans/needs. DCP- Discharge Planning Updated by [id number]: Radha Holguin on 09/06/20 4:[address] CM met with and she chooses [facility]. I spoke with Day and clinical faxed. DCP- Discharge Planning Updated by [id number]: Radha Holguin on 09/06/20 3:[address] Patient Name: MERNA VALDEZ Admission Status: Elective Accout number: [id number] Admission Date: 09-02-2020 : 1950 Admission Diagnosis:CHEST PAIN, UNSPECIFIED Attending: SHAILESH LUNA Current LOS: 4 Anticipated DC Date: Planned Disposition: Longterm Facility Primary Insurance: MEDICARE A & B Discharge Planning Comments: CM met with patient and his to discuss discharge planning. CM educated patient's on CM role and verbal consent given to complete assessment. Patient lives at home with his . He had been in inpatient rehab at [facility] prior to tis admission. CM discussed the availability of SNF and list of SNF given to his . states she is un[facility]. She states she will speak with her family about which one to send a referral to. I received an order to assist with a motorized wheelchair. That will need to be addressed prior to leaving rehab. I also informed that if he is able to rehab at the SNF enough to tolerate more aggressive therapy, he can return to an inpatient rehab. CM will continue to follow and assist with discharge planning/needs. Certified Ophthalmic Assistant: Radha Holguin DCPIA - Discharge Planning Initial Assessment Updated by [id number]: Radha Holguin on 09/06/20 4:23 pm * Is the patient Alert and Oriented? Yes * How many steps to enter\exit or inside your home? 0/0 * PCP Dr Veloz * Pharmacy [facility] * Preadmission Environment Acute Inpatient Rehab * Facility Name [facility] * ADLs Partial Dependent * Partial ADLs (Assistance needed) Ambulation Bathing Dressing Medication Management Toileting Transfers * Equipment None * List name and contact numbers for known caregivers / representatives who currently or will assist patient after discharge: Negrita Valdez - [phone] * Verbal permission to speak to the caregivers and representatives has been obtained from the patient. Yes * Community resources currently utilized None * Additional services required to return to the preadmission environment? Yes * Can the patient safely return to the preadmission environment? Yes * Has this patient been hospitalized within the prior 30 days at any hospital? Yes Coverage Notice Reviewer: [id number] - Radha Holguin Notice Issued Date-Time: 09/06/2020 16:41 Notice Type: Patient Choice Letter Notice Delivered To: Family Member Relationship to Patient: Spouse Impregnator Name: Negrita Valdez Delivery Method: HAND - Hand Delivered Missy Days: Prior Verbal Notification: Recipient Understood Notice: Yes Recipient Signature: Yes Med Rec Note Co-signed by Attending: Coverage Notice Comment: SABAS for [facility] Reviewer: [id number] - Sheri Walker Notice Issued Date-Time: 09/10/2020 12:38 Notice Type: IM Discharge Notice Notice Delivered To: Family Member Relationship to Patient: Spouse Impregnator Name: Negrita Valdez Delivery Method: HAND - Hand Delivered Missy Days: Prior Verbal Notification: Recipient Understood Notice: Yes Recipient Signature: Yes Med Rec Note Co-signed by Attending: Coverage Notice Comment: ADELA signed by , Negrita. Last DP export: 09/10/20 1:02 Patient Name: MERNA VALDEZ Page [phone] at 1458 All edits/amendments must be made on the electronic document DICTATION DATE: 09/10/201457 PLANNING ENGINEER: STEVIE 09/10/201457 RPT#: [id number] DC DATE: STATUS: ADM IN [facility] [address] [place] [address] END OF REPORT
--- NOTE | 2020-09-10 16:37 | NUR ---
PT DISCHARGED TO [facility]. VIA STRETCHER AND EMS. PIV REMOVED WITH CATHETER TIP FULLY INTACT. PT SIGNED PROPER DISCHARGE INSTRUCTIONS AND REMOVED ALL VALUABLES FROM THE ROOM. TELEMETRY REMOVED AND RETURNED. GATES LEFT IN PLACE AND INSTRUCTED TO REMOVE ONCE ARRIVED.
--- NOTE | 2020-09-10 17:20 | NUR ---
OT NOTE: PT COMPLETED BED MOB TASKS WITH MAX X2. PT COMPLETED SUPINE TO SIT WITH MAX X2. PT COMPLETED EOB SITTING BALANCE WITH SBA-MIN A. PT FUNCTIONAL PERFORMANCE IS INCONSISTENT. HOWEVER, PT EXHIBITED ABILITY TO MAINTAIN STATIC SIITING BALANCE WITH SBA/CGA AT TIMES. PT COMPLETED LUE WT BEARING WHILE SITTING AT EOB. PT REQUIRED TOTAL A FOR CORRECT POSITIONING. PT COMPLETED FUNCTIONAL TASK OF HAIR BRUSHING WITH RUE WHILE SITTING EOB WITH CGA-MIN A. [id number] THANK YOU,NOREEN SMITH
--- NOTE | 2020-09-11 09:08 | MORECARE ---
CASE MANAGEMENT DISCHARGE SUMMARY PATIENT: MERNA VALDEZ UNIT: [id number] ADM DATE: 09/02/20 AGE: 70 : 52 SEX: M ROOM/BED: D.7850 AUTHOR: GEOVANY,DOC PHYSICIAN: REFERRING PHYSICIAN: ZAIRA BALLARD MD DATE OF SERVICE: 09/11/20 Discharge Plan Patient Name: MERNA VALDEZ Facility: [facility]:[place] : 1950 Planned Disposition: Long-Term Facility Anticipated Discharge Date: 09/10/20 Discharge Date: 09/10/2020 Expected LOS: 8 Initial Reviewer: [id number] Initial Review Date: 09/06/2020 Generated: 09/11/20 10:08 am Comments DCP- Discharge Planning Updated by [id number]: Shrei Walker on 09/10/20 1:[address] Faxed DC order to [facility]. Spoke with and made her aware the patient will DC via ambulance today. CM has been in contact with Adia ([facility]) several times this morning regarding dc today plans. Per [facility], the patient is accepted into a Skilled bed. He will transport via ambulance, due to difficulty maintaining upright position. Contacted Alayna Mares APN, regarding same, contacted Dr. Mckeon and he is in agreement to discharge. CM spoke with Mrs. Valdez regarding above and she is in agreement to same. DCP- Discharge Planning Updated by [id number]: Rich Roman on 09/07/20 1:[address] Spoke with spouse of patient. Spouse stated that she has concern regarding present progress of patient. Spouse stated that her concern is that the patient is not getting stronger but is adamant to go home. This CM suggested NP IPR and spouse stated that she does not believe that the patient will meet the 3 hr criteria for rehab. Spouse stated that she is aware that [facility] is [facility] but would like to further discuss the patient's present motivation for success in a facility that would essentially isolate the patient from family and loved ones. This CM will inform the managing CM of discussion and the spouse's desire for further discourse regarding care options. Home vs Rehab. CM will continue to follow and will assist as needed with dc plans/needs. DCP- Discharge Planning Updated by [email or web address]: Radha Holguin on 09/06/20 4:[address] CM met with and she chooses [facility]. I spoke with Day and clinical faxed. DCP- Discharge Planning Updated by [id number]: Radha Holguin on 09/06/20 3:[address] Patient Name: MERNA VALDEZ Admission Status: Elective Accout number: [id number] Admission Date: 09-02-2020 : 1950 Admission Diagnosis:CHEST PAIN, UNSPECIFIED Attending: SHAILESH LUNA Current LOS: 4 Anticipated DC Date: Planned Disposition: Long-Term Facility Primary Insurance: MEDICARE A & B Discharge Planning Comments: CM met with patient and his to discuss discharge planning. CM educated patient's on CM role and verbal consent given to complete assessment. Patient lives at home with his . He had been in inpatient rehab at [facility] prior to tis admission. CM discussed the availability of SNF and list of SNF given to his . states she is un[facility] [place] [facility]. She states she will speak with her family about which one to send a referral to. I received an order to assist with a motorized wheelchair. That will need to be addressed prior to leaving rehab. I also informed that if he is able to rehab at the SNF enough to tolerate more aggressive therapy, he can return to an inpatient rehab. CM will continue to follow and assist with discharge planning/needs. Assembler: Radha Holguin DCPIA - Discharge Planning Initial Assessment Updated by [id number]: Radha Holguin on 09/06/20 4:23 pm * Is the patient Alert and Oriented? Yes * How many steps to enter\exit or inside your home? 0/0 * PCP Dr Veloz * [facility]acy [facility] * Preadmission Environment Acute Inpatient Rehab * Facility Name [facility] * ADLs Partial Dependent * Partial ADLs (Assistance needed) Ambulation Bathing Dressing Medication Management Toileting Transfers * Equipment None * List name and contact numbers for known caregivers / representatives who currently or will assist patient after discharge: Negrita Valdez - [phone] * Verbal permission to speak to the caregivers and representatives has been obtained from the patient. Yes * Community resources currently utilized None * Additional services required to return to the preadmission environment? Yes * Can the patient safely return to the preadmission environment? Yes * Has this patient been hospitalized within the prior 30 days at any hospital? Yes Coverage Notice Reviewer: [id number] - Radha Holguin Notice Issued Date-Time: 09/06/2020 16:41 Notice Type: Patient Choice Letter Notice Delivered To: Family Member Relationship to Patient: Spouse Adjunct Mathematics Instructor Name: Negrita Valdez Delivery Method: HAND - Hand Delivered Missy Days: Prior Verbal Notification: Recipient Understood Notice: Yes Recipient Signature: Yes Med Rec Note Co-signed by Attending: Coverage Notice Comment: [facility] Reviewer: [id number] Rianna Walker Notice Issued Date-Time: 09/10/2020 12:38 Notice Type: IM Discharge Notice Notice Delivered To: Family Member Relationship to Patient: Spouse Adjunct Mathematics Instructor Name: Negrita Valdez Delivery Method: HAND - Hand Delivered Missy Days: Prior Verbal Notification: Recipient Understood Notice: Yes Recipient Signature: Yes Med Rec Note Co-signed by Attending: Coverage Notice Comment: ADELA signed by , Negrita. Last DP export: 09/10/20 1:58 Patient Name: MERNA VALDEZ Page [id number] at 0908 All edits/amendments must be made on the electronic document DICTATION DATE: 09/11/20907 PREPARATION PLANT SUPERVISOR: STEVIE 09/11/20907 RPT#: [id number] DC DATE:09/10/20 STATUS: DIS IN [facility] [address] [place] [address] END OF REPORT
== END 2020-09-10 16:38 | DRG 811 ==
LOC: D.M2 20:20 → D.CVICU 20:20 → D.M2 09-03 16:55
PROVIDERS: Family Medicine; ADMIT Family Medicine; ATTEND Family Medicine
DX: D64.9 Anemia, unspecified (principal); I21.A1 Myocardial infarction type 2; I63.411 Cerebral infarction due to embolism of right middle cerebral artery; I25.110 Atherosclerotic heart disease of native coronary artery with unstable angina pectoris; E87.1 Hypo-osmolality and hyponatremia; J96.12 Chronic respiratory failure with hypercapnia; J96.11 Chronic respiratory failure with hypoxia; I69.354 Hemiplegia and hemiparesis following cerebral infarction affecting left non-dominant side; K21.9 Gastro-esophageal reflux disease without esophagitis; E11.51 Type 2 diabetes mellitus with diabetic peripheral angiopathy without gangrene; E78.5 Hyperlipidemia, unspecified; I10 Essential (primary) hypertension; J44.9 Chronic obstructive pulmonary disease, unspecified; E11.40 Type 2 diabetes mellitus with diabetic neuropathy, unspecified; I65.21 Occlusion and stenosis of right carotid artery; Z72.0 Tobacco use

== ENCOUNTER 2021-04-08 03:36 | Emergency (ER) | payer MEDICARE, BC ==
[~2021-04-08] VITALS: Ht 185.4 cm; Wt 83.6 kg
[~2021-04-08 03:36] MED LIST changes: +ELIQUIS5 MG PO; +FLORAJEN3 CAPS460 MG PO; +IPRAT-ALBUT 0.5-3 ML INH; +KLONOPIN0.5 MG PO; +LIDODERM 5 %1 PATCH TRANSDERM; +MEGACE400 MG/10 PO; +MELATONIN 3 MG1 TAB PO; +NICODERM CQ1 EAC3 TRANSDERM; +PREDNISONE20 MG PO; +PROTONIX40 MG PO; +PULMICORT0.5 MG/21 UPD
[2021-04-08 03:44] VITALS: BP 137/97; Ht 185.4 cm; Wt 83.6 kg
== END 2021-04-08 05:50 ==
LOC: D.ER 03:36
DX: I46.9 Cardiac arrest, cause unspecified (principal); E11.9 Type 2 diabetes mellitus without complications; Z86.73 Personal history of transient ischemic attack (TIA), and cerebral infarction without residual deficits; I10 Essential (primary) hypertension; J44.9 Chronic obstructive pulmonary disease, unspecified; Z99.81 Dependence on supplemental oxygen; K21.9 Gastro-esophageal reflux disease without esophagitis; Z79.4 Long term (current) use of insulin; R06.02 Shortness of breath